=== PATIENT | female | born 1960 | race Caucasian/White ===

== ENCOUNTER 2016-05-09 15:52 | Observation (INO) | payer MEDICAID ==
[2016-05-08] MEDS: INSULIN NovoLIN REGULAR SUPPLEMENTAL SCALE SQ SCH (21:00)
[~2016-05-09] VITALS: Ht 152.4 cm; Wt 80.0 kg
[~2016-05-09 15:52] MED LIST: ASPI-147 PO; DIABETIC; LEVEMIR SQ; MAGN500T4 PO; PAXI20TA PO; POTA20TA5 PO; QUET1TAB8 PO; ZOLO50TA PO; [UNRECOGNIZED DRUG - REMARK]
[2016-05-09 15:56] VITALS: BP 110/71; PULSE 97; RESP 18; O2SAT 95
--- NOTE | 2016-05-09 16:07 | PD ---
HPI Chief Complaint: altered mental status Time Seen by Provider: 16:00 Travel History International Travel<30 days: No Contact w/Intl Traveler<30days: No Traveled to known affect area: No History of Present Illness HPI Middle aged patient was sitting at home in a chair with family member when she sudden slumped over and her face turned dusky. EMS was called. GCS score at the scene was 3. Patient had a pulse and blood pressure at that time. Patient was given oxygen and transported to the ED. Stroke alert was called by EMS prior to arrival. Upon arrival, patient has moaning and groaning and moves all extremity. Patient's unable to provide any information. Family members reported to EMS at the scene that patient has history of seizure. 1700 p.m. Patient's came. Patient originally states that she has history of seizure however she reinstated again that she does not have any history of seizure. Patient has history of anxiety, depression, atrial fibrillation, dyslipidemia, GERD, diabetes, neuropathy, hypothyroidism. Patient was witnessed having seizure activity by family member at home. [facility] Social History Tobacco Use: No Allergies-Medications (Allergen,Severity, Reaction): Coded Allergies: UNOBTAINABLE (Unverified , 05/09/16) Reported Meds & Prescriptions Reported Meds & Active Scripts Active Reported Humalog Inj (Insulin Human Lispro) 1,000 Unit/10 Ml Vial 32 Units SQ TIDAC Flexeril (Cyclobenzaprine HCl) 10 Mg Tab 10 Mg PO BID Bydureon Inj (Exenatide) 2 Mg Vial 2 Mg SQ Q7D Fenofibrate 145 Mg Tab 145 Mg PO HS Atorvastatin (Atorvastatin Calcium) 40 Mg Tab 40 Mg PO HS Levothyroxine (Levothyroxine Sodium) 75 Mcg Tab 75 Mcg PO DAILY Glipizide 10 Mg Tab 10 Mg PO BIDAC Take 30 minutes before a meal Paroxetine (Paroxetine HCl) 40 Mg Tab 40 Mg PO BID Quetiapine (Quetiapine Fumarate) 100 Mg Tab 100 Mg PO HS Potassium Chloride Microencaps 20 Meq Tab 40 Meq PO DAILY Magnesium 500 Mg Tab 500 Mg PO DAILY Levemir Inj (Insulin Detemir) 1,000 unit/ 10 ML Vial 25 Units SQ HS Do not mix with any other Insulin. Aspirin DR (Aspirin) 81 Mg Tabdr 81 Mg PO DAILY Review of Systems ROS Limitations: Altered Mental Status General / Constitutional: No: Fever Eyes: No: Visual changes HENT: No: Headaches Cardiovascular: No: Chest Pain or Discomfort Respiratory: No: Shortness of Breath Gastrointestinal: No: Abdominal Pain Genitourinary: No: Dysuria Musculoskeletal: No: Pain Skin: No Rash Neurologic: No: Weakness Psychiatric: No: Depression Endocrine: No: Polydipsia Hematologic/Lymphatic: No: Easy Bruising Physical Exam Narrative GENERAL: Well-nourished, well-developed patient. SKIN: Warm and dry. HEAD: Normocephalic. EYES: No scleral icterus. No injection or drainage. Pupil 4 mm equal reactive. NECK: Supple, trachea midline. No JVD or lymphadenopathy. CARDIOVASCULAR: Regular rate and rhythm without murmurs, gallops, or rubs. RESPIRATORY: Breath sounds equal bilaterally. No accessory muscle use. GASTROINTESTINAL: Abdomen soft, non-tender, nondistended. MUSCULOSKELETAL: No cyanosis, or edema. BACK: Nontender without obvious deformity. No CVA tenderness. Neurologic exam: Patient responded to pain stimuli. Patient has occasional moaning groaning and moves all extremity. No obvious focal neurological deficit. Deep tendon reflexes 2+ and equal. Negative Babinski. Data Data Last Documented VS Vital Signs Date Time Temp Pulse Resp B/P Pulse Ox O2 Delivery O2 Flow Rate FiO2 05/09/16 16:59 97 Nasal Cannula 2 05/09/16 16:59 104 18 99/59 Orders Electrocardiogram (05/09/16 16:01) Complete Blood Count With Diff (05/09/16 16:01) Comprehensive Metabolic Panel (05/09/16 16:01) Creatine Kinase (Cpk) (05/09/16 16:01) Troponin I (05/09/16 16:01) Prothrombin Time / Inr (Pt) (05/09/16 16:01) Act Partial Throm Time (Ptt) (05/09/16 16:01) Urinalysis - C+S If Indicated (05/09/16 16:01) Magnesium (Mg) (05/09/16 16:01) Thyroid Stimulating Hormone (05/09/16 16:01) Phosphorus (Po4) (05/09/16 16:01) Chest, Single Ap (05/09/16 16:01) Ct Brain W/O Iv Contrast(Rout) (05/09/16 16:01) Iv Access Insert/Monitor (3/16/17 16:01) Ecg Monitoring (05/09/16 16:01) Oximetry (05/09/16 16:01) Urinary Catheter Insert/Apply (05/09/16 16:01) Drug Screen, Random Urine (05/09/16 16:01) Alcohol (Ethanol) (05/09/16 16:01) Salicylates (Aspirin) (05/09/16 16:01) Tylenol (Acetaminophen) (05/09/16 16:01) Sodium Chlor 0.9% 1000 Ml Inj (Ns 1000 M (05/09/16 16:15) I-Stat Creatinine (05/09/16 16:00) I-Stat Profile (05/09/16 16:00) Ondansetron Inj (Zofran Inj) (05/09/16 16:45) CKMB (05/09/16 16:00) CKMB% (05/09/16 16:00) Eeg Study (05/09/16 ) Consult Neurology (05/09/16 ) Admit Order (Ed Use Only) (05/09/16 17:43) Labs Laboratory Tests Test 05/09/16 05/09/16 16:00 16:20 White Blood Count 18.2 TH/MM3 Red Blood Count 5.03 MIL/MM3 Hemoglobin 15.1 GM/DL Bedside Hemoglobin 16.0 G/DL Hematocrit 47.2 % Bedside Hematocrit 47.0 % Mean Corpuscular Volume 93.8 FL Mean Corpuscular Hemoglobin 30.0 PG Mean Corpuscular Hemoglobin 31.9 % Concent Red Cell Distribution Width 15.9 % Platelet Count 436 TH/MM3 Mean Platelet Volume 8.6 FL Neutrophils (%) (Auto) 51.5 % Lymphocytes (%) (Auto) 42.4 % Monocytes (%) (Auto) 4.7 % Eosinophils (%) (Auto) 1.0 % Basophils (%) (Auto) 0.4 % Neutrophils # (Auto) 9.3 TH/MM3 Lymphocytes # (Auto) 7.7 TH/MM3 Monocytes # (Auto) 0.9 TH/MM3 Eosinophils # (Auto) 0.2 TH/MM3 Basophils # (Auto) 0.1 TH/MM3 CBC Comment AUTO DIFF Differential Total Cells 100 Counted Neutrophils % (Manual) 56 % Band Neutrophils % 1 % Lymphocytes % 39 % Monocytes % 3 % Basophils % 1 % Neutrophils # (Manual) 10.4 TH/MM3 Differential Comment FINAL DIFF MANUAL Platelet Estimate NORMAL Platelet Morphology Comment NORMAL Erythrocyte Sedimentation Rate 7 mm/hr Prothrombin Time 10.9 SEC Prothromb Time International 1.0 RATIO Ratio Activated Partial 23.3 SEC Thromboplast Time Bedside Sodium 134 MMOL/L Sodium Level 134 MEQ/L Bedside Potassium 5.6 MMOL/L Potassium Level 5.3 MEQ/L Bedside Chloride 103 MMOL/L Chloride Level 99 MEQ/L Carbon Dioxide Level 11.9 MEQ/L Anion Gap 23 MEQ/L Bedside Blood Urea Nitrogen 15 MG/DL Blood Urea Nitrogen 11 MG/DL Creatinine 1.43 MG/DL Bedside Creatinine 0.9 MG/DL Estimat Glomerular Filtration 32 ML/MIN Rate Bedside Glucose 412 MG/DL Random Glucose 397 MG/DL Calcium Level 10.1 MG/DL Phosphorus Level 5.6 MG/DL Magnesium Level 1.5 MG/DL Total Bilirubin 0.6 MG/DL Aspartate Amino Transf 69 U/L (AST/SGOT) Alanine Aminotransferase 23 U/L (ALT/SGPT) Alkaline Phosphatase 78 U/L Total Creatine Kinase 268 U/L Creatine Kinase MB 1.6 NG/ML Creatine Kinase MB % 0.6 % Troponin I 0.02 NG/ML Total Protein 8.9 GM/DL Albumin 3.5 GM/DL Thyroid Stimulating Hormone 10.400 uIU/ML 3rd Gen Salicylates Level 2.0 MG/DL Acetaminophen Level LESS THAN 2.0 MCG/ML Ethyl Alcohol Level LESS THAN 3 MG/DL Urine Color YELLOW Urine Turbidity HAZY Urine pH 7.5 Urine Specific [place] 1.014 Urine Protein 30 mg/dL Urine Glucose (UA) 150 mg/dL Urine Ketones TRACE mg/dL Urine Occult Blood NEG Urine Nitrite NEG Urine Bilirubin NEG Urine Urobilinogen LESS THAN 2.0 MG/DL Urine Leukocyte Esterase NEG Urine RBC LESS THAN 1 /hpf Urine WBC 1 /hpf Urine Squamous Epithelial 1 /hpf Cells Urine Hyaline Casts 2 /lpf Urine Mucus FEW /lpf Microscopic Urinalysis Comment CULT NOT INDICATED Urine Opiates Screen NEG Urine Barbiturates Screen NEG Urine Amphetamines Screen NEG Urine Benzodiazepines Screen NEG Urine Cocaine Screen NEG Urine Cannabinoids Screen POS MDM Medical Decision Making Medical Screen Exam Complete: Yes Emergency Medical Condition: Yes Interpretation(s) Last Impressions Head CT 05/09/16 1601 Signed Impressions: Service Date/Time: April 16:33 - CONCLUSION: No acute disease. No evidence of acute infarct, hemorrhage, mass or edema. No evidence of extra-axial fluid collections. Hermelindo Segura MD Chest X-Ray 05/09/16 1601 Signed Impressions: Service Date/Time: , May 09, 2016 16:14 - CONCLUSION: No acute disease. Edi Borges MD Differential Diagnosis Differential diagnosis including seizure, TIA, CVA, electrolyte abnormality, dehydration, substance abuse. Narrative Course Middle aged female was found slumping over was sitting in a chair this afternoon. Normal saline solution [address] De León, neurologist came to see the patient. Diagnosis Primary Impression: Seizure Admitting Information Admitting Physician Requests: Admit Andrade Daley MD May 09, 2016 16:07
[2016-05-09] MEDS ORDERED: SODIUM CHLOR 0.9% 1000 ML INJ 1,000 ML IV SCH (16:15)
[2016-05-09 16:24] LABS: I-STAT POTASSIUM 5.6 MMOL/L (3.5-4.9)
[2016-05-09 16:37] LABS: APTT (PATIENT) 23.3 SEC (24.3-30.1); PROTHROMBIN TIME - PATIENT 10.9 SEC (9.8-11.6)
[2016-05-09] MEDS ORDERED: ONDANSETRON HCL 4 MG/2 ML VIAL IV PUSH ONE (16:45)
[2016-05-09 16:46] LABS: ANION GAP 23 MEQ/L (5-15); AST (GOT) 69 U/L (15-37); BICARBONATE 11.9 MEQ/L (21.0-32.0); BLOOD UREA NITROGEN 11 MG/DL (7-18); CHLORIDE 99 MEQ/L (98-107); GLOMERULAR FILTRATION RATE 32 ML/MIN (>89); MAGNESIUM 1.5 MG/DL (1.5-2.5); POTASSIUM 5.3 MEQ/L (3.5-5.1); SODIUM (NA) 134 MEQ/L (136-145)
--- NOTE | 2016-05-09 16:46 | RADRPT ---
EXAM DATE/TIME: 05/09/2016 16:33 [facility] COMPARISON: No previous studies available for comparison. INDICATIONS : Altered mental status; status-post seizure; postictal. RADIATION DOSE: 36.26 CTDIvol (mGy) MEDICAL HISTORY : Seizures. SURGICAL HISTORY : None. ENCOUNTER: Initial ACUITY: 1 day PAIN SCALE: Non-responsive LOCATION: cranial TECHNIQUE: Multiple contiguous axial images were obtained of the head. Using automated exposure control and adj ustment of the mA and/or kV according to patient size, radiation dose was kept as low as reasonably a chievable to obtain optimal diagnostic quality images. FINDINGS: CEREBRUM: The ventricles are normal for age. No evidence of midline shift, mass lesion, hemorrhage or acute in farction. No extra-axial fluid collections are seen. POSTERIOR FOSSA: The cerebellum and brainstem are intact. The 4th ventricle is midline. The cerebellopontine angle i s unremarkable. EXTRACRANIAL: The visualized portion of the orbits is intact. SKULL: The calvaria is intact. No evidence of skull fracture. CONCLUSION: No acute disease. No evidence of acute infarct, hemorrhage, mass or edema. No evidence of extra-axial fluid collections. Hermelindo Segura MD on May 09, 2016 at 16:44 Board Certified Radiologist. This report was verified electronically.
--- NOTE | 2016-05-09 16:47 | RADRPT ---
EXAM DATE/TIME: 05/09/2016 16:14 [facility] COMPARISON: No previous studies available for comparison. INDICATIONS : Short of breath MEDICAL HISTORY : None. SURGICAL HISTORY : None. ENCOUNTER: Initial ACUITY: 1 day PAIN SCORE: Non-responsive. LOCATION: chest FINDINGS: A single view of the chest demonstrates the lungs to be symmetrically aerated without evidence of mas s, infiltrate or effusion. The cardiomediastinal contours are unremarkable. Osseous structures are intact. CONCLUSION: No acute disease. Edi Borges MD on May 09, 2016 at 16:45 Board Certified Radiologist. This report was verified electronically.
[2016-05-09 16:52] LABS: BLOOD, URINE NEG (NEG); COMMENT (UR) CULT NOT INDICATED; CULTURE IF INDICATED CULT NOT INDICATED; GLUCOSE,URINE 150 mg/dL (NEG); HYALINE CAST, URINE 2 /lpf (RARE); KETONE, URINE TRACE mg/dL (NEG); MUCUS URINE FEW /lpf (OCC); NITRITE,URINE NEG (NEG); PH, URINE 7.5 (5.0-8.5); SQUAMOUS EPITHELIAL CELL URINE 1 /hpf (0-5); URINE COLOR YELLOW (YELLW/STRAW)
[2016-05-09 16:55] LABS: ALKALINE PHOSPHATASE 78 U/L (45-117); ALT (GPT) 23 U/L (10-53); AUTOMATED NEUTROPHIL # 9.3 TH/MM3 (1.8-7.7); BASOPHIL # 0.1 TH/MM3 (0-0.2); BASOPHIL % 0.4 % (0.0-2.0); CREATINE KINASE 268 U/L (26-192); EOSINOPHIL # 0.2 TH/MM3 (0-0.4); HEMATOCRIT 47.2 % (35.0-46.0); LYMPH % 42.4 % (9.0-44.0); LYMPHOCYTE # 7.7 TH/MM3 (1.0-4.8); MEAN CELL VOLUME 93.8 FL (80.0-100.0); MEAN CORPUSCULAR HGB CONC 31.9 % (32.0-36.0); MONO % 4.7 % (0.0-8.0); NEUT % 51.5 % (16.0-70.0); PLATELET COUNT 436 TH/MM3 (150-450); RED BLOOD COUNT 5.03 MIL/MM3 (4.00-5.30); RED CELL DISTRIBUTION WIDTH 15.9 % (11.6-17.2); TOTAL BILIRUBIN ADULT 0.6 MG/DL (0.2-1.0); WHITE BLOOD COUNT 18.2 TH/MM3 (4.0-11.0)
[2016-05-09 16:57] LABS: AMPHETAMINE, URINE NEG (NEG); BARBITURATES, URINE NEG (NEG); COCAINE, URINE NEG (NEG)
[2016-05-09 16:58] LABS: ACETAMINOPHEN LESS THAN 2.0 MCG/ML (10.0-30.0)
[2016-05-09 16:59] VITALS: BP 99/59; PULSE 104; RESP 18; O2SAT 97
[2016-05-09 17:11] LABS: HEMO FLAGS AUTO DIFF
[2016-05-09 17:18] LABS: CKMB 1.6 NG/ML (0.5-3.6)
[2016-05-09 17:47] LABS: BANDS 1 % (0-6); BASOPHILS 1 % (0-2); NEUTROPHIL # MANUAL DIFF 10.4 TH/MM3 (1.8-7.7); POLYS (SEG NEUTROPHILS) 56 % (16-70); WBC DIFF SAMPLE 100
[2016-05-09 17:48] LABS: PLATELET ESTIMATE SMEAR NORMAL (NORMAL); PLATELET MORPHOLOGY NORMAL (NORMAL); SCAN/DIFF FINAL DIFF MANUAL
[2016-05-09] MEDS ORDERED: BISACODYL 10 MG SUPP PR PRN (18:00)
[2016-05-09] MEDS ORDERED: ONDANSETRON HCL 4 MG/2 ML VIAL IVP PRN (18:00)
[2016-05-09] MEDS ORDERED: NALOXONE HCL 0.4 MG/ML AMP IV PRN (18:00)
[2016-05-09] MEDS ORDERED: SODIUM CHLORIDE 0.9% FLUSH 5 ML FLUSH FLUSH PRN (18:00)
[2016-05-09] MEDS ORDERED: METOCLOPRAMIDE HCL 10 MG/2 ML VIAL IV PUSH PRN (18:00)
--- NOTE | 2016-05-09 18:07 | HHI.HP ---
[facility] Service [facility] Primary Care Physician Admission Diagnosis one set seizure Diagnoses: Chief Complaint: Post ictal state Travel History International Travel<30 Days: No Contact w/Intl Traveler <30 Da: No Traveled to Known Affected Are: No History of Present Illness As per patient she is Kristin Yought This is a pleasant female patient who was sitting at home in a chair with family Member when she sudden slumped over and her face turned dusky, EMS called GCS score was 3, given oxygen and transferred to ED, Stroke alert called and the patient was moaning and groaning and moves all extremity. Patient's unable to provide any information initially she has history of Seizure disorder, has also Anxiety, depression, Atrial Fibrillation, Hyperlipidemia, GERD, DM II, Peripheral Neuropathy, Hypothyroidism . initially was lethargic in ER, likely post-ictal phenomenon seen by Neurology specialist, her blood glucose was over 400. heavy Tobacco dependence one and a half packs of cigarettes daily and also smokes Marijuana as per patient multiple times per week. Past Family Social History Past Medical History Anxiety Depression Atrial Fibrillation Hyperlipidemia GERD DM II Peripheral Neuropathy Hypothyroidism Past Surgical History Cholecystectomy C Section Reported Medications Reported Meds & Active Scripts Active Reported Humalog Inj (Insulin Human Lispro) 1,000 Unit/10 Ml Vial 32 Units SQ TIDAC Flexeril (Cyclobenzaprine HCl) 10 Mg Tab 10 Mg PO BID Bydureon Inj (Exenatide) 2 Mg Vial 2 Mg SQ Q7D Fenofibrate 145 Mg Tab 145 Mg PO HS Atorvastatin (Atorvastatin Calcium) 40 Mg Tab 40 Mg PO HS Levothyroxine (Levothyroxine Sodium) 75 Mcg Tab 75 Mcg PO DAILY Glipizide 10 Mg Tab 10 Mg PO BIDAC Take 30 minutes before a meal Paroxetine (Paroxetine HCl) 40 Mg Tab 40 Mg PO BID Quetiapine (Quetiapine Fumarate) 100 Mg Tab 100 Mg PO HS Potassium Chloride Microencaps 20 Meq Tab 40 Meq PO DAILY Magnesium 500 Mg Tab 500 Mg PO DAILY Levemir Inj (Insulin Detemir) 1,000 unit/ 10 ML Vial 25 Units SQ HS Do not mix with any other Insulin. Aspirin DR (Aspirin) 81 Mg Tabdr 81 Mg PO DAILY Allergies: Coded Allergies: UNOBTAINABLE (Unverified , 05/09/16) Active Ordered Medications Current Medications Medications (Trade) Dose Ordered Sig/Ephraim Route Start Time Stop Time Status Last Admin (NS 1000 ml Inj) 1,000 ml @ 125 mls/hr Q8H IV 05/09/16 16:15 05/09/16 16:44 (NS Flush) 2 ml UNSCH PRN FLUSH 05/09/16 18:00 (NS Flush) 2 ml BID FLUSH 05/09/16 21:00 (Tylenol) 650 mg Q4H PRN PO 05/09/16 18:00 (Zofran Inj) 4 mg Q6H PRN IVP 05/09/16 18:00 (Reglan Inj) 5 mg Q6H PRN IV PUSH 05/09/16 18:00 05/09/16 18:31 (Dulcolax Supp) 10 mg DAILY PRN MI 05/09/16 18:00 (Narcan Inj) 0.4 mg UNSCH PRN IV 05/09/16 18:00 Sodium Polystyrene Sulfonate 30 gm 30 gm ONCE ONCE MI 05/09/16 20:00 05/09/16 20:01 (Keppra Inj/NS Inj) 105 ml @ 420 mls/hr Q12HR IV 05/09/16 20:00 Family History Do not know she is Adopted. Social History Lives with , Son, Smokes one pack and half of Cigarettes, do not drink alcohol but abuse Marijuana. Physical Exam Vital Signs Vital Signs Date Time Temp Pulse Resp B/P Pulse Ox O2 Delivery O2 Flow Rate FiO2 05/09/16 16:59 97 Nasal Cannula 2 05/09/16 16:59 104 18 99/59 05/09/16 16:03 101 20 95 Room Air 05/09/16 15:56 97 18 110/71 95 Physical Exam GENERAL: Obese patient in no acute distress. SKIN: Warm and dry. HEAD: Normocephalic. EYES: No scleral icterus. No injection or drainage. Pupil 4 mm equal reactive. NECK: Supple, trachea midline. No JVD or lymphadenopathy. CARDIOVASCULAR: Regular rate and rhythm without murmurs, gallops, or rubs. RESPIRATORY: Breath sounds equal bilaterally. No accessory muscle use. GASTROINTESTINAL: Abdomen soft, non-tender, nondistended. MUSCULOSKELETAL: No cyanosis, or edema. BACK: Nontender without obvious deformity. No CVA tenderness. Neurologic exam: Patient responded to pain stimuli. Patient has occasional moaning groaning and moves all extremity. No obvious focal neurological deficit. Deep tendon reflexes 2+ and equal. Negative Babinski. Laboratory Laboratory Tests Test 05/09/16 05/09/16 16:00 16:20 White Blood Count 18.2 Red Blood Count 5.03 Hemoglobin 15.1 Bedside Hemoglobin 16.0 Hematocrit 47.2 Bedside Hematocrit 47.0 Mean Corpuscular Volume 93.8 Mean Corpuscular Hemoglobin 30.0 Mean Corpuscular Hemoglobin 31.9 Concent Red Cell Distribution Width 15.9 Platelet Count 436 Mean Platelet Volume 8.6 Neutrophils (%) (Auto) 51.5 Lymphocytes (%) (Auto) 42.4 Monocytes (%) (Auto) 4.7 Eosinophils (%) (Auto) 1.0 Basophils (%) (Auto) 0.4 Neutrophils # (Auto) 9.3 Lymphocytes # (Auto) 7.7 Monocytes # (Auto) 0.9 Eosinophils # (Auto) 0.2 Basophils # (Auto) 0.1 CBC Comment AUTO DIFF Differential Total Cells 100 Counted Neutrophils % (Manual) 56 Band Neutrophils % 1 Lymphocytes % 39 Monocytes % 3 Basophils % 1 Neutrophils # (Manual) 10.4 Differential Comment FINAL DIFF MANUAL Platelet Estimate NORMAL Platelet Morphology Comment NORMAL Prothrombin Time 10.9 Prothromb Time International 1.0 Ratio Activated Partial 23.3 Thromboplast Time Bedside Sodium 134 Sodium Level 134 Bedside Potassium 5.6 Potassium Level 5.3 Bedside Chloride 103 Chloride Level 99 Carbon Dioxide Level 11.9 Anion Gap 23 Bedside Blood Urea Nitrogen 15 Blood Urea Nitrogen 11 Creatinine 1.43 Bedside Creatinine 0.9 Estimat Glomerular Filtration 32 Rate Bedside Glucose 412 Random Glucose 397 Calcium Level 10.1 Phosphorus Level 5.6 Magnesium Level 1.5 Total Bilirubin 0.6 Aspartate Amino Transf 69 (AST/SGOT) Alanine Aminotransferase 23 (ALT/SGPT) Alkaline Phosphatase 78 Total Creatine Kinase 268 Creatine Kinase MB 1.6 Creatine Kinase MB % 0.6 Troponin I 0.02 Total Protein 8.9 Albumin 3.5 Thyroid Stimulating Hormone 10.400 3rd Gen Salicylates Level 2.0 Acetaminophen Level LESS THAN 2.0 Ethyl Alcohol Level LESS THAN 3 Urine Color YELLOW Urine Turbidity HAZY Urine pH 7.5 Urine Specific [place] 1.014 Urine Protein 30 Urine Glucose (UA) 150 Urine Ketones TRACE Urine Occult Blood NEG Urine Nitrite NEG Urine Bilirubin NEG Urine Urobilinogen LESS THAN 2.0 Urine Leukocyte Esterase NEG Urine RBC LESS THAN 1 Urine WBC 1 Urine Squamous Epithelial 1 Cells Urine Hyaline Casts 2 Urine Mucus FEW Microscopic Urinalysis Comment CULT NOT INDICATED Urine Opiates Screen NEG Urine Barbiturates Screen NEG Urine Amphetamines Screen NEG Urine Benzodiazepines Screen NEG Urine Cocaine Screen NEG Urine Cannabinoids Screen POS Result Diagram: 05/09/16 1600 05/09/16 1600 Imaging Last Impressions Head CT 05/09/16 1601 Signed Impressions: Service Date/Time: , May 09, 2016 16:33 - CONCLUSION: No acute disease. No evidence of acute infarct, hemorrhage, mass or edema. No evidence of extra-axial fluid collections. Hermelindo Segura MD Chest X-Ray 05/09/16 1601 Signed Impressions: Service Date/Time: April 16:14 - CONCLUSION: No acute disease. Edi Borges MD Assessment and Plan Assessment and Plan 1. Seizure disorder status post Neurology specialist consult recommended to get EEG, Keppra 500 mg BID, change to by mouth once nausea, improves. Hydration. PT, OT and Speech Therapy. DC in am as per Neurology specialist. 2. Hypothyroidism with elevated TSH, suspected non medical compliance. 3. Obesity strongly recommended diet and exercise. 4. DM II uncontrolled started on sliding scale, long lasting insulin patient not eating at this time. 5. Chronic Pain syndrome 6. Peripheral Neuropathy secondary to DM II. continue home medicines. 7. Hyperkalemia given one dose of Kayexalate. 8. Severe tobacco dependence, marijuana abuse strongly recommended to stop smoking. Discussed with Patient in the room Discussed with ER specialist Doctor Andrade ricketts. Code Status Full Code Discussed Condition With Patient and ER specialist. Physician Certification 2 Midnight Certification Type: Admission for Inpatient Services Order for Inpatient Services The services are ordered in accordance with Medicare regulations or non- Medicare payer requirements, as applicable. In the case of services not specified as inpatient-only, they are appropriately provided as inpatient services in accordance with the 2-midnight benchmark. Estimated LOS (days): 1 days is the estimated time the patient will need to remain in the hospital, assuming treatment plan goals are met and no additional complications. Post-Hospital Plan: Home Gary Vega MD May 09, 2016 18:07
--- NOTE | 2016-05-09 18:14 | PD.CONS ---
History of Present Illness Service Neurology Consult Requested By er Reason for Consult confusion Primary Care Physician History of Present Illness EMS was called by family for sz activity. GCS score at the scene was 3. Patient had a pulse and blood pressure at that time. Patient was given oxygen and transported to the ED. Stroke alert was called by EMS prior to arrival. Upon arrival, patient has moaning and groaning and moves all extremity. Family members reported to EMS at the scene that patient has history of seizure. Patient was witnessed having seizure activity by family member at home. spouse at bedside, states his son saw it described as convulsions. her exam was non-localizing and her level of alertness improved in the er; further the description of sz at onset suggested her lethargic state was likely a post-ictal phenomenon. thus she was not considered a tpa candidate. glucose 397, ct brain naicp, elevated tsh. no fever bp 110/71. uds + mj. in renal failure which has improved. she apparently has had sz's in the past. she wasn't clear if she was taking a medication or not. has not been eating well the past few days and has been having emesis. hx of chronic pain. he states she is on "20 meds". she is on disability and ambulates with a walker. +n/v, + mild abdominal pain. no hines, no cp. she is able to speak but is uncomfortable 2/2 nausea. PMHX: history of anxiety, depression, atrial fibrillation, dyslipidemia, GERD, diabetes, neuropathy, hypothyroidism. Allergies-Medications (Allergen,Severity, Reaction): Coded Allergies: UNOBTAINABLE (Unverified , 05/09/16) Review of Systems ROS Limitations: 10 point negative, rest as above Review of Systems All other ROS: ROS reviewed as documented in chart Past Family Social History Allergies: Coded Allergies: UNOBTAINABLE (Unverified , 05/09/16) Active Ordered Medications Current Medications Medications (Trade) Dose Ordered Sig/Ephraim Route Start Time Stop Time Status Last Admin (NS 1000 ml Inj) 1,000 ml @ 100 mls/hr Q10H IV 05/09/16 16:15 05/09/16 16:44 Exam I&O / VS Vital Signs Date Time Temp Pulse Resp B/P Pulse Ox O2 Delivery O2 Flow Rate FiO2 05/09/16 16:59 97 Nasal Cannula 2 05/09/16 16:59 104 18 99/59 05/09/16 16:03 101 20 95 Room Air 05/09/16 15:56 97 18 110/71 95 General: Mild distress Eye: EOMI Respiratory: Non-labored respirations Cardiology: Normal rate Musculoskeletal: ROM Neurologic: Alert, Oriented, Normal motor, CN II-XII intact, Normal DTR's Psychiatric: Cooperative, Appropriate mood & affect Exam Comments alert, ox 3. follows, in mild distress 2/2 n/v. eomi, vff, face sym, no drift, le stocking reduced pin(chronic), msr depressed no clonus, planter flexor Review/Management Diagnosis/Plan: (1) Seizure Plan: ? metabolic vs epileptic recs eeg keppra 500mg bid- change to po once nausea improves hydration p.t. elevated tsh, hyperglycemia, electrolyte changes per medical d/c planning in am from neuro exercise/wt loss no driving/swimming/climbing heights (2) DM neuropathies (3) Chronic pain (4) Hyperglycemia Problem Qualifiers (1) DM neuropathies: (2) Chronic pain: Qualified Code: G89.4 - Chronic pain syndrome Rickey De León MD May 09, 2016 18:14 Rickey De León MD May 09, 2016 18:14
[2016-05-09] MEDS ORDERED: MAGN500T4 PO (18:31)
[2016-05-09] MEDS ORDERED: LEVEMIR SQ (18:31)
[2016-05-09] MEDS ORDERED: QUET1TAB8 PO (18:31)
[2016-05-09] MEDS ORDERED: ASPI81TA5 PO (18:31)
[2016-05-09] MEDS ORDERED: SERT-132 PO (18:31)
[2016-05-09] MEDS ORDERED: POTA20TA5 PO (18:31)
[2016-05-09] MEDS ORDERED: LEVO75TA3 PO (18:49)
[2016-05-09] MEDS ORDERED: HUMALOG SQ (18:49)
[2016-05-09] MEDS ORDERED: EXENINJ SQ (18:49)
[2016-05-09] MEDS ORDERED: PARO40TA2 PO (18:49)
[2016-05-09] MEDS ORDERED: FENO145T2 PO (18:49)
[2016-05-09] MEDS ORDERED: GLIP10TA6 PO (18:49)
[2016-05-09] MEDS ORDERED: ATOR40TA16 PO (18:49)
[2016-05-09] MEDS ORDERED: CYCL1TAB29 PO (18:49)
--- NOTE | 2016-05-09 19:23 | RADRPT ---
EXAM DATE/TIME: 05/09/2016 18:40 [facility] COMPARISON: No previous studies available for comparison. INDICATIONS : Cerebrovascular accident. MEDICAL HISTORY : Diabetes mellitus type 2. Gastroesophageal reflux disease. Hypothyroidism. Seizures. Anxiety. Depress ion. Afib. Hyperlipidemia. Peripheral neuropathy. SURGICAL HISTORY : No known previous surgical history. ENCOUNTER: Initial ACUITY: 1 day PAIN SCORE: 0/10 LOCATION: Bilateral neck PEAK SYSTOLIC VELOCITIES (cm/sec): ICA/CCA RATIO: Right: 0.6 Left: 0.8 ICA: Right: 46 Left: 52 CCA: Right: 72 Left: 66 ECA: Right: 92 Left: 82 VERTEBRAL: Right: 53 antegrade Left: 25 antegrade Elevated flow velocities and ICA/CCA ratios have been found to correlate with increased degrees of vessel stenosis, calculated as percentage of diameter relative to a normal segment of distal ICA/CCA FINDINGS: RIGHT CAROTID: Mild plaque seen at the bulb and proximal internal carotid artery. LEFT CAROTID: Mild plaque seen within the bulb and proximal internal carotid artery. VERTEBRAL ARTERIES: Antegrade flow is seen in both vertebral arteries. MISCELLANEOUS: None. CONCLUSION: Mild atherosclerotic plaque of both carotid bifurcations. No significant narrowing. Edi Beard MD on May 09, 2016 at 19:20 Board Certified Radiologist. This report was verified electronically.
[2016-05-09 20:00] VITALS: PULSE 110
[2016-05-09] MEDS: levETIRAcetam 500 MG/NS 100 ML IV SCH ×2 (20:00)
[2016-05-09] MEDS ORDERED: levETIRAcetam 500MG PREMIX INJ 100 ML IV SCH (20:00)
[2016-05-09] MEDS ORDERED: SODIUM POLYSTYRENE SULFONATE SUSP 15 GM/60 ML CUP PR ONE (20:00)
[2016-05-09 20:02] VITALS: BP 98/67; PULSE 104; RESP 16; TEMP 97.6; O2SAT 97
[2016-05-09] MEDS ORDERED: DEXTROSE 50% IN WATER 50 ML VIAL(D50) IV PUSH PRN (20:30)
[2016-05-09] MEDS ORDERED: GLUCAGON 1 MG/ML VIAL OTHER PRN (20:30)
[2016-05-09] MEDS: ATORVASTATIN 40 MG TAB PO SCH (21:00)
[2016-05-09] MEDS: PARoxetine HCL 20 MG TAB PO SCH (21:00)
[2016-05-09] MEDS: FENOFIBRATE 145 MG TAB PO SCH (21:00)
[2016-05-09] MEDS: QUEtiapine FUMARATE 100 MG TAB PO SCH (21:00)
[2016-05-09] MEDS: INSULIN DETEMIR 100 UNITS/ML VIAL SQ SCH (21:00)
[2016-05-09] MEDS: SODIUM CHLORIDE 0.9% FLUSH 5 ML FLUSH FLUSH SCH (21:00)
[2016-05-09] MEDS: CYCLOBENZAPRINE HCL 10 MG TAB PO SCH (21:00)
[2016-05-10] VITALS (15 sets, daily range): BP systolic 90–121; BP diastolic 50–80; PULSE 87–105; RESP 16–20; TEMP 96.9–98.3; O2SAT 92–97
[2016-05-10 01:11] LABS: HDL CHOLESTEROL 40.3 MG/DL (40.0-60.0); LDL CHOLESTEROL 98 MG/DL (0-99)
[2016-05-10] MEDS ORDERED: ENOXAPARIN SODIUM 80 MG/0.8 ML SYRINGE SQ ONE (02:30)
[2016-05-10] MEDS: LEVOTHYROXINE SODIUM 100 MCG VIAL IV PUSH SCH (05:40)
[2016-05-10] MEDS: INSULIN NovoLIN REGULAR SUPPLEMENTAL SCALE SQ SCH ×4 (06:22→21:00)
--- NOTE | 2016-05-10 08:05 | HHI.PR ---
Review/Management Diagnosis/Plan: (1) Seizure Plan: ? metabolic vs epileptic recs looks better today ? mildly elevated trop eeg-pending mri/mra pending will give short course of lactulose for hyperammonemia keppra 500mg bid- change to po once nausea improves hydration p.t. elevated tsh, hyperglycemia, electrolyte changes per medical exercise/wt loss no driving/swimming/climbing heights (2) DM neuropathies (3) Chronic pain (4) Hyperglycemia Subjective Subjective Comments No acute events reported; no n/v No headache No chest pain No dyspnea Active Medications Current Medications Medications (Trade) Dose Ordered Sig/Ephraim Route Start Time Stop Time Status Last Admin (NS 1000 ml Inj) 1,000 ml @ 125 mls/hr Q8H IV 05/09/16 16:15 05/09/16 16:44 (NS Flush) 2 ml UNSCH PRN FLUSH 05/09/16 18:00 (NS Flush) 2 ml BID FLUSH 05/09/16 21:00 05/09/16 21:00 (Tylenol) 650 mg Q4H PRN PO 05/09/16 18:00 (Zofran Inj) 4 mg Q6H PRN IVP 05/09/16 18:00 (Reglan Inj) 5 mg Q6H PRN IV PUSH 05/09/16 18:00 05/09/16 18:31 (Dulcolax Supp) 10 mg DAILY PRN [place] 05/09/16 18:00 Naloxone HCl 0.4 mg 0.4 mg UNSCH PRN IV 05/09/16 18:00 (Keppra Inj/NS Inj) 105 ml @ 420 mls/hr Q12HR IV 05/09/16 20:00 05/09/16 20:00 (Lipitor) 40 mg HS PO 05/09/16 21:00 05/09/16 21:00 (Flexeril) 10 mg BID PO 05/09/16 21:00 05/09/16 21:00 (Tricor) 145 mg HS PO 05/09/16 21:00 05/09/16 21:00 (Paxil) 40 mg BID PO 05/09/16 21:00 05/09/16 21:00 (SEROquel) 100 mg HS PO 05/09/16 21:00 05/09/16 21:00 (Synthroid Inj) 50 mcg DAILY@06 IV PUSH 05/10/16 06:00 05/10/16 05:40 (Levemir Inj) 15 units HS SQ 05/09/16 21:00 05/09/16 21:00 (Mag-Ox) 400 mg DAILY PO 05/10/16 09:00 (D50w (Vial) Inj) 25 ml UNSCH PRN IV PUSH 05/09/16 20:30 (Glucagon Inj) 1 mg UNSCH PRN OTHER 05/09/16 20:30 Allergies Allergies Coded Allergies UNOBTAINABLE (Unverified05/09/16) Review of Systems All other ROS: ROS reviewed as documented in chart Exam I&O / VS 05/09/16 05/09/16 05/10/16 15:00 23:00 07:00 # Voids 5 # Bowel Movements 0 Vital Signs Date Time Temp Pulse Resp B/P Pulse Ox O2 Delivery O2 Flow Rate FiO2 05/10/16 04:00 97.6 96 18 90/59 95 05/10/16 00:00 97.4 105 16 98/50 92 05/09/16 20:02 97.6 104 16 98/67 97 05/09/16 20:00 110 05/09/16 16:59 97 Nasal Cannula 2 05/09/16 16:59 104 18 99/59 05/09/16 16:03 101 20 95 Room Air 05/09/16 15:56 97 18 110/71 95 General: Mild distress Eye: EOMI Respiratory: Non-labored respirations Cardiology: Normal rate Musculoskeletal: ROM Neurologic: Alert, Oriented, Normal motor, CN II-XII intact, Normal DTR's Psychiatric: Cooperative, Appropriate mood & affect Exam Comments alert, ox 2-3. not to exact date, follows, looks comfortable, pres: "oh no, not him, Trump" last pres: "Obama". "my pcp is on lpga". eomi, vff, face sym, no drift, le stocking reduced pin(chronic), msr depressed no clonus, planter flexor Objective Micro and Labs Laboratory Tests Test 05/09/16 05/09/16 05/10/16 16:00 16:20 00:05 White Blood Count 18.2 Red Blood Count 5.03 Hemoglobin 15.1 Bedside Hemoglobin 16.0 Hematocrit 47.2 Bedside Hematocrit 47.0 Mean Corpuscular Volume 93.8 Mean Corpuscular Hemoglobin 30.0 Mean Corpuscular Hemoglobin 31.9 Concent Red Cell Distribution Width 15.9 Platelet Count 436 Mean Platelet Volume 8.6 Neutrophils (%) (Auto) 51.5 Lymphocytes (%) (Auto) 42.4 Monocytes (%) (Auto) 4.7 Eosinophils (%) (Auto) 1.0 Basophils (%) (Auto) 0.4 Neutrophils # (Auto) 9.3 Lymphocytes # (Auto) 7.7 Monocytes # (Auto) 0.9 Eosinophils # (Auto) 0.2 Basophils # (Auto) 0.1 CBC Comment AUTO DIFF Differential Total Cells 100 Counted Neutrophils % (Manual) 56 Band Neutrophils % 1 Lymphocytes % 39 Monocytes % 3 Basophils % 1 Neutrophils # (Manual) 10.4 Differential Comment FINAL DIFF MANUAL Platelet Estimate NORMAL Platelet Morphology Comment NORMAL Erythrocyte Sedimentation Rate 7 Prothrombin Time 10.9 Prothromb Time International 1.0 Ratio Activated Partial 23.3 Thromboplast Time Bedside Sodium 134 Sodium Level 134 Bedside Potassium 5.6 Potassium Level 5.3 Bedside Chloride 103 Chloride Level 99 Carbon Dioxide Level 11.9 Anion Gap 23 Bedside Blood Urea Nitrogen 15 Blood Urea Nitrogen 11 Creatinine 1.43 Bedside Creatinine 0.9 Estimat Glomerular Filtration 32 Rate Bedside Glucose 412 Random Glucose 397 Calcium Level 10.1 Phosphorus Level 5.6 Magnesium Level 1.5 Total Bilirubin 0.6 Aspartate Amino Transf 69 (AST/SGOT) Alanine Aminotransferase 23 (ALT/SGPT) Alkaline Phosphatase 78 Total Creatine Kinase 268 Creatine Kinase MB 1.6 Creatine Kinase MB % 0.6 Troponin I 0.02 1.29 Total Protein 8.9 Albumin 3.5 Thyroid Stimulating Hormone 10.400 3rd Gen Salicylates Level 2.0 Acetaminophen Level LESS THAN 2.0 Ethyl Alcohol Level LESS THAN 3 Urine Color YELLOW Urine Turbidity HAZY Urine pH 7.5 Urine Specific [place] 1.014 Urine Protein 30 Urine Glucose (UA) 150 Urine Ketones TRACE Urine Occult Blood NEG Urine Nitrite NEG Urine Bilirubin NEG Urine Urobilinogen LESS THAN 2.0 Urine Leukocyte Esterase NEG Urine RBC LESS THAN 1 Urine WBC 1 Urine Squamous Epithelial 1 Cells Urine Hyaline Casts 2 Urine Mucus FEW Microscopic Urinalysis Comment CULT NOT INDICATED Urine Opiates Screen NEG Urine Barbiturates Screen NEG Urine Amphetamines Screen NEG Urine Benzodiazepines Screen NEG Urine Cocaine Screen NEG Urine Cannabinoids Screen POS Ammonia 49 Triglycerides Level 277 Cholesterol Level 194 LDL Cholesterol 98 HDL Cholesterol 40.3 Cholesterol/HDL Ratio 4.81 Vitamin B12 Level 275 Date/Time Procedure Status Source Growth 05/10/16 00:05 Aerobic Blood Culture Received Blood Peripheral Pending 05/10/16 00:05 Anaerobic Blood Culture Received Blood Peripheral Pending Problem Qualifiers (1) DM neuropathies: (2) Chronic pain: Qualified Code: G89.4 - Chronic pain syndrome Rickey De León MD May 10, 2016 08:05
[2016-05-10 08:32] LABS: AUTOMATED NEUTROPHIL # 11.4 TH/MM3 (1.8-7.7); BASOPHIL # 0.1 TH/MM3 (0-0.2); BASOPHIL % 0.4 % (0.0-2.0); EOSINOPHIL % 0.2 % (0.0-4.0); HEMATOCRIT 37.1 % (35.0-46.0); HEMO FLAGS DIFF FINAL; LYMPH % 20.8 % (9.0-44.0); LYMPHOCYTE # 3.2 TH/MM3 (1.0-4.8); MEAN CELL VOLUME 89.6 FL (80.0-100.0); MEAN CORPUSCULAR HGB CONC 33.5 % (32.0-36.0); MONO % 5.2 % (0.0-8.0); NEUT % 73.4 % (16.0-70.0); PLATELET COUNT 331 TH/MM3 (150-450); RED BLOOD COUNT 4.14 MIL/MM3 (4.00-5.30); RED CELL DISTRIBUTION WIDTH 15.1 % (11.6-17.2); WHITE BLOOD COUNT 15.5 TH/MM3 (4.0-11.0)
[2016-05-10] MEDS ORDERED: MAGNESIUM 500 MG PO SCH (09:00)
[2016-05-10] MEDS: MAGNESIUM OXIDE 400 MG TAB PO SCH (09:04)
[2016-05-10 09:05] LABS: BICARBONATE 22.9 MEQ/L (21.0-32.0)
[2016-05-10] MEDS: PARoxetine HCL 20 MG TAB PO SCH ×2 (09:05→23:06)
[2016-05-10] MEDS: CYCLOBENZAPRINE HCL 10 MG TAB PO SCH ×2 (09:05→23:08)
[2016-05-10] MEDS: levETIRAcetam 500 MG/NS 100 ML IV SCH ×4 (09:05→23:50)
[2016-05-10 09:11] LABS: POTASSIUM 2.6 MEQ/L (3.5-5.1)
--- NOTE | 2016-05-10 09:18 | PD.CONS ---
HPI Service CV Consult Requested By Reason for Consult elevated troponin Primary Care Physician Non-Staff History of Present Illness WF who appears to be in her 50's who reports no prior cardiac history was admitted yesterday for a witnessed seizure. She apparently had sudden LOC at home and slumped forward in chair. She was emergently brought to ED and was determined to be in post-ictal state. Patient has no memory of these events and only recalls waking up in the hospital. She denies history of seizure. Troponin was found to be elevated (1.29). She is a 1ppd smoker and has hx of high cholesterol. Currently she is awake and alert; denies chest pain, SOB or palpitation. (Melinda Pereira) Review of Systems Consitutional: DENIES: Fever, Chills, Weight gain Respiratory: DENIES: Shortness of breath, Wheezing, Sputum production Cardiovascular: DENIES: Chest pain, Palpitations Gastrointestinal: DENIES: Nausea, Vomiting, Change in bowel habits, Reflux, Bloody stools, Melena (Melinda Pereira) Past Family Social History Allergies: Coded Allergies: UNOBTAINABLE (Unverified , 05/09/16) Past Medical History Anxiety Depression Atrial Fibrillation Hyperlipidemia GERD DM II Peripheral Neuropathy Hypothyroidism Past Surgical History Cholecystectomy C Section Reported Medications Humalog Inj (Insulin Human Lispro) 1,000 Unit/10 Ml Vial 32 Units SQ TIDAC Flexeril (Cyclobenzaprine HCl) 10 Mg Tab 10 Mg PO BID Bydureon Inj (Exenatide) 2 Mg Vial 2 Mg SQ Q7D Fenofibrate 145 Mg Tab 145 Mg PO HS Atorvastatin (Atorvastatin Calcium) 40 Mg Tab 40 Mg PO HS Levothyroxine (Levothyroxine Sodium) 75 Mcg Tab 75 Mcg PO DAILY Glipizide 10 Mg Tab 10 Mg PO BIDAC Take 30 minutes before a meal Paroxetine (Paroxetine HCl) 40 Mg Tab 40 Mg PO BID Quetiapine (Quetiapine Fumarate) 100 Mg Tab 100 Mg PO HS Potassium Chloride Microencaps 20 Meq Tab 40 Meq PO DAILY Magnesium 500 Mg Tab 500 Mg PO DAILY Levemir Inj (Insulin Detemir) 1,000 unit/ 10 ML Vial 25 Units SQ HS Do not mix with any other Insulin. Aspirin DR (Aspirin) 81 Mg Tabdr 81 Mg PO DAILY Active Ordered Medications Current Medications Medications (Trade) Dose Ordered Sig/Ephraim Route Start Time Stop Time Status Last Admin (NS 1000 ml Inj) 1,000 ml @ 125 mls/hr Q8H IV 05/09/16 16:15 05/09/16 16:44 (NS Flush) 2 ml UNSCH PRN FLUSH 05/09/16 18:00 (NS Flush) 2 ml BID FLUSH 05/09/16 21:00 05/09/16 21:00 (Tylenol) 650 mg Q4H PRN PO 05/09/16 18:00 (Zofran Inj) 4 mg Q6H PRN IVP 05/09/16 18:00 (Reglan Inj) 5 mg Q6H PRN IV PUSH 05/09/16 18:00 05/09/16 18:31 (Dulcolax Supp) 10 mg DAILY PRN [place] 05/09/16 18:00 Naloxone HCl 0.4 mg 0.4 mg UNSCH PRN IV 05/09/16 18:00 (Keppra Inj/NS Inj) 105 ml @ 420 mls/hr Q12HR IV 05/09/16 20:00 05/09/16 20:00 (Lipitor) 40 mg HS PO 05/09/16 21:00 05/09/16 21:00 (Flexeril) 10 mg BID PO 05/09/16 21:00 05/09/16 21:00 (Tricor) 145 mg HS PO 05/09/16 21:00 05/09/16 21:00 (Paxil) 40 mg BID PO 05/09/16 21:00 05/09/16 21:00 (SEROquel) 100 mg HS PO 05/09/16 21:00 05/09/16 21:00 (Synthroid Inj) 50 mcg DAILY@06 IV PUSH 05/10/16 06:00 05/10/16 05:40 (Levemir Inj) 15 units HS SQ 05/09/16 21:00 05/09/16 21:00 (Mag-Ox) 400 mg DAILY PO 05/10/16 09:00 (D50w (Vial) Inj) 25 ml UNSCH PRN IV PUSH 05/09/16 20:30 (Glucagon Inj) 1 mg UNSCH PRN OTHER 05/09/16 20:30 (Lactulose Liq) 10 ml Q12H PO 05/10/16 08:00 05/11/16 18:00 Family History non-contributory Social History 1ppd smoker, + marijuana use (Melinda Pereira) Physical Exam Vital Signs Vital Signs Date Time Temp Pulse Resp B/P Pulse Ox O2 Delivery O2 Flow Rate FiO2 05/10/16 08:00 96.9 97 16 96/67 94 05/10/16 04:00 97.6 96 18 90/59 95 05/10/16 00:00 97.4 105 16 98/50 92 05/09/16 20:02 97.6 104 16 98/67 97 05/09/16 20:00 110 05/09/16 16:59 97 Nasal Cannula 2 05/09/16 16:59 104 18 99/59 05/09/16 16:03 101 20 95 Room Air 05/09/16 15:56 97 18 110/71 95 Physical Exam HEAD: Atraumatic. Normocephalic. EYES: Pupils equal and round. . ENT: No nasal bleeding or discharge.t. NECK: Trachea midline. No JVD. CARDIOVASCULAR: Regular rate and rhythm. No murmurs RESPIRATORY: No accessory muscle use. Clear to auscultation. Breath sounds equal bilaterally. GASTROINTESTINAL: Abdomen soft, non-tender, nondistended. ble. MUSCULOSKELETAL: Extremities without clubbing, cyanosis, or edema. No obvious deformities. NEUROLOGICAL: Awake and alert. No obvious cranial nerve deficits.. Normal speech. PSYCHIATRIC: Appropriate mood and affect; insight and judgment normal. Laboratory Laboratory Tests Test 05/09/16 05/09/16 05/10/16 05/10/16 16:00 16:20 00:05 07:51 White Blood Count 18.2 15.5 Red Blood Count 5.03 4.14 Hemoglobin 15.1 12.4 Bedside Hemoglobin 16.0 Hematocrit 47.2 37.1 Bedside Hematocrit 47.0 Mean Corpuscular Volume 93.8 89.6 Mean Corpuscular Hemoglobin 30.0 30.0 Mean Corpuscular Hemoglobin 31.9 33.5 Concent Red Cell Distribution Width 15.9 15.1 Platelet Count 436 331 Mean Platelet Volume 8.6 8.4 Neutrophils (%) (Auto) 51.5 73.4 Lymphocytes (%) (Auto) 42.4 20.8 Monocytes (%) (Auto) 4.7 5.2 Eosinophils (%) (Auto) 1.0 0.2 Basophils (%) (Auto) 0.4 0.4 Neutrophils # (Auto) 9.3 11.4 Lymphocytes # (Auto) 7.7 3.2 Monocytes # (Auto) 0.9 0.8 Eosinophils # (Auto) 0.2 0.0 Basophils # (Auto) 0.1 0.1 CBC Comment AUTO DIFF DIFF FINAL Differential Total Cells 100 Counted Neutrophils % (Manual) 56 Band Neutrophils % 1 Lymphocytes % 39 Monocytes % 3 Basophils % 1 Neutrophils # (Manual) 10.4 Differential Comment FINAL DIFF MANUAL Platelet Estimate NORMAL Platelet Morphology Comment NORMAL Erythrocyte Sedimentation Rate 7 Prothrombin Time 10.9 Prothromb Time International 1.0 Ratio Activated Partial 23.3 Thromboplast Time Bedside Sodium 134 Sodium Level 134 Bedside Potassium 5.6 Potassium Level 5.3 Bedside Chloride 103 Chloride Level 99 Carbon Dioxide Level 11.9 Anion Gap 23 Bedside Blood Urea Nitrogen 15 Blood Urea Nitrogen 11 Creatinine 1.43 Bedside Creatinine 0.9 Estimat Glomerular Filtration 32 Rate Bedside Glucose 412 Random Glucose 397 Calcium Level 10.1 Phosphorus Level 5.6 Magnesium Level 1.5 Total Bilirubin 0.6 Aspartate Amino Transf 69 (AST/SGOT) Alanine Aminotransferase 23 (ALT/SGPT) Alkaline Phosphatase 78 Total Creatine Kinase 268 Creatine Kinase MB 1.6 Creatine Kinase MB % 0.6 Troponin I 0.02 1.29 Total Protein 8.9 Albumin 3.5 Thyroid Stimulating Hormone 10.400 3rd Gen Salicylates Level 2.0 Acetaminophen Level LESS THAN 2.0 Ethyl Alcohol Level LESS THAN 3 Urine Color YELLOW Urine Turbidity HAZY Urine pH 7.5 Urine Specific [place] 1.014 Urine Protein 30 Urine Glucose (UA) 150 Urine Ketones TRACE Urine Occult Blood NEG Urine Nitrite NEG Urine Bilirubin NEG Urine Urobilinogen LESS THAN 2.0 Urine Leukocyte Esterase NEG Urine RBC LESS THAN 1 Urine WBC 1 Urine Squamous Epithelial 1 Cells Urine Hyaline Casts 2 Urine Mucus FEW Microscopic Urinalysis Comment CULT NOT INDICATED Urine Opiates Screen NEG Urine Barbiturates Screen NEG Urine Amphetamines Screen NEG Urine Benzodiazepines Screen NEG Urine Cocaine Screen NEG Urine Cannabinoids Screen POS Ammonia 49 Triglycerides Level 277 Cholesterol Level 194 LDL Cholesterol 98 HDL Cholesterol 40.3 Cholesterol/HDL Ratio 4.81 Vitamin B12 Level 275 Date/Time Procedure Status Source Growth 05/10/16 07:51 Aerobic Blood Culture Received Blood Peripheral Pending 05/10/16 07:51 Anaerobic Blood Culture Received Blood Peripheral Pending (Melinda Pereira) Result Diagram: 05/10/16 0751 05/09/16 1600 Imaging Last Impressions Head CT 05/09/16 1601 Signed Impressions: Service Date/Time: April 16:33 - CONCLUSION: No acute disease. No evidence of acute infarct, hemorrhage, mass or edema. No evidence of extra-axial fluid collections. Hermelindo Segura MD Chest X-Ray 05/09/16 1601 Signed Impressions: Service Date/Time: , May 09, 2016 16:14 - CONCLUSION: No acute disease. Edi Borges MD Carotid Artery Ultrasound 05/09/16 0000 Signed Impressions: Service Date/Time: April 18:40 - CONCLUSION: Mild atherosclerotic plaque of both carotid bifurcations. No significant narrowing. Edi Beard MD (Melinda Pereira) Assessment and Plan Problem List: (1) Seizure Assessment and Plan WF with no reported cardiac history with history of HLD, uncontrolled DM and current smoker admitted yesterday for sudden LOC at home yesterday.She remains tachycardic and hypotensive. creatinine pending. glucose= 400 CXR- neg, carotid us - mild plaque bilaterally. tele reviewed, showing no concerning arrythmia. neuro following. elevated troponin- 1.29, asymptomatic (Melinda Pereira) Assessment and Plan NSTEMI - troponin trending up. Plan for C if no contraindication from neuro. npo (Sidney Jain MD) Melinda Pereira May 10, 2016 09:18 Sidney Jain MD May 10, 2016 10:56
--- NOTE | 2016-05-10 09:37 | HHI.PR ---
Subjective Remarks This is a pleasant female patient who was sitting at home in a chair with family Member when she sudden slumped over and her face turned dusky, EMS called GCS score was 3, given oxygen and transferred to ED, Stroke alert called and the patient was moaning and groaning and moves all extremity. Patient's unable to provide any information initially she has history of Seizure disorder, has also Anxiety, depression, Atrial Fibrillation, Hyperlipidemia, GERD, DM II, Peripheral Neuropathy, Hypothyroidism . initially was lethargic in ER, likely post-ictal phenomenon seen by Neurology specialist, her blood glucose was over 400. heavy Tobacco dependence one and a half packs of cigarettes daily and also smokes Marijuana as per patient multiple times per week. 05/10 Seen in her bedroom and discussed early in am with nurse, she has Hypokalemia 2.6 placed an order for Potassium chloride 40 meq IV and magnesium 1. 5 given 2 grams of magnesium sulfate, given Keppra by Neurology specialist, recommended to continue Hydration and for Hyperammonemia giving short course of Lactulose, due to increasing Troponin levels with Diagnosis of Non ST elevation OR, asked by electrical system specialist Doctor Sidney Jain for Cardiac Cath that was performed and found Severe Mid Left circumflex Coronary artery stenosis, Reduced left ventricular systolic function with regional wall motion abnormality, suspected Takotsubo Cardiomyopathy stress induced. added Beta Blockers and CRISTIAN inhibitor. Objective Vital Signs Date Time Temp Pulse Resp B/P Pulse Ox O2 Delivery O2 Flow Rate FiO2 05/10/16 08:00 96.9 97 16 96/67 94 05/10/16 04:00 97.6 96 18 90/59 95 05/10/16 00:00 97.4 105 16 98/50 92 05/09/16 20:02 97.6 104 16 98/67 97 05/09/16 20:00 110 05/09/16 16:59 97 Nasal Cannula 2 05/09/16 16:59 104 18 99/59 05/09/16 16:03 101 20 95 Room Air 05/09/16 15:56 97 18 110/71 95 I/O 05/09/16 05/09/16 05/09/16 05/10/16 05/10/16 05/10/16 07:00 15:00 23:00 07:00 15:00 23:00 # Voids 5 # Bowel Movements 0 Result Diagram: 05/10/16 0751 05/10/16 0751 Imaging Last Impressions Head CT 05/09/16 1601 Signed Impressions: Service Date/Time: April 16:33 - CONCLUSION: No acute disease. No evidence of acute infarct, hemorrhage, mass or edema. No evidence of extra-axial fluid collections. Hermelindo Segura MD Chest X-Ray 05/09/16 1601 Signed Impressions: Service Date/Time: April 16:14 - CONCLUSION: No acute disease. Eid Borges MD Carotid Artery Ultrasound 05/09/16 0000 Signed Impressions: Service Date/Time: April 18:40 - CONCLUSION: Mild atherosclerotic plaque of both carotid bifurcations. No significant narrowing. Edi Beard MD Procedures No procedures performed. Other Results Laboratory Tests Test 05/09/16 05/09/16 05/10/16 05/10/16 16:00 16:20 00:05 07:51 Bedside Hemoglobin 16.0 G/DL Bedside Hematocrit 47.0 % Differential Total Cells 100 Counted Neutrophils % (Manual) 56 % Band Neutrophils % 1 % Lymphocytes % 39 % Monocytes % 3 % Basophils % 1 % Neutrophils # (Manual) 10.4 TH/MM3 Platelet Estimate NORMAL Platelet Morphology Comment NORMAL Erythrocyte Sedimentation Rate 7 mm/hr Prothrombin Time 10.9 SEC Prothromb Time International 1.0 RATIO Ratio Activated Partial 23.3 SEC Thromboplast Time Bedside Sodium 134 MMOL/L Bedside Potassium 5.6 MMOL/L Bedside Chloride 103 MMOL/L Bedside Blood Urea Nitrogen 15 MG/DL Bedside Creatinine 0.9 MG/DL Bedside Glucose 412 MG/DL Phosphorus Level 5.6 MG/DL Magnesium Level 1.5 MG/DL Total Bilirubin 0.6 MG/DL Aspartate Amino Transf 69 U/L (AST/SGOT) Alanine Aminotransferase 23 U/L (ALT/SGPT) Alkaline Phosphatase 78 U/L Total Creatine Kinase 268 U/L Creatine Kinase MB 1.6 NG/ML Creatine Kinase MB % 0.6 % Total Protein 8.9 GM/DL Albumin 3.5 GM/DL Thyroid Stimulating Hormone 10.400 uIU/ML 3rd Gen Salicylates Level 2.0 MG/DL Acetaminophen Level LESS THAN 2.0 MCG/ML Ethyl Alcohol Level LESS THAN 3 MG/DL Urine Color YELLOW Urine Turbidity HAZY Urine pH 7.5 Urine Specific [place] 1.014 Urine Protein 30 mg/dL Urine Glucose (UA) 150 mg/dL Urine Ketones TRACE mg/dL Urine Occult Blood NEG Urine Nitrite NEG Urine Bilirubin NEG Urine Urobilinogen LESS THAN 2.0 MG/DL Urine Leukocyte Esterase NEG Urine RBC LESS THAN 1 /hpf Urine WBC 1 /hpf Urine Squamous Epithelial 1 /hpf Cells Urine Hyaline Casts 2 /lpf Urine Mucus FEW /lpf Microscopic Urinalysis Comment CULT NOT INDICATED Urine Opiates Screen NEG Urine Barbiturates Screen NEG Urine Amphetamines Screen NEG Urine Benzodiazepines Screen NEG Urine Cocaine Screen NEG Urine Cannabinoids Screen POS Ammonia 49 MCMOL/L Triglycerides Level 277 MG/DL Cholesterol Level 194 MG/DL LDL Cholesterol 98 MG/DL HDL Cholesterol 40.3 MG/DL Cholesterol/HDL Ratio 4.81 RATIO Vitamin B12 Level 275 PG/ML White Blood Count 15.5 TH/MM3 Red Blood Count 4.14 MIL/MM3 Hemoglobin 12.4 GM/DL Hematocrit 37.1 % Mean Corpuscular Volume 89.6 FL Mean Corpuscular Hemoglobin 30.0 PG Mean Corpuscular Hemoglobin 33.5 % Concent Red Cell Distribution Width 15.1 % Platelet Count 331 TH/MM3 Mean Platelet Volume 8.4 FL Neutrophils (%) (Auto) 73.4 % Lymphocytes (%) (Auto) 20.8 % Monocytes (%) (Auto) 5.2 % Eosinophils (%) (Auto) 0.2 % Basophils (%) (Auto) 0.4 % Neutrophils # (Auto) 11.4 TH/MM3 Lymphocytes # (Auto) 3.2 TH/MM3 Monocytes # (Auto) 0.8 TH/MM3 Eosinophils # (Auto) 0.0 TH/MM3 Basophils # (Auto) 0.1 TH/MM3 CBC Comment DIFF FINAL Differential Comment Sodium Level 140 MEQ/L Potassium Level 2.6 MEQ/L Chloride Level 105 MEQ/L Carbon Dioxide Level 22.9 MEQ/L Anion Gap 12 MEQ/L Blood Urea Nitrogen 12 MG/DL Creatinine 0.98 MG/DL Estimat Glomerular Filtration 49 ML/MIN Rate Random Glucose 264 MG/DL Calcium Level 8.9 MG/DL Troponin I 2.48 NG/ML Objective Remarks GENERAL: Obese patient in no acute distress. SKIN: Warm and dry. HEAD: Normocephalic. EYES: No scleral icterus. No injection or drainage. Pupil 4 mm equal reactive. NECK: Supple, trachea midline. No JVD or lymphadenopathy. CARDIOVASCULAR: Regular rate and rhythm without murmurs, gallops, or rubs. RESPIRATORY: Breath sounds equal bilaterally. No accessory muscle use. GASTROINTESTINAL: Abdomen soft, non-tender, nondistended. MUSCULOSKELETAL: No cyanosis, or edema. NEUROLOGY: alert and oriented, no focal deficits. Medications and IVs Current Medications Medications (Trade) Dose Ordered Sig/Ephraim Route Start Time Stop Time Status Last Admin (NS 1000 ml Inj) 1,000 ml @ 125 mls/hr Q8H IV 05/09/16 16:15 05/09/16 16:44 (NS Flush) 2 ml UNSCH PRN FLUSH 05/09/16 18:00 (NS Flush) 2 ml BID FLUSH 05/09/16 21:00 05/09/16 21:00 (Tylenol) 650 mg Q4H PRN PO 05/09/16 18:00 (Zofran Inj) 4 mg Q6H PRN IVP 05/09/16 18:00 (Reglan Inj) 5 mg Q6H PRN IV PUSH 05/09/16 18:00 05/09/16 18:31 (Dulcolax Supp) 10 mg DAILY PRN SD 05/09/16 18:00 Naloxone HCl 0.4 mg 0.4 mg UNSCH PRN IV 05/09/16 18:00 (Keppra Inj/NS Inj) 105 ml @ 420 mls/hr Q12HR IV 05/09/16 20:00 05/10/16 09:05 (Lipitor) 40 mg HS PO 05/09/16 21:00 05/09/16 21:00 (Flexeril) 10 mg BID PO 05/09/16 21:00 05/10/16 09:05 (Tricor) 145 mg HS PO 05/09/16 21:00 05/09/16 21:00 (Paxil) 40 mg BID PO 05/09/16 21:00 05/10/16 09:05 (SEROquel) 100 mg HS PO 05/09/16 21:00 05/09/16 21:00 (Synthroid Inj) 50 mcg DAILY@06 IV PUSH 05/10/16 06:00 05/10/16 05:40 (Levemir Inj) 15 units HS SQ 05/09/16 21:00 05/09/16 21:00 (Mag-Ox) 400 mg DAILY PO 05/10/16 09:00 05/10/16 09:04 (D50w (Vial) Inj) 25 ml UNSCH PRN IV PUSH 05/09/16 20:30 (Glucagon Inj) 1 mg UNSCH PRN OTHER 05/09/16 20:30 Lactulose 10 ml 10 ml Q12H PO 05/10/16 08:00 05/11/16 18:00 Potassium Chloride 100 ml @ 50 mls/hr Q2H IV 05/10/16 10:00 05/10/16 13:59 (Magnesium Sulfate 1 Gm Premix) 100 ml @ 100 mls/hr Q1H IV 05/10/16 10:00 05/10/16 11:59 A/P Problem List: (1) DM (diabetes mellitus) ICD Code: E11.9 (2) Seizure ICD Code: R56.9 (3) DM neuropathies ICD Code: E11.40 (4) Hyperglycemia ICD Code: R73.9 (5) Chronic pain ICD Code: G89.29 Assessment and Plan 1. Seizure disorder status post Neurology specialist consult recommended to get EEG, Keppra 500 mg BID, change to by mouth once nausea, improves. Hydration. PT, OT and Speech Therapy. not found swallow pathology, but not yet given assessment by Physical therapy. 2. Hypothyroidism with elevated TSH, suspected medical non compliance. re started levothyroxine IV 3. Obesity strongly recommended diet and exercise. 4. DM II uncontrolled started on sliding scale continue present Insulin due to that the patient is having nausea and recent Cardiac Cath performed today. 5. Chronic Pain syndrome 6. Peripheral Neuropathy secondary to DM II. continue home medicines. 7. Hypokalemia she had Kayexalate due to Hyperkalemia but today has 2.6 given Potassium and magnesium. 8. Severe tobacco dependence, marijuana abuse strongly recommended to stop smoking. 9. Acute Non ST elevation OR, asked by electrical system specialist Doctor Sidney Jain for Cardiac Cath that was performed and found Severe Mid Left circumflex Coronary artery stenosis, Reduced left ventricular systolic function with regional wall motion abnormality, suspected Takotsubo Cardiomyopathy stress induced. added Beta Blockers and CRISTIAN inhibitor. Discussed with Patient in the room seen with nurse Art Code Status Full Code Discharge Planning Expected by Tomorrow. Problem Qualifiers (1) DM neuropathies: (2) Chronic pain: Qualified Code: G89.4 - Chronic pain syndrome Gary Vega MD May 10, 2016 09:37 (Magnesium Sulfate 1 Gm Premix) 100 ml @ 100 mls/hr Q1H IV 05/10/16 10:00 05/10/16 11:59 A/P Assessment and Plan 1. Seizure disorder status post Neurology specialist consult recommended to get EEG, Keppra 500 mg BID, change to by mouth once nausea, improves. Hydration. PT, OT and Speech Therapy. DC in am as per Neurology specialist. 2. Hypothyroidism with elevated TSH, suspected non medical compliance. 3. Obesity strongly recommended diet and exercise. 4. DM II uncontrolled started on sliding scale, long lasting insulin patient not eating at this time. 5. Chronic Pain syndrome 6. Peripheral Neuropathy secondary to DM II. continue home medicines. 7. Hyperkalemia given one dose of Kayexalate. 8. Severe tobacco dependence, marijuana abuse strongly recommended to stop smoking. Discussed with Patient in the room Discussed with ER specialist Doctor Andrade ricketts. Code Status Full Code Gary Vega MD May 10, 2016 09:37
[2016-05-10] MEDS: LACTULOSE SYRUP 20 GM/30 ML CUP PO SCH ×2 (10:00→20:00)
[2016-05-10] MEDS ORDERED: PNEUMOCOCCAL POLYVALENT INJ 25 MCG/0.5 ML SYR IM ONE (10:00)
[2016-05-10] MEDS ORDERED: MAGNESIUM SULFATE 1 GM PREMIX 100 ML IV SCH (10:00)
[2016-05-10] MEDS: POTASSIUM CHLOR 20 MEQ PREMIX 100 ML IV SCH ×2 (11:17→14:47)
--- NOTE | 2016-05-10 11:57 | EC ---
Study Study Date:05/10/2016 STUDY CONCLUSIONS SUMMARY - Left ventricle: The cavity size was dilated. Wall thickness was normal. Systolic function was severely reduced. The estimated ejection fraction was in the range of 25% to 30%. Diffuse hypokinesis. - Mitral valve: Mild regurgitation. - Tricuspid valve: Mild regurgitation. If LV function is below 40, please consider prescribing an ACEI or ARB or document rationale for non-use. PROCEDURE DATA STUDY STATUS: Elective. Procedure: Transthoracic echocardiography. Image quality was good. Scanning was performed from the parasternal, apical, and subcostal acoustic windows. Study completion: The patient tolerated the procedure well. Transthoracic echocardiography. M-mode, complete 2D, complete spectral Doppler, and color Doppler. Patient status: Inpatient. CARDIAC ANATOMY LEFT VENTRICLE: The cavity size was dilated. Wall thickness was normal. Systolic function was severely reduced. The estimated ejection fraction was in the range of 25% to 30%. Diffuse hypokinesis. AORTIC VALVE: Trileaflet; normal thickness leaflets. Doppler: Transvalvular velocity was within the normal range. There was no stenosis. No regurgitation. AORTA: Aortic root: The aortic root was normal in size. MITRAL VALVE: Structurally normal valve. Doppler: Transvalvular velocity was within the normal range. There was no evidence for stenosis. Mild regurgitation. Peak gradient: 4mm Hg (D). LEFT ATRIUM: The atrium was normal in size. RIGHT VENTRICLE: The cavity size was normal. Wall thickness was normal. PULMONIC VALVE: Doppler: Transvalvular velocity was within the normal range. There was no evidence for stenosis. No regurgitation. TRICUSPID VALVE: Structurally normal valve. Doppler: Transvalvular velocity was within the normal range. Mild regurgitation. PULMONARY ARTERY: The main pulmonary artery was normal-sized. Systolic pressure was within the normal range. RIGHT ATRIUM: The atrium was normal in size. PERICARDIUM: There was no pericardial effusion. SYSTEMIC VEINS: Inferior vena cava: The vessel was normal in size. BASIC MEASUREMENTS ADULT Normal Left ventricle LV internal dimension, ED, chordal level, 44.1 mm 43-52 PLAX LV internal dimension, ES, chordal level, 37.6 mm 23-38 PLAX Fractional shortening, chordal level, PLAX *15 % >29 LV posterior wall thickness, ED 7 mm IVS/LVPW ratio, ED 1.21 <1.3 Ventricular septum Septal thickness, ED 8.47 mm Aortic valve Leaflet separation 16 mm 15-26 Left atrium Anterior-posterior dimension 30 mm Right ventricle RV internal dimension, ED, PLAX *16.5 mm 19-38 BASIC MEASUREMENTS ADULT Normal Aortic valve Leaflet separation 16 mm 15-26 Aorta Root diameter, ED 30 mm 20-37 DOPPLER MEASUREMENTS ADULT Normal Main pulmonary artery Pressure, S 10 mm Hg =30 Aortic valve Peak velocity, S 141 cm/s Mitral valve Peak E-wave velocity 103 cm/s Peak A-wave velocity 78.4 cm/s Peak gradient, D 4 mm Hg Peak E/A ratio 1.3 Tricuspid valve Regurgitant peak velocity 117 cm/s Peak RV-RA gradient, S 5 mm Hg Maximal regurgitant velocity 117 cm/s Systemic veins Estimated CVP 5 mm Hg Right ventricle RV pressure, S 10 mm Hg <30 LEGEND: Mean values are shown as u=mean value. Asterisk (*) tapia values outside specified normal range. Prepared and signed by Soto Ferguson [id number]
[2016-05-10] MEDS ORDERED: HEPARIN-NS/PF INJ 500 ML ONE (12:54)
[2016-05-10] MEDS ORDERED: MIDAZOLAM HCL 2 MG/2 ML VIAL ONE (12:54)
[2016-05-10] MEDS ORDERED: NITROGLYCERIN INJ 5 ML ONE (12:55)
[2016-05-10] MEDS ORDERED: HEPARIN SODIUM - IV 10,000 UNITS/10 ML VIAL ONE (12:55)
[2016-05-10] MEDS ORDERED: BIVALIRUDIN 250 MG VIAL ONE (13:28)
[2016-05-10] MEDS ORDERED: CLOPIDOGREL 300 MG TAB ONE (13:45)
[2016-05-10] MEDS ORDERED: BIVALIRUDIN INJ 250 MG in SODIUM CHLORIDE 0.9% INJ 50 ML IV SCH (13:51)
[2016-05-10 13:58] LABS: HEMOGLOBIN A1a 1.2 %; HEMOGLOBIN A1b 1.4 %; HEMOGLOBIN Ao 77.6 %; HEMOGLOBIN F 1.6 %; HEMOGLOBIN LA1C 3.8 %; HEMOGLOBIN P3 5.4 %
[2016-05-10] MEDS ORDERED: IOHEXOL 350 MG/ML 100 ML BTL (for Cath Lab) OTHER ONE (14:00)
[2016-05-10] MEDS ORDERED: LIDOCAINE 2% JELLY 30 ML TUBE TOP PRN (14:00)
[2016-05-10] MEDS ORDERED: ASPIRIN EC 81 MG TABEC PO SCH (14:00)
[2016-05-10] MEDS ORDERED: MISC INFORMATION XX ONE (14:00)
[2016-05-10] MEDS ORDERED: BACITRACIN OINT 0.9 GM PKT TOP ONE (14:00)
[2016-05-10] MEDS ORDERED: MORPHINE SULFATE 4 MG/ML INJ IV PUSH PRN (14:00)
[2016-05-10] MEDS ORDERED: CLOPIDOGREL 300 MG TAB PO ONE (15:00)
--- NOTE | 2016-05-10 15:07 | MA ---
cc: AGUSTO MCKEON DATE: 05/10/2016 INDICATION Non-ST elevation NE. PROCEDURE PERFORMED 1. Fluoroscopy with interpretation. 2. Left heart catheterization. 3. Left ventriculography. 4. Coronary angiography. 5. Percutaneous intervention with bare-metal stent to the mid left circumflex coronary artery. METHOD The risks, benefits and alternatives were discussed with the patient. The patient understood and consented to the procedure. The patient was brought into the catheterization lab and placed on the catheterization table. The right wrist was prepped and draped in a sterile fashion. The right wrist was anesthetized with 2% lidocaine. The right radial artery was cannulated and a 6-Rw[place]an, 7 cm sheath was placed without difficulty. 3000 units of intravenous heparin was administered. LEFT HEART CATHETERIZATION A 6-[place] JR5 catheter was advanced across the aortic valve without difficulty. Intraventricular hemodynamics measured at 100/20 mmHg. Left ventricular end-diastolic pressure was 22 mmHg. No significant aortic stenosis by transaortic valve or pullback gradient. LEFT VENTRICULOGRAPHY Left ventriculography was performed in a right anterior oblique view using a 6-[place]wandan JR5 catheter. A 12 cc contrast injection with reasonable but suboptimal opacification. Left ventricular ejection fraction was visually estimated at 25%. There appeared to be regional anterolateral, apical and inferoapical akinesis. CORONARY ANGIOGRAPHY 1. The left main coronary is angiographically normal. 2. The left anterior descending coronary artery is tortuous and angiographically normal. 3. The left circumflex gives rise to two obtuse marginal branches, smaller caliber size, angiographically normal. The mid left circumflex has a 90% discrete stenosis. 4. The right coronary artery is a dominant vessel giving rise to a posterior descending coronary. The right coronary has minor luminal irregularities. PERCUTANEOUS INTERVENTION The left coronary circulation is selectively engaged with a 6-[place]an AL-1 guide catheter. A 0.014 inch, 180 cm [employer] Runthrough wire was navigated down the distal left circumflex coronary artery. A 2.0 x 10 mm RX Euphora balloon was advanced down the mid left circumflex coronary artery and deployed to 8 atmospheres. Repeat angiography showed some residual stenosis. A 2.0 x 12 mm RX bare-metal mini Vision stent was advanced down the mid left circumflex coronary and deployed. Repeat angiography showed no significant stenosis. CONCLUSIONS 1. Severe mid left circumflex coronary artery stenosis. 2. Reduced left ventricular systolic function with regional wall motion abnormality as noted above. PLAN Will monitor the patient closely for any post-procedural complications. A right HemoBand was applied. Will obtain a 2-D echocardiogram. I suspect she may have an Takotsubo cardiomyopathy which is stress-induced based on the wall motion. The circumflex coronary may or may not have been the culprit lesion for her presentation. Will add a low dose beta thanh and CRISTIAN inhibitor as blood pressure allows. She will be initiated on aspirin and Plavix. MD BETTY Saucedo/NAWAF /1:59 PM /2:39 PM MTDD
--- NOTE | 2016-05-10 15:09 | EKG ---
Date Performed: 05/09/2016 Time Performed: 13:56:23 PTAGE: 89 years EKG: PROBABLE SINUS TACHYCARDIA BASELINE ARTIFACT PROCLUDING ACCURATE INTERPRETATION INTRAVENTRI CULAR CONDUCTION DELAY ANTEROSEPTAL MYOCARDIAL INFARCTION ABNORMAL ECG INTERPRETATION BASED ON A DEFA ULT AGE OF 40 YEARS NO PREVIOUS TRACING No prior for comparison DOCTOR: Kristen Khan Interpretating Date/Time 05/10/2016 15:07:40
[2016-05-10] MEDS ORDERED: FUROSEMIDE 40 MG/4 ML VIAL ONE (15:40)
[2016-05-10] MEDS: POTASSIUM CHLORIDE 20 MEQ CONTROLLED RELEASE TAB PO SCH (16:00)
[2016-05-10] MEDS ORDERED: RESP: ALBUTEROL 2.5 MG/3 ML NEB (PRN) ONE (16:22)
[2016-05-10] MEDS ORDERED: RESP: ALBUTEROL 2.5 MG/3 ML NEB (SCH) INH ONE (16:45)
[2016-05-10] MEDS ORDERED: FUROSEMIDE 20 MG/2 ML VIAL IV PUSH SCH (18:00)
[2016-05-10 18:31] LABS: POTASSIUM 3.2 MEQ/L (3.5-5.1)
[2016-05-10 18:36] LABS: MAGNESIUM 1.4 MG/DL (1.5-2.5)
[2016-05-10] MEDS: ACETAMINOPHEN 325 MG TAB PO PRN (18:43)
[2016-05-10] MEDS: INSULIN DETEMIR 100 UNITS/ML VIAL SQ SCH (21:00)
--- NOTE | 2016-05-10 21:12 | EKG ---
Date Performed: 05/10/2016 Time Performed: 18:51:10 PTAGE: 55 years EKG: Unclear underlying rhythm Short QT interval Left axis deviation Possible anteroseptal infar ct - age undetermined Possible inferior infarct - age undetermined Nonspecific ST-T wave changes COMP ARED TO PRIOR ELECTROCARDIOGRAM, Abnormal ECG Nonspecific intraventricular conduction defect is less prominent. T wave changes are more prominent. PREVIOUS TRACING : 05/09/2016 13.56 DOCTOR: Abundio Bernal Interpretating Date/Time 05/10/2016 21:10:54
[2016-05-10] MEDS ORDERED: diphenhydrAMINE HCL 25 MG CAP PO ONE (22:00)
[2016-05-10] MEDS: FENOFIBRATE 145 MG TAB PO SCH (23:07)
[2016-05-10] MEDS: CARVEDILOL 3.125 MG TAB PO SCH (23:08)
[2016-05-10] MEDS: ATORVASTATIN 40 MG TAB PO SCH (23:09)
[2016-05-10] MEDS: QUEtiapine FUMARATE 100 MG TAB PO SCH (23:50)
[2016-05-10] MEDS: SODIUM CHLORIDE 0.9% FLUSH 5 ML FLUSH FLUSH SCH (23:51)
[2016-05-11] VITALS (25 sets, daily range): BP systolic 86–107; BP diastolic 38–80; PULSE 74–97; RESP 18; TEMP 98.1–99.2; O2SAT 95–99
[2016-05-11] MEDS: TEMAZEPAM 7.5 MG CAP PO PRN ×2 (00:51→22:42)
[2016-05-11 06:31] LABS: AUTOMATED NEUTROPHIL # 8.7 TH/MM3 (1.8-7.7); BASOPHIL # 0.1 TH/MM3 (0-0.2); BASOPHIL % 0.9 % (0.0-2.0); EOSINOPHIL # 0.1 TH/MM3 (0-0.4); EOSINOPHIL % 0.4 % (0.0-4.0); HEMATOCRIT 39.4 % (35.0-46.0); HEMO FLAGS DIFF FINAL; LYMPH % 27.8 % (9.0-44.0); LYMPHOCYTE # 3.7 TH/MM3 (1.0-4.8); MEAN CELL VOLUME 88.8 FL (80.0-100.0); MEAN CORPUSCULAR HEMOGLOBIN 30.5 PG (27.0-34.0); MEAN CORPUSCULAR HGB CONC 34.4 % (32.0-36.0); MONO % 4.5 % (0.0-8.0); NEUT % 66.4 % (16.0-70.0); PLATELET COUNT 288 TH/MM3 (150-450); RED BLOOD COUNT 4.44 MIL/MM3 (4.00-5.30); RED CELL DISTRIBUTION WIDTH 15.4 % (11.6-17.2); WHITE BLOOD COUNT 13.1 TH/MM3 (4.0-11.0)
[2016-05-11] MEDS: LEVOTHYROXINE SODIUM 100 MCG VIAL IV PUSH SCH (06:41)
[2016-05-11] MEDS: INSULIN NovoLIN REGULAR SUPPLEMENTAL SCALE SQ SCH ×4 (07:00→22:46)
[2016-05-11 07:09] LABS: BICARBONATE 23.4 MEQ/L (21.0-32.0); MAGNESIUM 1.4 MG/DL (1.5-2.5)
[2016-05-11 07:14] LABS: HDL CHOLESTEROL 43.7 MG/DL (40.0-60.0)
[2016-05-11 07:16] LABS: POTASSIUM 2.4 MEQ/L (3.5-5.1)
[2016-05-11 07:51] LABS: CKMB 15.8 NG/ML (0.5-3.6)
--- NOTE | 2016-05-11 08:11 | PD.CARD.PN ---
Subjective Subjective Remarks The patient is comfortable and denies chest pain, shortness of breath, palpitations, GI symptoms or bleeding. Telemetry reveals sinus rhythm. Chart reviewed. Objective Medications Reviewed Vital Signs / I&O Vital Signs Date Time Temp Pulse Resp B/P Pulse Ox O2 Delivery O2 Flow Rate FiO2 05/11/16 06:00 84 05/11/16 05:00 82 05/11/16 04:29 98.1 86 18 86/80 95 05/11/16 04:00 84 05/11/16 03:28 97 Room Air 05/11/16 03:00 84 05/11/16 02:00 88 05/11/16 01:00 86 05/11/16 00:35 97 Room Air 05/11/16 00:35 99.2 97 18 107/38 99 05/11/16 00:00 88 05/10/16 23:00 90 05/10/16 22:00 90 05/10/16 21:21 97.6 89 18 98/62 97 05/10/16 21:00 96 05/10/16 20:00 92 05/10/16 19:18 93 Nasal Cannula 3.00 05/10/16 19:00 90 05/10/16 18:00 94 05/10/16 17:00 96 Room Air 05/10/16 17:00 94 05/10/16 16:00 98.3 91 20 121/80 92 05/10/16 16:00 90 Nasal Cannula 3.00 05/10/16 16:00 91 05/10/16 12:00 97.1 87 16 91/67 96 I/O 05/10/16 05/10/16 05/10/16 05/11/16 05/11/16 05/11/16 07:00 15:00 23:00 07:00 15:00 23:00 Intake Total 1341 ml 240 ml Output Total 1875 ml 900 ml Balance -534 ml -660 ml Intake Oral 480 ml 240 ml IV Total 861 ml Output Urine Total 1875 ml 900 ml # Voids 5 # Bowel Movements 0 0 1 Physical Exam GENERAL: Well-nourished, well-developed patient in no apparent distress. SKIN: Warm and dry. NECK: JVD normal - less than or equal to 5 cm H20. CARDIOVASCULAR: Regular rate and rhythm without murmurs, gallops, or rubs. RESPIRATORY: Normal breath sounds - equal bilaterally. No accessory muscle use. No wheezes, rales or rubs. PERIPHERY: No cyanosis, or edema. Catheterization site dry. Laboratory Laboratory Tests Test 05/10/16 05/11/16 18:03 04:20 Potassium Level 3.2 MEQ/L 2.4 MEQ/L Magnesium Level 1.4 MG/DL 1.4 MG/DL White Blood Count 13.1 TH/MM3 Red Blood Count 4.44 MIL/MM3 Hemoglobin 13.6 GM/DL Hematocrit 39.4 % Mean Corpuscular Volume 88.8 FL Mean Corpuscular Hemoglobin 30.5 PG Mean Corpuscular Hemoglobin 34.4 % Concent Red Cell Distribution Width 15.4 % Platelet Count 288 TH/MM3 Mean Platelet Volume 8.2 FL Neutrophils (%) (Auto) 66.4 % Lymphocytes (%) (Auto) 27.8 % Monocytes (%) (Auto) 4.5 % Eosinophils (%) (Auto) 0.4 % Basophils (%) (Auto) 0.9 % Neutrophils # (Auto) 8.7 TH/MM3 Lymphocytes # (Auto) 3.7 TH/MM3 Monocytes # (Auto) 0.6 TH/MM3 Eosinophils # (Auto) 0.1 TH/MM3 Basophils # (Auto) 0.1 TH/MM3 CBC Comment DIFF FINAL Differential Comment Sodium Level 139 MEQ/L Chloride Level 102 MEQ/L Carbon Dioxide Level 23.4 MEQ/L Anion Gap 14 MEQ/L Blood Urea Nitrogen 10 MG/DL Creatinine 0.88 MG/DL Estimat Glomerular Filtration 67 ML/MIN Rate Random Glucose 187 MG/DL Calcium Level 9.1 MG/DL Phosphorus Level 2.1 MG/DL Total Creatine Kinase 1869 U/L Creatine Kinase MB 15.8 NG/ML Creatine Kinase MB % 0.8 % Triglycerides Level 281 MG/DL Cholesterol Level 186 MG/DL LDL Cholesterol 86 MG/DL HDL Cholesterol 43.7 MG/DL Cholesterol/HDL Ratio 4.25 RATIO Imaging Last [address] 05/09/16 1601 Signed Impressions: Service Date/Time: April 16:33 - CONCLUSION: No acute disease. No evidence of acute infarct, hemorrhage, mass or edema. No evidence of extra-axial fluid collections. Hermelindo Segura MD Chest X-Ray 05/09/16 1601 Signed Impressions: Service Date/Time: April 16:14 - CONCLUSION: No acute disease. Edi Borges MD Assessment and Plan Assessment and Plan Problems: Coronary artery disease with bare metal stent LCx. EKG today shows sinus rhythm with nonspecific ST-T wave changes. Probable Takotsubo syndrome Possible seizure Hypertension Hyperlipidemia Diabetes Hypothyroidism Electrolyte abnormalities Tobacco abuse Recommendations: Continue present medical regimen. The patient understands she cannot stop aspirin and clopidogrel because of risk of stent thrombosis and heart attack. No heavy exertion Tobacco abstinence Low-cholesterol/salt/diabetic diet. The patient is a high risk for anticoagulation because of possible seizure. We will hold off on full anticoagulation. The patient needs aggressive normalization of her potassium and magnesium and I will leave further management to the primary service. Dr. Jain has been spoken with and he has ordered a LifeVest given left ventricular dysfunction. I will be available tomorrow if needed and he will return on Friday. Switch intravenous diuretic to low dose oral diuretic. Abundio Bernal MD May 11, 2016 08:11
[2016-05-11] MEDS ORDERED: POTASSIUM CHLORIDE 10 MEQ CONTROLLED RELEASE TAB PO ONE (08:15)
[2016-05-11] MEDS: POTASSIUM CHLORIDE 20 MEQ CONTROLLED RELEASE TAB PO SCH (08:38)
[2016-05-11] MEDS: MAGNESIUM OXIDE 400 MG TAB PO SCH (08:38)
[2016-05-11] MEDS: CLOPIDOGREL 75 MG TAB PO SCH (08:39)
[2016-05-11] MEDS: ASPIRIN 81 MG CHEW TAB PO SCH (08:39)
[2016-05-11] MEDS: CYCLOBENZAPRINE HCL 10 MG TAB PO SCH ×2 (08:39→22:43)
[2016-05-11] MEDS: LACTULOSE SYRUP 20 GM/30 ML CUP PO SCH (08:39)
[2016-05-11] MEDS: FUROSEMIDE 20 MG TAB PO SCH (08:39)
[2016-05-11] MEDS: SODIUM CHLORIDE 0.9% FLUSH 5 ML FLUSH FLUSH SCH ×2 (08:40→22:47)
[2016-05-11] MEDS: CARVEDILOL 3.125 MG TAB PO SCH ×2 (08:43→21:00)
[2016-05-11] MEDS: LISINOPRIL 5 MG TAB PO SCH (08:44)
[2016-05-11] MEDS: PARoxetine HCL 20 MG TAB PO SCH ×2 (09:00→22:44)
[2016-05-11] MEDS: levETIRAcetam 500 MG/NS 100 ML IV SCH ×4 (09:00→23:29)
--- NOTE | 2016-05-11 09:22 | EKG ---
Date Performed: 05/11/2016 Time Performed: 05:47:28 PTAGE: 55 years EKG: Possible ectopic atrial rhythm Left axis deviation Possible inferior infarct - age undeterm ined Possible anterior infarct - age undetermined Nonspecific ST-T wave changes. Abnormal ECG No sign ificant change from prior electrocardiogram. PREVIOUS TRACING : 05/10/2016 18.51 DOCTOR: Abundio Bernal Interpretating Date/Time 05/11/2016 09:21:22
--- NOTE | 2016-05-11 11:24 | HHI.PR ---
Subjective Remarks This is a pleasant female patient who was sitting at home in a chair with family Member when she sudden slumped over and her face turned dusky, EMS called GCS score was 3, given oxygen and transferred to ED, Stroke alert called and the patient was moaning and groaning and moves all extremity. Patient's unable to provide any information initially she has history of Seizure disorder, has also Anxiety, depression, Atrial Fibrillation, Hyperlipidemia, GERD, DM II, Peripheral Neuropathy, Hypothyroidism . initially was lethargic in ER, likely post-ictal phenomenon seen by Neurology specialist, her blood glucose was over 400. heavy Tobacco dependence one and a half packs of cigarettes daily and also smokes Marijuana as per patient multiple times per week. 05/10 Seen in her bedroom and discussed early in am with nurse, Electrolyte derangement, her Potassium level 2.6 and hypomagnesemia 1.5 replaced, Neurology specialist recommended Hydration, hyperammonemia given Lactulose, due to increasing Troponin levels with Diagnosis of Non ST elevation MN, status post Cardiac Cath that was found Severe Mid Left circumflex Coronary artery stenosis, Reduced left ventricular systolic function with regional wall motion abnormality, suspected Takotsubo Cardiomyopathy stress induced. added Beta Blockers and CRISTIAN inhibitor. 05/11 Stable in her bedroom, no need for Physical therapy, following emr specialist recommendations, replacing electrolytes and continue low. Objective Vital Signs Date Time Temp Pulse Resp B/P Pulse Ox O2 Delivery O2 Flow Rate FiO2 05/11/16 10:00 82 05/11/16 09:00 86 05/11/16 08:00 84 05/11/16 07:45 96 Room Air 05/11/16 07:45 98.6 83 18 90/66 96 05/11/16 07:00 80 05/11/16 06:00 84 05/11/16 05:00 82 05/11/16 04:29 98.1 86 18 86/80 95 05/11/16 04:00 84 05/11/16 03:28 97 Room Air 05/11/16 03:00 84 05/11/16 02:00 88 05/11/16 01:00 86 05/11/16 00:35 97 Room Air 05/11/16 00:35 99.2 97 18 107/38 99 05/11/16 00:00 88 05/10/16 23:00 90 05/10/16 22:00 90 05/10/16 21:21 97.6 89 18 98/62 97 05/10/16 21:00 96 05/10/16 20:00 92 05/10/16 19:18 93 Nasal Cannula 3.00 05/10/16 19:00 90 05/10/16 18:00 94 05/10/16 17:00 96 Room Air 05/10/16 17:00 94 05/10/16 16:00 98.3 91 20 121/80 92 05/10/16 16:00 90 Nasal Cannula 3.00 05/10/16 16:00 91 05/10/16 12:00 97.1 87 16 91/67 96 I/O 05/10/16 05/10/16 05/10/16 05/11/16 05/11/16 05/11/16 07:00 15:00 23:00 07:00 15:00 23:00 Intake Total 1341 ml 240 ml Output Total 1875 ml 900 ml Balance -534 ml -660 ml Intake Oral 480 ml 240 ml IV Total 861 ml Output Urine Total 1875 ml 900 ml # Voids 5 # Bowel Movements 0 0 1 Result Diagram: 05/11/16 0420 05/11/16 0420 Imaging Last Impressions Head CT 05/09/16 1601 Signed Impressions: Service Date/Time: April 16:33 - CONCLUSION: No acute disease. No evidence of acute infarct, hemorrhage, mass or edema. No evidence of extra-axial fluid collections. Hermelindo Segura MD Chest X-Ray 05/09/16 1601 Signed Impressions: Service Date/Time: April 16:14 - CONCLUSION: No acute disease. Edi Borges MD Carotid Artery Ultrasound 05/09/16 0000 Signed Impressions: Service Date/Time: April 18:40 - CONCLUSION: Mild atherosclerotic plaque of both carotid bifurcations. No significant narrowing. Edi Beard MD Procedures No procedures performed. Other Results Laboratory Tests Test 05/09/16 05/09/16 05/10/16 05/10/16 16:00 16:20 00:05 07:51 Bedside Hemoglobin 16.0 G/DL Bedside Hematocrit 47.0 % Differential Total Cells 100 Counted Neutrophils % (Manual) 56 % Band Neutrophils % 1 % Lymphocytes % 39 % Monocytes % 3 % Basophils % 1 % Neutrophils # (Manual) 10.4 TH/MM3 Platelet Estimate NORMAL Platelet Morphology Comment NORMAL Erythrocyte Sedimentation Rate 7 mm/hr Prothrombin Time 10.9 SEC Prothromb Time International 1.0 RATIO Ratio Activated Partial 23.3 SEC Thromboplast Time Bedside Sodium 134 MMOL/L Bedside Potassium 5.6 MMOL/L Bedside Chloride 103 MMOL/L Bedside Blood Urea Nitrogen 15 MG/DL Bedside Creatinine 0.9 MG/DL Bedside Glucose 412 MG/DL Total Bilirubin 0.6 MG/DL Aspartate Amino Transf 69 U/L (AST/SGOT) Alanine Aminotransferase 23 U/L (ALT/SGPT) Alkaline Phosphatase 78 U/L Total Protein 8.9 GM/DL Albumin 3.5 GM/DL Thyroid Stimulating Hormone 10.400 uIU/ML 3rd Gen Salicylates Level 2.0 MG/DL Acetaminophen Level LESS THAN 2.0 MCG/ML Ethyl Alcohol Level LESS THAN 3 MG/DL Urine Color YELLOW Urine Turbidity HAZY Urine pH 7.5 Urine Specific [place] 1.014 Urine Protein 30 mg/dL Urine Glucose (UA) 150 mg/dL Urine Ketones TRACE mg/dL Urine Occult Blood NEG Urine Nitrite NEG Urine Bilirubin NEG Urine Urobilinogen LESS THAN 2.0 MG/DL Urine Leukocyte Esterase NEG Urine RBC LESS THAN 1 /hpf Urine WBC 1 /hpf Urine Squamous Epithelial 1 /hpf Cells Urine Hyaline Casts 2 /lpf Urine Mucus FEW /lpf Microscopic Urinalysis Comment CULT NOT INDICATED Urine Opiates Screen NEG Urine Barbiturates Screen NEG Urine Amphetamines Screen NEG Urine Benzodiazepines Screen NEG Urine Cocaine Screen NEG Urine Cannabinoids Screen POS Hemoglobin A1c 8.6 % Ammonia 49 MCMOL/L Vitamin B12 Level 275 PG/ML Troponin I 2.48 NG/ML Test 05/11/16 04:20 White Blood Count 13.1 TH/MM3 Red Blood Count 4.44 MIL/MM3 Hemoglobin 13.6 GM/DL Hematocrit 39.4 % Mean Corpuscular Volume 88.8 FL Mean Corpuscular Hemoglobin 30.5 PG Mean Corpuscular Hemoglobin 34.4 % Concent Red Cell Distribution Width 15.4 % Platelet Count 288 TH/MM3 Mean Platelet Volume 8.2 FL Neutrophils (%) (Auto) 66.4 % Lymphocytes (%) (Auto) 27.8 % Monocytes (%) (Auto) 4.5 % Eosinophils (%) (Auto) 0.4 % Basophils (%) (Auto) 0.9 % Neutrophils # (Auto) 8.7 TH/MM3 Lymphocytes # (Auto) 3.7 TH/MM3 Monocytes # (Auto) 0.6 TH/MM3 Eosinophils # (Auto) 0.1 TH/MM3 Basophils # (Auto) 0.1 TH/MM3 CBC Comment DIFF FINAL Differential Comment Sodium Level 139 MEQ/L Potassium Level 2.4 MEQ/L Chloride Level 102 MEQ/L Carbon Dioxide Level 23.4 MEQ/L Anion Gap 14 MEQ/L Blood Urea Nitrogen 10 MG/DL Creatinine 0.88 MG/DL Estimat Glomerular Filtration 67 ML/MIN Rate Random Glucose 187 MG/DL Calcium Level 9.1 MG/DL Phosphorus Level 2.1 MG/DL Magnesium Level 1.4 MG/DL Total Creatine Kinase 1869 U/L Creatine Kinase MB 15.8 NG/ML Creatine Kinase MB % 0.8 % Triglycerides Level 281 MG/DL Cholesterol Level 186 MG/DL LDL Cholesterol 86 MG/DL HDL Cholesterol 43.7 MG/DL Cholesterol/HDL Ratio 4.25 RATIO Objective Remarks GENERAL: Obese patient in no acute distress. SKIN: Warm and dry. HEAD: Normocephalic. EYES: No scleral icterus. No injection or drainage. Pupil 4 mm equal reactive. NECK: Supple, trachea midline. No JVD or lymphadenopathy. CARDIOVASCULAR: Regular rate and rhythm without murmurs, gallops, or rubs. RESPIRATORY: Breath sounds equal bilaterally. No accessory muscle use. GASTROINTESTINAL: Abdomen soft, non-tender, nondistended. MUSCULOSKELETAL: No cyanosis, or edema. NEUROLOGY: alert and oriented, no focal deficits. Medications and IVs Current Medications Medications (Trade) Dose Ordered Sig/Ephraim Route Start Time Stop Time Status Last Admin (NS Flush) 2 ml UNSCH PRN FLUSH 05/09/16 18:00 (NS Flush) 2 ml BID FLUSH 05/09/16 21:00 05/11/16 08:40 (Tylenol) 650 mg Q4H PRN PO 05/09/16 18:00 05/10/16 18:43 (Zofran Inj) 4 mg Q6H PRN IVP 05/09/16 18:00 (Reglan Inj) 5 mg Q6H PRN IV PUSH 05/09/16 18:00 05/09/16 18:31 (Dulcolax Supp) 10 mg DAILY PRN [place] 05/09/16 18:00 Naloxone HCl 0.4 mg 0.4 mg UNSCH PRN IV 05/09/16 18:00 (Keppra Inj/NS Inj) 105 ml @ 420 mls/hr Q12HR IV 05/09/16 20:00 05/11/16 09:00 (Lipitor) 40 mg HS PO 05/09/16 21:00 05/10/16 23:09 (Flexeril) 10 mg BID PO 05/09/16 21:00 05/11/16 08:39 (Tricor) 145 mg HS PO 05/09/16 21:00 05/10/16 23:07 (Paxil) 40 mg BID PO 05/09/16 21:00 05/11/16 09:00 (SEROquel) 100 mg HS PO 05/09/16 21:00 05/10/16 23:50 (Synthroid Inj) 50 mcg DAILY@06 IV PUSH 05/10/16 06:00 05/11/16 06:41 (Levemir Inj) 15 units HS SQ 05/09/16 21:00 05/10/16 21:00 (Mag-Ox) 400 mg DAILY PO 05/10/16 09:00 05/11/16 08:38 (D50w (Vial) Inj) 25 ml UNSCH PRN IV PUSH 05/09/16 20:30 (Glucagon Inj) 1 mg UNSCH PRN OTHER 05/09/16 20:30 (Lactulose Liq) 10 ml Q12H PO 05/10/16 08:00 05/11/16 18:00 05/11/16 08:39 (Morphine Inj) 2 mg Q30M PRN IV PUSH 05/10/16 14:00 (Aspirin Chew) 81 mg DAILY PO 05/11/16 09:00 05/11/16 08:39 (Plavix) 75 mg DAILY PO 05/11/16 09:00 05/11/16 08:39 (Coreg) 3.125 mg Q12HR PO 05/10/16 21:00 05/10/16 23:08 (Prinivil) 2.5 mg DAILY PO 05/11/16 09:00 (KCl) 20 meq DAILY PO 05/10/16 16:00 05/11/16 08:38 (Restoril) 7.5 mg HS PRN PO 05/11/16 00:30 05/11/16 00:51 (Lasix) 20 mg DAILY PO 05/11/16 09:00 05/11/16 08:39 A/P Problem List: (1) DM (diabetes mellitus) ICD Code: E11.9 (2) Seizure ICD Code: R56.9 (3) DM neuropathies ICD Code: E11.40 (4) Hyperglycemia ICD Code: R73.9 (5) Chronic pain ICD Code: G89.29 Assessment and Plan 1. Seizure disorder status post Neurology specialist consult recommended to get EEG, Keppra 500 mg BID, change to by mouth once nausea, improves. Hydration. PT, OT and Speech Therapy. not found swallow pathology and also No pathology by Physical therapy 2. Hypothyroidism with elevated TSH, suspected medical non compliance. re started levothyroxine IV 3. Obesity strongly recommended diet and exercise. 4. DM II better control continue Levemir and sliding scale. 5. Chronic Pain syndrome 6. Peripheral Neuropathy secondary to DM II. continue home medicines. 7. Electrolyte derangement replaced. 8. Severe tobacco dependence, marijuana abuse strongly recommended to stop smoking. 9. Acute Non ST elevation MN, asked by emr specialist Doctor Sidney Jain for Cardiac Cath that was performed and found Severe Mid Left circumflex Coronary artery stenosis, Reduced left ventricular systolic function with regional wall motion abnormality, suspected Takotsubo Cardiomyopathy stress induced. added Beta Blockers and CRISTIAN inhibitor. Discussed with Patient in the room seen with nurse Code Status Full Code Discharge Planning Expected for Friday05/13/16 Problem Qualifiers (1) DM neuropathies: (2) Chronic pain: Qualified Code: G89.4 - Chronic pain syndrome Gary Vega MD May 11, 2016 11:24 Qualified Code: G89.4 - Chronic pain syndrome Gary Vega MD May 11, 2016 11:24
--- NOTE | 2016-05-11 11:41 | MG ---
cc: JW MISHRA MD Lab No: [id number] Date: 05/10/2016 Age: Sex: F Race: ALSO KNOWN : Lori [id number]. HISTORY: Female with a history of weakness, confusion, abdominal pain and seizures. DESCRIPTION OF THE STUDY: Posterior rhythm demonstrates 5-6 Hz activity 20-50 microvolts, frontal theta, mild delta frequencies. Good EEG variability reactivity. Coughing episodes and body movement resulting in some myogenic artifact. Bursts of 2-3 Hz delta activity occurring. There is reversal sharp transient right central region. Tiny sharp transient C3P3 epoch 95. Posterior rhythm increments up to 7-8 Hz around epoch 99 on a background of generalized slowing and reduced driving with photic stimulation. Single lead EKG appears shows sinus rhythm with rare episodes of artifact. No active seizures. INTERPRETATION: Mild encephalopathy and sleep state. Some nonspecific changes. No active seizures. Clinical correlation. Jw Mishra MD MG/CHEVY /10:23 AM /11:25 AM
[2016-05-11] MEDS ORDERED: POTASSIUM PHOSPHATE INJ 15 MMOL in SODIUM CHLORIDE 0.9% INJ 150 ML IV ONE (12:00)
[2016-05-11] MEDS: MAGNESIUM SULFATE 1 GM PREMIX 100 ML IV SCH ×4 (12:00→22:49)
--- NOTE | 2016-05-11 12:18 | RADRPT ---
EXAM DATE/TIME: 05/11/2016 11:36 [facility] COMPARISON: CT BRAIN W/O CONTRAST, May 09, 2016, 16:33. INDICATIONS : Seizures. MEDICAL HISTORY : Diabetes mellitus type 2. SURGICAL HISTORY : Cholecystectomy. Coronary artery stent. Facial reconstruction ENCOUNTER: Initial ACUITY: 1 day PAIN SCORE: 0/10 LOCATION: cranial Please note a normal MRA of the brain does not entirely exclude the possibility of a small aneurysm, nor the possibility of distal intracranial vessel disease. TECHNIQUE: 3D time of flight MRA was performed. Source images, multiplanar STS MIP, and 3D volume MIP reconstru ctions were reviewed. FINDINGS: There is excellent visualization of the major intracranial arteries out to the second-order branch ve ssels. There is no evidence for aneurysm, vessel truncation or stenosis, and no evidence for vascula r malformation. CONCLUSION: Normal examination for a patient of this age. Javier Brennan MD on May 11, 2016 at 12:16 Board Certified Radiologist. This report was verified electronically.
--- NOTE | 2016-05-11 12:19 | RADRPT ---
EXAM DATE/TIME: 05/11/2016 11:36 [facility] COMPARISON: No previous studies available for comparison. INDICATIONS : Seizures. MEDICAL HISTORY : Diabetes mellitus type 2. SURGICAL HISTORY : Cholecystectomy. Coronary artery stent. Facial reconstruction surgery. ENCOUNTER: Initial ACUITY: 1 day PAIN SCORE: 0/10 LOCATION: cranial TECHNIQUE: Multiplanar, multisequence MRI of the brain was performed without contrast. FINDINGS: CEREBRUM: The ventricles are normal for age. No evidence of midline shift, mass lesion, hemorrhage or acute in farction. No extraaxial fluid collections are seen. The pituitary gland and suprasellar cistern are normal in configuration. WHITE MATTER: No significant signal abnormalities are seen in the white matter. POSTERIOR FOSSA: The cerebellum and brainstem are intact. The 4th ventricle is midline. The cerebellopontine angle is unremarkable. The cerebellar tonsils are normal in position. DIFFUSION IMAGING: No focal areas of restricted diffusion are seen. No evidence of acute infarction. EXTRACRANIAL: The visualized portions of the orbits and paranasal sinuses are unremarkable. CONCLUSION: Normal examination for a patient of this age. Javier Brennan MD on May 11, 2016 at 12:17 Board Certified Radiologist. This report was verified electronically.
[2016-05-11] MEDS: POTASSIUM CHLOR 20 MEQ PREMIX 100 ML IV SCH ×2 (14:30→16:30)
[2016-05-11] MEDS: FENOFIBRATE 145 MG TAB PO SCH (22:41)
[2016-05-11] MEDS: ATORVASTATIN 40 MG TAB PO SCH (22:43)
[2016-05-11] MEDS: QUEtiapine FUMARATE 100 MG TAB PO SCH (22:44)
[2016-05-11] MEDS: INSULIN DETEMIR 100 UNITS/ML VIAL SQ SCH (22:46)
[2016-05-12] VITALS (23 sets, daily range): BP systolic 82–102; BP diastolic 54–69; PULSE 71–90; RESP 14–18; TEMP 97.8–98.7; O2SAT 93–100
[2016-05-12] MEDS: LEVOTHYROXINE SODIUM 100 MCG VIAL IV PUSH SCH (06:55)
--- NOTE | 2016-05-12 08:00 | HHI.PR ---
Subjective Remarks This is a pleasant female patient who was sitting at home in a chair with family Member when she sudden slumped over and her face turned dusky, EMS called GCS score was 3, given oxygen and transferred to ED, Stroke alert called and the patient was moaning and groaning and moves all extremity. Patient's unable to provide any information initially she has history of Seizure disorder, has also Anxiety, depression, Atrial Fibrillation, Hyperlipidemia, GERD, DM II, Peripheral Neuropathy, Hypothyroidism . initially was lethargic in ER, likely post-ictal phenomenon seen by Neurology specialist, her blood glucose was over 400. heavy Tobacco dependence one and a half packs of cigarettes daily and also smokes Marijuana as per patient multiple times per week. 05/10 Seen in her bedroom and discussed early in am with nurse, Electrolyte derangement, her Potassium level 2.6 and hypomagnesemia 1.5 replaced, Neurology specialist recommended Hydration, hyperammonemia given Lactulose, due to increasing Troponin levels with Diagnosis of Non ST elevation OR, status post Cardiac Cath that was found Severe Mid Left circumflex Coronary artery stenosis, Reduced left ventricular systolic function with regional wall motion abnormality, suspected Takotsubo Cardiomyopathy stress induced. added Beta Blockers and CRISTIAN inhibitor. 05/11 Stable in her bedroom, no need for Physical therapy, following application integration specialist recommendations, replacing electrolytes and continue low. 05/12 Stable seen in her bedroom discussed with nurse Miss Whiting continue electrolyte replacement, no Nausea, vomit or diarrhea. Objective Vital Signs Date Time Temp Pulse Resp B/P Pulse Ox O2 Delivery O2 Flow Rate FiO2 05/12/16 05:39 98.6 86 18 92/58 99 05/12/16 05:00 72 05/12/16 04:00 71 05/12/16 03:17 97 Room Air 05/12/16 03:00 84 05/12/16 02:00 84 05/12/16 01:03 91/56 05/12/16 01:02 98.3 87 18 84/66 99 05/12/16 01:00 86 05/12/16 00:56 99 Room Air 05/12/16 00:00 86 05/11/16 23:00 83 05/11/16 22:00 83 05/11/16 21:00 86 05/11/16 20:51 99 Room Air 05/11/16 20:44 98.2 89 18 94/68 99 05/11/16 20:00 82 05/11/16 19:00 84 05/11/16 17:00 82 05/11/16 16:00 90 05/11/16 15:00 98 Room Air 05/11/16 15:00 98.5 88 18 94/65 98 05/11/16 15:00 88 05/11/16 13:00 84 05/11/16 11:00 96 Room Air 05/11/16 11:00 84 05/11/16 11:00 98.5 74 18 90/62 96 05/11/16 10:00 82 05/11/16 09:00 86 05/11/16 08:00 84 I/O 05/11/16 05/11/16 05/11/16 05/12/16 05/12/16 05/12/16 07:00 15:00 23:00 07:00 15:00 23:00 Intake Total 240 ml 240 ml Output Total 900 ml Balance -660 ml 240 ml Intake Oral 240 ml 240 ml Output Urine Total 900 ml # Voids 2 # Bowel Movements 1 Result Diagram: 05/11/16 0420 05/11/16 1233 Imaging Last Impressions Head Magnetic Resonance Angiography 05/11/16 0000 Signed Impressions: Service Date/Time: Wednesday, May 11, 2016 11:36 - CONCLUSION: Normal examination for a patient of this age. Javier Brennan MD Brain MRI 05/11/16 0000 Signed Impressions: Service Date/Time: Wednesday, May 11, 2016 11:36 - CONCLUSION: Normal examination for a patient of this age. Javier Brennan MD Head CT 05/09/16 1601 Signed Impressions: Service Date/Time: April 16:33 - CONCLUSION: No acute disease. No evidence of acute infarct, hemorrhage, mass or edema. No evidence of extra-axial fluid collections. Hermelindo Segura MD Chest X-Ray 05/09/16 1601 Signed Impressions: Service Date/Time: April 16:14 - CONCLUSION: No acute disease. Edi Borges MD Carotid Artery Ultrasound 05/09/16 0000 Signed Impressions: Service Date/Time: April 18:40 - CONCLUSION: Mild atherosclerotic plaque of both carotid bifurcations. No significant narrowing. Edi Beard MD Procedures Cardiac Catheterization Other Results Laboratory Tests Test 05/09/16 05/09/16 05/10/16 05/10/16 16:00 16:20 00:05 07:51 Bedside Hemoglobin 16.0 G/DL Bedside Hematocrit 47.0 % Differential Total Cells 100 Counted Neutrophils % (Manual) 56 % Band Neutrophils % 1 % Lymphocytes % 39 % Monocytes % 3 % Basophils % 1 % Neutrophils # (Manual) 10.4 TH/MM3 Platelet Estimate NORMAL Platelet Morphology Comment NORMAL Erythrocyte Sedimentation Rate 7 mm/hr Prothrombin Time 10.9 SEC Prothromb Time International 1.0 RATIO Ratio Activated Partial 23.3 SEC Thromboplast Time Bedside Sodium 134 MMOL/L Bedside Potassium 5.6 MMOL/L Bedside Chloride 103 MMOL/L Bedside Blood Urea Nitrogen 15 MG/DL Bedside Creatinine 0.9 MG/DL Bedside Glucose 412 MG/DL Total Bilirubin 0.6 MG/DL Aspartate Amino Transf 69 U/L (AST/SGOT) Alanine Aminotransferase 23 U/L (ALT/SGPT) Alkaline Phosphatase 78 U/L Total Protein 8.9 GM/DL Albumin 3.5 GM/DL Thyroid Stimulating Hormone 10.400 uIU/ML 3rd Gen Salicylates Level 2.0 MG/DL Acetaminophen Level LESS THAN 2.0 MCG/ML Ethyl Alcohol Level LESS THAN 3 MG/DL Urine Color YELLOW Urine Turbidity HAZY Urine pH 7.5 Urine Specific [place] 1.014 Urine Protein 30 mg/dL Urine Glucose (UA) 150 mg/dL Urine Ketones TRACE mg/dL Urine Occult Blood NEG Urine Nitrite NEG Urine Bilirubin NEG Urine Urobilinogen LESS THAN 2.0 MG/DL Urine Leukocyte Esterase NEG Urine RBC LESS THAN 1 /hpf Urine WBC 1 /hpf Urine Squamous Epithelial 1 /hpf Cells Urine Hyaline Casts 2 /lpf Urine Mucus FEW /lpf Microscopic Urinalysis Comment CULT NOT INDICATED Urine Opiates Screen NEG Urine Barbiturates Screen NEG Urine Amphetamines Screen NEG Urine Benzodiazepines Screen NEG Urine Cocaine Screen NEG Urine Cannabinoids Screen POS Hemoglobin A1c 8.6 % Ammonia 49 MCMOL/L Vitamin B12 Level 275 PG/ML Troponin I 2.48 NG/ML Test 05/11/16 05/11/16 04:20 12:33 White Blood Count 13.1 TH/MM3 Red Blood Count 4.44 MIL/MM3 Hemoglobin 13.6 GM/DL Hematocrit 39.4 % Mean Corpuscular Volume 88.8 FL Mean Corpuscular Hemoglobin 30.5 PG Mean Corpuscular Hemoglobin 34.4 % Concent Red Cell Distribution Width 15.4 % Platelet Count 288 TH/MM3 Mean Platelet Volume 8.2 FL Neutrophils (%) (Auto) 66.4 % Lymphocytes (%) (Auto) 27.8 % Monocytes (%) (Auto) 4.5 % Eosinophils (%) (Auto) 0.4 % Basophils (%) (Auto) 0.9 % Neutrophils # (Auto) 8.7 TH/MM3 Lymphocytes # (Auto) 3.7 TH/MM3 Monocytes # (Auto) 0.6 TH/MM3 Eosinophils # (Auto) 0.1 TH/MM3 Basophils # (Auto) 0.1 TH/MM3 CBC Comment DIFF FINAL Differential Comment Sodium Level 139 MEQ/L Chloride Level 102 MEQ/L Carbon Dioxide Level 23.4 MEQ/L Anion Gap 14 MEQ/L Blood Urea Nitrogen 10 MG/DL Creatinine 0.88 MG/DL Estimat Glomerular Filtration 67 ML/MIN Rate Random Glucose 187 MG/DL Calcium Level 9.1 MG/DL Phosphorus Level 2.1 MG/DL Magnesium Level 1.4 MG/DL Total Creatine Kinase 1869 U/L Creatine Kinase MB 15.8 NG/ML Creatine Kinase MB % 0.8 % Triglycerides Level 281 MG/DL Cholesterol Level 186 MG/DL LDL Cholesterol 86 MG/DL HDL Cholesterol 43.7 MG/DL Cholesterol/HDL Ratio 4.25 RATIO Potassium Level 2.7 MEQ/L Objective Remarks GENERAL: Obese patient in no acute distress. SKIN: Warm and dry. HEAD: Normocephalic. EYES: No scleral icterus. No injection or drainage. Pupil 4 mm equal reactive. NECK: Supple, trachea midline. No JVD or lymphadenopathy. CARDIOVASCULAR: Regular rate and rhythm without murmurs, gallops, or rubs. RESPIRATORY: Breath sounds equal bilaterally. No accessory muscle use. GASTROINTESTINAL: Abdomen soft, non-tender, nondistended. MUSCULOSKELETAL: No cyanosis, or edema. NEUROLOGY: alert and oriented, no focal deficits. Medications and IVs Current Medications Medications (Trade) Dose Ordered Sig/[place] Route Start Time Stop Time Status Last Admin (NS Flush) 2 ml UNSCH PRN FLUSH 05/09/16 18:00 (NS Flush) 2 ml BID FLUSH 05/09/16 21:00 05/11/16 22:47 (Tylenol) 650 mg Q4H PRN PO 05/09/16 18:00 05/10/16 18:43 (Zofran Inj) 4 mg Q6H PRN IVP 05/09/16 18:00 (Reglan Inj) 5 mg Q6H PRN IV PUSH 05/09/16 18:00 05/09/16 18:31 (Dulcolax Supp) 10 mg DAILY PRN [place] 05/09/16 18:00 Naloxone HCl 0.4 mg 0.4 mg UNSCH PRN IV 05/09/16 18:00 (Keppra Inj/NS Inj) 105 ml @ 420 mls/hr Q12HR IV 05/09/16 20:00 05/11/16 23:29 (Lipitor) 40 mg HS PO 05/09/16 21:00 05/11/16 22:43 (Flexeril) 10 mg BID PO 05/09/16 21:00 05/11/16 22:43 (Tricor) 145 mg HS PO 05/09/16 21:00 05/11/16 22:41 (Paxil) 40 mg BID PO 05/09/16 21:00 05/11/16 22:44 (SEROquel) 100 mg HS PO 05/09/16 21:00 05/11/16 22:44 (Synthroid Inj) 50 mcg DAILY@06 IV PUSH 05/10/16 06:00 05/12/16 06:55 (Levemir Inj) 15 units HS SQ 05/09/16 21:00 05/11/16 22:46 (Mag-Ox) 400 mg DAILY PO 05/10/16 09:00 05/11/16 08:38 (D50w (Vial) Inj) 25 ml UNSCH PRN IV PUSH 05/09/16 20:30 (Glucagon Inj) 1 mg UNSCH PRN OTHER 05/09/16 20:30 (Morphine Inj) 2 mg Q30M PRN IV PUSH 05/10/16 14:00 (Aspirin Chew) 81 mg DAILY PO 05/11/16 09:00 05/11/16 08:39 (Plavix) 75 mg DAILY PO 05/11/16 09:00 05/11/16 08:39 (Coreg) 3.125 mg Q12HR PO 05/10/16 21:00 05/10/16 23:08 (Prinivil) 2.5 mg DAILY PO 05/11/16 09:00 (KCl) 20 meq DAILY PO 05/10/16 16:00 05/11/16 08:38 (Restoril) 7.5 mg HS PRN PO 05/11/16 00:30 05/11/16 22:42 (Lasix) 20 mg DAILY PO 05/11/16 09:00 05/11/16 08:39 A/P Problem List: (1) DM (diabetes mellitus) ICD Code: E11.9 (2) Seizure ICD Code: R56.9 (3) DM neuropathies ICD Code: E11.40 (4) Hyperglycemia ICD Code: R73.9 (5) Chronic pain ICD Code: G89.29 Assessment and Plan 1. Seizure disorder status post Neurology specialist consult recommended to get EEG, Keppra 500 mg BID, change to by mouth today. Hydration. PT, OT and Speech Therapy. not found swallow pathology and also No pathology by Physical therapy 2. Hypothyroidism with elevated TSH, suspected medical non compliance. switch to by mouth medicine 3. Obesity strongly recommended diet and exercise. 4. DM II better control continue Levemir and sliding scale. adjusted Levemir to 18 units every 12 hours. 5. Chronic Pain syndrome 6. Peripheral Neuropathy secondary to DM II. continue home medicines. 7. Electrolyte derangement replaced. and following. 8. Severe tobacco dependence, marijuana abuse strongly recommended to stop smoking. 9. Acute Non ST elevation OR, asked by application integration specialist Doctor Sidney Jain for Cardiac Cath that was performed and found Severe Mid Left circumflex Coronary artery stenosis, Reduced left ventricular systolic function with regional wall motion abnormality, suspected Takotsubo Cardiomyopathy stress induced. added Beta Blockers and CRISTIAN inhibitor. Discussed with Patient in the room seen with nurse Code Status Full Code Discharge Planning Expected for tomorrow. Problem Qualifiers (1) DM neuropathies: (2) Chronic pain: Qualified Code: G89.4 - Chronic pain syndrome Gary Vega MD May 12, 2016 08:00
[2016-05-12] MEDS: MAGNESIUM OXIDE 400 MG TAB PO SCH (08:12)
[2016-05-12] MEDS: FUROSEMIDE 20 MG TAB PO SCH (08:12)
[2016-05-12] MEDS: POTASSIUM CHLORIDE 20 MEQ CONTROLLED RELEASE TAB PO SCH ×2 (08:12→21:46)
[2016-05-12] MEDS: INSULIN NovoLIN REGULAR SUPPLEMENTAL SCALE SQ SCH ×4 (08:12→21:51)
[2016-05-12] MEDS: ASPIRIN 81 MG CHEW TAB PO SCH (08:12)
[2016-05-12] MEDS: CLOPIDOGREL 75 MG TAB PO SCH (08:12)
[2016-05-12] MEDS: PARoxetine HCL 20 MG TAB PO SCH ×2 (08:12→21:49)
[2016-05-12] MEDS: CYCLOBENZAPRINE HCL 10 MG TAB PO SCH ×2 (08:12→21:49)
[2016-05-12] MEDS: LISINOPRIL 5 MG TAB PO SCH (08:13)
[2016-05-12] MEDS: SODIUM CHLORIDE 0.9% FLUSH 5 ML FLUSH FLUSH SCH ×2 (08:13→21:48)
[2016-05-12] MEDS: CARVEDILOL 3.125 MG TAB PO SCH ×2 (08:13→21:00)
[2016-05-12 08:27] LABS: BICARBONATE 21.5 MEQ/L (21.0-32.0); MAGNESIUM 1.5 MG/DL (1.5-2.5)
[2016-05-12 08:46] LABS: POTASSIUM 2.9 MEQ/L (3.5-5.1)
[2016-05-12] MEDS: levETIRAcetam 500 MG/NS 100 ML IV SCH ×2 (09:00)
[2016-05-12] MEDS ORDERED: POTASSIUM CHLORIDE 20 MEQ CONTROLLED RELEASE TAB PO SCH (09:30)
[2016-05-12] MEDS: MAGNESIUM SULFATE 1 GM PREMIX 100 ML IV SCH ×2 (10:00→11:23)
[2016-05-12] MEDS: POTASSIUM CHLOR 20 MEQ PREMIX 100 ML IV SCH ×2 (10:03→11:23)
[2016-05-12] MEDS: ACETAMINOPHEN 325 MG TAB PO PRN (12:46)
[2016-05-12 16:23] LABS: POTASSIUM 3.4 MEQ/L (3.5-5.1)
[2016-05-12] MEDS ORDERED: INSULIN DETEMIR 100 UNITS/ML VIAL SQ SCH (21:00)
[2016-05-12] MEDS: TEMAZEPAM 7.5 MG CAP PO PRN (21:46)
[2016-05-12] MEDS: levETIRAcetam 500 MG TAB PO SCH (21:46)
[2016-05-12] MEDS: FENOFIBRATE 145 MG TAB PO SCH (21:48)
[2016-05-12] MEDS: QUEtiapine FUMARATE 100 MG TAB PO SCH (21:48)
[2016-05-12] MEDS: ATORVASTATIN 40 MG TAB PO SCH (21:49)
[2016-05-13] VITALS (23 sets, daily range): BP systolic 85–103; BP diastolic 52–70; PULSE 60–108; RESP 16–18; TEMP 97.7–98.8; O2SAT 95–100
[2016-05-13] MEDS: LEVOTHYROXINE SODIUM 100 MCG TAB PO SCH (06:00)
[2016-05-13] MEDS: INSULIN NovoLIN REGULAR SUPPLEMENTAL SCALE SQ SCH ×4 (07:00→22:06)
[2016-05-13] MEDS ORDERED: POTASSIUM CHLOR 20 MEQ PREMIX 100 ML IV ONE (08:00)
[2016-05-13] MEDS: levETIRAcetam 500 MG TAB PO SCH ×2 (08:17→22:03)
[2016-05-13] MEDS: CLOPIDOGREL 75 MG TAB PO SCH (08:17)
[2016-05-13] MEDS: CYCLOBENZAPRINE HCL 10 MG TAB PO SCH ×2 (08:17→22:03)
[2016-05-13] MEDS: ASPIRIN 81 MG CHEW TAB PO SCH (08:18)
[2016-05-13] MEDS: MAGNESIUM OXIDE 400 MG TAB PO SCH (08:18)
[2016-05-13] MEDS: POTASSIUM CHLORIDE 20 MEQ CONTROLLED RELEASE TAB PO SCH ×2 (08:18→22:05)
[2016-05-13] MEDS: PARoxetine HCL 20 MG TAB PO SCH ×2 (08:19→22:04)
[2016-05-13] MEDS: FUROSEMIDE 20 MG TAB PO SCH (08:19)
[2016-05-13] MEDS: SODIUM CHLORIDE 0.9% FLUSH 5 ML FLUSH FLUSH SCH ×2 (08:20→22:07)
[2016-05-13] MEDS: CARVEDILOL 3.125 MG TAB PO SCH (08:22)
[2016-05-13] MEDS: LISINOPRIL 5 MG TAB PO SCH (08:22)
--- NOTE | 2016-05-13 10:03 | PD.CARD.PN ---
Subjective Subjective Remarks feeling better. Denies chest pain, SOB or palpitation (Melinda Pereira) Objective Medications Current Medications Medications (Trade) Dose Ordered Sig/Ephraim Route Start Time Stop Time Status Last Admin (NS Flush) 2 ml UNSCH PRN FLUSH 05/09/16 18:00 (NS Flush) 2 ml BID FLUSH 05/09/16 21:00 05/13/16 08:20 (Tylenol) 650 mg Q4H PRN PO 05/09/16 18:00 05/12/16 12:46 (Zofran Inj) 4 mg Q6H PRN IVP 05/09/16 18:00 (Reglan Inj) 5 mg Q6H PRN IV PUSH 05/09/16 18:00 05/09/16 18:31 (Dulcolax Supp) 10 mg DAILY PRN [place] 05/09/16 18:00 (Narcan Inj) 0.4 mg UNSCH PRN IV 05/09/16 18:00 (Lipitor) 40 mg HS PO 05/09/16 21:00 05/12/16 21:49 (Flexeril) 10 mg BID PO 05/09/16 21:00 05/13/16 08:17 (Tricor) 145 mg HS PO 05/09/16 21:00 05/12/16 21:48 (Paxil) 40 mg BID PO 05/09/16 21:00 05/13/16 08:19 (SEROquel) 100 mg HS PO 05/09/16 21:00 05/12/16 21:48 (Mag-Ox) 400 mg DAILY PO 05/10/16 09:00 05/13/16 08:18 (D50w (Vial) Inj) 25 ml UNSCH PRN IV PUSH 05/09/16 20:30 (Glucagon Inj) 1 mg UNSCH PRN OTHER 05/09/16 20:30 (Morphine Inj) 2 mg Q30M PRN IV PUSH 05/10/16 14:00 (Aspirin Chew) 81 mg DAILY PO 05/11/16 09:00 05/13/16 08:18 (Plavix) 75 mg DAILY PO 05/11/16 09:00 05/13/16 08:17 (Prinivil) 2.5 mg DAILY PO 05/11/16 09:00 (Restoril) 7.5 mg HS PRN PO 05/11/16 00:30 05/12/16 21:46 (Lasix) 20 mg DAILY PO 05/11/16 09:00 05/13/16 08:19 (Keppra) 500 mg Q12HR PO 05/12/16 21:00 05/13/16 08:17 (Levemir Inj) 18 units HS SQ 05/12/16 21:00 05/12/16 21:00 (KCl) 40 meq BID PO 05/12/16 21:00 05/13/16 08:18 Levothyroxine Sodium 100 mcg 100 mcg DAILY@0600 PO 05/13/16 06:00 05/13/16 06:00 (KCl 20 Meq Premix Inj) 100 ml @ 50 mls/hr ONCE ONCE IV 05/13/16 08:00 05/13/16 09:59 05/13/16 08:20 Vital Signs / I&O Vital Signs Date Time Temp Pulse Resp B/P Pulse Ox O2 Delivery O2 Flow Rate FiO2 05/13/16 08:27 96 Room Air 05/13/16 08:27 82 05/13/16 08:27 97.9 83 18 92/62 96 05/13/16 06:13 98.6 85 16 93/56 95 05/13/16 06:08 97 Room Air 05/13/16 05:00 83 05/13/16 04:00 82 05/13/16 03:00 80 05/13/16 02:00 82 05/13/16 01:23 97 Room Air 05/13/16 01:20 98.4 80 16 85/52 99 05/13/16 01:00 84 05/13/16 00:00 78 05/12/16 23:00 82 05/12/16 22:00 82 05/12/16 21:00 98.7 90 16 97/69 100 05/12/16 21:00 90 05/12/16 20:00 84 05/12/16 19:00 86 05/12/16 18:00 86 05/12/16 17:00 86 05/12/16 16:00 Room Air 05/12/16 16:00 82 05/12/16 16:00 98.4 83 14 94/66 98 05/12/16 14:08 16 05/12/16 12:00 Room Air 05/12/16 12:00 97.9 86 16 102/68 93 05/12/16 12:00 85 05/12/16 11:00 84 05/12/16 10:00 84 I/O 05/12/16 05/12/16 05/12/16 05/13/16 05/13/16 05/13/16 07:00 15:00 23:00 07:00 15:00 23:00 Intake Total 240 ml 1430 ml 840 ml Output Total 1800 ml Balance 240 ml 1430 ml -960 ml Intake Oral 240 ml 780 ml 240 ml IV Total 650 ml 600 ml Output Urine Total 1800 ml # Voids 2 4 # Bowel Movements 0 0 Physical Exam HEAD: Atraumatic. Normocephalic. EYES: Pupils equal and round. ENT: No nasal bleeding or discharge. NECK: Trachea midline. No JVD. CARDIOVASCULAR: Regular rate and rhythm. No murmur RESPIRATORY: No accessory muscle use. Clear to auscultation. Breath sounds equal bilaterally. GASTROINTESTINAL: Abdomen soft, non-tender, nondistended. MUSCULOSKELETAL: Extremities without clubbing, cyanosis, or edema. No obvious deformities. NEUROLOGICAL: Awake and alert. No obvious cranial nerve deficits. Normal speech. PSYCHIATRIC: Appropriate mood and affect; insight and judgment normal. Laboratory Laboratory Tests Test 05/12/16 16:00 Potassium Level 3.4 MEQ/L Magnesium Level 2.0 MG/DL Imaging Last Impressions Head Magnetic Resonance Angiography 05/11/16 0000 Signed Impressions: Service Date/Time: Wednesday, May 11, 2016 11:36 - CONCLUSION: Normal examination for a patient of this age. Javier Brennan MD Brain MRI 05/11/16 0000 Signed Impressions: Service Date/Time: Wednesday, May 11, 2016 11:36 - CONCLUSION: Normal examination for a patient of this age. Javier Brennan MD Head CT 05/09/16 1601 Signed Impressions: Service Date/Time: April 16:33 - CONCLUSION: No acute disease. No evidence of acute infarct, hemorrhage, mass or edema. No evidence of extra-axial fluid collections. Hermelindo Segura MD Chest X-Ray 05/09/16 1601 Signed Impressions: Service Date/Time: Thursday, May 09, 2016 16:14 - CONCLUSION: No acute disease. Edi Borges MD Carotid Artery Ultrasound 05/09/16 0000 Signed Impressions: Service Date/Time: April 18:40 - CONCLUSION: Mild atherosclerotic plaque of both carotid bifurcations. No significant narrowing. Edi Beard MD (Melinda Pereira) Assessment and Plan Problem List: (1) Seizure Assessment and Plan NSTEMI- s/p BMS to Lcx (05/10). cont asa and Plavix cardiomyopathy- ischemic. EF 25-30%. She will require a LifeVest and repeat echo in 3 months. She was unable to tolerate bb which was stopped. Continue low dose ACEi. ok for discharge. (Melinda Pereira) Assessment and Plan cardiomyopathy - nonischemic. takotsubo. repeat echo 3 months. BB stopped for hypotension. NSTEMI - PCI BMS LCx. asa and plavix OK for DC today. (Sidney Jain MD) Melinda Pereira May 13, 2016 10:03 Sidney Jain MD May 13, 2016 10:19
[2016-05-13 11:10] LABS: P2Y12 REACTION UNITS (PRU) 77 PRU (194-418)
[2016-05-13] MEDS ORDERED: INSULIN DETEMIR 100 UNITS/ML VIAL SQ ONE (14:00)
--- NOTE | 2016-05-13 14:05 | HHI.PR ---
Subjective Remarks This is a pleasant female patient who was sitting at home in a chair with family Member when she sudden slumped over and her face turned dusky, EMS called GCS score was 3, given oxygen and transferred to ED, Stroke alert called and the patient was moaning and groaning and moves all extremity. Patient's unable to provide any information initially she has history of Seizure disorder, has also Anxiety, depression, Atrial Fibrillation, Hyperlipidemia, GERD, DM II, Peripheral Neuropathy, Hypothyroidism . initially was lethargic in ER, likely post-ictal phenomenon seen by Neurology specialist, her blood glucose was over 400. heavy Tobacco dependence one and a half packs of cigarettes daily and also smokes Marijuana as per patient multiple times per week. 05/10 Seen in her bedroom and discussed early in am with nurse, Electrolyte derangement, her Potassium level 2.6 and hypomagnesemia 1.5 replaced, Neurology specialist recommended Hydration, hyperammonemia given Lactulose, due to increasing Troponin levels with Diagnosis of Non ST elevation ID, status post Cardiac Cath that was found Severe Mid Left circumflex Coronary artery stenosis, Reduced left ventricular systolic function with regional wall motion abnormality, suspected Takotsubo Cardiomyopathy stress induced. added Beta Blockers and CRISTIAN inhibitor. 05/11 Stable in her bedroom, no need for Physical therapy, following records management specialist recommendations, replacing electrolytes and continue low. 05/12 Stable seen in her bedroom discussed with nurse Miss Whiting continue electrolyte replacement, no Nausea, vomit or diarrhea. 05/13 Seen in her bedroom improving condition, more stabilized her electrolytes, awaiting for Life vest recommended by records management specialist doctor Minor. discussed with nurse Miss Guzman in her bedroom. No complaint, no pain, no nausea no vomit or diarrhea. Objective Vital Signs Date Time Temp Pulse Resp B/P Pulse Ox O2 Delivery O2 Flow Rate FiO2 05/13/16 13:48 60 05/13/16 12:37 98.3 89 16 103/70 99 05/13/16 12:37 99 Room Air 05/13/16 12:37 88 05/13/16 10:24 92 05/13/16 09:00 91 05/13/16 08:27 96 Room Air 05/13/16 08:27 82 05/13/16 08:27 97.9 83 18 92/62 96 05/13/16 06:13 98.6 85 16 93/56 95 05/13/16 06:08 97 Room Air 05/13/16 05:00 83 05/13/16 04:00 82 05/13/16 03:00 80 05/13/16 02:00 82 05/13/16 01:23 97 Room Air 05/13/16 01:20 98.4 80 16 85/52 99 05/13/16 01:00 84 05/13/16 00:00 78 05/12/16 23:00 82 05/12/16 22:00 82 05/12/16 21:00 98.7 90 16 97/69 100 05/12/16 21:00 90 05/12/16 20:00 84 05/12/16 19:00 86 05/12/16 18:00 86 05/12/16 17:00 86 05/12/16 16:00 Room Air 05/12/16 16:00 82 05/12/16 16:00 98.4 83 14 94/66 98 05/12/16 14:08 16 I/O 05/12/16 05/12/16 05/12/16 05/13/16 05/13/16 05/13/16 07:00 15:00 23:00 07:00 15:00 23:00 Intake Total 240 ml 1430 ml 840 ml Output Total 1800 ml Balance 240 ml 1430 ml -960 ml Intake Oral 240 ml 780 ml 240 ml IV Total 650 ml 600 ml Output Urine Total 1800 ml # Voids 2 4 # Bowel Movements 0 0 Result Diagram: 05/11/16 0420 05/12/16 1600 Imaging Last Impressions Head Magnetic Resonance Angiography 05/11/16 0000 Signed Impressions: Service Date/Time: Wednesday, May 11, 2016 11:36 - CONCLUSION: Normal examination for a patient of this age. Javier Brennan MD Brain MRI 05/11/16 0000 Signed Impressions: Service Date/Time: Wednesday, May 11, 2016 11:36 - CONCLUSION: Normal examination for a patient of this age. Javier Brennan MD Head CT 05/09/16 1601 Signed Impressions: Service Date/Time: April 16:33 - CONCLUSION: No acute disease. No evidence of acute infarct, hemorrhage, mass or edema. No evidence of extra-axial fluid collections. Hermelindo Segura MD Chest X-Ray 05/09/16 1601 Signed Impressions: Service Date/Time: April 16:14 - CONCLUSION: No acute disease. Edi Borges MD Carotid Artery Ultrasound 05/09/16 0000 Signed Impressions: Service Date/Time: April 18:40 - CONCLUSION: Mild atherosclerotic plaque of both carotid bifurcations. No significant narrowing. Edi Beard MD Procedures Cardiac Catheterization Other Results Laboratory Tests Test 05/09/16 05/09/16 05/10/16 05/10/16 16:00 16:20 00:05 07:51 Bedside Hemoglobin 16.0 G/DL Bedside Hematocrit 47.0 % Differential Total Cells 100 Counted Neutrophils % (Manual) 56 % Band Neutrophils % 1 % Lymphocytes % 39 % Monocytes % 3 % Basophils % 1 % Neutrophils # (Manual) 10.4 TH/MM3 Platelet Estimate NORMAL Platelet Morphology Comment NORMAL Erythrocyte Sedimentation Rate 7 mm/hr Prothrombin Time 10.9 SEC Prothromb Time International 1.0 RATIO Ratio Activated Partial 23.3 SEC Thromboplast Time Bedside Sodium 134 MMOL/L Bedside Potassium 5.6 MMOL/L Bedside Chloride 103 MMOL/L Bedside Blood Urea Nitrogen 15 MG/DL Bedside Creatinine 0.9 MG/DL Bedside Glucose 412 MG/DL Total Bilirubin 0.6 MG/DL Aspartate Amino Transf 69 U/L (AST/SGOT) Alanine Aminotransferase 23 U/L (ALT/SGPT) Alkaline Phosphatase 78 U/L Total Protein 8.9 GM/DL Albumin 3.5 GM/DL Thyroid Stimulating Hormone 10.400 uIU/ML 3rd Gen Salicylates Level 2.0 MG/DL Acetaminophen Level LESS THAN 2.0 MCG/ML Ethyl Alcohol Level LESS THAN 3 MG/DL Urine Color YELLOW Urine Turbidity HAZY Urine pH 7.5 Urine Specific Elmer 1.014 Urine Protein 30 mg/dL Urine Glucose (UA) 150 mg/dL Urine Ketones TRACE mg/dL Urine Occult Blood NEG Urine Nitrite NEG Urine Bilirubin NEG Urine Urobilinogen LESS THAN 2.0 MG/DL Urine Leukocyte Esterase NEG Urine RBC LESS THAN 1 /hpf Urine WBC 1 /hpf Urine Squamous Epithelial 1 /hpf Cells Urine Hyaline Casts 2 /lpf Urine Mucus FEW /lpf Microscopic Urinalysis Comment CULT NOT INDICATED Urine Opiates Screen NEG Urine Barbiturates Screen NEG Urine Amphetamines Screen NEG Urine Benzodiazepines Screen NEG Urine Cocaine Screen NEG Urine Cannabinoids Screen POS Hemoglobin A1c 8.6 % Ammonia 49 MCMOL/L Vitamin B12 Level 275 PG/ML Troponin I 2.48 NG/ML Test 05/11/16 05/12/16 05/12/16 05/13/16 04:20 07:10 16:00 10:50 White Blood Count 13.1 TH/MM3 Red Blood Count 4.44 MIL/MM3 Hemoglobin 13.6 GM/DL Hematocrit 39.4 % Mean Corpuscular Volume 88.8 FL Mean Corpuscular Hemoglobin 30.5 PG Mean Corpuscular Hemoglobin 34.4 % Concent Red Cell Distribution Width 15.4 % Platelet Count 288 TH/MM3 Mean Platelet Volume 8.2 FL Neutrophils (%) (Auto) 66.4 % Lymphocytes (%) (Auto) 27.8 % Monocytes (%) (Auto) 4.5 % Eosinophils (%) (Auto) 0.4 % Basophils (%) (Auto) 0.9 % Neutrophils # (Auto) 8.7 TH/MM3 Lymphocytes # (Auto) 3.7 TH/MM3 Monocytes # (Auto) 0.6 TH/MM3 Eosinophils # (Auto) 0.1 TH/MM3 Basophils # (Auto) 0.1 TH/MM3 CBC Comment DIFF FINAL Differential Comment Total Creatine Kinase 1869 U/L Creatine Kinase MB 15.8 NG/ML Creatine Kinase MB % 0.8 % Triglycerides Level 281 MG/DL Cholesterol Level 186 MG/DL LDL Cholesterol 86 MG/DL HDL Cholesterol 43.7 MG/DL Cholesterol/HDL Ratio 4.25 RATIO Sodium Level 139 MEQ/L Chloride Level 103 MEQ/L Carbon Dioxide Level 21.5 MEQ/L Anion Gap 15 MEQ/L Blood Urea Nitrogen 16 MG/DL Creatinine 0.84 MG/DL Estimat Glomerular Filtration 70 ML/MIN Rate Random Glucose 165 MG/DL Calcium Level 9.2 MG/DL Phosphorus Level 2.6 MG/DL Potassium Level 3.4 MEQ/L Magnesium Level 2.0 MG/DL Platelet Function P2Y12 React 77 PRU Units Objective Remarks GENERAL: Obese patient in no acute distress. SKIN: Warm and dry. HEAD: Normocephalic. EYES: No scleral icterus. No injection or drainage. Pupil 4 mm equal reactive. NECK: Supple, trachea midline. No JVD or lymphadenopathy. CARDIOVASCULAR: Regular rate and rhythm without murmurs, gallops, or rubs. RESPIRATORY: Breath sounds equal bilaterally. No accessory muscle use. GASTROINTESTINAL: Abdomen soft, non-tender, nondistended. MUSCULOSKELETAL: No cyanosis, or edema. NEUROLOGY: alert and oriented, no focal deficits. Medications and IVs Current Medications Medications (Trade) Dose Ordered Sig/Ephraim Route Start Time Stop Time Status Last Admin (NS Flush) 2 ml UNSCH PRN FLUSH 05/09/16 18:00 (NS Flush) 2 ml BID FLUSH 05/09/16 21:00 05/13/16 08:20 (Tylenol) 650 mg Q4H PRN PO 05/09/16 18:00 05/12/16 12:46 (Zofran Inj) 4 mg Q6H PRN IVP 05/09/16 18:00 (Reglan Inj) 5 mg Q6H PRN IV PUSH 05/09/16 18:00 05/09/16 18:31 (Dulcolax Supp) [address] 05/09/16 18:00 (Narcan Inj) 0.4 mg UNSCH PRN IV 05/09/16 18:00 (Lipitor) 40 mg HS PO 05/09/16 21:00 05/12/16 21:49 (Flexeril) 10 mg BID PO 05/09/16 21:00 05/13/16 08:17 (Tricor) 145 mg HS PO 05/09/16 21:00 05/12/16 21:48 (Paxil) 40 mg BID PO 05/09/16 21:00 05/13/16 08:19 (SEROquel) 100 mg HS PO 05/09/16 21:00 05/12/16 21:48 (Mag-Ox) 400 mg DAILY PO 05/10/16 09:00 05/13/16 08:18 (D50w (Vial) Inj) 25 ml UNSCH PRN IV PUSH 05/09/16 20:30 (Glucagon Inj) 1 mg UNSCH PRN OTHER 05/09/16 20:30 (Morphine Inj) 2 mg Q30M PRN IV PUSH 05/10/16 14:00 (Aspirin Chew) 81 mg DAILY PO 05/11/16 09:00 05/13/16 08:18 (Plavix) 75 mg DAILY PO 05/11/16 09:00 05/13/16 08:17 (Prinivil) 2.5 mg DAILY PO 05/11/16 09:00 (Restoril) 7.5 mg HS PRN PO 05/11/16 00:30 05/12/16 21:46 (Lasix) 20 mg DAILY PO 05/11/16 09:00 05/13/16 08:19 (Keppra) 500 mg Q12HR PO 05/12/16 21:00 05/13/16 08:17 (Levemir Inj) 18 units HS SQ 05/12/16 21:00 05/12/16 21:00 (KCl) 40 meq BID PO 05/12/16 21:00 05/13/16 08:18 (Synthroid) 100 mcg DAILY@0600 PO 05/13/16 06:00 05/13/16 06:00 A/P Problem List: (1) DM (diabetes mellitus) ICD Code: E11.9 (2) Seizure ICD Code: R56.9 (3) DM neuropathies ICD Code: E11.40 (4) Hyperglycemia ICD Code: R73.9 (5) Chronic pain ICD Code: G89.29 Assessment and Plan 1. Seizure disorder status post EEG no active Seizures found. Neurology specialist recommended Keppra 500 mg BID PT, OT and Speech Therapy. not found swallow pathology and also No pathology by Physical therapy 2. Hypothyroidism with elevated TSH suspected non compliance, continue Levothyroxine increased to 100 mcg daily 3. Obesity strongly recommended diet and exercise. 4. DM II better control continue Levemir and sliding scale. adjusted Levemir to 22 units BID. 5. Chronic Pain syndrome 6. Peripheral Neuropathy secondary to DM II. continue home medicines. 7. Electrolyte derangement replaced today Potassium 3.4 given potassium and following. 8. Severe tobacco dependence, marijuana abuse strongly recommended to stop smoking. 9. Acute Non ST elevation ID, asked by records management specialist Doctor Sidney Jain for Cardiac Cath that was performed and found Severe Mid Left circumflex Coronary artery stenosis, Reduced left ventricular systolic function with regional wall motion abnormality, suspected Takotsubo Cardiomyopathy stress induced. added Beta Blockers and CRISTIAN inhibitor. she will need Life Vest as per Doctor Jain. Discussed with Patient in the room seen with nurse Miss Megan ricketts, all questions answered to the best of my abilities Code Status Full Code Discharge Planning Expected for tomorrow. Problem Qualifiers (1) DM neuropathies: (2) Chronic pain: Qualified Code: G89.4 - Chronic pain syndrome Gary Vega MD May 13, 2016 14:04
[2016-05-13] MEDS ORDERED: INSULIN DETEMIR 100 UNITS/ML VIAL SQ SCH (21:00)
[2016-05-13] MEDS: ATORVASTATIN 40 MG TAB PO SCH (22:03)
[2016-05-13] MEDS: QUEtiapine FUMARATE 100 MG TAB PO SCH (22:03)
[2016-05-13] MEDS: FENOFIBRATE 145 MG TAB PO SCH (22:04)
[2016-05-13] MEDS: TEMAZEPAM 7.5 MG CAP PO PRN (22:05)
[2016-05-14] VITALS (11 sets, daily range): BP systolic 92–109; BP diastolic 60–72; PULSE 84–95; RESP 14–16; TEMP 97.9–98.5; O2SAT 96–98
[2016-05-14] MEDS: LEVOTHYROXINE SODIUM 100 MCG TAB PO SCH (06:14)
[2016-05-14] MEDS: INSULIN NovoLIN REGULAR SUPPLEMENTAL SCALE SQ SCH (06:19)
--- NOTE | 2016-05-14 07:39 | HHI.PR ---
Subjective Remarks This is a pleasant female patient who was sitting at home in a chair with family Member when she sudden slumped over and her face turned dusky, EMS called GCS score was 3, given oxygen and transferred to ED, Stroke alert called and the patient was moaning and groaning and moves all extremity. Patient's unable to provide any information initially she has history of Seizure disorder, has also Anxiety, depression, Atrial Fibrillation, Hyperlipidemia, GERD, DM II, Peripheral Neuropathy, Hypothyroidism . initially was lethargic in ER, likely post-ictal phenomenon seen by Neurology specialist, her blood glucose was over 400. heavy Tobacco dependence one and a half packs of cigarettes daily and also smokes Marijuana as per patient multiple times per week. 05/10 Seen in her bedroom and discussed early in am with nurse, Electrolyte derangement, her Potassium level 2.6 and hypomagnesemia 1.5 replaced, Neurology specialist recommended Hydration, hyperammonemia given Lactulose, due to increasing Troponin levels with Diagnosis of Non ST elevation RI, status post Cardiac Cath that was found Severe Mid Left circumflex Coronary artery stenosis, Reduced left ventricular systolic function with regional wall motion abnormality, suspected Takotsubo Cardiomyopathy stress induced. added Beta Blockers and CRISTIAN inhibitor. 05/11 Stable in her bedroom, no need for Physical therapy, following movement education specialist recommendations, replacing electrolytes and continue low. 05/12 Stable seen in her bedroom discussed with nurse Miss Whiting continue electrolyte replacement, no Nausea, vomit or diarrhea. 05/13 Seen in her bedroom improving condition, more stabilized her electrolytes, awaiting for Life vest recommended by movement education specialist doctor Cristobal. discussed with nurse Miss Guzman in her bedroom. No complaint, no pain, no nausea no vomit or diarrhea. 05/14 Seen in her bedroom and discussed with nurse Miss Miramontes, she is stable non nausea, vomit or diarrhea her Life Vest was delivered yesterday by the [employer], she will follow with PCP, movement education specialist as outpatient and with Neurology specialist okay to discharge home today after her Potassium level replaced and will continue Potassium at home. Objective Vital Signs Date Time Temp Pulse Resp B/P Pulse Ox O2 Delivery O2 Flow Rate FiO2 05/14/16 06:00 86 05/14/16 05:00 88 05/14/16 04:00 84 05/14/16 04:00 98 Room Air 05/14/16 04:00 97.9 90 14 92/60 98 05/14/16 03:00 87 05/14/16 02:00 88 05/14/16 01:00 88 05/14/16 00:00 96 Room Air 05/14/16 00:00 98.5 95 16 102/66 96 05/14/16 00:00 90 05/13/16 23:00 92 05/13/16 22:00 88 05/13/16 21:00 92 05/13/16 20:00 98 05/13/16 20:00 98.8 91 16 89/66 97 05/13/16 20:00 97 Room Air 05/13/16 19:02 94 05/13/16 18:11 101 05/13/16 17:16 89 05/13/16 16:02 97.7 93 18 101/65 100 05/13/16 16:02 100 Room Air 05/13/16 16:02 93 05/13/16 15:07 89 05/13/16 14:32 108 05/13/16 13:48 60 05/13/16 12:37 98.3 89 16 103/70 99 05/13/16 12:37 99 Room Air 05/13/16 12:37 88 05/13/16 10:24 92 05/13/16 09:00 91 05/13/16 08:27 96 Room Air 05/13/16 08:27 82 05/13/16 08:27 97.9 83 18 92/62 96 I/O 05/13/16 05/13/16 05/13/16 05/14/16 05/14/16 05/14/16 07:00 15:00 23:00 07:00 15:00 23:00 Intake Total 840 ml 720 ml 595 ml Output Total 1800 ml 1800 ml Balance -960 ml 720 ml -1205 ml Intake Oral 240 ml 720 ml 595 ml IV Total 600 ml Output Urine Total 1800 ml 1800 ml # Voids 3 # Bowel Movements 0 0 Result Diagram: 05/11/16 0420 05/13/16 1555 Imaging Last Impressions Head Magnetic Resonance Angiography 05/11/16 0000 Signed Impressions: Service Date/Time: Wednesday, May 11, 2016 11:36 - CONCLUSION: Normal examination for a patient of this age. Javier Brennan MD Brain MRI 05/11/16 0000 Signed Impressions: Service Date/Time: Wednesday, May 11, 2016 11:36 - CONCLUSION: Normal examination for a patient of this age. Javier Brennan MD Head CT 05/09/16 1601 Signed Impressions: Service Date/Time: April 16:33 - CONCLUSION: No acute disease. No evidence of acute infarct, hemorrhage, mass or edema. No evidence of extra-axial fluid collections. Hermelindo Segura MD Chest X-Ray 05/09/16 1601 Signed Impressions: Service Date/Time: April 16:14 - CONCLUSION: No acute disease. Edi Borges MD Carotid Artery Ultrasound 05/09/16 0000 Signed Impressions: Service Date/Time: April 18:40 - CONCLUSION: Mild atherosclerotic plaque of both carotid bifurcations. No significant narrowing. Edi Beard MD Procedures Cardiac Catheterization Other Results Laboratory Tests Test 05/10/16 05/10/16 05/11/16 05/12/16 00:05 07:51 04:20 07:10 Hemoglobin A1c 8.6 % Ammonia 49 MCMOL/L Vitamin B12 Level 275 PG/ML Troponin I 2.48 NG/ML White Blood Count 13.1 TH/MM3 Red Blood Count 4.44 MIL/MM3 Hemoglobin 13.6 GM/DL Hematocrit 39.4 % Mean Corpuscular Volume 88.8 FL Mean Corpuscular Hemoglobin 30.5 PG Mean Corpuscular Hemoglobin 34.4 % Concent Red Cell Distribution Width 15.4 % Platelet Count 288 TH/MM3 Mean Platelet Volume 8.2 FL Neutrophils (%) (Auto) 66.4 % Lymphocytes (%) (Auto) 27.8 % Monocytes (%) (Auto) 4.5 % Eosinophils (%) (Auto) 0.4 % Basophils (%) (Auto) 0.9 % Neutrophils # (Auto) 8.7 TH/MM3 Lymphocytes # (Auto) 3.7 TH/MM3 Monocytes # (Auto) 0.6 TH/MM3 Eosinophils # (Auto) 0.1 TH/MM3 Basophils # (Auto) 0.1 TH/MM3 CBC Comment DIFF FINAL Differential Comment Total Creatine Kinase 1869 U/L Creatine Kinase MB 15.8 NG/ML Creatine Kinase MB % 0.8 % Triglycerides Level 281 MG/DL Cholesterol Level 186 MG/DL LDL Cholesterol 86 MG/DL HDL Cholesterol 43.7 MG/DL Cholesterol/HDL Ratio 4.25 RATIO Sodium Level 139 MEQ/L Chloride Level 103 MEQ/L Carbon Dioxide Level 21.5 MEQ/L Anion Gap 15 MEQ/L Blood Urea Nitrogen 16 MG/DL Creatinine 0.84 MG/DL Estimat Glomerular Filtration 70 ML/MIN Rate Random Glucose 165 MG/DL Calcium Level 9.2 MG/DL Phosphorus Level 2.6 MG/DL Test 05/12/16 05/13/16 05/13/16 16:00 10:50 15:55 Magnesium Level 2.0 MG/DL Platelet Function P2Y12 React 77 PRU Units Potassium Level 3.6 MEQ/L Objective Remarks GENERAL: Obese patient in no acute distress. SKIN: Warm and dry. HEAD: Normocephalic. EYES: No scleral icterus. No injection or drainage. Pupil 4 mm equal reactive. NECK: Supple, trachea midline. No JVD or lymphadenopathy. CARDIOVASCULAR: Regular rate and rhythm without murmurs, gallops, or rubs. RESPIRATORY: Breath sounds equal bilaterally. No accessory muscle use. GASTROINTESTINAL: Abdomen soft, non-tender, nondistended. MUSCULOSKELETAL: No cyanosis, or edema. NEUROLOGY: alert and oriented, no focal deficits. Medications and IVs Current Medications Medications (Trade) Dose Ordered Sig/Ephraim Route Start Time Stop Time Status Last Admin (NS Flush) 2 ml UNSCH PRN FLUSH 05/09/16 18:00 (NS Flush) 2 ml BID FLUSH 05/09/16 21:00 05/13/16 22:07 (Tylenol) 650 mg Q4H PRN PO 05/09/16 18:00 05/12/16 12:46 (Zofran Inj) 4 mg Q6H PRN IVP 05/09/16 18:00 (Reglan Inj) 5 mg Q6H PRN IV PUSH 05/09/16 18:00 05/09/16 18:31 (Dulcolax Supp) 10 mg DAILY PRN DC 05/09/16 18:00 (Narcan Inj) 0.4 mg UNSCH PRN IV 05/09/16 18:00 (Lipitor) 40 mg HS PO 05/09/16 21:00 05/13/16 22:03 (Flexeril) 10 mg BID PO 05/09/16 21:00 05/13/16 22:03 (Tricor) 145 mg HS PO 05/09/16 21:00 05/13/16 22:04 (Paxil) 40 mg BID PO 05/09/16 21:00 05/13/16 22:04 (SEROquel) 100 mg HS PO 05/09/16 21:00 05/13/16 22:03 (Mag-Ox) 400 mg DAILY PO 05/10/16 09:00 05/13/16 08:18 (D50w (Vial) Inj) 25 ml UNSCH PRN IV PUSH 05/09/16 20:30 (Glucagon Inj) 1 mg UNSCH PRN OTHER 05/09/16 20:30 (Morphine Inj) 2 mg Q30M PRN IV PUSH 05/10/16 14:00 (Aspirin Chew) 81 mg DAILY PO 05/11/16 09:00 05/13/16 08:18 (Plavix) 75 mg DAILY PO 05/11/16 09:00 05/13/16 08:17 (Prinivil) 2.5 mg DAILY PO 05/11/16 09:00 (Restoril) 7.5 mg HS PRN PO 05/11/16 00:30 05/13/16 22:05 (Lasix) 20 mg DAILY PO 05/11/16 09:00 05/13/16 08:19 (Keppra) 500 mg Q12HR PO 05/12/16 21:00 05/13/16 22:03 (KCl) 40 meq BID PO 05/12/16 21:00 05/13/16 22:05 (Synthroid) 100 mcg DAILY@0600 PO 05/13/16 06:00 05/14/16 06:14 (Levemir Inj) 22 units HS SQ 05/13/16 21:00 05/13/16 21:00 A/P Problem List: (1) DM (diabetes mellitus) ICD Code: E11.9 (2) Seizure ICD Code: R56.9 (3) DM neuropathies ICD Code: E11.40 (4) Hyperglycemia ICD Code: R73.9 (5) Chronic pain ICD Code: G89.29 Assessment and Plan 1. Seizure disorder status post EEG no active Seizures found. Neurology specialist recommended Keppra 500 mg BID PT, OT and Speech Therapy. not found swallow pathology and also No pathology by Physical therapy will need to follow with Neurology specialist as outpatient. 2. Hypothyroidism with elevated TSH suspected non compliance, continue Levothyroxine increased to 100 mcg daily 3. Obesity strongly recommended diet and exercise. 4. DM II better control continue Levemir and sliding scale. adjusted Levemir to 22 units BID. stable discharge on home medicine and follow with PCP. 5. Chronic Pain syndrome continue Home medicines. 6. Peripheral Neuropathy secondary to DM II. continue home medicines. 7. Electrolyte derangement replaced 8. Severe tobacco dependence, marijuana abuse strongly recommended to stop smoking. 9. Acute Non ST elevation RI, asked by movement education specialist Doctor Sidney Jain for Cardiac Cath that was performed and found Severe Mid Left circumflex Coronary artery stenosis, Reduced left ventricular systolic function with regional wall motion abnormality, suspected Takotsubo Cardiomyopathy stress induced. added Beta Blockers and CRISTIAN inhibitor. she will need Life Vest as per Doctor Jain. was delivered yesterday at 1830 hours Discussed with Patient in the room seen with nurse Miss Fe ricketts, all questions answered to the best of my abilities Code Status Full Code Discharge Planning Discharge Home Problem Qualifiers (1) DM neuropathies: (2) Chronic pain: Qualified Code: G89.4 - Chronic pain syndrome Gary Vega MD May 14, 2016 07:38
[2016-05-14] MEDS ORDERED: Aspirin Chew PO (08:40)
[2016-05-14] MEDS ORDERED: LEVE500 PO (08:40)
[2016-05-14] MEDS ORDERED: LEVO.1 PO (08:40)
[2016-05-14] MEDS ORDERED: LISI-519 PO (08:40)
[2016-05-14] MEDS ORDERED: PLAV75TA29 PO (08:40)
[2016-05-14] MEDS ORDERED: FURO20TA PO (08:40)
[2016-05-14] MEDS: PARoxetine HCL 20 MG TAB PO SCH (08:43)
[2016-05-14] MEDS: MAGNESIUM OXIDE 400 MG TAB PO SCH (08:43)
[2016-05-14] MEDS: POTASSIUM CHLORIDE 20 MEQ CONTROLLED RELEASE TAB PO SCH (08:43)
[2016-05-14] MEDS: CYCLOBENZAPRINE HCL 10 MG TAB PO SCH (08:43)
[2016-05-14] MEDS: SODIUM CHLORIDE 0.9% FLUSH 5 ML FLUSH FLUSH SCH (08:44)
[2016-05-14] MEDS: FUROSEMIDE 20 MG TAB PO SCH (08:44)
[2016-05-14] MEDS: LISINOPRIL 5 MG TAB PO SCH (08:44)
[2016-05-14] MEDS: levETIRAcetam 500 MG TAB PO SCH (08:44)
[2016-05-14] MEDS: CLOPIDOGREL 75 MG TAB PO SCH (08:44)
[2016-05-14] MEDS: ASPIRIN 81 MG CHEW TAB PO SCH (08:44)
--- NOTE | 2016-05-14 08:51 | HHI.DS ---
Discharge Summary Admission Date May 09, 2016 at 17:44 Discharge Date: May 14, 2016 Admitting Diagnosis one set seizure (1) Seizure ICD Code: R56.9 Diagnosis: Principal (2) HTN (hypertension) ICD Code: I10 Diagnosis: Secondary (3) Major depressive disorder with current active episode ICD Code: F32.9 Diagnosis: Secondary (4) Hypothyroidism ICD Code: E03.9 Diagnosis: Principal (5) Uncontrolled diabetes mellitus ICD Code: E11.65 Diagnosis: Principal (6) Chronic pain ICD Code: G89.29 Diagnosis: Secondary (7) NSTEMI (non-ST elevated myocardial infarction) ICD Code: I21.4 Diagnosis: Principal (8) CHF (congestive heart failure) ICD Code: I50.9 Diagnosis: Principal Procedures Status post Left Heart Catheterization with Status post BMS to Left Circumflex, Brief History - From Admission As per patient she is Kristin Yought This is a pleasant female patient who was sitting at home in a chair with family Member when she sudden slumped over and her face turned dusky, EMS called GCS score was 3, given oxygen and transferred to ED, Stroke alert called and the patient was moaning and groaning and moves all extremity. Patient's unable to provide any information initially she has history of Seizure disorder, has also Anxiety, depression, Atrial Fibrillation, Hyperlipidemia, GERD, DM II, Peripheral Neuropathy, Hypothyroidism . initially was lethargic in ER, likely post-ictal phenomenon seen by Neurology specialist, her blood glucose was over 400. heavy Tobacco dependence one and a half packs of cigarettes daily and also smokes Marijuana as per patient multiple times per week. CBC/BMP: 05/11/16 0420 05/13/16 1555 Significant Findings Laboratory Tests Test 05/11/16 05/12/16 05/12/16 05/13/16 12:33 07:10 16:00 10:50 Potassium Level 2.7 MEQ/L 2.9 MEQ/L 3.4 MEQ/L (3.5-5.1) (3.5-5.1) (3.5-5.1) Estimat Glomerular Filtration 70 ML/MIN (>89) Rate Random Glucose 165 MG/DL (74-106) Platelet Function P2Y12 React 77 PRU Units (194-418) Imaging Last Impressions Head Magnetic Resonance Angiography 05/11/16 0000 Signed Impressions: Service Date/Time: Wednesday, May 11, 2016 11:36 - CONCLUSION: Normal examination for a patient of this age. Javier Brennan MD Brain MRI 05/11/16 0000 Signed Impressions: Service Date/Time: Wednesday, May 11, 2016 11:36 - CONCLUSION: Normal examination for a patient of this age. Javier Brennan MD Head CT 05/09/16 1601 Signed Impressions: Service Date/Time: April 16:33 - CONCLUSION: No acute disease. No evidence of acute infarct, hemorrhage, mass or edema. No evidence of extra-axial fluid collections. Hermelindo Segura MD Chest X-Ray 05/09/16 1601 Signed Impressions: Service Date/Time: April 16:14 - CONCLUSION: No acute disease. Edi Borges MD Carotid Artery Ultrasound 05/09/16 0000 Signed Impressions: Service Date/Time: April 18:40 - CONCLUSION: Mild atherosclerotic plaque of both carotid bifurcations. No significant narrowing. Edi Beard MD PE at Discharge GENERAL: Obese patient in no acute distress. SKIN: Warm and dry. HEAD: Normocephalic. EYES: No scleral icterus. No injection or drainage. Pupil 4 mm equal reactive. NECK: Supple, trachea midline. No JVD or lymphadenopathy. CARDIOVASCULAR: Regular rate and rhythm without murmurs, gallops, or rubs. RESPIRATORY: Breath sounds equal bilaterally. No accessory muscle use. GASTROINTESTINAL: Abdomen soft, non-tender, nondistended. MUSCULOSKELETAL: No cyanosis, or edema. NEUROLOGY: alert and oriented, no focal deficits. Hospital Course This is a pleasant female patient who was sitting at home in a chair with family Member when she sudden slumped over and her face turned dusky, EMS called GCS score was 3, given oxygen and transferred to ED, Stroke alert called and the patient was moaning and groaning and moves all extremity. Patient's unable to provide any information initially she has history of Seizure disorder, has also Anxiety, depression, Atrial Fibrillation, Hyperlipidemia, GERD, DM II, Peripheral Neuropathy, Hypothyroidism . initially was lethargic in ER, likely post-ictal phenomenon seen by Neurology specialist, her blood glucose was over 400. heavy Tobacco dependence one and a half packs of cigarettes daily and also smokes Marijuana as per patient multiple times per week. 05/10 Seen in her bedroom and discussed early in am with nurse, Electrolyte derangement, her Potassium level 2.6 and hypomagnesemia 1.5 replaced, Neurology specialist recommended Hydration, hyperammonemia given Lactulose, due to increasing Troponin levels with Diagnosis of Non ST elevation [place], status post Cardiac Cath that was found Severe Mid Left circumflex Coronary artery stenosis, Reduced left ventricular systolic function with regional wall motion abnormality, suspected Takotsubo Cardiomyopathy stress induced. added Beta Blockers and CRISTIAN inhibitor. 05/11 Stable in her bedroom, no need for Physical therapy, following acute specialist recommendations, replacing electrolytes and continue low. 05/12 Stable seen in her bedroom discussed with nurse Miss Whiting continue electrolyte replacement, no Nausea, vomit or diarrhea. 05/13 Seen in her bedroom improving condition, more stabilized her electrolytes, awaiting for Life vest recommended by acute specialist doctor Cristobal. discussed with nurse Miss Guzman in her bedroom. No complaint, no pain, no nausea no vomit or diarrhea. 05/14 Seen in her bedroom and discussed with nurse Miss Miramontes, she is stable non nausea, vomit or diarrhea her Life Vest was delivered yesterday by the [employer], she will follow with PCP, acute specialist as outpatient and with Neurology specialist okay to discharge home today after her Potassium level replaced and will continue Potassium at home. Assessment and Plan 1. Seizure disorder status post EEG no active Seizures found. Neurology specialist recommended Keppra 500 mg BID PT, OT and Speech Therapy. not found swallow pathology and also No pathology by Physical therapy will need to follow with Neurology specialist as outpatient. 2. Hypothyroidism with elevated TSH suspected non compliance, continue Levothyroxine increased to 100 mcg daily 3. Obesity strongly recommended diet and exercise. 4. DM II better control continue Levemir and sliding scale. adjusted Levemir to 22 units BID. stable discharge on home medicine and follow with PCP. 5. Chronic Pain syndrome continue Home medicines. 6. Peripheral Neuropathy secondary to DM II. continue home medicines. 7. Electrolyte derangement replaced 8. Severe tobacco dependence, marijuana abuse strongly recommended to stop smoking. 9. Acute Non ST elevation SD, asked by acute specialist Doctor Sidney Jain for Cardiac Cath that was performed and found Severe Mid Left circumflex Coronary artery stenosis, Reduced left ventricular systolic function with regional wall motion abnormality, suspected Takotsubo Cardiomyopathy stress induced. added Beta Blockers and CRISTIAN inhibitor. she will need Life Vest as per Doctor Cristobal. was delivered yesterday at 1830 hours Status post Left heart Catheterization with status post BMS to Left Circumflex continue Aspirin and Plavix. CRISTIAN inhibitor. 10. CHF with EF 25-30% placed Life Vest for three months and will be followed by acute specialist Discussed with Patient in the room seen with nurse Miss Alanizy liliam, all questions answered to the best of my abilities Code Status Full Code Discharge Planning Discharge Home Pt Condition on Discharge: Good Discharge Disposition: Discharge Home Discharge Time: > 30 minutes Discharge Instructions DIET: Follow Instructions for: Heart Healthy Diet, Diabetic Diet Speech Therapy-Diet Recommends: Regular Activities you can perform: Regular-No Restrictions Gary Vega MD May 14, 2016 08:51
== END 2016-05-14 10:34 | disposition home or self-care (01) ==
LOC: NEPA 15:52 → INTOOBSV 17:44 → NEDA 17:44 → EDBD 17:44 → MERGE 17:44 → N05B 19:31 → HCIS 05-10 13:32
PROVIDERS: ADMIT Internal Medicine; ATTEND Internal Medicine
DX: G40.909 Epilepsy, unspecified, not intractable, without status epilepticus (principal); I25.10 Atherosclerotic heart disease of native coronary artery without angina pectoris; K21.9 Gastro-esophageal reflux disease without esophagitis; I48.91 Unspecified atrial fibrillation; E11.42 Type 2 diabetes mellitus with diabetic polyneuropathy; F32.9 Major depressive disorder, single episode, unspecified; E78.5 Hyperlipidemia, unspecified; E03.9 Hypothyroidism, unspecified; F41.9 Anxiety disorder, unspecified; Z79.899 Other long term (current) drug therapy; Z79.4 Long term (current) use of insulin; F17.210 Nicotine dependence, cigarettes, uncomplicated; F12.10 Cannabis abuse, uncomplicated; E66.9 Obesity, unspecified; E11.65 Type 2 diabetes mellitus with hyperglycemia; G89.4 Chronic pain syndrome; E87.5 Hyperkalemia; I21.4 Non-ST elevation (NSTEMI) myocardial infarction; E78.00 Pure hypercholesterolemia, unspecified; I65.23 Occlusion and stenosis of bilateral carotid arteries; R00.0 Tachycardia, unspecified; I50.9 Heart failure, unspecified; Z79.82 Long term (current) use of aspirin; E72.20 Disorder of urea cycle metabolism, unspecified; I10 Essential (primary) hypertension
CPT/HCPCS: 70450; 70544; 70551; 71010; 80048; 80053; 80061; 80307; 81001; 82140; 82435; 82550; 82552; 82565; 82607; 82947; 82948; 83036; 83735; 84100; 84132; 84295; 84443; 84484; 84520; 85007; 85025; 85027; 85576; 85610; 85652; 85730; 87040; 92610; 92928; 93005; 93306; 93458; 93880; 94664; 95819; 97162; 97167; 97535; 99285; C1725; C1769; C1876; C1887; C1893; G0378; G8987; G8988; G8996; G8997; G8998; J0583; J1644; J1650; J1940; J1953; J2250; J2405; J2765; J3010; J3475; J3480; J7030; 76937; J7613; Q9967

== ENCOUNTER 2016-06-03 08:08 | Emergency (ER) | payer MEDICAID ==
[~2016-06-03] VITALS: Ht 160 cm; Wt 77.0 kg
[~2016-06-03 08:08] MED LIST changes: -ASPI-147 PO; +ASPI81TA5 PO; +ATOR40TA16 PO; +Aspirin Chew PO; +CYCL1TAB29 PO; -DIABETIC; +EXENINJ SQ; +FENO145T2 PO; +FURO20TA PO; +GLIP10TA6 PO; +HUMALOG SQ; +LEVE500 PO; +LEVO.1 PO; +LISI-519 PO; +PARO40TA2 PO; -PAXI20TA PO; +PLAV75TA29 PO; -ZOLO50TA PO; -[UNRECOGNIZED DRUG - REMARK]
[2016-06-03 08:14] VITALS: BP 143/78; TEMP 97.6; O2SAT 100
[2016-06-03 08:37] VITALS: BP 127/91; PULSE 96; RESP 18; O2SAT 97
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
[2016-06-03] MEDS ORDERED: ONDANSETRON HCL 4 MG/2 ML VIAL IV PUSH ONE (08:45)
[2016-06-03] MEDS ORDERED: SODIUM CHLORID 0.9% 500 ML INJ 500 ML IV ONE (08:45)
[2016-06-03 09:11] LABS: AUTOMATED NEUTROPHIL # 7.3 TH/MM3 (1.8-7.7); BASOPHIL # 0.1 TH/MM3 (0-0.2); BASOPHIL % 0.5 % (0.0-2.0); EOSINOPHIL # 0.2 TH/MM3 (0-0.4); EOSINOPHIL % 1.5 % (0.0-4.0); HEMATOCRIT 41.3 % (35.0-46.0); HEMO FLAGS DIFF FINAL; LYMPH % 25.6 % (9.0-44.0); LYMPHOCYTE # 2.8 TH/MM3 (1.0-4.8); MEAN CELL VOLUME 88.3 FL (80.0-100.0); MEAN CORPUSCULAR HEMOGLOBIN 30.7 PG (27.0-34.0); MEAN CORPUSCULAR HGB CONC 34.7 % (32.0-36.0); MONO % 6.5 % (0.0-8.0); NEUT % 65.9 % (16.0-70.0); PLATELET COUNT 278 TH/MM3 (150-450); RED BLOOD COUNT 4.67 MIL/MM3 (4.00-5.30); WHITE BLOOD COUNT 11.1 TH/MM3 (4.0-11.0)
[2016-06-03 09:33] LABS: BACTERIA, URINE MANY /hpf; BLOOD, URINE MOD (NEG); GLUCOSE,URINE 1000 mg/dL (NEG); KETONE, URINE 40 mg/dL (NEG); NITRITE,URINE NEG (NEG); URINE COLOR YELLOW (YELLW/STRAW)
[2016-06-03 09:35] LABS: ANION GAP 15 MEQ/L (5-15); AST (GOT) 43 U/L (15-37); BICARBONATE 23.6 MEQ/L (21.0-32.0); BLOOD UREA NITROGEN 16 MG/DL (7-18); CHLORIDE 92 MEQ/L (98-107); COMMENT (UR) CATH-CULTURE IND; CULTURE IF INDICATED CATH CULTURE IND; GLOMERULAR FILTRATION RATE 63 ML/MIN (>89); SODIUM (NA) 131 MEQ/L (136-145)
[2016-06-03 09:39] LABS: ALKALINE PHOSPHATASE 84 U/L (45-117); ALT (GPT) 33 U/L (10-53); TOTAL BILIRUBIN ADULT 0.5 MG/DL (0.2-1.0)
[2016-06-03] MEDS ORDERED: INSULIN HUMAN REGULAR 1,000 UNITS/10 ML VIAL IV PUSH ONE (10:00)
[2016-06-03] MEDS ORDERED: POTASSIUM CHLORIDE 20 MEQ CONTROLLED RELEASE TAB PO ONE (10:00)
[2016-06-03] MEDS ORDERED: POTASSIUM CHLOR 10 MEQ PREMIX 100 ML IV ONE (10:00)
[2016-06-03] MEDS ORDERED: LOMO2.5T PO (10:37)
[2016-06-03] MEDS ORDERED: ZOFR4TAB3 SL (10:37)
[2016-06-03 11:25] VITALS: BP 132/70; PULSE 86; RESP 16; O2SAT 99
== END 2016-06-03 12:00 | disposition home or self-care (01) ==
LOC: NEPC 08:08
DX: K52.9 Noninfective gastroenteritis and colitis, unspecified (principal); E87.1 Hypo-osmolality and hyponatremia; E87.6 Hypokalemia; N39.0 Urinary tract infection, site not specified; B96.20 Unspecified Escherichia coli [E. coli] as the cause of diseases classified elsewhere; E11.65 Type 2 diabetes mellitus with hyperglycemia; Z79.4 Long term (current) use of insulin
CPT/HCPCS: 80053; 81001; 83690; 85025; 87077; 87086; 87186; 96361; 96374; 96375; 99284; J1815; J2405; J3480; J7040

== ENCOUNTER 2016-06-10 22:20 | Emergency (ER) | payer MEDICAID ==
[~2016-06-10 22:20] MED LIST changes: +LOMO2.5T PO; +ZOFR4TAB3 SL
[2016-06-10 22:59] VITALS: BP 107/62; PULSE 102; RESP 18; TEMP 97.8; O2SAT 97
[2016-06-10] MEDS ORDERED: levETIRAcetam INJ 500 MG in SODIUM CHLORIDE 0.9% INJ 100 ML IV ONE (23:00)
[2016-06-10 23:02] VITALS: RESP 18; O2SAT 97
[2016-06-10 23:07] LABS: AUTOMATED NEUTROPHIL # 7.6 TH/MM3 (1.8-7.7); BASOPHIL # 0.1 TH/MM3 (0-0.2); BASOPHIL % 0.5 % (0.0-2.0); EOSINOPHIL # 0.1 TH/MM3 (0-0.4); EOSINOPHIL % 0.9 % (0.0-4.0); HEMATOCRIT 35.4 % (35.0-46.0); HEMO FLAGS DIFF FINAL; LYMPH % 26.8 % (9.0-44.0); LYMPHOCYTE # 3.1 TH/MM3 (1.0-4.8); MEAN CELL VOLUME 86.8 FL (80.0-100.0); MEAN CORPUSCULAR HEMOGLOBIN 29.9 PG (27.0-34.0); MEAN CORPUSCULAR HGB CONC 34.4 % (32.0-36.0); MONO % 6.2 % (0.0-8.0); NEUT % 65.6 % (16.0-70.0); PLATELET COUNT 284 TH/MM3 (150-450); RED BLOOD COUNT 4.08 MIL/MM3 (4.00-5.30); RED CELL DISTRIBUTION WIDTH 14.6 % (11.6-17.2); WHITE BLOOD COUNT 11.6 TH/MM3 (4.0-11.0)
[2016-06-10 23:56] LABS: ALKALINE PHOSPHATASE 69 U/L (45-117); ALT (GPT) 26 U/L (10-53); ANION GAP 11 MEQ/L (5-15); AST (GOT) 29 U/L (15-37); BICARBONATE 23.7 MEQ/L (21.0-32.0); BLOOD UREA NITROGEN 33 MG/DL (7-18); CHLORIDE 105 MEQ/L (98-107); GLOMERULAR FILTRATION RATE 53 ML/MIN (>89); SODIUM (NA) 140 MEQ/L (136-145); TOTAL BILIRUBIN ADULT 0.2 MG/DL (0.2-1.0)
[2016-06-10 23:58] LABS: POTASSIUM 2.6 MEQ/L (3.5-5.1)
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
[2016-06-11] MEDS ORDERED: POTASSIUM CHLORIDE 20 MEQ CONTROLLED RELEASE TAB PO ONE (02:30)
[2016-06-11] MEDS ORDERED: POTASSIUM CHLOR 20 MEQ PREMIX 100 ML IV ONE (02:30)
[2016-06-11 06:15] VITALS: BP 138/69
== END 2016-06-11 06:48 | disposition home or self-care (01) ==
LOC: NEPE 22:20
DX: R56.9 Unspecified convulsions (principal); E87.6 Hypokalemia; I48.91 Unspecified atrial fibrillation; E11.9 Type 2 diabetes mellitus without complications; I10 Essential (primary) hypertension; F12.90 Cannabis use, unspecified, uncomplicated; Z72.0 Tobacco use; Z79.01 Long term (current) use of anticoagulants
CPT/HCPCS: 80053; 85025; 96374; 96375; 99284; J1953; J3480

== ENCOUNTER 2016-06-17 18:57 | Emergency (ER) | payer MEDICAID ==
[~2016-06-17] VITALS: Ht 160 cm; Wt 77.0 kg
[~2016-06-17 18:57] MED LIST changes: -Aspirin Chew PO
[2016-06-17 19:04] VITALS: BP 93/53; PULSE 96; RESP 16; TEMP 98.1; O2SAT 98
[2016-06-17 19:05] VITALS: BP 99/59; PULSE 94; RESP 16; TEMP 96.4; O2SAT 96
--- NOTE | 2016-06-17 19:09 | PD ---
Physical Exam Time Seen by Provider: 19:05 Narrative 55yo F c/o dizziness today. Denies syncope. Episode of jitteriness, diaphoreses, and vomited last night; checked BS and was good. [place] better after vomiting. Denies fever. denies chest pain, SOB. Patient stable. Patient seen in triage. Awaiting bed placement. [facility] Supervised Visit with TAYLOR: Helena Rivera Jun 17, 2016 19:09
== END 2016-06-17 20:00 | disposition left against medical advice (07) ==
LOC: NED 18:57
DX: R42 Dizziness and giddiness (principal)
CPT/HCPCS: 99281

== ENCOUNTER 2016-07-24 11:28 | Emergency (ER) | payer MEDICAID ==
[~2016-07-24] VITALS: Ht 160 cm; Wt 80.0 kg
[2016-07-24 11:30] VITALS: BP 123/76; PULSE 98; RESP 20; TEMP 98.7; O2SAT 98
[2016-07-24] MEDS ORDERED: SODIUM CHLORIDE 0.9% FLUSH 10 ML FLUSH IVF PRN (12:45)
[2016-07-24 12:59] LABS: BASOPHIL # 0.1 TH/MM3 (0-0.2); BASOPHIL % 0.4 % (0.0-2.0); EOSINOPHIL # 0.1 TH/MM3 (0-0.4); EOSINOPHIL % 1.1 % (0.0-4.0); HEMO FLAGS DIFF FINAL; LYMPH % 35.3 % (9.0-44.0); LYMPHOCYTE # 4.2 TH/MM3 (1.0-4.8); MEAN CELL VOLUME 89.5 FL (80.0-100.0); MEAN CORPUSCULAR HEMOGLOBIN 30.7 PG (27.0-34.0); MEAN CORPUSCULAR HGB CONC 34.3 % (32.0-36.0); MONO % 4.8 % (0.0-8.0); NEUT % 58.4 % (16.0-70.0); PLATELET COUNT 263 TH/MM3 (150-450); RED BLOOD COUNT 4.58 MIL/MM3 (4.00-5.30); RED CELL DISTRIBUTION WIDTH 15.7 % (11.6-17.2)
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
[2016-07-24 13:06] LABS: APTT (PATIENT) 23.5 SEC (24.3-30.1); INTERNATIONAL NORMALIZED RATIO 0.9 RATIO; PROTHROMBIN TIME - PATIENT 10.3 SEC (9.8-11.6)
[2016-07-24 13:18] LABS: ALT (GPT) 27 U/L (10-53)
[2016-07-24 13:23] LABS: ALKALINE PHOSPHATASE 86 U/L (45-117); CREATINE KINASE 101 U/L (26-192); TOTAL BILIRUBIN ADULT 0.3 MG/DL (0.2-1.0)
[2016-07-24 13:24] LABS: BACTERIA, URINE MANY /hpf; BLOOD, URINE NEG (NEG); COMMENT (UR) CULTURE INDICATED; CULTURE IF INDICATED CULTURE INDICATED; GLUCOSE,URINE 300 mg/dL (NEG); KETONE, URINE NEG (NEG); NITRITE,URINE NEG (NEG); PH, URINE 6.5 (5.0-8.5); SQUAMOUS EPITHELIAL CELL URINE 11 /hpf (0-5); URINE COLOR YELLOW (YELLW/STRAW)
[2016-07-24 13:25] LABS: ANION GAP 11 MEQ/L (5-15); AST (GOT) 35 U/L (15-37); BICARBONATE 27.6 MEQ/L (21.0-32.0); BLOOD UREA NITROGEN 17 MG/DL (7-18); CHLORIDE 96 MEQ/L (98-107); GLOMERULAR FILTRATION RATE 53 ML/MIN (>89); MAGNESIUM 1.3 MG/DL (1.5-2.5); POTASSIUM 3.1 MEQ/L (3.5-5.1); SODIUM (NA) 135 MEQ/L (136-145)
[2016-07-24 13:35] LABS: CKMB 0.8 NG/ML (0.5-3.6)
--- NOTE | 2016-07-24 13:46 | RADRPT ---
EXAM DATE/TIME: 07/24/2016 13:07 [facility] COMPARISON: CHEST PA & LAT, January 15, 2016, 14:09. INDICATIONS : External vest defibrillator activated several times today. MEDICAL HISTORY : Diabetes mellitus type 2. SURGICAL HISTORY : Cholecystectomy. Coronary artery stent. Facial reconstruction surgery. ENCOUNTER: Initial ACUITY: 1 day PAIN SCORE: 0/10 LOCATION: Bilateral chest FINDINGS: PA and lateral views of the chest. The lungs are clear. Cardiomediastinal silhouette within normal li mits. No evidence of pleural effusion or pneumothorax. CONCLUSION: No acute cardiopulmonary disease identified. Leoncio Borja MD on July 24, 2016 at 13:43 Board Certified Radiologist. This report was verified electronically.
[2016-07-24] MEDS ORDERED: POTASSIUM CHLORIDE 20 MEQ CONTROLLED RELEASE TAB PO ONE (14:00)
[2016-07-24] MEDS ORDERED: MACR100C2 PO (14:04)
[2016-07-24] MEDS ORDERED: NITROFURANTOIN MONOHYD MACROCR 100 MG CAP PO ONE (14:15)
[2016-07-24 14:31] VITALS: BP 96/61
--- NOTE | 2016-07-25 11:57 | EKG ---
Date Performed: 07/24/2016 Time Performed: 11:46:53 PTAGE: 55 years EKG: ECTOPIC ATRIAL RHYTHM BORDERLINE LEFT AXIS DEVIATION ABNORMAL RHYTHM ECG PREVIOUS TRACING : 02/20/2016 11.10 Compared to prior tracing no significant change DOCTOR: Arnold Brown Interpretating Date/Time 07/25/2016 11:55:59
== END 2016-07-24 14:37 | disposition home or self-care (01) ==
LOC: NEPE 11:28
DX: R94.31 Abnormal electrocardiogram [ECG] [EKG] (principal); E87.6 Hypokalemia; N39.0 Urinary tract infection, site not specified; B96.20 Unspecified Escherichia coli [E. coli] as the cause of diseases classified elsewhere; E03.9 Hypothyroidism, unspecified; J44.9 Chronic obstructive pulmonary disease, unspecified; I10 Essential (primary) hypertension; E11.9 Type 2 diabetes mellitus without complications; E78.00 Pure hypercholesterolemia, unspecified; I48.91 Unspecified atrial fibrillation; I25.2 Old myocardial infarction; Z72.0 Tobacco use; Z79.02 Long term (current) use of antithrombotics/antiplatelets
CPT/HCPCS: 71020; 80053; 81001; 82010; 82550; 82552; 83735; 83880; 84484; 85025; 85610; 85730; 87077; 87086; 87186; 93005; 99285

== ENCOUNTER 2016-10-01 14:17 | Emergency (ER) | payer MEDICAID ==
[~2016-10-01] VITALS: Ht 160 cm; Wt 80.0 kg
[~2016-10-01 14:17] MED LIST changes: +MACR100C2 PO
[2016-10-01 14:18] VITALS: BP 123/90; PULSE 92; RESP 19; TEMP 97.6; O2SAT 100
--- NOTE | 2016-10-01 14:41 | PD ---
Physical Exam Time Seen by Provider: 14:40 Narrative 56 y/o female here for evaluation of decreased urination over the past few days. Vital signs reviewed. Seen at triage desk. Awaiting bed placement. Data Data Last Documented VS Vital Signs Date Time Temp Pulse Resp B/P Pulse Ox O2 Delivery O2 Flow Rate FiO2 10/01/16 14:18 97.6 92 19 123/90 100 MDM Medical Record Reviewed: Yes Supervised Visit with TAYLOR: Beau Pike Oct 01, 2016 14:41
[2016-10-01 14:42] LABS: MEAN CORPUSCULAR HGB CONC 36.7 % (32.0-36.0)
[2016-10-01 15:41] LABS: BACTERIA, URINE MANY /hpf; BLOOD, URINE NEG (NEG); COMMENT (UR) CULTURE INDICATED; CULTURE IF INDICATED CULTURE INDICATED; GLUCOSE,URINE TRACE mg/dL (NEG); KETONE, URINE 10 mg/dL (NEG); MUCUS URINE FEW /lpf (OCC); NITRITE,URINE NEG (NEG); SQUAMOUS EPITHELIAL CELL URINE 25 /hpf (0-5); URINE COLOR YELLOW (YELLW/STRAW)
[2016-10-01 17:37] VITALS: BP 120/81; PULSE 78; RESP 16; TEMP 97.8; O2SAT 99
[2016-10-01 17:37] LABS: AUTOMATED NEUTROPHIL # 8.9 TH/MM3 (1.8-7.7); BASOPHIL # 0.1 TH/MM3 (0-0.2); BASOPHIL % 0.6 % (0.0-2.0); EOSINOPHIL % 0.4 % (0.0-4.0); HEMATOCRIT 39.5 % (35.0-46.0); LYMPH % 25.3 % (9.0-44.0); LYMPHOCYTE # 3.3 TH/MM3 (1.0-4.8); MEAN CELL VOLUME 93.7 FL (80.0-100.0); MEAN CORPUSCULAR HEMOGLOBIN 34.4 PG (27.0-34.0); MONO % 5.1 % (0.0-8.0); NEUT % 68.6 % (16.0-70.0); PLATELET COUNT 264 TH/MM3 (150-450); RED BLOOD COUNT 4.21 MIL/MM3 (4.00-5.30); RED CELL DISTRIBUTION WIDTH 15.8 % (11.6-17.2); WHITE BLOOD COUNT 12.9 TH/MM3 (4.0-11.0)
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
[2016-10-01 17:51] LABS: HEMO FLAGS AUTO DIFF
[2016-10-01 17:57] LABS: ANION GAP 11 MEQ/L (5-15); AST (GOT) 26 U/L (15-37); BICARBONATE 24.7 MEQ/L (21.0-32.0); BLOOD UREA NITROGEN 16 MG/DL (7-18); CHLORIDE 99 MEQ/L (98-107); GLOMERULAR FILTRATION RATE 56 ML/MIN (>89); POTASSIUM 3.5 MEQ/L (3.5-5.1); SODIUM (NA) 135 MEQ/L (136-145)
[2016-10-01 17:59] LABS: ALT (GPT) 25 U/L (10-53)
[2016-10-01 18:00] LABS: ALKALINE PHOSPHATASE 73 U/L (45-117); TOTAL BILIRUBIN ADULT 0.4 MG/DL (0.2-1.0)
[2016-10-01] MEDS ORDERED: CEPH-460 PO (18:21)
[2016-10-01 18:30] VITALS: BP 120/77; TEMP 97.8
[2016-10-01 18:47] LABS: SCAN/DIFF AUTO DIFF CONFIRMED
[2016-10-01 18:48] LABS: PLATELET ESTIMATE SMEAR NORMAL (NORMAL); PLATELET MORPHOLOGY NORMAL (NORMAL)
== END 2016-10-01 18:30 | disposition home or self-care (01) ==
LOC: NEPD 14:17
DX: N39.0 Urinary tract infection, site not specified (principal); B96.20 Unspecified Escherichia coli [E. coli] as the cause of diseases classified elsewhere; E11.9 Type 2 diabetes mellitus without complications; E03.9 Hypothyroidism, unspecified; K21.9 Gastro-esophageal reflux disease without esophagitis; I48.91 Unspecified atrial fibrillation; Z79.02 Long term (current) use of antithrombotics/antiplatelets; E78.00 Pure hypercholesterolemia, unspecified
CPT/HCPCS: 80053; 81001; 85025; 87077; 87086; 87186; 99283

== ENCOUNTER 2017-03-23 13:42 | Emergency (ER) | payer MEDICAID ==
[~2017-03-23 13:42] MED LIST changes: -ASPI81TA5 PO; +CEPH-460 PO; +CYCL10TA PO; -CYCL1TAB29 PO; +ECASA81 PO; -MACR100C2 PO; -MAGN500T4 PO
[2017-03-23 13:46] VITALS: BP 114/81; PULSE 81; RESP 16; TEMP 97.9; O2SAT 96
[2017-03-23] MEDS ORDERED: LORazepam 2 MG/ML VIAL IVS ONE (14:45)
[2017-03-23] MEDS ORDERED: SODIUM CHLORIDE 0.9% FLUSH 10 ML FLUSH IVF PRN (14:45)
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
--- NOTE | 2017-03-23 16:44 | RADRPT ---
EXAM DATE/TIME: 03/23/2017 16:03 [facility] COMPARISON: No previous studies available for comparison. INDICATIONS : Trauma; seizure, fall. RADIATION DOSE: 22.04 CTDIvol (mGy) MEDICAL HISTORY : Seizures. Cardiovascular disease Hypertension. SURGICAL HISTORY : None. ENCOUNTER: Initial ACUITY: 1 day PAIN SCALE: 5/10 LOCATION: Bilateral neck TECHNIQUE: Volumetric scanning of the cervical spine was performed. Multiplanar reconstructions in the sagittal, coronal and oblique axial planes were performed. Using automated exposure control and adjustment o f the mA and/or kV according to patient size, radiation dose was kept as low as reasonably achievable to obtain optimal diagnostic quality images. DICOM format image data is available electronically f or review and comparison. FINDINGS: VERTEBRAE: Normal vertebral body height. ALIGNMENT: No evidence of subluxation. C2-C3: Minimal broad-based disc osteophyte complex. No evidence of focal disc protrusion. Central canal norm al diameter. Neural foraminal diameters within normal limits. C3-C4: Minimal broad-based disc osteophyte complex. No evidence of focal disc protrusion. Central canal norm al diameter. Neural foraminal diameters within normal limits. C4-C5: Moderate left-sided facet arthrosis. No evidence of focal disc protrusion. Central canal normal diame ter. Neural foraminal diameters within normal limits. C5-C6: Broad-based disc osteophyte complex and bilateral facet arthrosis. Mild left neural foraminal narrowi ng. Minimal central canal narrowing. C6-C7: Left-sided facet arthrosis. No evidence of focal disc protrusion. Central canal normal diameter. Neur al foraminal diameters within normal limits. C7-T1: The bony spinal canal is normal in size. No evidence of disc bulge or herniation. The neural forami na are bilaterally patent. CONCLUSION: No evidence of fracture. Multilevel degenerative findings. Leoncio Borja MD on March 23, 2017 at 16:39 Board Certified Radiologist. This report was verified electronically.
[2017-03-23 17:24] LABS: AUTOMATED NEUTROPHIL # 6.9 TH/MM3 (1.8-7.7); BASOPHIL # 0.1 TH/MM3 (0-0.2); BASOPHIL % 0.5 % (0.0-2.0); EOSINOPHIL # 0.1 TH/MM3 (0-0.4); EOSINOPHIL % 1.1 % (0.0-4.0); HEMATOCRIT 38.1 % (35.0-46.0); HEMOGLOBIN 13.7 GM/DL (11.6-15.3); LYMPH % 29.5 % (9.0-44.0); LYMPHOCYTE # 3.3 TH/MM3 (1.0-4.8); MEAN CELL VOLUME 93.1 FL (80.0-100.0); MEAN CORPUSCULAR HEMOGLOBIN 33.5 PG (27.0-34.0); MEAN PLATELET VOLUME 8.8 FL (7.0-11.0); MONO % 7.1 % (0.0-8.0); MONOCYTE # 0.8 TH/MM3 (0-0.9); NEUT % 61.8 % (16.0-70.0); PLATELET COUNT 275 TH/MM3 (150-450); RED CELL DISTRIBUTION WIDTH 14.3 % (11.6-17.2); WHITE BLOOD COUNT 11.1 TH/MM3 (4.0-11.0)
[2017-03-23 17:35] VITALS: RESP 16; O2SAT 99
[2017-03-23 17:36] VITALS: BP 99/56; PULSE 86; RESP 16; TEMP 98; O2SAT 96
[2017-03-23 17:44] LABS: ALKALINE PHOSPHATASE 85 U/L (45-117); ALT (GPT) 19 U/L (10-53); TOTAL BILIRUBIN ADULT 0.2 MG/DL (0.2-1.0); TOTAL PROTEIN 7.1 GM/DL (6.4-8.2)
[2017-03-23 18:01] LABS: ALBUMIN 3.3 GM/DL (3.4-5.0); AST (GOT) 32 U/L (15-37); BICARBONATE 27.1 MEQ/L (21.0-32.0); BLOOD UREA NITROGEN 16 MG/DL (7-18); CALCIUM 10.9 MG/DL (8.5-10.1); CHLORIDE 105 MEQ/L (98-107); CREATININE 0.88 MG/DL (0.50-1.00); GLOMERULAR FILTRATION RATE 66 ML/MIN (>89); GLUCOSE,RANDOM 106 MG/DL (74-106); SODIUM (NA) 139 MEQ/L (136-145)
[2017-03-23 18:30] VITALS: BP 99/58; PULSE 78; RESP 16; O2SAT 99
[2017-03-23] MEDS ORDERED: POTASSIUM CHLORIDE 25 MEQ EFFERVESCENT TAB PO ONE (18:45)
[2017-03-23 18:55] LABS: AMORPHOUS SEDIMENT, URINE RARE; BILIRUBIN, URINE NEG (NEG); BLOOD, URINE NEG (NEG); GLUCOSE,URINE 70 mg/dL (NEG); KETONE, URINE NEG (NEG); NITRITE,URINE NEG (NEG); SQUAMOUS EPITHELIAL CELL URINE 4 /hpf (0-5); URINE COLOR YELLOW (YELLW/STRAW); URINE LEUKOCYTE ESTERASE NEG (NEG)
--- NOTE | 2017-03-24 19:03 | EKG ---
Date Performed: 03/23/2017 Time Performed: 16:48:26 PTAGE: 56 years EKG: ECTOPIC ATRIAL RHYTHM MARKED LEFT AXIS DEVIATION LOW QRS VOLTAGE IN PRECORDIAL LEADS GYPSY SEPTAL MYOCARDIAL INFARCTION Since previous tracing, no significant change noted ABNORMAL ECG PREVIOUS TRACING : 07/24/2016 11.46 DOCTOR: Gm Martinez Interpretating Date/Time 03/24/2017 19:01:07
== END 2017-03-23 19:20 | disposition home or self-care (01) ==
LOC: NEDAMB 13:42 → NEPC 19:20
DX: G40.909 Epilepsy, unspecified, not intractable, without status epilepticus (principal); S00.03XA Contusion of scalp, initial encounter; E03.9 Hypothyroidism, unspecified; E11.42 Type 2 diabetes mellitus with diabetic polyneuropathy; E78.00 Pure hypercholesterolemia, unspecified; I10 Essential (primary) hypertension; F17.200 Nicotine dependence, unspecified, uncomplicated; X58.XXXA Exposure to other specified factors, initial encounter; Z79.4 Long term (current) use of insulin; Z79.02 Long term (current) use of antithrombotics/antiplatelets
CPT/HCPCS: 70450; 72125; 80053; 80307; 81001; 85025; 93005; 96374; 99285; J2060

== ENCOUNTER 2017-03-30 15:24 | Emergency (ER) | payer MEDICAID ==
[~2017-03-30] VITALS: Ht 160 cm; Wt 79.5 kg
[2017-03-30 15:27] VITALS: BP 122/69; PULSE 90; RESP 16; TEMP 98.3; O2SAT 99
--- NOTE | 2017-03-30 16:24 | RADRPT ---
EXAM DATE/TIME: 03/30/2017 16:11 [facility] COMPARISON: CT BRAIN W/O CONTRAST, March 23, 2017, 16:03. INDICATIONS : Fell last week. Posterior head pain. No improvement since fall. RADIATION DOSE: 53.86 CTDIvol (mGy) MEDICAL HISTORY : Hypothyroidism. Hypertension. Chronic obstructive pulmonary disease.Anticoagulant therapy. Diabetes. SURGICAL HISTORY : Cholecystectomy. section. ENCOUNTER: [facility] ACUITY: 1 week PAIN SCALE: 10/10 LOCATION: occipital TECHNIQUE: Multiple contiguous axial images were obtained of the head. Using automated exposure control and adj ustment of the mA and/or kV according to patient size, radiation dose was kept as low as reasonably a chievable to obtain optimal diagnostic quality images. DICOM format image data is available electro nically for review and comparison. FINDINGS: There is no evidence for intracranial hemorrhage, mass effect, mass lesions, edema, or extra-axial fl uid collections. The visualized bony structures appear intact. The ventricles are normal size for t he patient's age. There are no signs of acute infarction for technique. Scalp hematoma is present in the right high convexity posterior parietal measures almost 2.7 cm in size. There is evidence for ol d blowout fracture of the right lamina proprecia. CONCLUSION: Scalp hematoma and no evidence for intracranial hemorrhage. Vijay Cardona MD on March 30, 2017 at 16:20 Board Certified Radiologist. This report was verified electronically.
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
== END 2017-03-30 16:51 | disposition home or self-care (01) ==
LOC: PHEFT 15:24
DX: S09.90XA Unspecified injury of head, initial encounter (principal); S00.03XA Contusion of scalp, initial encounter; R11.2 Nausea with vomiting, unspecified; I48.91 Unspecified atrial fibrillation; J44.9 Chronic obstructive pulmonary disease, unspecified; E11.9 Type 2 diabetes mellitus without complications; I10 Essential (primary) hypertension; K21.9 Gastro-esophageal reflux disease without esophagitis; W19.XXXA Unspecified fall, initial encounter
CPT/HCPCS: 70450; 99283

== ENCOUNTER 2017-04-01 21:45 | Emergency (ER) | payer MEDICAID, OTHER ==
[~2017-04-01] VITALS: Ht 160 cm; Wt 78.0 kg
[~2017-04-01 21:45] MED LIST changes: -CEPH-460 PO; -LOMO2.5T PO; -ZOFR4TAB3 SL
[2017-04-01 21:48] VITALS: BP 131/79; PULSE 98; RESP 16; TEMP 98.8; O2SAT 99
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
[2017-04-01] MEDS ORDERED: GABA800T PO (22:21)
[2017-04-01] MEDS ORDERED: LYRI100C PO (22:21)
[2017-04-02 02:30] VITALS: BP 101/57; PULSE 89; RESP 16; O2SAT 96
[2017-04-02 06:54] VITALS: BP 107/68; PULSE 86; RESP 16; O2SAT 98
[2017-04-02 09:00] VITALS: BP 110/60; PULSE 80; RESP 14; O2SAT 98
--- NOTE | 2017-04-02 09:06 | PD ---
Data Data Last Documented VS Vital Signs Date Time Temp Pulse Resp B/P (MAP) Pulse Ox O2 Delivery O2 Flow Rate FiO2 04/02/17 09:33 04/02/17 09:00 80 14 98 Room Air 04/01/17 21:48 98.8 Orders Orders Electrocardiogram (04/01/17 ) Psych Screen (04/02/17 05:12) Ed Discharge Order (04/02/17 09:14) MDM Supervised Visit with TAYLOR: No Narrative Course Patient admitted to the emergency department overnight under Adams act, seen by Dr. Ogden this morning and the Adams act was lifted, patient states that she took just a few gabapentin pills last night, she has been observed here overnight and has no physical complaints at this time. Patient was previously discussed with poison control by Dr. Daley. there is no medical reasons to keep her here in the emergency department longer, she is stable for discharge. Diagnosis Primary Impression: ADJUSTMENT DISORDER, UNSPECIFIED Additional Impression: Medication overdose Patient Instructions: General Instructions Additional Instruction: Advised patient to follow-up with local physician. Disposition: 01 DISCHARGE HOME Condition: Stable Dany Barney MD Apr 02, 2017 09:06
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
--- NOTE | 2017-04-02 11:19 | EKG ---
Date Performed: 04/01/2017 Time Performed: 22:03:19 PTAGE: 56 years EKG: ECTOPIC ATRIAL RHYTHM PROBABLE INFERIOR MYOCARDIAL INFARCTION ABNORMAL ECG PREVIOUS TRACING : 03/23/2017 16.48 DOCTOR: Sidney Jain Interpretating Date/Time 04/02/2017 11:18:49
== END 2017-04-02 09:34 | disposition home or self-care (01) ==
LOC: NEPC 21:45
DX: T42.6X2A Poisoning by other antiepileptic and sedative-hypnotic drugs, intentional self-harm, initial encounter (principal); F43.25 Adjustment disorder with mixed disturbance of emotions and conduct; E03.9 Hypothyroidism, unspecified; E78.00 Pure hypercholesterolemia, unspecified; E11.40 Type 2 diabetes mellitus with diabetic neuropathy, unspecified; Z72.0 Tobacco use; Z79.02 Long term (current) use of antithrombotics/antiplatelets; Z79.4 Long term (current) use of insulin
CPT/HCPCS: 93005; 99283

== ENCOUNTER 2017-07-11 18:35 | Emergency (ER) | payer MEDICAID, OTHER ==
[~2017-07-11 18:35] MED LIST changes: -CYCL10TA PO; +GABA800T PO; -LISI-519 PO; +LYRI100C PO
[2017-07-11 18:45] VITALS: BP 93/51; PULSE 82; RESP 16; TEMP 98.1; O2SAT 98
[2017-07-12] MEDS ORDERED: METO1TAB42 PO (18:41)
[2017-07-12] MEDS ORDERED: ZOLP5TAB3 PO (18:41)
[2017-07-12] MEDS ORDERED: KEPP750T PO (18:41)
[2017-07-12] MEDS ORDERED: CLON1TAB PO (18:41)
[2017-07-12] MEDS ORDERED: TOPI200T7 PO (18:41)
[2017-07-12] MEDS ORDERED: METH500T3 PO (18:41)
[2017-07-12] MEDS ORDERED: LYRI100C PO (18:41)
[2017-07-12] MEDS ORDERED: SUMA50TA2 PO (18:41)
[2017-07-12] MEDS ORDERED: TRAZ50TA12 PO (18:41)
[2017-07-12] MEDS ORDERED: BUTATAB6 PO (18:41)
== END 2017-07-11 21:15 | disposition left against medical advice (07) ==
LOC: NED 18:35
DX: F99 Mental disorder, not otherwise specified (principal)
CPT/HCPCS: 99281

== ENCOUNTER 2017-07-12 18:20 | Inpatient (IN) | payer MEDICAID ==
[~2017-07-12] VITALS: Ht 167.6 cm; Wt 77.5 kg
[2017-07-12 18:30] VITALS: BP 96/56; PULSE 80; RESP 20; TEMP 98.1; O2SAT 97
[2017-07-12] MEDS ORDERED: SUMA50TA2 PO (18:41)
[2017-07-12] MEDS ORDERED: METO1TAB42 PO (18:41)
[2017-07-12] MEDS ORDERED: TOPI200T7 PO (18:41)
[2017-07-12] MEDS ORDERED: BUTATAB6 PO (18:41)
[2017-07-12] MEDS ORDERED: KEPP750T PO (18:41)
[2017-07-12] MEDS ORDERED: TRAZ50TA12 PO (18:41)
[2017-07-12] MEDS ORDERED: LYRI100C PO (18:41)
[2017-07-12] MEDS ORDERED: CLON1TAB PO (18:41)
[2017-07-12] MEDS ORDERED: METH500T3 PO (18:41)
[2017-07-12] MEDS ORDERED: ZOLP5TAB3 PO (18:41)
[2017-07-12] MEDS ORDERED: SODIUM CHLOR 0.9% 1000 ML INJ 1,000 ML IV ONE ×4 (19:12→22:55)
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
--- NOTE | 2017-07-12 19:44 | RADRPT ---
EXAM DATE/TIME: 07/12/2017 19:28 [facility] COMPARISON: CHEST SINGLE AP, May 09, 2016, 16:14. INDICATIONS : Shortness of breath and palpitations. MEDICAL HISTORY : Diabetes mellitus type 2. SURGICAL HISTORY : Cholecystectomy. Coronary artery stent. Facial reconstruction surgery. ENCOUNTER: Initial ACUITY: 3 days PAIN SCORE: 0/10 LOCATION: chest FINDINGS: A single view of the chest demonstrates the lungs to be symmetrically aerated without evidence of mas s, infiltrate or effusion. The cardiomediastinal contours are unremarkable. Osseous structures are intact. CONCLUSION: No acute disease. Herrera Hogue MD on July 12, 2017 at 19:42 Board Certified Radiologist. This report was verified electronically.
[2017-07-12 19:46] LABS: AUTOMATED NEUTROPHIL # 7.9 TH/MM3 (1.8-7.7); BASOPHIL # 0.1 TH/MM3 (0-0.2); BASOPHIL % 0.8 % (0.0-2.0); EOSINOPHIL # 0.2 TH/MM3 (0-0.4); EOSINOPHIL % 0.9 % (0.0-4.0); HEMATOCRIT 41.1 % (35.0-46.0); HEMOGLOBIN 14.8 GM/DL (11.6-15.3); LYMPH % 44.7 % (9.0-44.0); LYMPHOCYTE # 7.4 TH/MM3 (1.0-4.8); MEAN CELL VOLUME 90.4 FL (80.0-100.0); MEAN CORPUSCULAR HEMOGLOBIN 32.6 PG (27.0-34.0); MEAN PLATELET VOLUME 8.8 FL (7.0-11.0); MONO % 5.3 % (0.0-8.0); MONOCYTE # 0.9 TH/MM3 (0-0.9); NEUT % 48.3 % (16.0-70.0); PLATELET COUNT 313 TH/MM3 (150-450); RED BLOOD COUNT 4.54 MIL/MM3 (4.00-5.30); RED CELL DISTRIBUTION WIDTH 17.8 % (11.6-17.2); WHITE BLOOD COUNT 16.5 TH/MM3 (4.0-11.0)
[2017-07-12 19:47] LABS: MEAN CORPUSCULAR HGB CONC 36.1 % (32.0-36.0)
[2017-07-12 19:58] LABS: PROTHROMBIN TIME - PATIENT 10.4 SEC (9.8-11.6)
[2017-07-12 20:02] VITALS: BP_SYST 132; BP_SYST 86; BP_DIAS 52; BP_DIAS 63; PULSE 74; PULSE 85; RESP 16; O2SAT 98
[2017-07-12 20:02] LABS: ALBUMIN 3.6 GM/DL (3.4-5.0); ALT (GPT) 25 U/L (10-53); AST (GOT) 35 U/L (15-37); BICARBONATE 26.7 MEQ/L (21.0-32.0); BLOOD UREA NITROGEN 19 MG/DL (7-18); CALCIUM 10.2 MG/DL (8.5-10.1); CHLORIDE 107 MEQ/L (98-107); CREATININE 1.01 MG/DL (0.50-1.00); GLOMERULAR FILTRATION RATE 57 ML/MIN (>89); MAGNESIUM 1.2 MG/DL (1.5-2.5); PHOSPHORUS 1.2 MG/DL (2.5-4.9); SODIUM (NA) 144 MEQ/L (136-145)
--- NOTE | 2017-07-12 20:02 | RADRPT ---
EXAM DATE/TIME: 07/12/2017 19:55 [facility] COMPARISON: CT BRAIN W/O CONTRAST, March 30, 2017, 16:11. INDICATIONS : Slurred speech and weakness X 2 days; fall today. RADIATION DOSE: 35.60 CTDIvol (mGy) MEDICAL HISTORY : Cardiovascular disease. Hypertension. Gastroesophageal reflux disease.Thyroid disease, neuropathy SURGICAL HISTORY : None. ENCOUNTER: Initial ACUITY: 2 days PAIN SCALE: 4/10 LOCATION: cranial TECHNIQUE: Multiple contiguous axial images were obtained of the head. Using automated exposure control and adj ustment of the mA and/or kV according to patient size, radiation dose was kept as low as reasonably a chievable to obtain optimal diagnostic quality images. DICOM format image data is available electro nically for review and comparison. FINDINGS: CEREBRUM: The ventricles are normal for age. No evidence of midline shift, mass lesion, hemorrhage or acute in farction. No extra-axial fluid collections are seen. POSTERIOR FOSSA: The cerebellum and brainstem are intact. The 4th ventricle is midline. The cerebellopontine angle i s unremarkable. EXTRACRANIAL: The visualized portion of the orbits is intact. SKULL: The calvaria is intact. No evidence of skull fracture. CONCLUSION: No acute intracranial disease. Herrera Hogue MD on July 12, 2017 at 20:00 Board Certified Radiologist. This report was verified electronically.
[2017-07-12 20:04] LABS: ALKALINE PHOSPHATASE 74 U/L (45-117); TOTAL BILIRUBIN ADULT 0.4 MG/DL (0.2-1.0); TOTAL PROTEIN 7.8 GM/DL (6.4-8.2); TROPONIN I LESS THAN 0.02 NG/ML (0.02-0.05)
[2017-07-12 20:06] LABS: GLUCOSE,RANDOM 46 MG/DL (74-106)
[2017-07-12 20:13] LABS: BANDS 2 % (0-6); LYMPHOCYTES 42 % (9-44); MONOCYTES 3 % (0-8); NEUTROPHIL # MANUAL DIFF 9.1 TH/MM3 (1.8-7.7); POLYS (SEG NEUTROPHILS) 53 % (16-70)
[2017-07-12] MEDS ORDERED: MAGNESIUM SULFATE 1 GM PREMIX 100 ML IV ONE (20:15)
[2017-07-12] MEDS ORDERED: POTASSIUM CHLORIDE 25 MEQ EFFERVESCENT TAB PO ONE (20:15)
[2017-07-12] MEDS ORDERED: PIPERACIL-TAZO 4.5 GM PREMIX 100 ML IV STA (20:17)
[2017-07-12] MEDS ORDERED: VANCOMYCIN INJ 1,000 MG in SODIUM CHLOR 0.9% 250 ML INJ 250 ML IV STA (20:17)
[2017-07-12] MEDS ORDERED: SODIUM CHLORID 0.9% 500 ML INJ 500 ML IV ONE ×2 (21:00→21:45)
[2017-07-12 21:35] LABS: BILIRUBIN, URINE NEG (NEG); BLOOD, URINE NEG (NEG); GLUCOSE,URINE NEG (NEG); KETONE, URINE NEG (NEG); NITRITE,URINE NEG (NEG); URINE COLOR LIGHT-YELLOW (YELLW/STRAW); URINE LEUKOCYTE ESTERASE NEG (NEG)
[2017-07-12 22:02] LABS: SQUAMOUS EPITHELIAL CELL URINE 0-5 /hpf (0-5)
[2017-07-12 22:10] VITALS: BP 73/40; PULSE 95; RESP 18; O2SAT 98
[2017-07-12] MEDS ORDERED: DIATRIZOATE MEGLUM/DIATRIZOATE SOD 9 ML CUP ONE (22:28)
[2017-07-12] MEDS ORDERED: ZOLPIDEM TARTRATE 5 MG TAB PO PRN (22:30)
[2017-07-12] MEDS ORDERED: ACETAMIN 325 MG/BUTALBITAL 50 MG/CAFFEINE 40 MG TAB PO PRN (22:30)
[2017-07-12] MEDS ORDERED: SUMAtriptan SUCCINATE 50 MG TAB PO PRN (22:30)
[2017-07-12] MEDS: DEXAMETHASONE SOD PHOS 4 MG/ML VIAL IV PUSH SCH (22:33)
[2017-07-12] MEDS ORDERED: DIATRIZOATE MEGLUM/DIATRIZOATE SOD 9 ML CUP PO ONE (22:45)
[2017-07-12] MEDS ORDERED: SODIUM CHLOR 0.9% 1000 ML INJ 100 ML IV ONE (22:55)
[2017-07-12] MEDS ORDERED: SENNOSIDES 8.6 MG TAB PO PRN (23:00)
[2017-07-12] MEDS ORDERED: SODIUM CHLORIDE 0.9% FLUSH 10 ML FLUSH IV FLUSH PRN (23:00)
[2017-07-12] MEDS ORDERED: LACTULOSE SYRUP 20 GM/30 ML CUP PO PRN (23:00)
[2017-07-12] MEDS ORDERED: Vancomycin Consult Pharmacy 1 EA OTHER SCH (23:00)
[2017-07-12] MEDS ORDERED: CHLORHEXIDINE GLUCONATE 2 % 1 PACK (2 CLOTHS) TOP PRN (23:00)
[2017-07-12] MEDS ORDERED: MORPHINE SULFATE 4 MG/ML INJ IV PUSH PRN (23:00)
[2017-07-12] MEDS ORDERED: BISACODYL 10 MG SUPP RECTAL PRN (23:00)
[2017-07-12] MEDS ORDERED: MAGNESIUM HYDROXIDE SUSP 30 ML CUP PO PRN (23:00)
[2017-07-12] MEDS ORDERED: ACETAMINOPHEN 325 MG TAB PO PRN (23:00)
[2017-07-12] MEDS ORDERED: RESP: ALBUTEROL 2.5 MG/IPRATROPIUM 0.5 MG NEB (PRN) INH (23:00)
[2017-07-12] MEDS ORDERED: NURSING INFORMATION XX SCH (23:00)
--- NOTE | 2017-07-12 23:03 | HHI.HP ---
[facility] Service Critical Care Medicine Primary Care Physician Francisco J Kim, DO Admission Diagnosis Sepsis, hypokalemia, hypoglycemia, hypotension Diagnosis: Travel History International Travel<30 Days: No Contact w/Intl Traveler <30 Da: No Traveled to Known Affected Are: No History of Present Illness 56-year-old female presents to emergency department at [facility] after an unwitnessed fall today. She was found by her shortly after the episode she was awake and talking. Patient states she does not remember all of the event but she states she does not think she blacked out. She states she is having no pain anywhere. She has been having unsteady gait over the past couple days and came here recently but left AMA before being seen because she did not want to keep waiting. She states that she has no other complaints that she can think about but is a poor historian. History is limited. She does admit some abdominal pain for last 2 days. The pain is localized in the back sites bilaterally, sharp on the nature, and 3-4 out of 10. No aggravating or alleviating factors. Review of Systems Constitutional: COMPLAINS OF: Fatigue, DENIES: Diaphoretic episodes, Fever, Weight gain, Weight loss, Chills, Dizziness, Change in appetite, Night Sweats Endocrine: DENIES: Abnorml menstrual pattern, Heat/cold intolerance, Polydipsia , Polyuria, Polyphagia Eyes: DENIES: Blurred vision, Diplopia, Eye inflammation, Eye pain, Vision loss , Photosensitivity, Double Vision Ears, nose, mouth, throat: DENIES: Tinnitus, Hearing loss, Vertigo, Nasal discharge, Oral lesions, Throat pain, Hoarseness, Ear Pain, Running Nose, Epistaxis, Sinus Pain, Toothache, Odynophagia Respiratory: DENIES: Apneas, Cough, Snoring, Wheezing, Hemoptysis, Sputum production, Shortness of breath Cardiovascular: DENIES: Chest pain, Palpitations, Syncope, Dyspnea on Exertion , PND, Lower Extremity Edema, Orthopnea, Claudication Gastrointestinal: COMPLAINS OF: Abdominal pain, DENIES: Black stools, Bloody stools, Constipation, Diarrhea, Nausea, Vomiting, Difficulty Swallowing, Anorexia Genitourinary: DENIES: Abnormal vaginal bleeding, Dysmenorrhea, Dyspareunia, Sexual dysfunction, Urinary frequency, Urinary incontinence, Urgency, Hematuria , Dysuria, Nocturia, Vaginal discharge Musculoskeletal: DENIES: Joint pain, Muscle aches, Stiffness, Joint Swelling, Back pain, Neck pain Integumentary: DENIES: Abnormal pigmentation, Pruritus, Rash, Nail changes, Breast masses, Breast skin changes, Nipple discharge Hematologic/lymphatic: DENIES: Bruising, Lymphadenopathy Immunologic/allergic: DENIES: Eczema, Urticaria Neurologic: COMPLAINS OF: Poor Balance, DENIES: Abnormal gait, Headache, Localized weakness, Paresthesias, Seizures, Speech Problems, Tremor Psychiatric: DENIES: Anxiety, Confusion, Mood changes, Depression, Hallucinations, Agitation, Suicidal Ideation, Homicidal Ideation, Delusions Past Family Social History Allergies: Coded Allergies: No Known Allergies (Verified Adverse Reaction, Unknown, 07/12/17) Per pt. Past Medical History Anxiety Depression Atrial Fibrillation Hyperlipidemia GERD DM II Peripheral Neuropathy Hypothyroidism Past Surgical History Cholecystectomy C Section Reported Medications Reported Meds & Active Scripts Active Synthroid (Levothyroxine Sodium) 100 Mcg Tab 100 Mcg PO DAILY@0600 Keppra (Levetiracetam) 500 Mg Tab 500 Mg PO Q12HR Plavix (Clopidogrel Bisulfate) 75 Mg Tab 75 Mg PO DAILY Reported Metoprolol Succinate ER 24 HR (Metoprolol Succinate) 25 Mg Tab 25 Mg PO DAILY Kaevgsumel-Nowdoqouyjiyf-Tvhpztcp 50-325-40 Mg Tab 1 Tab PO DAILY PRN Do not exceed 6 tablets/day. Keppra (Levetiracetam) 750 Mg Tab 1,500 Mg PO BID Methocarbamol 500 Mg Tab 500 Mg PO TID Topiramate 200 Mg Tab 100 Mg PO HS Lyrica (Pregabalin) 100 Mg Cap 100 Mg PO BID Clonazepam 1 Mg Tab 1 Mg PO TID Trazodone (Trazodone HCl) 50 Mg Tab 50 Mg PO HS Sumatriptan (Sumatriptan Succinate) 50 Mg Tab 50 Mg PO ONCE PRN If a satisfactory response has not been obtained at 2 hours, a second dose may be administered Zolpidem (Zolpidem Tartrate) 5 Mg Tab 5 Mg PO HS PRN Humalog Inj (Insulin Human Lispro) 1,000 Unit/10 Ml Vial 32 Units SQ TIDAC Fenofibrate 145 Mg Tab 145 Mg PO HS Atorvastatin (Atorvastatin Calcium) 40 Mg Tab 40 Mg PO HS Glipizide 10 Mg Tab 10 Mg PO BIDAC Take 30 minutes before a meal Potassium Chloride Microencaps 20 Meq Tab 40 Meq PO DAILY Levemir Inj (Insulin Detemir) 1,000 unit/ 10 ML Vial 25 Units SQ HS Do not mix with any other Insulin. Aspirin DR (Aspirin) 81 Mg Tabdr 81 Mg PO DAILY Active Ordered Medications Current Medications Medications (Trade) Dose Ordered Sig/Ephraim Route PRN Reason Start Time Stop Time Status Last Admin Dose Admin Dexamethasone Sodium Phosphate (Decadron Inj) 4 mg Q6H IV PUSH 07/12/17 22:00 07/12/17 22:33 Aspirin (Ecotrin Ec) 81 mg DAILY PO 07/13/17 09:00 Atorvastatin Calcium (Lipitor) 40 mg HS PO 07/13/17 21:00 Acetaminophen/ Butalbital/ Caffeine (Fioricet 325-50-40) 1 tab DAILY PRN PO HEADACHE 07/12/17 22:30 Clonazepam (KlonoPIN) 1 mg TID PO 07/13/17 09:00 Clopidogrel Bisulfate (Plavix) 75 mg DAILY PO 07/13/17 09:00 Fenofibrate (Tricor) 145 mg HS PO 07/13/17 21:00 Levetriacetam (Keppra) 1,500 mg BID PO 07/13/17 09:00 Levothyroxine Sodium (Synthroid) 100 mcg DAILY@0600 PO 07/13/17 06:00 Methocarbamol (Robaxin) 500 mg TID PO 07/13/17 09:00 Potassium Chloride (KCl) 40 meq DAILY PO 07/13/17 09:00 Pregabalin (Lyrica) 100 mg BID PO 07/13/17 09:00 Sumatriptan Succinate (Imitrex) 50 mg ONCE PRN PO MIGRAINE HEADACHE 07/12/17 22:30 18 22:29 Topiramate (Topamax) 100 mg HS PO 07/13/17 21:00 Trazodone HCl (Desyrel) 50 mg HS PO 07/13/17 21:00 Zolpidem Tartrate (Ambien) 5 mg HS PRN PO INSOMNIA 07/12/17 22:30 Sodium Chloride 1,000 ml @ 184 mls/hr Q5H27M IV 07/12/17 22:55 07/12/17 23:17 Sodium Chloride (NS Flush) 2 ml UNSCH PRN IV FLUSH FLUSH AFTER USING IV ACCESS 07/12/17 23:00 Sodium Chloride (NS Flush) 2 ml BID IV FLUSH 07/13/17 09:00 Acetaminophen (Tylenol) 650 mg Q6H PRN PO PAIN 1-5 AND/OR FEVER >101F 07/12/17 23:00 Morphine Sulfate (Morphine Inj) 2 mg Q2H PRN IV PUSH PAIN SCALE 6 TO 10 07/12/17 23:00 Famotidine (Pepcid Inj) 20 mg Q12HR IV PUSH 07/13/17 09:00 UNV Ondansetron HCl (Zofran Inj) 4 mg Q6H PRN IV PUSH NAUSEA OR VOMITING 07/12/17 23:00 UNV Albuterol/ Ipratropium (Duoneb Neb) 1 ampule Q2HR NEB PRN INH WHEEZING 07/12/17 23:00 Enoxaparin Sodium (Lovenox Inj) 40 mg Q24H SQ 07/12/17 23:00 Miscellaneous Information ([facility] Nursing Information) 1 [id number] XX 07/12/17 23:00 Chlorhexidine Gluconate (Chlorhexidine 2% Cloth) 3 pack Taper DAILY@04 TOP 07/13/17 04:00 07/09/18 03:59 Chlorhexidine Gluconate (Chlorhexidine 2% Cloth) 3 pack UNSCH PRN TOP HYGIENIC CARE 07/12/17 23:00 Senna/Docusate Sodium (Rose-Colace) 1 tab BID PO 07/13/17 09:00 Magnesium Hydroxide (Milk Of Magnesia Liq) 30 ml Q12H PRN PO Mild constipation 07/12/17 23:00 Sennosides (Senokot) 17.2 mg Q12H PRN PO Moderate constipation 07/12/17 23:00 Bisacodyl (Dulcolax Supp) 10 mg DAILY PRN RECTAL SEVERE CONSITIPATION 07/12/17 23:00 Lactulose (Lactulose Liq) 30 ml DAILY PRN PO SEVERE CONSITIPATION 07/12/17 23:00 Pharmacy Profile Note 0 ml @ 0 mls/hr UNSCH XX 07/12/17 23:00 UNV Piperacillin Sod/ Tazobactam Sod 100 ml @ 200 mls/hr Q6H IV 07/13/17 03:00 Sodium Chloride 1,000 ml @ 1,000 mls/hr Q1H ONCE IV 07/12/17 22:55 07/12/17 23:54 Sodium Chloride 1,000 ml @ 1,000 mls/hr Q1H ONCE IV 07/12/17 22:55 07/12/17 23:54 Family History Does not know she is Adopted Social History Lives with , Son, Smokes one pack and half of Cigarettes, does not drink alcohol but uses medical Marijuana for depressions. Physical Exam Vital Signs Vital Signs Date Time Temp Pulse Resp B/P (MAP) Pulse Ox O2 Delivery O2 Flow Rate FiO2 07/12/17 22:10 95 18 73/40 (51) 98 07/12/17 20:02 85 16 86/52 (63) 98 07/12/17 18:30 80 20 97 07/12/17 18:30 98.1 80 20 96/56 (69) 97 Physical Exam GENERAL: 56-year-old female in no apparent distress SKIN: Focused skin assessment warm/dry. HEAD: Atraumatic. Normocephalic. EYES: Pupils equal and round. No scleral icterus. No injection or drainage. ENT: No nasal bleeding or discharge. Mucous membranes pink and moist. NECK: Trachea midline. No JVD. No midline pain over C-spine CARDIOVASCULAR: Regular rate and rhythm. RESPIRATORY: No accessory muscle use. Clear to auscultation. Breath sounds equal bilaterally. GASTROINTESTINAL: Abdomen soft, non-tender, nondistended. MUSCULOSKELETAL: No obvious deformities. No clubbing. No cyanosis. NEUROLOGICAL: Awake and alert. No obvious cranial nerve deficits. Motor grossly within normal limits. Normal speech. 5 out of 5 in all 4 extremities, equal grasp bilaterally Laboratory Laboratory Tests Test 07/12/17 19:20 07/12/17 21:00 07/12/17 22:12 White Blood Count 16.5 Red Blood Count 4.54 Hemoglobin 14.8 Hematocrit 41.1 Mean Corpuscular Volume 90.4 Mean Corpuscular Hemoglobin 32.6 Mean Corpuscular Hemoglobin Concent 36.1 Red Cell Distribution Width 17.8 Platelet Count 313 Mean Platelet Volume 8.8 Neutrophils (%) (Auto) 48.3 Lymphocytes (%) (Auto) 44.7 Monocytes (%) (Auto) 5.3 Eosinophils (%) (Auto) 0.9 Basophils (%) (Auto) 0.8 Neutrophils # (Auto) 7.9 Lymphocytes # (Auto) 7.4 Monocytes # (Auto) 0.9 Eosinophils # (Auto) 0.2 Basophils # (Auto) 0.1 CBC Comment AUTO DIFF Differential Total Cells Counted 100 Neutrophils % (Manual) 53 Band Neutrophils % 2 Lymphocytes % 42 Monocytes % 3 Neutrophils # (Manual) 9.1 Differential Comment FINAL DIFF MANUAL Platelet Estimate NORMAL Platelet Morphology Comment NORMAL Red Cell Morphology Comment NORMAL Prothrombin Time 10.4 Prothromb Time International Ratio 1.0 Activated Partial Thromboplast Time 22.6 Blood Urea Nitrogen 19 Creatinine 1.01 Random Glucose 46 Total Protein 7.8 Albumin 3.6 Calcium Level 10.2 Phosphorus Level 1.2 Magnesium Level 1.2 Alkaline Phosphatase 74 Aspartate Amino Transf (AST/SGOT) 35 Alanine Aminotransferase (ALT/SGPT) 25 Total Bilirubin 0.4 Sodium Level 144 Potassium Level 2.1 Chloride Level 107 Carbon Dioxide Level 26.7 Anion Gap 10 Estimat Glomerular Filtration Rate 57 Lactic Acid Level 1.4 Total Creatine Kinase 363 Creatine Kinase MB 5.9 Creatine Kinase MB % 1.6 Troponin I LESS THAN 0.02 Thyroid Stimulating Hormone 3rd Gen 1.520 Ethyl Alcohol Level LESS THAN 3 Urine Color LIGHT-YELLOW Urine Turbidity CLEAR Urine pH 7.0 Urine Specific Levering 1.008 Urine Protein NEG Urine Glucose (UA) NEG Urine Ketones NEG Urine Occult Blood NEG Urine Nitrite NEG Urine Bilirubin NEG Urine Urobilinogen LESS THAN 2.0 Urine Leukocyte Esterase NEG Urine Squamous Epithelial Cells 0-5 Microscopic Urinalysis Comment CATH-CULT NOT IND Date/Time Source Procedure Growth Status 07/12/17 19:20 Blood Peripheral Aerobic Blood Culture Pending Received 07/12/17 19:20 Blood Peripheral Anaerobic Blood Culture Pending Received Result Diagram: 07/12/17191907/12/171919 Imaging Last 24 hours Impressions Abdomen/Pelvis CT 07/12/172227 Signed Impressions: Service Date/Time: Wednesday, July 12, 2017 22:56 - CONCLUSION: 1. No acute findings. Fatty liver. Previous cholecystectomy. Calcified fibroids in uterus. Wilber Castillo MD Head CT 07/12/171911 Signed Impressions: Service Date/Time: Wednesday, July 12, 2017 19:55 - CONCLUSION: No acute intracranial disease. Herrera Hogue MD Chest X-Ray 07/12/171911 Signed Impressions: Service Date/Time: Wednesday, July 12, 2017 19:28 - CONCLUSION: No acute disease. MD Daniele Bedoya VTE Risk Assessment Caprini VTE Risk Assessment: Mod/High Risk (score >= 2) Caprini Risk Assessment Model Point Value = 1 Point Value = 2 Point Value = 3 Point Value = 5 Age 41-60 Minor surgery BMI > 25 kg/m2 Swollen legs Varicose veins or History of unexplained or recurrent spontaneous Oral contraceptives or hormone replacement Sepsis (< 1 month) Serious lung disease, including pneumonia (< 1 month) Abnormal pulmonary function Acute myocardial infarction Congestive heart failure (< 1 month) History of inflammatory bowel disease Medical patient at bed rest Age 61-74 Arthroscopic surgery Major open surgery (> 45 min) Laparoscopic surgery (> 45 min) Malignancy Confined to bed (> 72 hours) Immobilizing plaster cast Central venous access Age >= 75 History of VTE Family history of VTE Factor V Leiden Prothrombin [id number] Lupus anticoagulant Anticardiolipin antibodies Elevated serum homocysteine Heparin-induced thrombocytopenia Other congenital or acquired thrombophilia Stroke (< 1 month) Elective arthroplasty Hip, pelvis, or leg fracture Acute spinal cord injury (< 1 month) Prophylaxis Regimen Total Risk Factor Score Risk Level Prophylaxis Regimen 0-1 Low Early ambulation 2 Moderate Order ONE of the following: *Sequential Compression Device (SCD) *Heparin 5000 units SQ BID 3-4 Higher Order ONE of the following medications: *Heparin 5000 units SQ TID *Enoxaparin/Lovenox 40 mg SQ daily (WT < 150 kg, CrCl > 30 mL/min) *Enoxaparin/Lovenox 30 mg SQ daily (WT < 150 kg, CrCl > 10-29 mL/min) *Enoxaparin/Lovenox 30 mg SQ BID (WT < 150 kg, CrCl > 30 mL/min) AND/OR *Sequential Compression Device (SCD) 5 or more Highest Order ONE of the following medications: *Heparin 5000 units SQ TID (Preferred with Epidurals) *Enoxaparin/Lovenox 40 mg SQ daily (WT < 150 kg, CrCl > 30 mL/min) *Enoxaparin/Lovenox 30 mg SQ daily (WT < 150 kg, CrCl > 10-29 mL/min) *Enoxaparin/Lovenox 30 mg SQ BID (WT < 150 kg, CrCl > 30 mL/min) AND *Sequential Compression Device (SCD) Assessment and Plan Assessment and Plan Syncopal episode -CT head negative -Admit to ICU -Continue telemetry -2D echo Hypotension -Hypokalemia/hypoglycemia -Evaluate for adrenal insufficiency -Dexamethasone -IV fluid resuscitation -Hold home hypertensive meds -Panculture to rule out sepsis -Broad-spectrum antibiotics until culture results Anxiety/Depression -Trazodone Migraine headaches -Acetaminophen/ Butalbital/ Caffeine -Sumatriptan -Topamax Atrial Fibrillation -Aspirin Hyperlipidemia -Atorvastatin GERD -Pepcid IV twice daily DM II -Insulin sliding scale Peripheral Neuropathy -Lyrica Hypothyroidism -Levothyroxine DVT GI prophylaxis -Benson's and SCDs -Subcu heparin -IV Pepcid Critical Care: The total critical care time was 35 minutes. Time to perform other separately billable procedures was not included in the critical care time. Jack Johnson MD July 12, 2017 11:02 pm
[2017-07-12] MEDS ORDERED: IOHEXOL 350 MG/ML 10 ML VIAL (for RAD DIAG) IVCONTRAST ONE (23:06)
--- NOTE | 2017-07-12 23:15 | RADRPT ---
EXAM DATE/TIME: 07/12/2017 22:56 [facility] COMPARISON: No previous studies available for comparison. INDICATIONS : Sepsis IV CONTRAST: 87 cc Omnipaque 350 (iohexol) IV ; Cumulative dose for multiple exams. ORAL CONTRAST: No oral contrast ingested. RADIATION DOSE: 12.15 CTDIvol (mGy) ; Combined studies - Thorax/Abdomen/Pelvis MEDICAL HISTORY : Hypertension. Gastroesophageal reflux disease. Diabetes mellitus type 2.IBS SURGICAL HISTORY : Cholecystectomy. section. ENCOUNTER: Initial ACUITY: 1 day PAIN SCALE: 0/10 LOCATION: abdomen TECHNIQUE: Volumetric scanning of the abdomen and pelvis was performed. Using automated exposure control and ad justment of the mA and/or kV according to patient size, radiation dose was kept as low as reasonably achievable to obtain optimal diagnostic quality images. DICOM format image data is available electro nically for review and comparison. FINDINGS: Dependent atelectasis lung bases. Calcification or small metallic foreign body in the right lobe live r. Fatty liver. Spleen, adrenals, kidneys and pancreas unremarkable. Previous cholecystectomy. No free fluid. No bowel obstruction. No adenopathy. Calcified fibroids in uterus. CONCLUSION: 1. No acute findings. Fatty liver. Previous cholecystectomy. Calcified fibroids in uterus. Wilber Castillo MD on July 12, 2017 at 23:08 Board Certified Radiologist. This report was verified electronically.
[2017-07-12] MEDS: SODIUM CHLOR 0.9% 1000 ML INJ 1,000 ML IV SCH (23:17)
--- NOTE | 2017-07-12 23:18 | RADRPT ---
EXAM DATE/TIME: 07/12/2017 22:56 [facility] COMPARISON: No previous studies available for comparison. INDICATIONS : Sepsis IV CONTRAST: 87 cc Omnipaque 350 (iohexol) IV ; Cumulative dose for multiple exams. RADIATION DOSE: 12.15 CTDIvol (mGy) ; Combined studies - Thorax/Abdomen/Pelvis MEDICAL HISTORY : Hypertension. Chronic obstructive pulmonary disease. Gastroesophageal reflux disease.IBS SURGICAL HISTORY : Cholecystectomy. section. ENCOUNTER: Initial ACUITY: 1 day PAIN SCALE: 0/10 LOCATION: chest TECHNIQUE: Volumetric scanning of the chest was performed. Using automated exposure control and adjustment of t he mA and/or kV according to patient size, radiation dose was kept as low as reasonably achievable to obtain optimal diagnostic quality images. DICOM format image data is available electronically for review and comparison. Follow-up recommendations for detected pulmonary nodules are based at a minimum on nodule size and pa tient risk factors according to Fleischner Society Guidelines. FINDINGS: LUNGS: There is no consolidation or pneumothorax. No concerning pulmonary nodule is visualized. PLEURA: There is no pleural thickening or pleural effusion. MEDIASTINUM: The heart and great vessels demonstrate no acute abnormality. There is no mediastinal or hilar lymph adenopathy. AXILLAE: Within normal limits. No lymphadenopathy. SKELETAL: Within normal limits for patient age. MISCELLANEOUS: The visualized upper abdominal organs demonstrate no acute abnormality. CONCLUSION: 1. No acute findings. Small hiatal hernia. Wilber Castillo MD on July 12, 2017 at 23:13 Board Certified Radiologist. This report was verified electronically.
[2017-07-12] MEDS ORDERED: POTASSIUM PHOSPHATE MONOBASIC 500 MG TAB PO PRN (23:45)
[2017-07-12] MEDS ORDERED: ONDANSETRON ODT 4 MG TAB PO PRN (23:45)
[2017-07-12] MEDS ORDERED: POTASSIUM PHOSPHATE INJ 30 MMOL in SODIUM CHLOR 0.9% 250 ML INJ 250 ML IV PRN (23:45)
[2017-07-12] MEDS ORDERED: POTASSIUM CHLOR 20 MEQ PREMIX 100 ML IV PRN ×2 (23:45)
[2017-07-12] MEDS ORDERED: MAGNESIUM OXIDE 400 MG TAB PO PRN (23:45)
[2017-07-12] MEDS ORDERED: POTASSIUM CHLORIDE 25 MEQ EFFERVESCENT TAB PO PRN (23:45)
[2017-07-12] MEDS ORDERED: POTASSIUM CHLOR 40 MEQ PREMIX 100 ML IV PRN ×2 (23:45)
[2017-07-12] MEDS ORDERED: MAGNESIUM SULFATE INJ 2 GM in SODIUM CHLORIDE 0.9% INJ 96 ML IV PRN (23:45)
[2017-07-12] MEDS ORDERED: SODIUM PHOSPHATE INJ 30 MMOL in SODIUM CHLOR 0.9% 250 ML INJ 240 ML IV PRN (23:45)
[2017-07-12] MEDS ORDERED: POTASSIUM PHOSPHATE MONOBASIC 500 MG TAB PO/TUBE PRN (23:45)
[2017-07-12] MEDS ORDERED: MAGNESIUM SULFATE INJ 4 GM in SODIUM CHLORIDE 0.9% INJ 92 ML IV PRN (23:45)
[2017-07-13] VITALS (11 sets, daily range): BP systolic 98–165; BP diastolic 61–72; PULSE 77–87; RESP 16–19; TEMP 97.6–98.2; O2SAT 97–100
[2017-07-13] MEDS: ENOXAPARIN SODIUM 40 MG/0.4 ML SYRINGE SQ SCH ×2 (00:13→22:12)
[2017-07-13] MEDS ORDERED: traZODone HCL 50 MG TAB ONE (01:43)
[2017-07-13] MEDS ORDERED: traZODone HCL 50 MG TAB PO ONE ×2 (02:03)
[2017-07-13] MEDS: PIPERACIL-TAZO 4.5 GM PREMIX 100 ML IV SCH ×4 (02:56→20:51)
[2017-07-13] MEDS: CHLORHEXIDINE GLUCONATE 2 % 1 PACK (2 CLOTHS) TOP SCH (04:00)
[2017-07-13] MEDS: SODIUM CHLOR 0.9% 1000 ML INJ 1,000 ML IV SCH ×3 (06:00→15:05)
[2017-07-13] MEDS: LEVOTHYROXINE SODIUM 100 MCG TAB PO SCH (06:00)
[2017-07-13] MEDS: DEXAMETHASONE SOD PHOS 4 MG/ML VIAL IV PUSH SCH ×2 (06:00→09:06)
[2017-07-13 07:27] LABS: PROTHROMBIN TIME - PATIENT 10.5 SEC (9.8-11.6)
[2017-07-13 07:49] LABS: ALKALINE PHOSPHATASE 58 U/L (45-117); ALT (GPT) 18 U/L (10-53); AST (GOT) 24 U/L (15-37); BICARBONATE 19.1 MEQ/L (21.0-32.0); BLOOD UREA NITROGEN 17 MG/DL (7-18); CALCIUM 8.2 MG/DL (8.5-10.1); CHLORIDE 108 MEQ/L (98-107); CREATININE 1.07 MG/DL (0.50-1.00); GLOMERULAR FILTRATION RATE 53 ML/MIN (>89); GLUCOSE,RANDOM 339 MG/DL (74-106); MAGNESIUM 1.3 MG/DL (1.5-2.5); PHOSPHORUS 1.2 MG/DL (2.5-4.9); SODIUM (NA) 140 MEQ/L (136-145); TOTAL BILIRUBIN ADULT 0.2 MG/DL (0.2-1.0); TOTAL PROTEIN 6.4 GM/DL (6.4-8.2); TROPONIN I LESS THAN 0.02 NG/ML (0.02-0.05)
[2017-07-13 08:18] LABS: AUTOMATED NEUTROPHIL # 6.7 TH/MM3 (1.8-7.7); BASOPHIL % 0.5 % (0.0-2.0); EOSINOPHIL % 0.1 % (0.0-4.0); HEMATOCRIT 34.3 % (35.0-46.0); HEMOGLOBIN 11.8 GM/DL (11.6-15.3); LYMPH % 22.5 % (9.0-44.0); MEAN CELL VOLUME 92.1 FL (80.0-100.0); MEAN CORPUSCULAR HEMOGLOBIN 31.8 PG (27.0-34.0); MEAN CORPUSCULAR HGB CONC 34.6 % (32.0-36.0); MEAN PLATELET VOLUME 8.7 FL (7.0-11.0); MONO % 2.4 % (0.0-8.0); MONOCYTE # 0.2 TH/MM3 (0-0.9); NEUT % 74.5 % (16.0-70.0); PLATELET COUNT 250 TH/MM3 (150-450); RED BLOOD COUNT 3.72 MIL/MM3 (4.00-5.30); RED CELL DISTRIBUTION WIDTH 18.3 % (11.6-17.2)
[2017-07-13] MEDS ORDERED: DEXTROSE 50% IN WATER 50 ML VIAL(D50) IV PUSH PRN (08:45)
[2017-07-13] MEDS ORDERED: GLUCAGON 1 MG/ML VIAL OTHER PRN (08:45)
[2017-07-13] MEDS: HIGH DOSE INSULIN NOVOLIN REGULAR SUPPLEMENTAL SCALE SQ SCH ×4 (08:59→20:52)
[2017-07-13] MEDS: ASPIRIN EC 81 MG TABEC PO SCH (09:00)
[2017-07-13] MEDS: CLOPIDOGREL 75 MG TAB PO SCH (09:00)
[2017-07-13] MEDS ORDERED: levETIRAcetam 500 MG TAB PO SCH (09:00)
[2017-07-13] MEDS ORDERED: FAMOTIDINE 20 MG/2 ML VIAL IV PUSH SCH (09:00)
[2017-07-13] MEDS: levETIRAcetam 500 MG TAB PO SCH ×2 (09:00→20:52)
[2017-07-13] MEDS: clonazePAM 1 MG TAB PO SCH ×3 (09:01→17:50)
[2017-07-13] MEDS: POTASSIUM CHLORIDE 20 MEQ CONTROLLED RELEASE TAB PO SCH (09:01)
[2017-07-13] MEDS: PREGABALIN 100 MG CAP PO SCH ×2 (09:01→20:52)
[2017-07-13] MEDS: DOCUSATE SODIUM 50 MG/SENNA 8.6 MG TAB PO SCH ×2 (09:01→20:53)
[2017-07-13] MEDS: METHOCARBAMOL 500 MG TAB PO SCH ×3 (09:02→17:50)
[2017-07-13] MEDS: SODIUM CHLORIDE 0.9% FLUSH 10 ML FLUSH IV FLUSH SCH ×2 (09:02→20:50)
[2017-07-13] MEDS ORDERED: VANCOMYCIN 1,000 MG/NS 250 ML IV ONE ×2 (10:00)
[2017-07-13] MEDS ORDERED: FLUDROCORTISONE ACETATE 0.1 MG TAB PO SCH (11:00)
[2017-07-13] MEDS ORDERED: POTASSIUM CHLORIDE 25 MEQ EFFERVESCENT TAB PO ONE ×2 (11:00→16:00)
[2017-07-13] MEDS ORDERED: LACTATED RINGER'S 1000 ML INJ 1,000 ML IV ONE (11:00)
[2017-07-13] MEDS ORDERED: POTASSIUM PHOSPHATE INJ 30 MMOL in SODIUM CHLOR 0.9% 250 ML INJ 250 ML IV ONE (12:00)
[2017-07-13] MEDS ORDERED: MAGNESIUM SULFATE INJ 4 GM in SODIUM CHLORIDE 0.9% INJ 100 ML IV ONE (12:00)
[2017-07-13 15:35] LABS: MAGNESIUM 2.2 MG/DL (1.5-2.5)
--- NOTE | 2017-07-13 15:55 | HHI.CCPN ---
Subjective Remarks/Hospital Course Hospital Course: 56-year-old female presents to emergency department at [facility] after an unwitnessed fall today. She was found by her shortly after the episode she was awake and talking. Patient states she does not remember all of the event but she states she does not think she blacked out. She states she is having no pain anywhere. She has been having unsteady gait over the past couple days and came here recently but left AMA before being seen because she did not want to keep waiting. She states that she has no other complaints that she can think about but is a poor historian. History is limited. She does admit some abdominal pain for last 2 days. The pain is localized in the back sites bilaterally, sharp on the nature, and 3-4 out of 10. No aggravating or alleviating factors. Subjective: 07/13: clinically improving. still complains of weakness. K improving, but still low. electrolytes remain low. patient states she has never been worked up for endocrine problem. random cortisol 3 which is inappropriately low in critical illness. ROS positive for headache and unclear if vision changes is + because patient states she lost her glasses a year ago. Objective Vital Signs Date Time Temp Pulse Resp B/P (MAP) Pulse Ox O2 Delivery O2 Flow Rate FiO2 07/13/17 14:00 80 07/13/17 12:00 97.8 19 118/72 (87) 100 Intake and Output 07/13/17 07/13/17 07/14/17 08:00 16:00 00:00 Intake Total 120 ml Balance 120 ml Result Diagram: 07/13/17 0510 07/13/17 1435 Imaging Last 24 hours Impressions Abdomen/Pelvis CT 07/12/172227 Signed Impressions: Service Date/Time: Wednesday, July 12, 2017 22:56 - CONCLUSION: 1. No acute findings. Fatty liver. Previous cholecystectomy. Calcified fibroids in uterus. Wilber Castillo MD Head CT 07/12/171911 Signed Impressions: Service Date/Time: Wednesday, July 12, 2017 19:55 - CONCLUSION: No acute intracranial disease. Herrera Hogue MD Chest X-Ray 07/12/171911 Signed Impressions: Service Date/Time: Wednesday, July 12, 2017 19:28 - CONCLUSION: No acute disease. Herrera Hogue MD Objective Remarks GENERAL: 56-year-old female in no apparent distress SKIN: Focused skin assessment warm/dry. HEAD: Atraumatic. Normocephalic. EYES: Pupils equal and round. No scleral icterus. No injection or drainage. ENT: No nasal bleeding or discharge. Mucous membranes pink and moist. NECK: Trachea midline. No JVD. No midline pain over C-spine CARDIOVASCULAR: Regular rate and rhythm. RESPIRATORY: No accessory muscle use. Breath sounds equal bilaterally. GASTROINTESTINAL: Abdomen soft, non-tender, nondistended. MUSCULOSKELETAL: No obvious deformities. No clubbing. No cyanosis. NEUROLOGICAL: Awake and alert. No obvious cranial nerve deficits. Motor grossly within normal limits. Normal speech. 5 out of 5 in all 4 extremities, equal grasp bilaterally A/P Assessment and Plan Assessment: 56yF with severe life-threatening electrolyte abnormalities. now improving. will need full work-up for endocrinopathies. could have renal tubular acidosis: will need to check urine labs. will also order MRI brain to rule out pituitary adenoma as cause. start on fludrocortisone for adrenal insufficiency. if electrolytes improve, will transfer out of ICU and ask hospitalist service to assist in management. Syncopal episode -CT head negative -Continue telemetry -2D echo - MRI pending. Hypotension Severe life-threatening hypokalemia severe hypomagnesemia severe life-threatening hypophosphatemia Adrenal insufficiency -fludrocortisone 0.2mg po daily - aggressive electrolyte replacement -IV fluid resuscitation -Hold home hypertensive meds -Broad-spectrum antibiotics until culture results Anxiety/Depression -Trazodone Migraine headaches -Acetaminophen/ Butalbital/ Caffeine -Sumatriptan -Topamax Atrial Fibrillation -Aspirin Hyperlipidemia -Atorvastatin GERD -Pepcid IV twice daily DM II -Insulin sliding scale Peripheral Neuropathy -Lyrica Hypothyroidism -Levothyroxine DVT GI prophylaxis -Benson's and SCDs -Subcu heparin -IV Pepcid Isidro Turk MD July 13, 2017 15:55
[2017-07-13] MEDS ORDERED: HYDROCORTISONE 10 MG TAB PO SCH (20:30)
--- NOTE | 2017-07-13 20:50 | EKG ---
Date Performed: 07/13/2017 Time Performed: 00:52:20 PTAGE: 56 years EKG: Sinus rhythm LOW QRS VOLTAGE IN PRECORDIAL LEADS BORDERLINE ECG PREVIOUS TRACING : 07/12/2017 18.31 Since the previous tracing, no significant change noted DOCTOR: Armando Gillis Interpretating Date/Time 07/13/2017 20:49:16
[2017-07-13] MEDS: TOPIRAMATE 100 MG TAB PO SCH (20:52)
[2017-07-13] MEDS: FENOFIBRATE 145 MG TAB PO SCH (20:52)
[2017-07-13] MEDS: ATORVASTATIN 40 MG TAB PO SCH (20:52)
[2017-07-13] MEDS ORDERED: traZODone HCL 50 MG TAB PO SCH (21:00)
--- NOTE | 2017-07-13 21:14 | EKG ---
Date Performed: 07/12/2017 Time Performed: 18:31:58 PTAGE: 56 years EKG: ECTOPIC ATRIAL RHYTHM LOW QRS VOLTAGE IN PRECORDIAL LEADS PATTERN CONSISTENT WITH PULMONARY DISEASE LEFT ANTERIOR FASCICULAR BLOCK INFERIOR MYOCARDIAL INFARCTION ABNORMAL ECG PREVIOUS TRACING : 04/01/2017 22.03 Since the previous tracing, no significant change noted DOCTOR: Armando Gillis Interpretating Date/Time 07/13/2017 21:12:41
[2017-07-13] MEDS: HYDROCORTISONE SOD SUCCINATE 100 MG VIAL IV PUSH SCH (22:11)
[2017-07-13] MEDS: VANCOMYCIN INJ 1,250 MG in SODIUM CHLOR 0.9% 250 ML INJ 250 ML IV SCH (22:12)
[2017-07-14] VITALS (25 sets, daily range): BP systolic 96–160; BP diastolic 55–79; PULSE 69–96; RESP 17–45; TEMP 98.2–98.9; O2SAT 92–100
[2017-07-14] MEDS: CHLORHEXIDINE GLUCONATE 2 % 1 PACK (2 CLOTHS) TOP SCH (02:15)
[2017-07-14] MEDS: PIPERACIL-TAZO 4.5 GM PREMIX 100 ML IV SCH ×4 (02:15→20:51)
[2017-07-14] MEDS: HYDROCORTISONE SOD SUCCINATE 100 MG VIAL IV PUSH SCH ×4 (05:16→23:25)
[2017-07-14] MEDS: LEVOTHYROXINE SODIUM 100 MCG TAB PO SCH (05:16)
--- NOTE | 2017-07-14 07:39 | HHI.PR ---
Subjective Remarks in no acute distress. drowsy but arousable. says that ' she couldn't sleep last night'. d/w the RN. Objective Vitals Vital Signs Date Time Temp Pulse Resp B/P (MAP) Pulse Ox O2 Delivery O2 Flow Rate FiO2 07/14/17 06:00 82 07/14/17 04:00 79 07/14/17 04:00 98.2 79 17 118/68 (85) 93 07/14/17 02:00 89 07/14/17 00:00 69 07/14/17 00:00 98.5 69 18 100/55 (70) 98 07/13/17 22:00 77 07/13/17 21:52 16 07/13/17 20:00 87 07/13/17 20:00 98.1 87 16 105/71 (82) 99 07/13/17 18:00 83 07/13/17 16:00 78 07/13/17 16:00 98.2 78 18 165/72 (103) 98 07/13/17 14:00 80 07/13/17 12:00 97.8 81 19 118/72 (87) 100 07/13/17 12:00 81 07/13/17 10:00 78 07/13/17 08:00 82 07/13/17 08:00 97.6 82 19 98/61 (73) 97 I/O 07/13/17 07/13/17 07/13/17 07/14/17 07/14/17 07/14/17 07:00 15:00 23:00 07:00 15:00 23:00 Intake Total 120 ml 1465 ml 1620 ml 482.5 ml Output Total 1650 ml Balance 120 ml 1465 ml -30 ml 482.5 ml Intake Oral 120 ml 1200 ml 120 ml IV Total 1465 ml 420 ml 362.5 ml Output Urine Total 1650 ml # Voids 1 5 # Bowel Movements 0 0 Result Diagram: 07/13/17 0510 07/13/17 1435 Imaging Last Impressions Abdomen/Pelvis CT 07/12/172227 Signed Impressions: Service Date/Time: Wednesday, July 12, 2017 22:56 - CONCLUSION: 1. No acute findings. Fatty liver. Previous cholecystectomy. Calcified fibroids in uterus. Wilbre Castillo MD Head CT 07/12/171911 Signed Impressions: Service Date/Time: Wednesday, July 12, 2017 19:55 - CONCLUSION: No acute intracranial disease. Herrera Hogue MD Chest X-Ray 07/12/171911 Signed Impressions: Service Date/Time: Wednesday, July 12, 2017 19:28 - CONCLUSION: No acute disease. Herrera Hogue MD Chest CT 07/12/17 0000 Signed Impressions: Service Date/Time: Wednesday, July 12, 2017 22:56 - CONCLUSION: 1. No acute findings. Small hiatal hernia. Wilber Castillo MD Objective Remarks GENERAL: This is a well-nourished, well-developed patient, in no apparent distress. CARDIOVASCULAR: Regular rate and regular rhythm without murmurs, gallops, or rubs. RESPIRATORY: Clear to auscultation. Breath sounds equal bilaterally. No wheezes , rales, or rhonchi. GASTROINTESTINAL: Abdomen soft, non-tender, nondistended. Normal, active bowel sounds MUSCULOSKELETAL: Extremities without clubbing, cyanosis, or edema. NEURO: drowsy but arousable. Medications and IVs Inpatient Medications Acetaminophen (Tylenol) 650 mg Q6H PRN PO PAIN 1-5 AND/OR FEVER >101F; Start at 23:00 Acetaminophen/ Butalbital/ Caffeine (Fioricet 325-50-40) 1 tab DAILY PRN PO HEADACHE; Start 07/12/17 at 22:30 Albuterol/ Ipratropium (Duoneb Neb) 1 ampule Q2HR NEB PRN INH WHEEZING; Start 07/12/17 at 23:00 Aspirin (Ecotrin Ec) 81 mg DAILY PO Last administered on 07/13/17at 09:00; Start 07/13/17 at 09:00 Atorvastatin Calcium (Lipitor) 40 mg HS PO Last administered on 07/13/17at 20:52 ; Start 07/13/17 at 21:00 Bisacodyl (Dulcolax Supp) 10 mg DAILY PRN RECTAL SEVERE CONSITIPATION; Start at 23:00 Chlorhexidine Gluconate (Chlorhexidine 2% Cloth) 3 pack UNSCH PRN TOP HYGIENIC CARE; Start 07/12/17 at 23:00 Clonazepam (KlonoPIN) 1 mg TID PO Last administered on 07/13/17at 17:50; Start 07/13/17 at 09:00 Clopidogrel Bisulfate (Plavix) 75 mg DAILY PO Last administered on 07/13/17at 09 :00; Start 07/13/17 at 09:00 Dexamethasone Sodium Phosphate (Decadron Inj) 4 mg Q6H IV PUSH Last administered on 07/13/17at 09:06; Start 07/12/17 at 22:00; Stop 07/13/17 at 10:51 ; Status DC Dextrose (D50w (Vial) Inj) 50 ml UNSCH PRN IV PUSH HYPOGLYCEMIA - SEE COMMENTS ; Start 07/13/17 at 08:45 Diatrizoate Meglum/ Diatrizoate Sod ( Gastroview Liq) 18 ml ONCE ONCE PO Last administered on 07/12/17at 22:45; Start 07/12/17 at 22:45; Stop 07/12/17 at 22:46; Status DC Enoxaparin Sodium (Lovenox Inj) 40 mg Q24H SQ Last administered on 07/13/17at 22 :12; Start 07/12/17 at 23:00 Famotidine (Pepcid Inj) 20 mg Q12HR IV PUSH Last administered on 07/13/17at 09: 01; Start 07/13/17 at 09:00; Stop 07/13/17 at 15:51; Status DC Fenofibrate (Tricor) 145 mg HS PO Last administered on 07/13/17at 20:52; Start 07/13/17 at 21:00 Fludrocortisone Acetate (Florinef) 0.2 mg DAILY PO ; Start 07/13/17 at 11:00; Stop 07/13/17 at 20:22; Status DC Glucagon (Glucagon Inj) 1 mg UNSCH PRN OTHER HYPOGLYCEMIA-SEE COMMENTS; Start 07/13/17 at 08:45 Hydrocortisone Sodium Succinate (SoluCORTEF INJ) 50 mg Q6HR IV PUSH Last administered on 07/14/17at 05:16; Start 07/14/17 at 00:00 Insulin Human Regular (NovoLIN R SUPPLEMENTAL SCALE) 1 ACHS SLIDING SCALE SQ Last administered on 07/13/17at 20:52; Start 07/13/17 at 08:30 Lactated Ringer's 1,000 ml @ 999 mls/hr BOLUS ONCE IV Last administered on at 11:44; Start 07/13/17 at 11:00; Stop 07/13/17 at 12:00; Status DC Lactulose (Lactulose Liq) 30 ml DAILY PRN PO SEVERE CONSITIPATION; Start at 23:00 Levetriacetam (Keppra) 1,500 mg BID PO Last administered on 07/13/17at 20:52; Start 07/13/17 at 09:00 Levothyroxine Sodium (Synthroid) 100 mcg DAILY@0600 PO Last administered on at 05:16; Start 07/13/17 at 06:00 Magnesium Hydroxide (Milk Of Magnesia Liq) 30 ml Q12H PRN PO Mild constipation ; Start 07/12/17 at 23:00 Magnesium Oxide (Mag-Ox) 800 mg UNSCH PRN PO For Magnesium 1.2 - 1.6 mg/dL; Start 07/12/17 at 23:45 Magnesium Sulfate 2 gm/Sodium Chloride 100 ml @ 50 mls/hr UNSCH PRN IV For Magnesium 1.2 - 1.6 mg/dL; Start 07/12/17 at 23:45 Magnesium Sulfate 4 gm/Sodium Chloride ml @ 54 mls/hr BOLUS ONCE IV Last administered on 07/13/17at 11:44; Start 07/13/17 at 12:00; Stop 07/13/17 at 13:59 ; Status DC Magnesium Sulfate/ Dextrose 100 ml @ 100 mls/hr ONCE ONCE IV Last administered on 07/12/17at 21:04; Start 07/12/17 at 20:15; Stop 07/12/17 at 21:14 ; Status DC Methocarbamol (Robaxin) 500 mg TID PO Last administered on 07/13/17at 17:50; Start 07/13/17 at 09:00 Miscellaneous Information ([facility] Nursing Information) 1 Q361D XX ; Start at 23:00 Miscellaneous Information ([facility] Pharm[facility] Ordered Lab Info) SPECIFIC LAB TO BE ... ONCE ONCE .XX ; Start 07/14/17 at 09:45; Stop 07/14/17 at 09:46 Morphine Sulfate (Morphine Inj) 2 mg Q2H PRN IV PUSH PAIN SCALE 6 TO 10; Start 07/12/17 at 23:00 Ondansetron HCl (Zofran Odt) 4 mg Q6H PRN PO NAUSEA OR VOMITING; Start at 23:45 Pharmacy Profile Note 0 ml @ 0 mls/hr UNSCH OTHER ; Start 07/12/17 at 23:00 Piperacillin Sod/ Tazobactam Sod 100 ml @ 200 mls/hr Q6H IV Last administered on 07/14/17at 02:15; Start 07/13/17 at 03:00 Potassium Phosphate (K-Phos) 2,000 mg UNSCH PRN PO/TUBE SEE LABEL COMMENTS; Start 07/12/17 at 23:45 Potassium Phosphate 30 mmol/ Sodium Chloride 260 ml @ 43.333 mls/ hr ONCE ONCE IV ; Start 07/13/17 at 12:00; Stop 07/13/17 at 17:59; Status DC Potassium Bicarb/ Potassium Chloride (K-Lyte Cl Eff) 100 meq ONCE ONCE PO Last administered on 07/13/17at 15:59; Start 07/13/17 at 16:00; Stop 07/13/17 at 16:01; Status DC Potassium Chloride 100 ml @ 50 mls/hr Q2H PRN IV For Potassium 3.3 - 3.5 mEq/L ; Start 07/12/17 at 23:45 Potassium Chloride (KCl) 40 meq DAILY PO Last administered on 07/13/17at 09:01; Start 07/13/17 at 09:00 Pregabalin (Lyrica) 100 mg BID PO Last administered on 07/13/17at 20:52; Start 07/13/17 at 09:00 Senna/Docusate Sodium (Rose-Colace) 1 tab BID PO Last administered on at 09:01; Start 07/13/17 at 09:00 Sennosides (Senokot) 17.2 mg Q12H PRN PO Moderate constipation; Start 07/12/17 at 23:00 Sodium Chloride 100 ml @ 1,000 mls/hr Q6M ONCE IV ; Start 07/12/17 at 22:55; Stop 07/12/17 at 23:34; Status DC Sodium Chloride (NS Flush) 2 ml BID IV FLUSH Last administered on 07/13/17at 20: 50; Start 07/13/17 at 09:00 Sodium Phosphate 30 mmol/Sodium Chloride 250 ml @ 42 mls/hr UNSCH PRN IV For Phosphorus < 2.5 mg/dL Last administered on 07/13/17at 10:44; Start 07/12/17 at 23:45 Sumatriptan Succinate (Imitrex) 50 mg ONCE PRN PO MIGRAINE HEADACHE; Start at 22:30; Stop 07/17/17 at 22:29 Topiramate (Topamax) 100 mg HS PO Last administered on 07/13/17at 20:52; Start 07/13/17 at 21:00 Trazodone HCl (Desyrel) 50 mg NOW ONCE PO ; Start 07/13/17 at 02:03; Stop 07/13 at 03:21; Status DC Vancomycin HCl 1000 mg/Sodium Chloride 250 ml @ 250 mls/hr ONCE ONCE IV Last administered on 07/13/17at 10:00; Start 07/13/17 at 10:00; Stop 07/13/17 at 10:59 ; Status DC Vancomycin HCl 1250 mg/Sodium Chloride 262.5 ml @ 250 mls/hr Q12H IV Last administered on 07/13/17at 22:12; Start 07/13/17 at 22:00 Zolpidem Tartrate (Ambien) 5 mg HS PRN PO INSOMNIA Last administered on at 02:57; Start 07/12/17 at 22:30; Stop 07/13/17 at 15:51; Status DC A/P Assessment and Plan Syncopal episode -CT head negative -Continue telemetry -2D echo pending. - MRI pending. Hypotension Severe hypokalemia severe hypomagnesemia severe hypophosphatemia Adrenal insufficiency -on Solucortef - aggressive electrolyte replacement -IV fluid resuscitation -Hold home hypertensive meds -consult endocrinology -will stop Broad-spectrum antibiotics if cultures remain negative. Anxiety/Depression -Trazodone- -will stop Clonazepam since the patient is lethargic today. Migraine headaches -Acetaminophen/ Butalbital/ Caffeine -Sumatriptan -Topamax Atrial Fibrillation -Aspirin Hyperlipidemia -Atorvastatin GERD -Pepcid IV twice daily DM II -Insulin sliding scale Peripheral Neuropathy -Lyrica Hypothyroidism -Levothyroxine DVT GI prophylaxis -Benson's and SCDs -Subcu heparin -IV Pepcid transfer to telemetry within the next 24 hrs if stable. Re Woodson MD July 14, 2017 07:39
[2017-07-14] MEDS: HIGH DOSE INSULIN NOVOLIN REGULAR SUPPLEMENTAL SCALE SQ SCH ×4 (08:00→20:53)
[2017-07-14 08:21] LABS: HEMATOCRIT 31.9 % (35.0-46.0); HEMOGLOBIN 11.4 GM/DL (11.6-15.3); MEAN CELL VOLUME 91.6 FL (80.0-100.0); MEAN CORPUSCULAR HEMOGLOBIN 32.8 PG (27.0-34.0); MEAN CORPUSCULAR HGB CONC 35.8 % (32.0-36.0); MEAN PLATELET VOLUME 8.8 FL (7.0-11.0); PLATELET COUNT 242 TH/MM3 (150-450); RED BLOOD COUNT 3.48 MIL/MM3 (4.00-5.30); RED CELL DISTRIBUTION WIDTH 18.2 % (11.6-17.2); WHITE BLOOD COUNT 9.9 TH/MM3 (4.0-11.0)
[2017-07-14 08:41] LABS: BICARBONATE 21.4 MEQ/L (21.0-32.0); CALCIUM 8.1 MG/DL (8.5-10.1); CREATININE 0.92 MG/DL (0.50-1.00); MAGNESIUM 1.4 MG/DL (1.5-2.5); PHOSPHORUS 2.2 MG/DL (2.5-4.9)
[2017-07-14] MEDS: SODIUM CHLORIDE 0.9% FLUSH 10 ML FLUSH IV FLUSH SCH ×2 (09:00→20:51)
[2017-07-14] MEDS: METHOCARBAMOL 500 MG TAB PO SCH ×3 (09:37→18:00)
[2017-07-14] MEDS: CLOPIDOGREL 75 MG TAB PO SCH (09:37)
[2017-07-14] MEDS: DOCUSATE SODIUM 50 MG/SENNA 8.6 MG TAB PO SCH ×2 (09:37→20:53)
[2017-07-14] MEDS: ASPIRIN EC 81 MG TABEC PO SCH (09:37)
[2017-07-14] MEDS: POTASSIUM CHLORIDE 20 MEQ CONTROLLED RELEASE TAB PO SCH (09:38)
[2017-07-14] MEDS: levETIRAcetam 500 MG TAB PO SCH ×2 (09:38→20:52)
[2017-07-14] MEDS: PREGABALIN 100 MG CAP PO SCH ×2 (09:38→20:52)
[2017-07-14] MEDS ORDERED: PHARMACY ORDERED LAB ONE (09:45)
[2017-07-14] MEDS: VANCOMYCIN INJ 1,250 MG in SODIUM CHLOR 0.9% 250 ML INJ 250 ML IV SCH ×2 (13:03→22:24)
--- NOTE | 2017-07-14 19:45 | RADRPT ---
EXAM DATE/TIME: 07/14/2017 18:24 [place] COMPARISON: MRI BRAIN W/O CONTRAST, May 11, 2016, 11:36. INDICATIONS : Pituitary adenoma. Electrolyte imbalance. CONTRAST: 15 cc Omniscan (gadodiamide) IV MEDICAL HISTORY : Hypertension. Congestive heart failure. SURGICAL HISTORY : Hysterectomy. Right ankle. ENCOUNTER: Initial ACUITY: 2 day PAIN SCORE: 0/10 LOCATION: head TECHNIQUE: Multiplanar, multisequence MRI of the brain was performed both prior to and following the administrat ion of paramagnetic contrast. FINDINGS: High flair signal within the central portion of the edgard without diffusion weighted abnormality. This involves the central portion with sparing of the periphery. It is unchanged from the prior exam. The brain parenchyma shows normal signal otherwise. No hemorrhage, mass, or acute infarction. The sella turcica is filled largely with CSF signal. The pituitary gland is inferiorly displaced within the regine la turcica. No mass. No abnormal enhancement. The ventricles and sulcal pattern are normal. Orbital s tructures, paranasal sinuses, and mastoid air cells are clear. No abnormal enhancement on the post ga dolinium images. No diffusion-weighted abnormality. CONCLUSION: 1. No acute intracranial abnormality. 2. Chronic signal changes within the edgard as detailed above. Likely relating to chronic small vessel ischemia. These are stable. 3. No pituitary mass. Empty sella appearance. Domenico Hou Jr., MD on July 14, 2017 at 19:33 Board Certified Radiologist. This report was verified electronically.
[2017-07-14] MEDS: TOPIRAMATE 100 MG TAB PO SCH (20:52)
[2017-07-14] MEDS: FENOFIBRATE 145 MG TAB PO SCH (20:52)
[2017-07-14] MEDS: ATORVASTATIN 40 MG TAB PO SCH (20:52)
[2017-07-14] MEDS ORDERED: INSULIN DETEMIR 100 UNITS/ML VIAL SQ SCH (21:00)
[2017-07-14] MEDS ORDERED: traZODone HCL 100 MG TAB PO SCH (21:00)
[2017-07-14] MEDS ORDERED: GADODIAMIDE PF 287 MG/ML 5 ML VIAL (for RAD MRI) IVCONTRAST ONE (21:25)
[2017-07-14] MEDS: ENOXAPARIN SODIUM 40 MG/0.4 ML SYRINGE SQ SCH (23:00)
[2017-07-15] VITALS (7 sets, daily range): BP systolic 87–103; BP diastolic 53–59; PULSE 73–85; RESP 19–21; TEMP 98.5–98.6; O2SAT 90–98
[2017-07-15 02:49] LABS: HEMATOCRIT 34.4 % (35.0-46.0); HEMOGLOBIN 12.3 GM/DL (11.6-15.3); MEAN CELL VOLUME 91.2 FL (80.0-100.0); MEAN CORPUSCULAR HEMOGLOBIN 32.4 PG (27.0-34.0); MEAN CORPUSCULAR HGB CONC 35.6 % (32.0-36.0); MEAN PLATELET VOLUME 8.3 FL (7.0-11.0); PLATELET COUNT 257 TH/MM3 (150-450); RED BLOOD COUNT 3.78 MIL/MM3 (4.00-5.30); RED CELL DISTRIBUTION WIDTH 18.2 % (11.6-17.2); WHITE BLOOD COUNT 10.3 TH/MM3 (4.0-11.0)
[2017-07-15 03:13] LABS: BICARBONATE 24.6 MEQ/L (21.0-32.0); CALCIUM 8.1 MG/DL (8.5-10.1); CREATININE 0.94 MG/DL (0.50-1.00); MAGNESIUM 1.9 MG/DL (1.5-2.5); PHOSPHORUS 2.1 MG/DL (2.5-4.9)
[2017-07-15] MEDS: PIPERACIL-TAZO 4.5 GM PREMIX 100 ML IV SCH (03:40)
[2017-07-15] MEDS: CHLORHEXIDINE GLUCONATE 2 % 1 PACK (2 CLOTHS) TOP SCH (03:40)
[2017-07-15] MEDS ORDERED: POTASSIUM CHLORIDE 20 MEQ CONTROLLED RELEASE TAB PO SCH (04:00)
[2017-07-15] MEDS: HYDROCORTISONE SOD SUCCINATE 100 MG VIAL IV PUSH SCH (05:12)
[2017-07-15] MEDS: LEVOTHYROXINE SODIUM 100 MCG TAB PO SCH (05:13)
--- NOTE | 2017-07-15 08:00 | HHI.PR ---
Subjective Remarks in no acute distress. resting comfortably. no fever. says that ' she's tired'. d/w the RN. Objective Vitals Vital Signs Date Time Temp Pulse Resp B/P (MAP) Pulse Ox O2 Delivery O2 Flow Rate FiO2 07/15/17 06:00 77 07/15/17 04:00 98.5 75 19 97/59 (72) 96 07/15/17 04:00 75 07/15/17 03:11 98 07/15/17 02:00 75 07/15/17 00:17 96 07/15/17 00:00 73 07/15/17 00:00 98.6 73 19 87/53 (64) 98 07/14/17 22:00 76 07/14/17 21:00 80 07/14/17 20:00 98.9 85 19 97/62 (74) 100 07/14/17 20:00 85 07/14/17 19:16 86 07/14/17 18:11 85 07/14/17 18:00 91 07/14/17 18:00 91 29 07/14/17 17:00 80 07/14/17 17:00 80 17 153/69 (97) 100 07/14/17 16:48 81 07/14/17 16:48 81 17 153/69 (97) 98 07/14/17 16:16 84 17 160/72 (101) 07/14/17 16:16 84 07/14/17 16:01 84 24 127/79 (95) 07/14/17 16:01 84 07/14/17 16:00 82 07/14/17 16:00 98.6 82 23 127/79 (95) 07/14/17 14:00 86 07/14/17 14:00 86 24 96/61 (73) 98 07/14/17 13:05 83 07/14/17 13:05 83 30 96/61 (73) 07/14/17 13:00 92 19 07/14/17 13:00 92 07/14/17 12:00 98.9 95 25 96/61 (73) 92 07/14/17 12:00 95 07/14/17 11:00 83 07/14/17 11:00 83 23 100 07/14/17 10:00 87 07/14/17 10:00 87 19 07/14/17 09:00 88 07/14/17 09:00 88 19 98 07/14/17 08:54 96 45 102/78 (86) 98 07/14/17 08:54 96 07/14/17 08:01 88 19 116/73 (87) 97 07/14/17 08:01 88 07/14/17 08:00 98.6 84 25 116/65 (82) 96 07/14/17 08:00 84 I/O 07/14/17 07/14/17 07/14/17 07/15/17 07/15/17 07/15/17 07:00 15:00 23:00 07:00 15:00 23:00 Intake Total 482.5 ml 2970 ml 602.5 ml Output Total 1200 ml Balance 482.5 ml 2970 ml -597.5 ml Intake Oral 120 ml 1920 ml 240 ml IV Total 362.5 ml 1050 ml 362.5 ml Output Urine Total 1200 ml # Voids 5 5 # Bowel Movements 0 0 0 Result Diagram: 07/15/17 0233 07/15/17 0233 Imaging Last Impressions Brain MRI 07/14/17 0000 Signed Impressions: Service Date/Time: Friday, July 14, 2017 18:24 - CONCLUSION: 1. No acute intracranial abnormality. 2. Chronic signal changes within the edgard as detailed above. Likely relating to chronic small vessel ischemia. These are stable. 3. No pituitary mass. Empty sella appearance. Domenico Hou Jr., MD Abdomen/Pelvis CT 07/12/172227 Signed Impressions: Service Date/Time: Wednesday, July 12, 2017 22:56 - CONCLUSION: 1. No acute findings. Fatty liver. Previous cholecystectomy. Calcified fibroids in uterus. Wilber Castillo MD Head CT 07/12/171911 Signed Impressions: Service Date/Time: Wednesday, July 12, 2017 19:55 - CONCLUSION: No acute intracranial disease. Herrera Hogue MD Chest X-Ray 07/12/171911 Signed Impressions: Service Date/Time: Wednesday, July 12, 2017 19:28 - CONCLUSION: No acute disease. Herrera Hogue MD Chest CT 07/12/17 0000 Signed Impressions: Service Date/Time: Wednesday, July 12, 2017 22:56 - CONCLUSION: 1. No acute findings. Small hiatal hernia. Wilber Castillo MD Objective Remarks GENERAL: This is a well-nourished, well-developed patient, in no apparent distress. CARDIOVASCULAR: Regular rate and regular rhythm without murmurs, gallops, or rubs. RESPIRATORY: Clear to auscultation. Breath sounds equal bilaterally. No wheezes , rales, or rhonchi. GASTROINTESTINAL: Abdomen soft, non-tender, nondistended. Normal, active bowel sounds MUSCULOSKELETAL: Extremities without clubbing, cyanosis, or edema. NEURO: drowsy but arousable. Medications and IVs Inpatient Medications Acetaminophen (Tylenol) 650 mg Q6H PRN PO PAIN 1-5 AND/OR FEVER >101F; Start at 23:00 Acetaminophen/ Butalbital/ Caffeine (Fioricet 325-50-40) 1 tab DAILY PRN PO HEADACHE; Start 07/12/17 at 22:30 Albuterol/ Ipratropium (Duoneb Neb) 1 ampule Q2HR NEB PRN INH WHEEZING; Start 07/12/17 at 23:00 Aspirin (Ecotrin Ec) 81 mg DAILY PO Last administered on 07/14/17at 09:37; Start 07/13/17 at 09:00 Atorvastatin Calcium (Lipitor) 40 mg HS PO Last administered on 07/14/17at 20:52 ; Start 07/13/17 at 21:00 Bisacodyl (Dulcolax Supp) 10 mg DAILY PRN RECTAL SEVERE CONSITIPATION; Start at 23:00 Chlorhexidine Gluconate (Chlorhexidine 2% Cloth) 3 pack UNSCH PRN TOP HYGIENIC CARE; Start 07/12/17 at 23:00 Clonazepam (KlonoPIN) 1 mg TID PO Last administered on 07/13/17at 17:50; Start 07/13/17 at 09:00; Status Future Hold Clopidogrel Bisulfate (Plavix) 75 mg DAILY PO Last administered on 07/14/17at 09 :37; Start 07/13/17 at 09:00 Dexamethasone Sodium Phosphate (Decadron Inj) 4 mg Q6H IV PUSH Last administered on 07/13/17at 09:06; Start 07/12/17 at 22:00; Stop 07/13/17 at 10:51 ; Status DC Dextrose (D50w (Vial) Inj) 50 ml UNSCH PRN IV PUSH HYPOGLYCEMIA - SEE COMMENTS ; Start 07/13/17 at 08:45 Diatrizoate Meglum/ Diatrizoate Sod ( Gastroview Liq) 18 ml ONCE ONCE PO Last administered on 07/12/17at 22:45; Start 07/12/17 at 22:45; Stop 07/12/17 at 22:46; Status DC Enoxaparin Sodium (Lovenox Inj) 40 mg Q24H SQ Last administered on 07/13/17at 22 :12; Start 07/12/17 at 23:00 Famotidine (Pepcid Inj) 20 mg Q12HR IV PUSH Last administered on 07/13/17at 09: 01; Start 07/13/17 at 09:00; Stop 07/13/17 at 15:51; Status DC Fenofibrate (Tricor) 145 mg HS PO Last administered on 07/14/17at 20:52; Start 07/13/17 at 21:00 Fludrocortisone Acetate (Florinef) 0.2 mg DAILY PO ; Start 07/13/17 at 11:00; Stop 07/13/17 at 20:22; Status DC Glucagon (Glucagon Inj) 1 mg UNSCH PRN OTHER HYPOGLYCEMIA-SEE COMMENTS; Start 07/13/17 at 08:45 Hydrocortisone Sodium Succinate (SoluCORTEF INJ) 50 mg Q6HR IV PUSH Last administered on 07/15/17at 05:12; Start 07/14/17 at 00:00 Insulin Detemir (Levemir Inj) 10 units HS SQ Last administered on 07/14/17at 20: 53; Start 07/14/17 at 21:00 Insulin Human Regular (NovoLIN R SUPPLEMENTAL SCALE) 1 ACHS SLIDING SCALE SQ Last administered on 07/14/17at 20:53; Start 07/13/17 at 08:30 Lactated Ringer's 1,000 ml @ 999 mls/hr BOLUS ONCE IV Last administered on at 11:44; Start 07/13/17 at 11:00; Stop 07/13/17 at 12:00; Status DC Lactulose (Lactulose Liq) 30 ml DAILY PRN PO SEVERE CONSITIPATION; Start at 23:00 Levetriacetam (Keppra) 1,500 mg BID PO Last administered on 07/14/17at 20:52; Start 07/13/17 at 09:00 Levothyroxine Sodium (Synthroid) 100 mcg DAILY@0600 PO Last administered on at 05:13; Start 07/13/17 at 06:00 Magnesium Hydroxide (Milk Of Magnesia Liq) 30 ml Q12H PRN PO Mild constipation ; Start 07/12/17 at 23:00 Magnesium Oxide (Mag-Ox) 800 mg UNSCH PRN PO For Magnesium 1.2 - 1.6 mg/dL; Start 07/12/17 at 23:45 Magnesium Sulfate 2 gm/Sodium Chloride 100 ml @ 50 mls/hr UNSCH PRN IV For Magnesium 1.2 - 1.6 mg/dL Last administered on 07/14/17at 19:56; Start 07/12/17 at 23:45 Magnesium Sulfate 4 gm/Sodium Chloride ml @ 54 mls/hr BOLUS ONCE IV Last administered on 07/13/17at 11:44; Start 07/13/17 at 12:00; Stop 07/13/17 at 13:59 ; Status DC Magnesium Sulfate/ Dextrose 100 ml @ 100 mls/hr ONCE ONCE IV Last administered on 07/12/17at 21:04; Start 07/12/17 at 20:15; Stop 07/12/17 at 21:14 ; Status DC Methocarbamol (Robaxin) 500 mg TID PO Last administered on 07/14/17at 13:03; Start 07/13/17 at 09:00 Miscellaneous Information ([facility] Information) 1 Q361D XX ; Start at 23:00 Miscellaneous Information ([facility] Ordered Lab Info) SPECIFIC LAB TO BE JOSE ALBERTO... ONCE ONCE .XX ; Start 07/16/17 at 09:45; Stop 07/16/17 at 09:46 Morphine Sulfate (Morphine Inj) 2 mg Q2H PRN IV PUSH PAIN SCALE 6 TO 10; Start 07/12/17 at 23:00 Ondansetron HCl (Zofran Odt) 4 mg Q6H PRN PO NAUSEA OR VOMITING; Start at 23:45 Pharmacy Profile Note 0 ml @ 0 mls/hr UNSCH OTHER ; Start 07/12/17 at 23:00 Piperacillin Sod/ Tazobactam Sod 100 ml @ 200 mls/hr Q6H IV Last administered on 07/15/17at 03:40; Start 07/13/17 at 03:00 Potassium Phosphate (K-Phos) 2,000 mg UNSCH PRN PO/TUBE SEE LABEL COMMENTS; Start 07/12/17 at 23:45 Potassium Phosphate 30 mmol/ Sodium Chloride 260 ml @ 43.333 mls/ hr ONCE ONCE IV ; Start 07/13/17 at 12:00; Stop 07/13/17 at 17:59; Status DC Potassium Bicarb/ Potassium Chloride (K-Lyte Cl Eff) 100 meq ONCE ONCE PO Last administered on 07/13/17at 15:59; Start 07/13/17 at 16:00; Stop 07/13/17 at 16:01; Status DC Potassium Chloride (KCl) 40 meq Q4H PO Last administered on 07/15/17at 04:11; Start 07/15/17 at 04:00; Stop 07/15/17 at 16:01 Pregabalin (Lyrica) 100 mg BID PO Last administered on 07/14/17at 20:52; Start 07/13/17 at 09:00 Senna/Docusate Sodium (Rose-Colace) 1 tab BID PO Last administered on at 09:37; Start 07/13/17 at 09:00 Sennosides (Senokot) 17.2 mg Q12H PRN PO Moderate constipation; Start 07/12/17 at 23:00 Sodium Chloride 100 ml @ 1,000 mls/hr Q6M ONCE IV ; Start 07/12/17 at 22:55; Stop 07/12/17 at 23:34; Status DC Sodium Chloride (NS Flush) 2 ml BID IV FLUSH Last administered on 07/14/17at 20: 51; Start 07/13/17 at 09:00 Sodium Phosphate 30 mmol/Sodium Chloride 250 ml @ 42 mls/hr UNSCH PRN IV For Phosphorus < 2.5 mg/dL Last administered on 07/13/17at 10:44; Start 07/12/17 at 23:45 Sumatriptan Succinate (Imitrex) 50 mg ONCE PRN PO MIGRAINE HEADACHE; Start at 22:30; Stop 07/17/17 at 22:29 Topiramate (Topamax) 100 mg HS PO Last administered on 07/14/17at 20:52; Start 07/13/17 at 21:00 Trazodone HCl (Desyrel) 100 mg HS PO Last administered on 07/14/17at 20:52; Start 07/14/17 at 21:00 Vancomycin HCl 1000 mg/Sodium Chloride 250 ml @ 250 mls/hr ONCE ONCE IV Last administered on 07/13/17at 10:00; Start 07/13/17 at 10:00; Stop 07/13/17 at 10:59 ; Status DC Vancomycin HCl 1250 mg/Sodium Chloride 262.5 ml @ 250 mls/hr Q12H IV Last administered on 07/14/17at 22:24; Start 07/13/17 at 22:00 Zolpidem Tartrate (Ambien) 5 mg HS PRN PO INSOMNIA Last administered on at 02:57; Start 07/12/17 at 22:30; Stop 07/13/17 at 15:51; Status DC A/P Assessment and Plan Syncopal episode -CT head negative -MRI greg with no acute abnormality with empty sella appearance. -Continue telemetry -2D echo pending. Hypotension Severe hypokalemia severe hypomagnesemia severe hypophosphatemia Adrenal insufficiency -on Solucortef; will taper down. - aggressive electrolyte replacement -Hold home hypertensive meds -consulted endocrinology -one bottle of blood cultures with staph epidermidis- likely contamination. -will stop Broad-spectrum antibiotics. Anxiety/Depression -Trazodone- - Clonazepam was since the patient was very lethargic yesterday. -consulted psych. Migraine headaches -Acetaminophen/ Butalbital/ Caffeine -Sumatriptan -Topamax Atrial Fibrillation -on Aspirin -metoprolol on hold due to low-normal BP's Hyperlipidemia -Atorvastatin GERD -Pepcid twice daily DM II -resumed levemir -Insulin sliding scale Peripheral Neuropathy -Lyrica Hypothyroidism -Levothyroxine DVT GI prophylaxis -Benson's and SCDs -Subcu heparin -IV Pepcid transfer to telemetry this afternoon if BP stable. Re Woodson MD July 15, 2017 08:00
--- NOTE | 2017-07-15 08:27 | PD.PSY.CON ---
Provisional Diagnosis Admission Date July 12, 2017 at 21:51 [place]. Adjustment disorder with depressed mood History of Present Illness Service Psychiatry Consult Requested By Critical care Reason for Consult Depression Primary Care Physician Francisco J Kim, DO JOHNS This is a late entry, the patient was seen July 14, 2017 at 10:30 AM The patient is a 56-year-old woman, domiciled her in [place], with psychiatric history of depression, anxiety, medical history hypothyroidism, hypertension, who presents to emergency department at [facility] after an unwitnessed fall today. She was found by her shortly after the episode she was awake and talking. Patient states she does not remember all of the event but she states she does not think she blacked out. She states she is having no pain anywhere. She has been having unsteady gait over the past couple days and came here recently but left AMA before being seen because she did not want to keep waiting. She states that she has no other complaints that she can think about but is a poor historian. History is limited. She does admit some abdominal pain for last 2 days. The pain is localized in the back sites bilaterally, sharp on the nature, and 3-4 out of 10. No aggravating or alleviating factors. CT head negative. Consulted to psychiatry due to symptoms of depression. On psychiatric evaluation the patient is calm, cooperative, irritable at times. The patient reports that she feels better now, but she has been struggling with her relationship with her and family members. She says that she feels abandoned, rejected and highly criticized by them "because they do not love me, They do not appreciate all I have done". She reports irritability, mood swings, feeling disappointed another one, but she denies hopelessness, denies helplessness, she denies suicidal and homicidal ideation, she denies visual and auditory hallucinations. She also reports being anxious and having difficulty to sleep here in the hospital due to the medical problems that she has and being in the ICU. Patient is fully oriented 3, no attention deficit, no filtration of consciousness. Review of Systems Constitutional: DENIES: Diaphoretic episodes, Fatigue, Fever, Weight gain, Weight loss, Chills, Dizziness, Change in appetite, Night Sweats Endocrine: DENIES: Abnorml menstrual pattern, Heat/cold intolerance, Polydipsia , Polyuria, Polyphagia Eyes: DENIES: Blurred vision, Diplopia, Eye inflammation, Eye pain, Vision loss , Photosensitivity, Double Vision Ears, nose, mouth, throat: DENIES: Tinnitus, Hearing loss, Vertigo, Nasal discharge, Oral lesions, Throat pain, Hoarseness, Ear Pain, Running Nose, Epistaxis, Sinus Pain, Toothache, Odynophagia Respiratory: DENIES: Apneas, Cough, Snoring, Wheezing, Hemoptysis, Sputum production, Shortness of breath Cardiovascular: DENIES: Chest pain, Palpitations, Syncope, Dyspnea on Exertion , PND, Lower Extremity Edema, Orthopnea, Claudication Gastrointestinal: DENIES: Abdominal pain, Black stools, Bloody stools, Constipation, Diarrhea, Nausea, Vomiting, Difficulty Swallowing, Anorexia Genitourinary: DENIES: Abnormal vaginal bleeding, Dysmenorrhea, Dyspareunia, Sexual dysfunction, Urinary frequency, Urinary incontinence, Urgency, Hematuria , Dysuria, Nocturia, Vaginal discharge Musculoskeletal: DENIES: Joint pain, Muscle aches, Stiffness, Joint Swelling, Back pain, Neck pain Integumentary: DENIES: Abnormal pigmentation, Pruritus, Rash, Nail changes, Breast masses, Breast skin changes, Nipple discharge Hematologic/lymphatic: DENIES: Bruising, Lymphadenopathy Immunologic/allergic: DENIES: Eczema, Urticaria Neurologic: DENIES: Abnormal gait, Headache, Localized weakness, Paresthesias, Seizures, Speech Problems, Tremor, Poor Balance Psychiatric: DENIES: Anxiety, Confusion, Mood changes, Depression, Hallucinations, Agitation, Suicidal Ideation, Homicidal Ideation, Delusions Past Family Social History Coded Allergies: No Known Allergies (Verified Adverse Reaction, Unknown, 07/12/17) Per pt. Active Scripts Levothyroxine (Synthroid) 100 Mcg Tab, 100 MCG PO DAILY@0600 for HYPOTHYROIDISM , #30 TAB 0 Refills Prov:Gary Vega MD 05/14/16 Levetiracetam (Keppra) 500 Mg Tab, 500 MG PO Q12HR for Seizure Control, #60 TAB 0 Refills Prov:Gary Vega MD 05/14/16 Clopidogrel (Plavix) 75 Mg Tab, 75 MG PO DAILY for CAD, #30 TAB 0 Refills Prov:Gary Vega MD 05/14/16 Reported Medications Metoprolol Succinate ER 24 HR (Metoprolol Succinate ER 24 HR) 25 Mg Tab, 25 MG PO DAILY, #30 TAB 0 Refills 07/12/17 Ynajsqyvak-Gyzpgmrcyrhvp-Wsesmqit (Mhpybrtclu-Ozewdckmccnjk-Cbhbdsqr) 50-325-40 Mg Tab, 1 TAB PO DAILY Y for HEADACHE, TAB 0 Refills Do not exceed 6 tablets/day. 07/12/17 Levetiracetam (Keppra) 750 Mg Tab, 1500 MG PO BID for Control Seizures, #60 TAB 0 Refills 07/12/17 Methocarbamol (Methocarbamol) 500 Mg Tab, 500 MG PO TID for Muscle Spasm, #90 TAB 0 Refills 07/12/17 Topiramate (Topiramate) 200 Mg Tab, 100 MG PO HS for Control Seizures, #60 TAB 0 Refills 07/12/17 Pregabalin (Lyrica) 100 Mg Cap, 100 MG PO BID, #60 CAP 0 Refills 07/12/17 Clonazepam (Clonazepam) 1 Mg Tab, 1 MG PO TID, #90 TAB 0 Refills 07/12/17 Trazodone (Trazodone) 50 Mg Tab, 50 MG PO HS for Control Depression, #30 TAB 0 Refills 07/12/17 Sumatriptan (Sumatriptan) 50 Mg Tab, 50 MG PO ONCE Y for MIGRAINE HEADACHE, TAB 0 Refills If a satisfactory response has not been obtained at 2 hours, a second dose may be administered 07/12/17 Zolpidem (Zolpidem) 5 Mg Tab, 5 MG PO HS Y for INSOMNIA, TAB 0 Refills 07/12/17 Insulin Lispro (Human) Inj (Humalog Inj) 1,000 Unit/10 Ml Vial, 32 UNITS SQ TIDAC for Blood Sugar Management, #1 VIAL 0 Refills 05/09/16 Fenofibrate (Fenofibrate) 145 Mg Tab, 145 MG PO HS, #30 TAB 0 Refills 05/09/16 Atorvastatin (Atorvastatin) 40 Mg Tab, 40 MG PO HS for Cholesterol Management, # 30 TAB 0 Refills 05/09/16 Glipizide (Glipizide) 10 Mg Tab, 10 MG PO BIDAC for Blood Sugar Management, #60 TAB 0 Refills Take 30 minutes before a meal 05/09/16 Potassium Chloride Microencaps (Potassium Chloride Microencaps) 20 Meq Tab, 40 MEQ PO DAILY for Electrolyte Replacement, #30 TAB 0 Refills 05/09/16 Insulin Detemir Inj (Levemir Inj) 1,000 unit/ 10 ML Vial, 25 UNITS SQ HS for Blood Sugar Management, VIAL 0 Refills Do not mix with any other Insulin. 05/09/[address] (Aspirin DR) 81 Mg Tabdr, 81 MG PO DAILY, TAB 0 Refills 05/09/16 Discontinued Reported Medications Pregabalin (Lyrica) 100 Mg Cap, 100 MG PO BID, #60 CAP 0 Refills 04/01/17 Gabapentin (Gabapentin) 800 Mg Tab, 1600 MG PO TID, #90 TAB 0 Refills 04/01/17 Exenatide Inj (Bydureon Inj) 2 Mg Vial, 2 MG SQ Q7D for Blood Sugar Management, #4 INJECTION 0 Refills 05/09/16 Paroxetine (Paroxetine) 40 Mg Tab, 40 MG PO BID, #30 TAB 0 Refills 05/09/16 Quetiapine (Quetiapine) 100 Mg Tab, 100 MG PO HS, #30 TAB 0 Refills 05/09/16 Discontinued Scripts Furosemide (Furosemide) 20 Mg Tab, 20 MG PO DAILY for CAD, #30 TAB 0 Refills Prov:Gary Vega MD 05/14/16 Current Medications Medications (Trade) Dose Ordered Sig/Ephraim Route Start Time Stop Time Status Last Admin (Ecotrin Ec) 81 mg DAILY PO 07/13/17 09:00 07/14/17 09:37 (Lipitor) 40 mg HS PO 07/13/17 21:00 07/14/17 20:52 (Fioricet 325-50-40) 1 tab DAILY PRN PO 07/12/17 22:30 (KlonoPIN) 1 mg TID PO 07/13/17 09:00 Future Hold 07/13/17 17:50 (Plavix) 75 mg DAILY PO 07/13/17 09:00 07/14/17 09:37 (Tricor) 145 mg HS PO 07/13/17 21:00 07/14/17 20:52 (Keppra) 1,500 mg BID PO 07/13/17 09:00 07/14/17 20:52 (Synthroid) 100 mcg DAILY@0600 PO 07/13/17 06:00 07/15/17 05:13 (Robaxin) 500 mg TID PO 07/13/17 09:00 07/14/17 13:03 (KCl) 40 meq DAILY PO 07/13/17 09:00 07/14/17 09:38 (Lyrica) 100 mg BID PO 07/13/17 09:00 07/14/17 20:52 (Imitrex) 50 mg ONCE PRN PO 07/12/17 22:30 07/17/17 22:29 (Topamax) 100 mg HS PO 07/13/17 21:00 07/14/17 20:52 (NS Flush) 2 ml UNSCH PRN IV FLUSH 07/12/17 23:00 (NS Flush) 2 ml BID IV FLUSH 07/13/17 09:00 07/14/17 20:51 (Tylenol) 650 mg Q6H PRN PO 07/12/17 23:00 (Morphine Inj) 2 mg Q2H PRN IV PUSH 07/12/17 23:00 (Zofran Odt) 4 mg Q6H PRN PO 07/12/17 23:45 (Duoneb Neb) 1 ampule Q2HR NEB PRN INH 07/12/17 23:00 (Lovenox Inj) 40 mg Q24H SQ 07/12/17 23:00 07/13/17 22:12 ([facility]) 1 Q361D XX 07/12/17 23:00 (Chlorhexidine 2% Cloth) 3 pack Taper DAILY@04 TOP 07/13/17 04:00 07/09/18 03:59 07/14/17 02:15 (Chlorhexidine 2% Cloth) 3 pack UNSCH PRN TOP 07/12/17 23:00 (Rose-Colace) 1 tab BID PO 07/13/17 09:00 07/14/17 09:37 (Milk Of Magnesia Liq) 30 ml Q12H PRN PO 07/12/17 23:00 (Senokot) 17.2 mg Q12H PRN PO 07/12/17 23:00 (Dulcolax Supp) 10 mg DAILY PRN RECTAL 07/12/17 23:00 (Lactulose Liq) 30 ml DAILY PRN PO 07/12/17 23:00 Pharmacy Profile Note 0 ml @ 0 mls/hr UNSCH OTHER 07/12/17 23:00 (K-Lyte Cl Eff) 50 meq UNSCH PRN PO 07/12/17 23:45 (D50w (Vial) Inj) 50 ml UNSCH PRN IV PUSH 07/13/17 08:45 (Glucagon Inj) 1 mg UNSCH PRN OTHER 07/13/17 08:45 (NovoLIN R SUPPLEMENTAL SCALE) 1 ACHS SLIDING SCALE SQ 07/13/17 08:30 07/14/17 20:53 ([facility] Ordered Lab Info) SPECIFIC LAB TO BE JOSE ALBERTO... ONCE ONCE .XX 07/16/17 09:45 07/16/17 09:46 (Desyrel) 100 mg HS PO 07/14/17 21:00 07/14/17 20:52 (KCl) 40 meq Q4H PO 07/15/17 04:00 07/15/17 16:01 07/15/17 04:11 (SoluCORTEF INJ) 50 mg Q8HR IV PUSH 07/15/17 14:00 (Levemir Inj) 15 units HS SQ 07/15/17 21:00 (K-Phos Neutral) 250 mg Q8HR PO 07/15/17 08:15 UNV Physical Exam Vital Signs Vital Signs Date Time Temp Pulse Resp B/P (MAP) Pulse Ox O2 Delivery O2 Flow Rate FiO2 07/15/17 06:00 77 07/15/17 04:00 98.5 19 97/59 (72) 96 I/O 07/15/17 07/15/17 07/16/17 08:00 16:00 00:00 Intake Total 602.5 ml Output Total 1200 ml Balance -597.5 ml Lab Results Test 07/14/17 11:21 07/15/17 02:33 Vancomycin Level Trough 15.8 MCG/ML White Blood Count 10.3 TH/MM3 Red Blood Count 3.78 MIL/MM3 Hemoglobin 12.3 GM/DL Hematocrit 34.4 % Mean Corpuscular Volume 91.2 FL Mean Corpuscular Hemoglobin 32.4 PG Mean Corpuscular Hemoglobin Concent 35.6 % Red Cell Distribution Width 18.2 % Platelet Count 257 TH/MM3 Mean Platelet Volume 8.3 FL Blood Urea Nitrogen 11 MG/DL Creatinine 0.94 MG/DL Random Glucose 175 MG/DL Calcium Level 8.1 MG/DL Phosphorus Level 2.1 MG/DL Magnesium Level 1.9 MG/DL Sodium Level 145 MEQ/L Potassium Level 2.7 MEQ/L Chloride Level 110 MEQ/L Carbon Dioxide Level 24.6 MEQ/L Anion Gap 10 MEQ/L Estimat Glomerular Filtration Rate 62 ML/MIN Date/Time Source Procedure Growth Status 07/12/17 19:20 Blood Peripheral Aerobic Blood Culture - Preliminary NO GROWTH IN 2 DAYS Resulted 07/12/17 19:20 Anaerobic Blood Culture - Preliminary Staphylococcus Epidermidis Resulted 07/12/17 21:00 Urine Random Urine Urine Culture - Final 50-100,000 CFU/ML MIXED GRAM POSITIVE... Complete Mental Status Examination Appearance: Appropriate Consciousness: Alert Orientation: x4 Motor Activity: Normal gait Speech: Unremarkable Language: Adequate Fund of Knowledge: Adequate Attention and Concentration: Adequate Memory: Unremarkable Mood: Irritable Affect: Irritable Thought Process & Associations: Intact Thought Content: Appropriate Hallucination Type: None Delusion Type: None Suicidal Ideation: No Suicidal Plan: No Suicidal Intention: No Homicidal Ideation: No Homicidal Plan: No Homicidal Intention: No Insight: Fair Judgment: Impulsive Assessment & Plan Problem List: (1) Adjustment disorder with mixed anxiety and depressed mood ICD Codes: F43.23 - Adjustment disorder with mixed anxiety and depressed mood Status: Acute Assessment & Plan: On psychiatric evaluation today the patient reports feeling very frustrated, disappointed, overwhelmed with her relationship with her and her family in general in the last weeks. The patient reports that she has been abandonment/rejected/nor by her family and her and she feels empty "but needed of love". During the evaluation the patient presents histrionic, labile, irritable at times, but completely logical, coherent and relevant. The patient reports a long history of depression, mood liability, conflicted interpersonal relationships, poor coping skills and even suicidal attempts that she self-report as "manipulative and attention seeking gestures". At this moment the patient denies suicidal and homicidal ideation, she denies visual and auditory hallucinations. She also reports some difficulties sleeping at night and some anxiety during the day secondary to the stress of hospitalization, the patient is completely oriented 3, without no fluctuation of consciousness, no attention deficit. She does not meet criteria for involuntary psychiatric admission. Patient has a history of leaving AMA the hospital, I do not see any reason to deprive the patient of her decision making capacity to leave [facility] at this moment. 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 I will increase the trazodone to 100 mg at bedtime to help her with the depression/anxiety and insomnia. Consult appreciated. Assessment & Plan Estimated LOS: Rangel Christianson MD July 15, 2017 08:27
[2017-07-15] MEDS ORDERED: POTASSIUM PHOSPHATE/SODIUM PHOSPHATE 250 MG TAB PO SCH (09:00)
--- NOTE | 2017-07-15 13:19 | HHI.DS ---
Discharge Summary Admission Date July 12, 2017 at 21:51 Discharge Date: July 15, 2017 Admitting Diagnosis Sepsis, hypokalemia, hypoglycemia, hypotension (1) Syncope ICD Code: R55 - Syncope and collapse Diagnosis: Principal Procedures none Brief History - From Admission 56-year-old female presents to emergency department at [facility] after an unwitnessed fall today. She was found by her shortly after the episode she was awake and talking. Patient states she does not remember all of the event but she states she does not think she blacked out. She states she is having no pain anywhere. She has been having unsteady gait over the past couple days and came here recently but left AMA before being seen because she did not want to keep waiting. She states that she has no other complaints that she can think about but is a poor historian. History is limited. She does admit some abdominal pain for last 2 days. The pain is localized in the back sites bilaterally, sharp on the nature, and 3-4 out of 10. No aggravating or alleviating factors. CBC/BMP: 07/15/17 0233 07/15/17 0233 Significant Findings Laboratory Tests Test 07/12/17 19:20 07/12/17 21:00 07/12/17 22:12 07/12/17 23:40 White Blood Count 16.5 TH/MM3 (4.0-11.0) Mean Corpuscular Hemoglobin Concent 36.1 % (32.0-36.0) Red Cell Distribution Width 17.8 % (11.6-17.2) Lymphocytes (%) (Auto) 44.7 % (9.0-44.0) Neutrophils # (Auto) 7.9 TH/MM3 (1.8-7.7) Lymphocytes # (Auto) 7.4 TH/MM3 (1.0-4.8) Neutrophils # (Manual) 9.1 TH/MM3 (1.8-7.7) Activated Partial Thromboplast Time 22.6 SEC (24.3-30.1) Blood Urea Nitrogen 19 MG/DL (7-18) Creatinine 1.01 MG/DL (0.50-1.00) Random Glucose 46 MG/DL (74-106) Calcium Level 10.2 MG/DL (8.5-10.1) Phosphorus Level 1.2 MG/DL (2.5-4.9) Magnesium Level 1.2 MG/DL (1.5-2.5) Potassium Level 2.1 MEQ/L (3.5-5.1) Estimat Glomerular Filtration Rate 57 ML/MIN (>89) Total Creatine Kinase 363 U/L (26-192) Creatine Kinase MB 5.9 NG/ML (0.5-3.6) Troponin I LESS THAN 0.02 NG/ML Test 07/13/17 00:50 07/13/17 04:30 07/13/17 05:10 07/13/17 11:17 Troponin I LESS THAN 0.02 NG/ML LESS THAN 0.02 NG/ML Red Blood Count 3.72 MIL/MM3 (4.00-5.30) Hematocrit 34.3 % (35.0-46.0) Red Cell Distribution Width 18.3 % (11.6-17.2) Neutrophils (%) (Auto) 74.5 % (16.0-70.0) Activated Partial Thromboplast Time 21.4 SEC (24.3-30.1) Creatinine 1.07 MG/DL (0.50-1.00) Random Glucose 339 MG/DL (74-106) Albumin 3.0 GM/DL (3.4-5.0) Calcium Level 8.2 MG/DL (8.5-10.1) Phosphorus Level 1.2 MG/DL (2.5-4.9) Magnesium Level 1.3 MG/DL (1.5-2.5) Potassium Level 2.5 MEQ/L (3.5-5.1) Chloride Level 108 MEQ/L (98-107) Carbon Dioxide Level 19.1 MEQ/L (21.0-32.0) Estimat Glomerular Filtration Rate 53 ML/MIN (>89) Lactic Acid Level 2.3 mmol/L (0.4-2.0) Test 07/13/17 14:35 07/13/17 18:00 07/14/17 05:40 07/14/17 11:21 Potassium Level 3.0 MEQ/L (3.5-5.1) 2.8 MEQ/L (3.5-5.1) Phosphorus Level 1.6 MG/DL (2.5-4.9) 2.2 MG/DL (2.5-4.9) Red Blood Count 3.48 MIL/MM3 (4.00-5.30) Hemoglobin 11.4 GM/DL (11.6-15.3) Hematocrit 31.9 % (35.0-46.0) Red Cell Distribution Width 18.2 % (11.6-17.2) Random Glucose 224 MG/DL (74-106) Calcium Level 8.1 MG/DL (8.5-10.1) Magnesium Level 1.4 MG/DL (1.5-2.5) Chloride Level 112 MEQ/L (98-107) Estimat Glomerular Filtration Rate 63 ML/MIN (>89) Vancomycin Level Trough 15.8 MCG/ML (5.0-10.0) Test 07/15/17 02:33 Red Blood Count 3.78 MIL/MM3 (4.00-5.30) Hematocrit 34.4 % (35.0-46.0) Red Cell Distribution Width 18.2 % (11.6-17.2) Random Glucose 175 MG/DL (74-106) Calcium Level 8.1 MG/DL (8.5-10.1) Phosphorus Level 2.1 MG/DL (2.5-4.9) Potassium Level 2.7 MEQ/L (3.5-5.1) Chloride Level 110 MEQ/L (98-107) Estimat Glomerular Filtration Rate 62 ML/MIN (>89) Imaging Last Impressions Brain MRI 07/14/17 0000 Signed Impressions: Service Date/Time: Friday, July 14, 2017 18:24 - CONCLUSION: 1. No acute intracranial abnormality. 2. Chronic signal changes within the edgard as detailed above. Likely relating to chronic small vessel ischemia. These are stable. 3. No pituitary mass. Empty sella appearance. Domenico Hou Jr., MD Abdomen/Pelvis CT [id number]/12/[id number] Signed Impressions: Service Date/Time: Wednesday, July 12, 2017 22:56 - CONCLUSION: 1. No acute findings. Fatty liver. Previous cholecystectomy. Calcified fibroids in uterus. Wilber Castillo MD Head CT 07/12/17 1912 Signed Impressions: Service Date/Time: Wednesday, July 12, 2017 19:55 - CONCLUSION: No acute intracranial disease. Herrera Hogue MD Chest X-Ray 07/12/17 1912 Signed Impressions: Service Date/Time: Wednesday, July 12, 2017 19:28 - CONCLUSION: No acute disease. Herrera Hogue MD Chest CT 07/12/17 0000 Signed Impressions: Service Date/Time: Wednesday, July 12, 2017 22:56 - CONCLUSION: 1. No acute findings. Small hiatal hernia. Wilber Castillo MD PE at Discharge GENERAL: This is a well-nourished, well-developed patient, in no apparent distress. CARDIOVASCULAR: Regular rate and regular rhythm without murmurs, gallops, or rubs. RESPIRATORY: Clear to auscultation. Breath sounds equal bilaterally. No wheezes , rales, or rhonchi. GASTROINTESTINAL: Abdomen soft, non-tender, nondistended. Normal, active bowel sounds MUSCULOSKELETAL: Extremities without clubbing, cyanosis, or edema. NEURO: drowsy but arousable. Hospital Course Syncopal episode -CT head negative -MRI greg with no acute abnormality with empty sella appearance. -Continue telemetry -2D echo pending. Hypotension Severe hypokalemia severe hypomagnesemia severe hypophosphatemia Adrenal insufficiency -on Solucortef; will taper down. - aggressive electrolyte replacement -Hold home hypertensive meds -consulted endocrinology -one bottle of blood cultures with staph epidermidis- likely contamination. -will stop Broad-spectrum antibiotics. Anxiety/Depression -Trazodone- - Clonazepam was since the patient was very lethargic yesterday. -consulted psych. Migraine headaches -Acetaminophen/ Butalbital/ Caffeine -Sumatriptan -Topamax Atrial Fibrillation -on Aspirin -metoprolol on hold due to low-normal BP's Hyperlipidemia -Atorvastatin GERD -Pepcid twice daily DM II -resumed levemir -Insulin sliding scale Peripheral Neuropathy -Lyrica Hypothyroidism -Levothyroxine Pt Condition on Discharge: Fair Discharge Disposition: Discharge Home Discharge Time: <= 30 minutes Re Woodson MD July 15, 2017 13:19
[2017-07-15] MEDS ORDERED: HYDROCORTISONE SOD SUCCINATE 100 MG VIAL IV PUSH SCH (14:00)
[2017-07-15] MEDS ORDERED: INSULIN DETEMIR 100 UNITS/ML VIAL SQ SCH (21:00)
[2017-07-16] MEDS ORDERED: PHARMACY ORDERED LAB ONE (09:45)
[2017-07-16 11:48] LABS: RENIN 1.7 ng/mL/h
== END 2017-07-15 09:45 | disposition left against medical advice (07) | DRG 642 ==
LOC: NEPE 18:20 → NEDA 21:51 → HIMW 07-13 04:10
PROVIDERS: ADMIT Internal Medicine; ATTEND Internal Medicine
DX: E83.39 Other disorders of phosphorus metabolism (principal); E11.40 Type 2 diabetes mellitus with diabetic neuropathy, unspecified; E11.649 Type 2 diabetes mellitus with hypoglycemia without coma; I95.9 Hypotension, unspecified; E27.40 Unspecified adrenocortical insufficiency; I48.91 Unspecified atrial fibrillation; E87.6 Hypokalemia; E83.42 Hypomagnesemia; I10 Essential (primary) hypertension; R55 Syncope and collapse; E78.5 Hyperlipidemia, unspecified; J44.9 Chronic obstructive pulmonary disease, unspecified; K21.9 Gastro-esophageal reflux disease without esophagitis; M11.20 Other chondrocalcinosis, unspecified site; E03.9 Hypothyroidism, unspecified; G43.909 Migraine, unspecified, not intractable, without status migrainosus; F43.23 Adjustment disorder with mixed anxiety and depressed mood; R26.81 Unsteadiness on feet; G47.00 Insomnia, unspecified; F12.90 Cannabis use, unspecified, uncomplicated; F17.210 Nicotine dependence, cigarettes, uncomplicated; Z79.4 Long term (current) use of insulin
CPT/HCPCS: 70450; 70553; 71045; 71260; 74177; 80048; 80053; 80202; 80307; 81001; 82024; 82088; 82533; 82550; 82552; 82948; 83605; 83735; 83970; 84100; 84132; 84244; 84443; 84484; 85007; 85025; 85027; 85610; 85730; 87040; 87086; 87186; 87205; 87641; 93005; 96361; 96365; 96368; 96375; A9579; J1100; J1650; J1720; J2543; J3370; J3475; J3480; J7030; J7040; J7050; J7120; Q9963; Q9967

== ENCOUNTER 2017-07-19 12:17 | Inpatient (IN) | payer MEDICAID ==
[~2017-07-19] VITALS: Ht 160 cm; Wt 72.5 kg
[2017-07-19] VITALS (7 sets, daily range): BP systolic 90–118; BP diastolic 51–58; PULSE 76–91; RESP 16–20; TEMP 97.8–98.2; O2SAT 98–100
[~2017-07-19 12:17] MED LIST changes: +BUTATAB6 PO; +CLON1TAB PO; -EXENINJ SQ; -FURO20TA PO; -GABA800T PO; +KEPP750T PO; +METH500T3 PO; +METO1TAB42 PO; -PARO40TA2 PO; -QUET1TAB8 PO; +SUMA50TA2 PO; +TOPI200T7 PO; +TRAZ50TA12 PO; +ZOLP5TAB3 PO
[2017-07-19] MEDS ORDERED: SODIUM CHLOR 0.9% 1000 ML INJ 1,000 ML IV ONE (12:45)
[2017-07-19 13:07] LABS: AUTOMATED NEUTROPHIL # 4.7 TH/MM3 (1.8-7.7); BASOPHIL % 0.6 % (0.0-2.0); EOSINOPHIL # 0.1 TH/MM3 (0-0.4); HEMATOCRIT 37.1 % (35.0-46.0); HEMOGLOBIN 13.3 GM/DL (11.6-15.3); LYMPH % 38.9 % (9.0-44.0); LYMPHOCYTE # 3.4 TH/MM3 (1.0-4.8); MEAN CORPUSCULAR HEMOGLOBIN 33.3 PG (27.0-34.0); MEAN CORPUSCULAR HGB CONC 35.9 % (32.0-36.0); MEAN PLATELET VOLUME 8.4 FL (7.0-11.0); MONO % 6.3 % (0.0-8.0); MONOCYTE # 0.6 TH/MM3 (0-0.9); NEUT % 53.2 % (16.0-70.0); PLATELET COUNT 272 TH/MM3 (150-450); RED BLOOD COUNT 3.99 MIL/MM3 (4.00-5.30); RED CELL DISTRIBUTION WIDTH 17.9 % (11.6-17.2); WHITE BLOOD COUNT 8.8 TH/MM3 (4.0-11.0)
--- NOTE | 2017-07-19 13:12 | RADRPT ---
EXAM DATE: 07/19/2017 12:59 PM EDT AGE/SEX: 56 years / Female INDICATIONS: Near syncopal episode, shortness of breath. CLINICAL DATA: This is the patient's initial encounter. Patient reports that signs and symptoms have been present for 1 day and indicates a pain score of 0/10. MEDICAL/SURGICAL HISTORY: . No pertinent medical history. . No pertinent surgical history. COMPARISON: Chest x-ray July 12, 2017 . FINDINGS: A single AP view of the chest demonstrates the lungs to be symmetrically aerated without evidence of mass, infiltrate or effusion. The cardiomediastinal contours are unremarkable. Osseous structures a re intact. CONCLUSION: Negative examination. Electronically signed by: Domenico Hou MD 07/19/2017 1:10 PM EDT
--- NOTE | 2017-07-19 13:23 | RADRPT ---
EXAM DATE: 07/19/2017 1:17 PM EDT AGE/SEX: 56 years / Female INDICATIONS: Weakness, unsteady gait. CLINICAL DATA: This is the patient's initial encounter. Patient reports that signs and symptoms have been present for 4 - 6 days and indicates a pain score of 0/10. MEDICAL/SURGICAL HISTORY: Cardiovascular disease. Hypertension. Gastroesophageal reflux disease. Neuropathy. Cholecystectomy. RADIATION DOSE: 56.35 CTDI (mGy) COMPARISON: CT of the brain July 12, 2017. TECHNIQUE: CT of the head without contrast. Using automated exposure control and adjustment of the mA and/or kV according to patient size, radiation dose was kept as low as reasonably achievable to ob tain optimal diagnostic quality images. FINDINGS: Cerebrum: The ventricles are normal for age. No evidence of midline shift, mass lesion, hemorrhage or acute infarction. No extraaxial fluid collections are seen. Posterior Fossa: The cerebellum and brainstem are intact. The 4th ventricle is midline. The cerebe llopontine angle is unremarkable. Extracranial: The visualized portion of the orbits is intact. Skull: The calvaria is intact. No evidence of skull fracture. CONCLUSION: 1. Negative CT Head non contrast. Electronically signed by: Domenico Hou MD 07/19/2017 1:22 PM EDT
[2017-07-19 14:06] LABS: ALKALINE PHOSPHATASE 70 U/L (45-117); ALT (GPT) 25 U/L (10-53); AST (GOT) 22 U/L (15-37); BICARBONATE 20.8 MEQ/L (21.0-32.0); BLOOD UREA NITROGEN 18 MG/DL (7-18); CALCIUM 9.5 MG/DL (8.5-10.1); CHLORIDE 108 MEQ/L (98-107); CREATININE 1.02 MG/DL (0.50-1.00); GLOMERULAR FILTRATION RATE 56 ML/MIN (>89); GLUCOSE,RANDOM 339 MG/DL (74-106); SODIUM (NA) 141 MEQ/L (136-145); TOTAL BILIRUBIN ADULT 0.2 MG/DL (0.2-1.0); TOTAL PROTEIN 6.6 GM/DL (6.4-8.2); TROPONIN I LESS THAN 0.02 NG/ML (0.02-0.05)
[2017-07-19 14:07] LABS: INTERNATIONAL NORMALIZED RATIO 1.1 RATIO; PROTHROMBIN TIME - PATIENT 10.9 SEC (9.8-11.6)
[2017-07-19] MEDS ORDERED: POTASSIUM CHLORIDE 10 MEQ CONTROLLED RELEASE TAB PO ONE ×3 (14:30→21:00)
--- NOTE | 2017-07-19 14:57 | HHI.HP ---
[facility] Service [facility] Primary Care Physician Francisco J Kim, DO Admission Diagnosis hypokalemia, unsteady gait, hypomagnesimia, adrenal insufficiency? Diagnoses: (1) Fall Diagnosis: Principal (2) Ambulatory dysfunction Diagnosis: Principal (3) Hypokalemia Diagnosis: Principal (4) Hypomagnesemia Diagnosis: Principal (5) Adrenal insufficiency Diagnosis: Principal Chief Complaint: falls Travel History International Travel<30 Days: No Contact w/Intl Traveler <30 Da: No Traveled to Known Affected Are: No History of Present Illness patient is a 56 y/o female, known to me from previous admission, who was recently admitted to the hospital with syncope . She was found by her shortly after the episode . Patient stated she did not remember all of the event but she stated she does not think she blacked out. She has been having unsteady gait over the past few days.s he had a work-up including MRI brain during last admission. endocrinology was consulted for adrenal insufficiency however she signed out against medical advice before the work-up was completed. at the time of my evaluation she was in no acute distress, complaining of some headache. she was still unsteady in ER> Review of Systems Constitutional: DENIES: Fever, Weight loss, Chills, Night Sweats Eyes: DENIES: Blurred vision, Diplopia, Vision loss, Double Vision Ears, nose, mouth, throat: DENIES: Tinnitus, Vertigo, Throat pain, Epistaxis Respiratory: DENIES: Apneas, Cough, Snoring, Wheezing, Hemoptysis, Sputum production, Shortness of breath Cardiovascular: DENIES: Chest pain, Palpitations, Syncope, Dyspnea on Exertion , PND, Lower Extremity Edema, Orthopnea, Claudication Gastrointestinal: DENIES: Abdominal pain, Black stools, Bloody stools, Constipation, Diarrhea, Nausea, Vomiting, Difficulty Swallowing, Anorexia Genitourinary: DENIES: Urinary frequency, Urgency, Hematuria, Dysuria Musculoskeletal: DENIES: Joint pain, Muscle aches, Stiffness, Joint Swelling Integumentary: DENIES: Rash Neurologic: COMPLAINS OF: Headache, Poor Balance, DENIES: Abnormal gait, Localized weakness, Paresthesias, Seizures, Speech Problems, Tremor Psychiatric: DENIES: Anxiety, Confusion, Mood changes, Depression, Hallucinations, Agitation, Suicidal Ideation, Homicidal Ideation, Delusions Past Family Social History Past Medical History diabetes mellitus, hypothyroidism, hypertension,anxiety disorder, peripheral neuropathy, GERD. Past Surgical History / cholecystectomy. Reported Medications Metoprolol Succinate ER 24 HR (Metoprolol Succinate) 25 Mg Tab 25 Mg PO DAILY Xjfvpsieoj-Eceftfrwtpcqa-Cpiucfjc 50-325-40 Mg Tab 1 Tab PO DAILY PRN Do not exceed 6 tablets/day. Keppra (Levetiracetam) 750 Mg Tab 1,500 Mg PO BID Methocarbamol 500 Mg Tab 500 Mg PO TID Topiramate 200 Mg Tab 100 Mg PO HS Lyrica (Pregabalin) 100 Mg Cap 100 Mg PO BID Clonazepam 1 Mg Tab 1 Mg PO TID Trazodone (Trazodone HCl) 50 Mg Tab 50 Mg PO HS Sumatriptan (Sumatriptan Succinate) 50 Mg Tab 50 Mg PO ONCE PRN If a satisfactory response has not been obtained at 2 hours, a second dose may be administered Zolpidem (Zolpidem Tartrate) 5 Mg Tab 5 Mg PO HS PRN Humalog Inj (Insulin Human Lispro) 1,000 Unit/10 Ml Vial 32 Units SQ TIDAC Fenofibrate 145 Mg Tab 145 Mg PO HS Atorvastatin (Atorvastatin Calcium) 40 Mg Tab 40 Mg PO HS Glipizide 10 Mg Tab 10 Mg PO BIDAC Take 30 minutes before a meal Potassium Chloride Microencaps 20 Meq Tab 40 Meq PO DAILY Levemir Inj (Insulin Detemir) 1,000 unit/ 10 ML Vial 25 Units SQ HS Do not mix with any other Insulin. Aspirin DR (Aspirin) 81 Mg Tabdr 81 Mg PO DAILY Allergies: Coded Allergies: No Known Allergies (Verified Adverse Reaction, Unknown, 07/19/17) Per pt. Active Ordered Medications Inpatient Medications Potassium Chloride (KCl) 40 meq ONCE ONCE PO Last administered on 07/19/17at 14 :37; Start 07/19/17 at 14:30; Stop 07/19/17 at 14:31; Status DC Sodium Chloride 1,000 ml @ 999 mls/hr BOLUS ONCE IV Last administered on 07/19at 12:51; Start 07/19/17 at 12:45; Stop 07/19/17 at 13:45; Status DC Social History smokes a pack a day- drinks occasionally. Physical Exam Vital Signs Vital Signs Date Time Temp Pulse Resp B/P (MAP) Pulse Ox O2 Delivery O2 Flow Rate FiO2 07/19/17 14:30 98.1 76 20 101/55 (70) 98 Room Air 07/19/17 12:40 85 18 90/54 (66) 81 18 93/55 (68) 20 96/51 (66) 07/19/17 12:34 17 98 Room Air 07/19/17 12:22 98.1 84 17 94/57 (69) 98 07/19/17 12:22 85 17 98 Room Air Physical Exam GENERAL: This is a well-nourished, well-developed patient, in no apparent distress. SKIN: No rashes, ecchymoses or lesions. Cool and dry. HEAD: Atraumatic. Normocephalic. No temporal or scalp tenderness. EYES: Pupils equal round and reactive. Extraocular motions intact. No scleral icterus. No injection or drainage. ENT: Nose without bleeding, purulent drainage or septal hematoma. Throat without erythema, tonsillar hypertrophy or exudate. Uvula midline. Airway patent. NECK: Trachea midline. No JVD or lymphadenopathy. Supple, nontender, no meningeal signs. CARDIOVASCULAR: Regular rate and rhythm without murmurs, gallops, or rubs. RESPIRATORY: Clear to auscultation. Breath sounds equal bilaterally. No wheezes , rales, or rhonchi. GASTROINTESTINAL: Abdomen soft, non-tender, nondistended. No hepato-splenomegaly , or palpable masses. No guarding. MUSCULOSKELETAL: Extremities without clubbing, cyanosis, or edema. No joint tenderness, effusion, or edema noted. No calf tenderness. Negative Homans sign bilaterally. NEUROLOGICAL: Awake and alert. Cranial nerves II through XII intact. Motor and sensory grossly within normal limits. Five out of 5 muscle strength in all muscle groups. Normal speech. Laboratory Laboratory Tests Test 07/19/17 12:35 07/19/17 13:35 White Blood Count 8.8 Red Blood Count 3.99 Hemoglobin 13.3 Hematocrit 37.1 Mean Corpuscular Volume 93.0 Mean Corpuscular Hemoglobin 33.3 Mean Corpuscular Hemoglobin Concent 35.9 Red Cell Distribution Width 17.9 Platelet Count 272 Mean Platelet Volume 8.4 Neutrophils (%) (Auto) 53.2 Lymphocytes (%) (Auto) 38.9 Monocytes (%) (Auto) 6.3 Eosinophils (%) (Auto) 1.0 Basophils (%) (Auto) 0.6 Neutrophils # (Auto) 4.7 Lymphocytes # (Auto) 3.4 Monocytes # (Auto) 0.6 Eosinophils # (Auto) 0.1 Basophils # (Auto) 0.0 CBC Comment DIFF FINAL Differential Comment Blood Urea Nitrogen 18 Creatinine 1.02 Random Glucose 339 Total Protein 6.6 Albumin 3.0 Calcium Level 9.5 Magnesium Level 1.0 Alkaline Phosphatase 70 Aspartate Amino Transf (AST/SGOT) 22 Alanine Aminotransferase (ALT/SGPT) 25 Total Bilirubin 0.2 Sodium Level 141 Potassium Level 2.7 Chloride Level 108 Carbon Dioxide Level 20.8 Anion Gap 12 Estimat Glomerular Filtration Rate 56 Total Creatine Kinase 74 Troponin I LESS THAN 0.02 Lipase 77 Thyroid Stimulating Hormone 3rd Gen 0.584 Prothrombin Time 10.9 Prothromb Time International Ratio 1.1 Activated Partial Thromboplast Time 21.7 Date/Time Source Procedure Growth Status 07/19/17 12:45 Blood Peripheral Aerobic Blood Culture Pending Received 07/19/17 12:45 Blood Peripheral Anaerobic Blood Culture Pending Received Result Diagram: 07/19/17 1235 07/19/17 1235 Imaging Last Impressions Head CT 07/19/17 1233 Signed Impressions: CONCLUSION: 1. Negative CT Head non contrast. Chest X-Ray 07/19/17 1233 Signed Impressions: CONCLUSION: Negative examination. Caprini VTE Risk Assessment Caprini VTE Risk Assessment: Mod/High Risk (score >= 2) Caprini Risk Assessment Model Point Value = 1 Point Value = 2 Point Value = 3 Point Value = 5 Age 41-60 Minor surgery BMI > 25 kg/m2 Swollen legs Varicose veins or History of unexplained or recurrent spontaneous Oral contraceptives or hormone replacement Sepsis (< 1 month) Serious lung disease, including pneumonia (< 1 month) Abnormal pulmonary function Acute myocardial infarction Congestive heart failure (< 1 month) History of inflammatory bowel disease Medical patient at bed rest Age 61-74 Arthroscopic surgery Major open surgery (> 45 min) Laparoscopic surgery (> 45 min) Malignancy Confined to bed (> 72 hours) Immobilizing plaster cast Central venous access Age >= 75 History of VTE Family history of VTE Factor V Leiden Prothrombin [id number] Lupus anticoagulant Anticardiolipin antibodies Elevated serum homocysteine Heparin-induced thrombocytopenia Other congenital or acquired thrombophilia Stroke (< 1 month) Elective arthroplasty Hip, pelvis, or leg fracture Acute spinal cord injury (< 1 month) Prophylaxis Regimen Total Risk Factor Score Risk Level Prophylaxis Regimen 0-1 Low Early ambulation 2 Moderate Order ONE of the following: *Sequential Compression Device (SCD) *Heparin 5000 units SQ BID 3-4 Higher Order ONE of the following medications: *Heparin 5000 units SQ TID *Enoxaparin/Lovenox 40 mg SQ daily (WT < 150 kg, CrCl > 30 mL/min) *Enoxaparin/Lovenox 30 mg SQ daily (WT < 150 kg, CrCl > 10-29 mL/min) *Enoxaparin/Lovenox 30 mg SQ BID (WT < 150 kg, CrCl > 30 mL/min) AND/OR *Sequential Compression Device (SCD) 5 or more Highest Order ONE of the following medications: *Heparin 5000 units SQ TID (Preferred with Epidurals) *Enoxaparin/Lovenox 40 mg SQ daily (WT < 150 kg, CrCl > 30 mL/min) *Enoxaparin/Lovenox 30 mg SQ daily (WT < 150 kg, CrCl > 10-29 mL/min) *Enoxaparin/Lovenox 30 mg SQ BID (WT < 150 kg, CrCl > 30 mL/min) AND *Sequential Compression Device (SCD) Assessment and Plan Assessment and Plan A/P Syncopal episode/ falls - -CT head negative -MRI greg with no acute abnormality with empty sella appearance.( recent admission) -consult PT hypokalemia hypomagnesemia -replace electrolytes and monitor. Adrenal insufficiency -cortisol level 3.3/ ACTH < 5 -start on IV Hydrocortisone -will consult endocrinology of note patient was admitted recently with hypotension, falls- started on IV steroids but signed out before the work-up was completed. Anxiety/Depression seizure disorder -resume home meds -was evaluated by psych last admission- Migraine headaches -on Topamax Atrial Fibrillation -on Aspirin -metoprolol on hold due to low-normal BP's Hyperlipidemia -on Atorvastatin DM II -resumed levemir -Insulin sliding scale Peripheral Neuropathy -on Lyrica Hypothyroidism -continue Levothyroxine DVT prophylaxis with SCD's. Discussed Condition With ER , the patient and RN. Re Woodson MD July 19, 2017 14:57
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
[2017-07-19] MEDS ORDERED: GLUCAGON 1 MG/ML VIAL OTHER PRN (15:15)
[2017-07-19] MEDS ORDERED: HYDROCORTISONE SOD SUCCINATE 100 MG VIAL IV PUSH ONE (15:15)
[2017-07-19] MEDS ORDERED: DEXTROSE 50% IN WATER 50 ML VIAL(D50) IV PUSH PRN (15:15)
[2017-07-19] MEDS ORDERED: SODIUM CHLOR 0.9% 1000 ML INJ 1,000 ML IV SCH (15:30)
[2017-07-19] MEDS ORDERED: MAGNESIUM SULFATE 1 GM PREMIX 100 ML IV ONE (16:00)
[2017-07-19] MEDS: INSULIN ASPART SUPPLEMENTAL SCALE SQ SCH ×2 (17:04→21:47)
[2017-07-19] MEDS: clonazePAM 1 MG TAB PO SCH (17:06)
[2017-07-19] MEDS: METHOCARBAMOL 500 MG TAB PO SCH (17:06)
[2017-07-19 17:28] LABS: BILIRUBIN, URINE NEG (NEG); BLOOD, URINE NEG (NEG); GLUCOSE,URINE 300 mg/dL (NEG); KETONE, URINE NEG (NEG); NITRITE,URINE NEG (NEG); SQUAMOUS EPITHELIAL CELL URINE 1 /hpf (0-5); URINE COLOR LIGHT-YELLOW (YELLW/STRAW); URINE LEUKOCYTE ESTERASE NEG (NEG)
[2017-07-19] MEDS: levETIRAcetam 500 MG TAB PO SCH (19:50)
[2017-07-19] MEDS: traZODone HCL 50 MG TAB PO SCH (19:50)
[2017-07-19] MEDS: PREGABALIN 100 MG CAP PO SCH (19:50)
[2017-07-19] MEDS: ATORVASTATIN 40 MG TAB PO SCH (19:51)
[2017-07-19] MEDS ORDERED: ALPRAZolam 0.5 MG TAB PO ONE (20:15)
[2017-07-19] MEDS ORDERED: NICOTINE 14 MG/24 HR PATCH T-DERMAL ONE (20:15)
[2017-07-19] MEDS: TOPIRAMATE 100 MG TAB PO SCH (21:39)
[2017-07-19] MEDS: FENOFIBRATE 145 MG TAB PO SCH (21:39)
[2017-07-19] MEDS: HYDROCORTISONE SOD SUCCINATE 100 MG VIAL IV PUSH SCH (21:40)
[2017-07-19] MEDS: INSULIN DETEMIR 100 UNITS/ML VIAL SQ SCH (21:47)
[2017-07-20] MEDS: NS + KCL 20 MEQ INJ 1,000 ML IV SCH ×3 (00:15→22:16)
[2017-07-20 03:19] VITALS: BP 103/61; PULSE 81; RESP 18; TEMP 98; O2SAT 100
[2017-07-20] MEDS: HYDROCORTISONE SOD SUCCINATE 100 MG VIAL IV PUSH SCH ×3 (05:20→22:04)
[2017-07-20] MEDS: LEVOTHYROXINE SODIUM 100 MCG TAB PO SCH (05:23)
[2017-07-20 08:00] VITALS: BP 100/61; PULSE 78; RESP 18; TEMP 97.4; O2SAT 96
[2017-07-20] MEDS ORDERED: ASPIRIN EC 81 MG TABEC PO SCH (09:00)
[2017-07-20] MEDS ORDERED: CLOPIDOGREL 75 MG TAB PO SCH (09:00)
[2017-07-20] MEDS ORDERED: POTASSIUM CHLORIDE 20 MEQ CONTROLLED RELEASE TAB PO SCH (09:00)
[2017-07-20] MEDS: PREGABALIN 100 MG CAP PO SCH ×2 (09:20→22:03)
[2017-07-20] MEDS: METHOCARBAMOL 500 MG TAB PO SCH ×3 (09:20→17:50)
[2017-07-20] MEDS: levETIRAcetam 500 MG TAB PO SCH ×2 (09:20→22:03)
[2017-07-20] MEDS: clonazePAM 1 MG TAB PO SCH ×3 (09:21→17:50)
[2017-07-20] MEDS: INSULIN ASPART SUPPLEMENTAL SCALE SQ SCH ×4 (09:22→21:50)
--- NOTE | 2017-07-20 09:23 | HHI.PR ---
Subjective Remarks Follow-up AI, chronic diarrhea and diabetes mellitus. Chronic loose stools denies nausea and abdominal pain status post cholecystectomy. Consider Questran.States uncontrolled diabetes because of difficulty obtaining insurance approval Objective Vitals Vital Signs Date Time Temp Pulse Resp B/P (MAP) Pulse Ox O2 Delivery O2 Flow Rate FiO2 07/20/17 08:00 97.4 78 18 100/61 (74) 96 07/20/17 03:19 98.0 81 18 103/61 (75) 100 07/19/17 23:44 97.9 89 16 105/55 (72) 98 07/19/17 21:10 18 07/19/17 19:04 98.2 91 17 118/57 (77) 100 07/19/17 18:17 97.8 92 17 100/58 (72) 98 07/19/17 14:30 98.1 76 20 101/55 (70) 98 Room Air 07/19/17 12:40 85 18 90/54 (66) 81 18 93/55 (68) 20 96/51 (66) 07/19/17 12:34 17 98 Room Air 07/19/17 12:22 98.1 84 17 94/57 (69) 98 07/19/17 12:22 85 17 98 Room Air I/O 07/19/17 07/19/17 07/19/17 07/20/17 07/20/17 07/20/17 07:00 15:00 23:00 07:00 15:00 23:00 Intake Total 1300 ml 200 ml 200 ml Balance 1300 ml 200 ml 200 ml Intake Oral 300 ml 200 ml 200 ml IV Total 1000 ml Result Diagram: 07/19/17 1235 07/19/17 1235 Imaging Last Impressions Head CT 07/19/17 1233 Signed Impressions: CONCLUSION: 1. Negative CT Head non contrast. Chest X-Ray 07/19/17 1233 Signed Impressions: CONCLUSION: Negative examination. Objective Remarks GENERAL: This is a well-nourished, well-developed patient, in no apparent distress. No signs of dehydration SKIN: No rashes, ecchymoses or lesions. Cool and dry. CARDIOVASCULAR: Regular rate and rhythm without murmurs, gallops, or rubs. RESPIRATORY: Clear to auscultation. Breath sounds equal bilaterally. No wheezes , rales, or rhonchi. GASTROINTESTINAL: Abdomen soft, non-tender, nondistended. No guarding. MUSCULOSKELETAL: Extremities without clubbing, cyanosis, or edema. No joint tenderness, effusion, or edema noted. No calf tenderness. Negative Homans sign bilaterally. NEUROLOGICAL: Awake and alert. Cranial nerves II through XII intact. Motor and sensory grossly within normal limits. Five out of 5 muscle strength in all muscle groups. Normal speech. Procedures none A/P Problem List: (1) Fall ICD Code: W19.XXXA - Unspecified fall, initial encounter (2) Ambulatory dysfunction ICD Code: R26.2 - Difficulty in walking, not elsewhere classified (3) Hypokalemia ICD Code: E87.6 - Hypokalemia (4) Hypomagnesemia ICD Code: E83.42 - Hypomagnesemia (5) Adrenal insufficiency ICD Code: E27.40 - Unspecified adrenocortical insufficiency Assessment and Plan Syncopal episode/ falls - -CT head negative -MRI greg with no acute abnormality with empty sella appearance.( recent admission) -consult PT. Check ECHO hypokalemia hypomagnesemia -replace electrolytes and monitor. Chronic diarrhea status post cholecystectomy -Stool studies, start Lactinex and consider Questran adrenal insufficiency -cortisol level 3.3/ ACTH < 5 -Ct IV Hydrocortisone -will consult endocrinology of note patient was admitted recently with hypotension, falls- started on IV steroids but signed out before the work-up was completed. Anxiety/Depression seizure disorder -resume home meds -was evaluated by psych last admission- Migraine headaches -on Topamax Atrial Fibrillation -on Aspirin -metoprolol on hold due to low-normal BP's Hyperlipidemia -on Atorvastatin DM II. Uncontrolled.. -resumed levemir restart preprandial insulin. Check A1c -Insulin sliding scale Peripheral Neuropathy -on Lyrica Hypothyroidism -continue Levothyroxine DVT prophylaxis with SCD's. Discharge Planning Will discuss with case management, may meet inpatient status criteria Nicolas Cannon MD July 20, 2017 09:22
[2017-07-20] MEDS ORDERED: INSULIN ASPART 1,000 UNITS/10 ML VIAL SQ ONE (09:30)
[2017-07-20 09:33] LABS: BICARBONATE 21.7 MEQ/L (21.0-32.0); CREATININE 1.12 MG/DL (0.50-1.00)
[2017-07-20 12:00] VITALS: BP 81/52; PULSE 76; RESP 16; TEMP 97.7; O2SAT 98
[2017-07-20] MEDS ORDERED: POTASSIUM CHLORIDE 20 MEQ CONTROLLED RELEASE TAB PO ONE (13:00)
[2017-07-20] MEDS: INSULIN ASPART 1,000 UNITS/10 ML VIAL SQ SCH ×2 (13:06→17:50)
[2017-07-20 13:35] LABS: HEMOGLOBIN A1C 7.4 % (4.3-6.0)
[2017-07-20] MEDS: LACTOBACILLUS ACIDOPHILUS TAB PO SCH ×2 (13:37→17:50)
[2017-07-20] MEDS: MAGNESIUM SULFATE 1 GM PREMIX 100 ML IV SCH ×2 (15:27→16:17)
[2017-07-20 15:31] VITALS: BP 100/57; PULSE 87; RESP 18; TEMP 97.6; O2SAT 96
[2017-07-20] MEDS ORDERED: MAGNESIUM SULFATE 1 GM PREMIX 100 ML IV SCH (16:00)
[2017-07-20] MEDS ORDERED: NITROGLYCERIN 0.4 MG SL 25 TABS/BTL SL PRN (17:15)
[2017-07-20] MEDS ORDERED: ACETAMINOPHEN/HYDROcodone 325 MG/5 MG TAB PO PRN (17:15)
[2017-07-20 20:13] VITALS: BP 101/61; PULSE 80; RESP 17; TEMP 98.6; O2SAT 95
[2017-07-20 21:15] VITALS: BP 108/62; PULSE 86; RESP 17; TEMP 97.2; O2SAT 99
--- NOTE | 2017-07-20 21:27 | EKG ---
Date Performed: 07/20/2017 Time Performed: 17:37:41 PTAGE: 56 years EKG: ECTOPIC ATRIAL RHYTHM BORDERLINE LEFT AXIS DEVIATION LOW QRS VOLTAGE IN PRECORDIAL LEADS NO NSPECIFIC T WAVE ABNORMALITY ABNORMAL RHYTHM ECG PREVIOUS TRACING : 07/13/2017 00.52 No significant change from previous tracing noted. DOCTOR: Dennis Mccall Interpretating Date/Time 07/20/2017 21:26:08
[2017-07-20] MEDS: INSULIN DETEMIR 100 UNITS/ML VIAL SQ SCH (21:50)
[2017-07-20] MEDS: FENOFIBRATE 145 MG TAB PO SCH (22:02)
[2017-07-20] MEDS: traZODone HCL 50 MG TAB PO SCH (22:03)
[2017-07-20] MEDS: ATORVASTATIN 40 MG TAB PO SCH (22:03)
[2017-07-20] MEDS ORDERED: ALPRAZolam 0.5 MG TAB PO ONE (22:30)
[2017-07-20] MEDS: TOPIRAMATE 100 MG TAB PO SCH (22:40)
[2017-07-20 23:50] LABS: MAGNESIUM 1.4 MG/DL (1.5-2.5)
[2017-07-20 23:53] LABS: TROPONIN I LESS THAN 0.02 NG/ML (0.02-0.05)
[2017-07-21 04:05] VITALS: BP 95/55; PULSE 78; RESP 16; TEMP 97.2; O2SAT 96
[2017-07-21] MEDS: LEVOTHYROXINE SODIUM 100 MCG TAB PO SCH (05:54)
[2017-07-21] MEDS: HYDROCORTISONE SOD SUCCINATE 100 MG VIAL IV PUSH SCH (05:55)
[2017-07-21 07:25] LABS: BICARBONATE 22.1 MEQ/L (21.0-32.0); BLOOD UREA NITROGEN 19 MG/DL (7-18); CALCIUM 8.5 MG/DL (8.5-10.1); CHLORIDE 108 MEQ/L (98-107); CREATININE 0.89 MG/DL (0.50-1.00); GLOMERULAR FILTRATION RATE 66 ML/MIN (>89); GLUCOSE,RANDOM 212 MG/DL (74-106); SODIUM (NA) 141 MEQ/L (136-145)
[2017-07-21 07:29] LABS: TROPONIN I LESS THAN 0.02 NG/ML (0.02-0.05)
[2017-07-21 08:00] VITALS: BP 105/57; PULSE 86; RESP 19; TEMP 97.9; O2SAT 99
--- NOTE | 2017-07-21 10:00 | PD.AMA ---
Against Medical Advice Note Discharge Disposition: Against Medical Advice Pt Condition on Discharge: Guarded AMA Statement Patient Kristin Ponce has decided to leave the hospital against medical advice. This patient has the capacity to refuse care and understands the risks of leaving, including permanent disability and/or , and has had an opportunity to ask questions about her condition. The patient has been informed that she may return for care at any time, and follow up has been arranged/ advised. Nicolas Cannon MD July 21, 2017 10:00
[2017-07-22] MEDS ORDERED: POTASSIUM CHLORIDE 20 MEQ CONTROLLED RELEASE TAB PO SCH (15:00)
== END 2017-07-21 09:27 | disposition left against medical advice (07) | DRG 641 ==
LOC: NEPE 12:17 → NEDA 14:52 → NEPGCP 18:23 → OBSVTOIN 07-20 16:40 → N06B 07-20 20:40
PROVIDERS: ADMIT Internal Medicine; ATTEND Internal Medicine
DX: E87.6 Hypokalemia (principal); E27.40 Unspecified adrenocortical insufficiency; I95.9 Hypotension, unspecified; E11.42 Type 2 diabetes mellitus with diabetic polyneuropathy; E11.65 Type 2 diabetes mellitus with hyperglycemia; I48.91 Unspecified atrial fibrillation; I10 Essential (primary) hypertension; R55 Syncope and collapse; E83.42 Hypomagnesemia; R42 Dizziness and giddiness; R53.1 Weakness; R26.2 Difficulty in walking, not elsewhere classified; E03.9 Hypothyroidism, unspecified; E07.9 Disorder of thyroid, unspecified; J44.9 Chronic obstructive pulmonary disease, unspecified; K21.9 Gastro-esophageal reflux disease without esophagitis; F41.9 Anxiety disorder, unspecified; F32.9 Major depressive disorder, single episode, unspecified; E78.00 Pure hypercholesterolemia, unspecified; W19.XXXA Unspecified fall, initial encounter; G40.909 Epilepsy, unspecified, not intractable, without status epilepticus; G43.909 Migraine, unspecified, not intractable, without status migrainosus; E78.5 Hyperlipidemia, unspecified; K52.9 Noninfective gastroenteritis and colitis, unspecified; F17.210 Nicotine dependence, cigarettes, uncomplicated; F12.90 Cannabis use, unspecified, uncomplicated; Z79.01 Long term (current) use of anticoagulants; Z90.49 Acquired absence of other specified parts of digestive tract
CPT/HCPCS: 70450; 71045; 76937; 80048; 80053; 81001; 82550; 82948; 83036; 83690; 83735; 84443; 84484; 85025; 85610; 85730; 87040; 93005; G8987-GP; G8988-GP; J1720; J1815; J3475; J3480; J7030

== ENCOUNTER 2018-03-08 18:36 | Inpatient (IN) ==
[2018-03-08] MEDS ORDERED: Sod Chloride 0.9% Inj 1,000 ML IV.SIG ONE (19:01)
[2018-03-08] MEDS ORDERED: Morphine Sulfate Inj 2 MG/ML Vial IV.PUSH ONE (19:01)
--- NOTE | 2018-03-08 19:17 | ED ---
HPI General Chief complaint: Nausea/Vomiting/Diarrhea Stated complaint: N/V/D [id number] Time Seen by Provider: 03/08/18 18:52 Source: patient Mode of arrival: ambulatory Limitations: no limitations History of Present Illness HPI Narrative: The patient is a 57-year-old female who presents to the emergency department via private vehicle for nausea, vomiting, diarrhea, intermittent abdominal pain, and palpitations. The patient states her symptoms started 1 week ago with diarrhea which she describes as loose and watery. The patient has been taken [id number] Imodium which does help with the diarrhea, however, she now is experiencing nausea, vomiting, decreased oral intake. The patient states that she has not been eating much, therefore, is not been taking her insulin or checking her blood sugars for the last week. The patient normally takes Levemir 25 units at night and covers during the day with Humalog 35 units when eating. The patient is not taking her insulin for several days. She now complains of chest discomfort and palpitations associated with the diarrhea. She denies any fever, chills, or sweats, however , does endorse malaise and generalized weakness. The patient has not followed up with her physician in regards to her symptoms. The patient denies any sick contacts at home or recent international travel. MD complaint: Reports nausea, vomiting and diarrhea Onset (ago): week(s) Description of Vomiting: watery Description of Diarrhea: watery Associated Abdominal Pain: Yes Location of pain: Reports LLQ Radiation: does not radiate Severity: mild Severity scale (1-10): 3 Quality: Reports cramping Pain Consistency: intermittent Relieving factors: none Exacerbating factors: none Associated symptoms: Reports loss of appetite, malaise, weakness and palpitation Related Data Home Medications Medication Instructions Recorded Confirmed Levemir U-100 Insulin 09/20/17 Novolog Flexpen U-100 Insulin 09/20/17 aspirin 81 mg PO DAILY 09/20/17 03/08/18 clopidogrel 09/20/17 levetiracetam 09/20/17 levothyroxine 09/20/17 metoprolol tartrate 09/20/17 paroxetine HCl 09/20/17 quetiapine [Seroquel XR] 150 mg PO DAILY #0 09/20/17 03/08/18 Allergies Allergy/AdvReac Type Severity Reaction Status Date / Time No Known Allergies Allergy Verified 03/08/18 18:41 Review of Systems ROS: all other systems reviewed are negative [facility] Medical History Medical History Anxiety (Acute) Depression (Acute) Diabetes (Acute) H/O cholecystitis (Acute) Hypertension (Acute) Seizure (Acute) Thyroid atrophy (Acute) Surgical History Surgical History H/O heart artery stent (Acute) H/O: (Acute) Social History Social History Substance History: Active Abuse Second Hand Smoke Exposure: Yes Smoking Status: Current every day smoker Tobacco Type: Cigarettes How Often Do You Have a Drink Containing Alcohol: Never Recent Travel in [facility] within the Last 8 Weeks: No Recent Out of Country Travel within the Last 8 Weeks: No Exam Narrative Exam Narrative: GENERAL: Awake, alert, 57-year-old female who appears older than her stated age but is in no acute respiratory distress. SKIN: Focused skin assessment warm/dry. Birthmark/port wine stain left face. HEAD: Atraumatic. Normocephalic. EYES: Pupils equal and round. No scleral icterus. No injection or drainage. ENT: No nasal bleeding or discharge. Slightly dry mucous membranes. NECK: Trachea midline. No JVD. CARDIOVASCULAR: Regular rate and rhythm. No murmur appreciated. Heart rate in the 90s. RESPIRATORY: No accessory muscle use. Clear to auscultation. Breath sounds equal bilaterally. GASTROINTESTINAL: Abdomen soft, obese, minimal tenderness left lower quadrant. Clarice infection noted under the pannus. MUSCULOSKELETAL: No obvious deformities. No clubbing. No cyanosis. No edema. NEUROLOGICAL: Awake and alert. No obvious cranial nerve deficits. Motor grossly within normal limits. Normal speech. Nonfocal. PSYCHIATRIC: Appropriate mood and affect; insight and judgment normal. Course Initial Documented Vital Signs Temperature 98.3 F 03/08/18 18:37 Pulse Rate 99 H 03/08/18 18:37 Respiratory Rate 20 03/08/18 18:37 Blood Pressure 137/84 03/08/18 18:37 Pulse Oximetry 96 03/08/18 18:37 Last Documented Vital Signs Temperature 98.3 F 03/08/18 18:37 Pulse Rate 86 03/08/18 18:41 Respiratory Rate 18 03/08/18 18:41 Blood Pressure 120/74 03/08/18 18:41 Pulse Oximetry 99 03/08/18 18:41 Medical Decision Making MDM Narrative Medical decision making narrative: IV was established, labs are drawn and sent, and the patient was placed on cardiac telemetry monitoring and continuous pulse oximetry monitoring. EKG was ordered and interpreted. VBG was sent to lab. Bedside Accu-Chek was 460. The patient was administered morphine, Zofran, and 1 L of IV fluids. C. difficile PCR was ordered. CT of the abdomen and pelvis with IV contrast was ordered to evaluate for colitis. The patient's anion gap was 23, bicarb 10.6, pH on VBG was 7.3, however, patient was compensating with decreased CO2 of 25. The patient's lactic acid was normal, most likely this is mild DKA, therefore, the patient was administered a second liter of IV fluids. CT of the abdomen and pelvis is negative for colitis, patient may have viral gastroenteritis with secondary dehydration and DKA. Repeat blood sugar was obtained at 8:54 PM. The patient's blood sugar was still in the 300s, the patient has an elevated anion gap and low bicarb, will be treated for mild DKA. I discussed the patient with Dr. Vaughan who agrees with admission to IMC at [facility]. Aggregate critical care time was 35 minutes. Time to perform other separately billable procedures was not included in the critical care time. My time did not include minutes spent treating any other patients simultaneously or on activities that did not directly contribute to the patient's treatment. The services I provided to this patient were to treat and/or prevent clinically significant deterioration that could result in: Diabetic coma, hyperglycemia, dehydration, shock. I provided critical care services requiring my management, as noted below: Chart data review, documentation time, medication orders and management, vital sign assessments/reviewing monitor data, ordering and reviewing lab tests, ordering and interpreting/reviewing x-rays and diagnostic studies, care of the patient and discussion of the patient with the admitting physicians. Medical Screen Exam Complete: Yes Emergency Medical Condition: Yes Differential Diagnosis Differential Diagnosis: Differential diagnosis includes DKA, hyperglycemia, dehydration, electrolyte abnormality, gastroenteritis, enteritis, colitis, diverticulitis, noncompliance, electrolyte abnormality. Lab Data Lab results reviewed: Yes I reviewed the patient's lab results. Result diagrams: 03/08/18 19:13 03/08/18 19:13 Lab Results 03/08/18 03/08/18 03/08/18 Range/Units 18:54 19:10 19:13 CBC w Diff Auto diff final WBC 13.5 H (4.0-11.0) th/mm3 RBC 5.49 H (4.00-5.30) mil/mm3 Hgb 16.0 H (11.6-15.3) gm/dL Hct 47.9 H (35.0-46.0) % MCV 87.2 (80.0-100.0) fL MCH 29.1 (27.0-34.0) pg MCHC 33.4 (32.0-36.0) % RDW 14.3 (11.6-17.2) % Plt Count 370 (150-450) th/mm3 MPV 9.1 (7.0-11.0) fL Neut % (Auto) 63.7 (16.0-70.0) % Lymph % (Auto) 29.0 (9.0-44.0) % Chambers % (Auto) 5.8 (0.0-8.0) % Eos % (Auto) 0.4 (0.0-4.0) % Baso % (Auto) 1.1 (0.0-2.0) % Neut # (Auto) 8.6 H (1.8-7.7) th/mm3 Lymph # (Auto) 3.9 (1.0-4.8) th/mm3 Chambers # (Auto) 0.8 (0.0-0.9) th/mm3 Eos # (Auto) 0.1 (0.0-0.4) th/mm3 Baso # (Auto) 0.1 (0.0-0.2) th/mm3 WBC Differential . Differential Comment . Puncture Site Arm Patient Temperature 98.6 VBG pH 7.32 L (7.360-7.400) VBG pCO2 25 L (44-48) mmHG VBG pO2 59 H (35-40) mmHG VBG HCO3 13 L* (22-26) mmol/L VBG O2 Saturation 84 H (70-76) % VBG O2 Content 19.4 H (9.0-17.0) Vol % VBG Base Excess -12.3 L (-2-2) mmol/L VBG Carboxyhemoglobin 5.2 H* (0-4) % VBG Methemoglobin 1.6 (0-2) % Hemoglobin 16.4 H (12.0-16.0) G/DL O2 Delivery Device Room air Inspired O2 21 % Critical Value Yes Sodium (136-145) meq/L Potassium (3.5-5.1) meq/L Chloride (98-107) meq/L Carbon Dioxide (21.0-32.0) meq/L Anion Gap (5-15) meq/L BUN (7-18) mg/dL Creatinine (0.50-1.00) mg/dL Estimated GFR (>89) mL/min POC Glucose 460 H* (68-110) mg/dl Random Glucose (74-106) mg/dL Lactic Acid (0.4-2.0) mmol/L Calcium (8.5-10.1) mg/dL Magnesium (1.5-2.5) mg/dL Total Bilirubin (0.2-1.0) mg/dL AST (15-37) U/L ALT (10-53) U/L Alkaline Phosphatase (45-117) U/L Total Creatine Kinase (26-192) U/L Troponin I (0.02-0.05) ng/mL Total Protein (6.4-8.2) g/dL Albumin (3.4-5.0) g/dL Lipase (73-393) U/L Urine Color (Yellw/Straw) Urine Clarity (Clear) Urine pH (5.0-8.5) Ur Specific [place] (1.002-1.035) Urine Protein (Neg-Trace) mg/dL Urine Glucose (UA) (Negative) mg/dL Urine Ketones (Negative) mg/dL Urine Occult Blood (Negative) Urine Nitrate (Negative) Urine Bilirubin (Negative) Urine Ictotest (Negative) Urine Urobilinogen (Less than 2) mg/dL Ur Leukocyte Esterase (Negative) Urine RBC (0-3) /hpf Urine WBC (0-5) /hpf Ur Squamous Epith Cells (0-5) /hpf Urine Bacteria (None) /hpf Urine Yeast (None) /hpf Micro UA Comment Ur Microscopic Review Urine Culture Comments 03/08/18 03/08/18 03/08/18 Range/Units 19:13 19:13 20:45 CBC w Diff WBC (4.0-11.0) th/mm3 RBC (4.00-5.30) mil/mm3 Hgb (11.6-15.3) gm/dL Hct (35.0-46.0) % MCV (80.0-100.0) fL MCH (27.0-34.0) pg MCHC (32.0-36.0) % RDW (11.6-17.2) % Plt Count (150-450) th/mm3 MPV (7.0-11.0) fL Neut % (Auto) (16.0-70.0) % Lymph % (Auto) (9.0-44.0) % Chambers % (Auto) (0.0-8.0) % Eos % (Auto) (0.0-4.0) % Baso % (Auto) (0.0-2.0) % Neut # (Auto) (1.8-7.7) th/mm3 Lymph # (Auto) (1.0-4.8) th/mm3 Chambers # (Auto) (0.0-0.9) th/mm3 Eos # (Auto) (0.0-0.4) th/mm3 Baso # (Auto) (0.0-0.2) th/mm3 WBC Differential Differential Comment Puncture Site Patient Temperature VBG pH (7.360-7.400) VBG pCO2 (44-48) mmHG VBG pO2 (35-40) mmHG VBG HCO3 (22-26) mmol/L VBG O2 Saturation (70-76) % VBG O2 Content (9.0-17.0) Vol % VBG Base Excess (-2-2) mmol/L VBG Carboxyhemoglobin (0-4) % VBG Methemoglobin (0-2) % Hemoglobin (12.0-16.0) G/DL O2 Delivery Device Inspired O2 % Critical Value Sodium 129 L (136-145) meq/L Potassium 3.1 L (3.5-5.1) meq/L Chloride 95 L (98-107) meq/L Carbon Dioxide 10.6 L (21.0-32.0) meq/L Anion Gap 23 H (5-15) meq/L BUN 14 (7-18) mg/dL Creatinine 1.10 H (0.50-1.00) mg/dL Estimated GFR 51 L (>89) mL/min POC Glucose (68-110) mg/dl Random Glucose 441 H (74-106) mg/dL Lactic Acid 1.1 (0.4-2.0) mmol/L Calcium 9.3 (8.5-10.1) mg/dL Magnesium 1.1 L (1.5-2.5) mg/dL Total Bilirubin 0.6 (0.2-1.0) mg/dL AST 19 (15-37) U/L ALT 22 (10-53) U/L Alkaline Phosphatase 123 H (45-117) U/L Total Creatine Kinase 81 (26-192) U/L Troponin I Less than 0.02 L (0.02-0.05) ng/mL Total Protein 8.2 (6.4-8.2) g/dL Albumin 3.4 (3.4-5.0) g/dL Lipase 79 (73-393) U/L Urine Color Yellow (Yellw/Straw) Urine Clarity Clear (Clear) Urine pH 6.0 (5.0-8.5) Ur Specific [place] 1.015 (1.002-1.035) Urine Protein 30 H (Neg-Trace) mg/dL Urine Glucose (UA) 500 H (Negative) mg/dL Urine Ketones 80 or greater H (Negative) mg/dL Urine Occult Blood Negative (Negative) Urine Nitrate Negative (Negative) Urine Bilirubin Negative (Negative) Urine Ictotest Negative (Negative) Urine Urobilinogen 0.2 (Less than 2) mg/dL Ur Leukocyte Esterase Trace H (Negative) Urine RBC 0-3 (0-3) /hpf Urine WBC 6-8 H (0-5) /hpf Ur Squamous Epith Cells 0-5 (0-5) /hpf Urine Bacteria Few H (None) /hpf Urine Yeast Few H (None) /hpf Micro UA Comment Culture not ind Ur Microscopic Review Microscopic reviewed Urine Culture Comments Culture not ind 03/08/18 Range/Units 20:54 CBC w Diff WBC (4.0-11.0) th/mm3 RBC (4.00-5.30) mil/mm3 Hgb (11.6-15.3) gm/dL Hct (35.0-46.0) % MCV (80.0-100.0) fL MCH (27.0-34.0) pg MCHC (32.0-36.0) % RDW (11.6-17.2) % Plt Count (150-450) th/mm3 MPV (7.0-11.0) fL Neut % (Auto) (16.0-70.0) % Lymph % (Auto) (9.0-44.0) % Chambers % (Auto) (0.0-8.0) % Eos % (Auto) (0.0-4.0) % Baso % (Auto) (0.0-2.0) % Neut # (Auto) (1.8-7.7) th/mm3 Lymph # (Auto) (1.0-4.8) th/mm3 Chambers # (Auto) (0.0-0.9) th/mm3 Eos # (Auto) (0.0-0.4) th/mm3 Baso # (Auto) (0.0-0.2) th/mm3 WBC Differential Differential Comment Puncture Site Patient Temperature VBG pH (7.360-7.400) VBG pCO2 (44-48) mmHG VBG pO2 (35-40) mmHG VBG HCO3 (22-26) mmol/L VBG O2 Saturation (70-76) % VBG O2 Content (9.0-17.0) Vol % VBG Base Excess (-2-2) mmol/L VBG Carboxyhemoglobin (0-4) % VBG Methemoglobin (0-2) % Hemoglobin (12.0-16.0) G/DL O2 Delivery Device Inspired O2 % Critical Value Sodium (136-145) meq/L Potassium (3.5-5.1) meq/L Chloride (98-107) meq/L Carbon Dioxide (21.0-32.0) meq/L Anion Gap (5-15) meq/L BUN (7-18) mg/dL Creatinine (0.50-1.00) mg/dL Estimated GFR (>89) mL/min POC Glucose 386 H (68-110) mg/dl Random Glucose (74-106) mg/dL Lactic Acid (0.4-2.0) mmol/L Calcium (8.5-10.1) mg/dL Magnesium (1.5-2.5) mg/dL Total Bilirubin (0.2-1.0) mg/dL AST (15-37) U/L ALT (10-53) U/L Alkaline Phosphatase (45-117) U/L Total Creatine Kinase (26-192) U/L Troponin I (0.02-0.05) ng/mL Total Protein (6.4-8.2) g/dL Albumin (3.4-5.0) g/dL Lipase (73-393) U/L Urine Color (Yellw/Straw) Urine Clarity (Clear) Urine pH (5.0-8.5) Ur Specific [place] (1.002-1.035) Urine Protein (Neg-Trace) mg/dL Urine Glucose (UA) (Negative) mg/dL Urine Ketones (Negative) mg/dL Urine Occult Blood (Negative) Urine Nitrate (Negative) Urine Bilirubin (Negative) Urine Ictotest (Negative) Urine Urobilinogen (Less than 2) mg/dL Ur Leukocyte Esterase (Negative) Urine RBC (0-3) /hpf Urine WBC (0-5) /hpf Ur Squamous Epith Cells (0-5) /hpf Urine Bacteria (None) /hpf Urine Yeast (None) /hpf Micro UA Comment Ur Microscopic Review Urine Culture Comments Imaging Data Radiologist's impression: Abdomen/Pelvis CT 03/08/18 19:01 CONCLUSION: 1. Negative CT abdomen/pelvis with contrast. No acute findings. ECG Data EKG Prior to Arrival: No Attestation: I personally reviewed and interpreted this ECG as follows: Interpretation: EKG reveals ectopic atrial rhythm, downward going P waves noted in lead II and III. Q waves noted in lead III and aVF. Discharge Plan Discharge Disposition Patient Disposition: ED Admit(ED Internal Use Only) Discharge Condition Condition: Stable Discharge Order Discharge Orders: ED Use Only Admit Order (Routine); Ordered 03/08/18 Ordered By: Shaka Rees Discharge Details Diagnosis: DKA (diabetic ketoacidoses), Dehydration, Gastroenteritis Physicians Team ED Provider: Shaka Rees Primary Care Provider: UNKNOWN, Attending Provider: Sally Vaughan Discharge Interventions Interventions: Vital Signs Last Done: 03/08/18 18:41 Status ED Status: Admitted Patient
[2018-03-08 19:18] LABS: VBG Base Excess -12.3 mmol/L (-2-2); VBG Blood Gas Oxygen Content 19.4 Vol % (9.0-17.0); VBG PCO2 25 mmHG (44-48); VBG PH 7.32 (7.360-7.400); VBG PO2 59 mmHG (35-40)
[2018-03-08 19:21] LABS: Baso # (Auto) 0.1 th/mm3 (0.0-0.2); Baso % (Auto) 1.1 % (0.0-2.0); Eos # (Auto) 0.1 th/mm3 (0.0-0.4); Eos % (Auto) 0.4 % (0.0-4.0); Hematocrit 47.9 % (35.0-46.0); Lymph # (Auto) 3.9 th/mm3 (1.0-4.8); Mean Corpuscular HGB Conc 33.4 % (32.0-36.0); Mean Corpuscular Hemoglobin 29.1 pg (27.0-34.0); Mean Corpuscular Volume 87.2 fL (80.0-100.0); Mean Platelet Volume 9.1 fL (7.0-11.0); Mono # (Auto) 0.8 th/mm3 (0.0-0.9); Mono % (Auto) 5.8 % (0.0-8.0); Neut # (Auto) 8.6 th/mm3 (1.8-7.7); Neut % (Auto) 63.7 % (16.0-70.0); Platelet Count 370 th/mm3 (150-450); Red Blood Count 5.49 mil/mm3 (4.00-5.30); Red Cell Distribution Width 14.3 % (11.6-17.2); White Blood Count 13.5 th/mm3 (4.0-11.0)
[2018-03-08 19:30] LABS: Chloride 95 meq/L (98-107); Potassium 3.1 meq/L (3.5-5.1); Sodium 129 meq/L (136-145)
[2018-03-08] MEDS ORDERED: Morphine Inj 4 MG/ML Vial IV.PUSH ONE (19:30)
[2018-03-08 19:34] LABS: Albumin 3.4 g/dL (3.4-5.0); Anion Gap 23 meq/L (5-15); Calcium 9.3 mg/dL (8.5-10.1); Carbon Dioxide 10.6 meq/L (21.0-32.0); Lipase 79 U/L (73-393)
[2018-03-08] MEDS ORDERED: Sod Chloride 0.9% Inj 1,000 ML IV.SIG SCH (19:45)
[2018-03-08 19:54] LABS: Alanine Aminotransferase 22 U/L (10-53); Alkaline Phosphatase 123 U/L (45-117); Aspartate Aminotransferase 19 U/L (15-37); Blood Urea Nitrogen 14 mg/dL (7-18); Creatine Kinase 81 U/L (26-192); Glomerular Filtration Rate 51 mL/min (>89); Glucose,Random 441 mg/dL (74-106); Magnesium 1.1 mg/dL (1.5-2.5); Total Protein 8.2 g/dL (6.4-8.2)
[2018-03-08] MEDS ORDERED: Potassium Chlor 20 mEq Premix 20 MEQ/100 ML PIGGYBACK IV.SIG ONE (19:59)
[2018-03-08] MEDS ORDERED: Magnesium Sulfate Inj 2 GM in Sodium Chlor 0.9% Inj 96 ML IV.SIG ONE (19:59)
--- NOTE | 2018-03-08 20:46 | CT ---
EXAM DATE: 03/08/2018 8:27 PM EST AGE/SEX: 57 years / Female INDICATIONS: Nausea, vomiting, and diarrhea for one week. CLINICAL DATA: This is the patient's initial encounter. Patient reports that signs and symptoms have been present for 1 day and indicates a pain score of 7/10. MEDICAL/SURGICAL HISTORY: . Anxiety. Depression. Diabetes. Cholecystitis. Hypertension. Seizure . Thyroid atrophy. . Heart artery stent. section. ORAL CONTRAST: No oral contrast ingested. RADIATION DOSE: 12.87 CTDI (mGy) [place] [facility] [place]. . TECHNIQUE: Multiple contiguous axial images were obtained through the abdomen and pelvis following b olus infusion of 88 ml Omnipaque 350 (iohexol) nonionic water-soluble contrast as a single exam dos e. No oral contrast ingested. Using automated exposure control and adjustment of the mA and/or kV ac cording to patient size, radiation dose was kept as low as reasonably achievable to obtain optimal di agnostic quality images. DICOM format image data is available electronically for review and comparis on. FINDINGS: Lower Lungs: The visualized lower lungs are clear. Liver: The liver has a homogeneous hypo-density without space-occupying lesion, characteristic of dif fuse fatty change. There is no dilation of the biliary tree. Cholecystectomy. Spleen: Homogeneous density without enlargement. Pancreas: Unremarkable without mass or calcification. Kidneys: Normal in size and shape. No evidence of mass or hydronephrosis. Adrenal Glands: Unremarkable. Aorta: The aorta and proximal iliac vessels are grossly unremarkable without aneurysmal dilation. Bowel/Mesentery: No dilated loops of small or large bowel. Abdominal Wall: Intact. Retroperitoneum: No evidence of adenopathy in the retrocrural, para-aortic, or deep pelvic regions. Bladder: Contours are smooth. Reproductive Organs: Calcified uterine fibroids similar to prior. No evidence of free fluid. Inguinal: The inguinal region is unremarkable without evidence of adenopathy. Bony Structures: Unremarkable. CONCLUSION: 1. Negative CT abdomen/pelvis with contrast. No acute findings. Electronically signed by: Domenico Hobson MD Board Certified Radiologist 03/08/2018 8:45 PM EST
[2018-03-08 20:53] LABS: Clarity,Urine Clear (Clear); Color,Urine Yellow (Yellw/Straw); Glucose,Urine (UA) 500 mg/dL (Negative); Leukocyte Esterase,Urine Trace (Negative); Nitrite,Urine Negative (Negative); Specific Gravity,Urine 1.015 (1.002-1.035); Urobilinogen,Urine 0.2 mg/dL (Less than 2)
[2018-03-08] MEDS ORDERED: Potassium Chlor 20 mEq Premix 20 MEQ/100 ML PIGGYBACK IV.SIG PRN ×4 (20:55)
[2018-03-08] MEDS ORDERED: Sodium Phosphate Inj 15 MMOL in Sodium Chlor 0.9% Inj 100 ML IV.SIG PRN (20:55)
[2018-03-08] MEDS ORDERED: Potassium Chlor 40 mEq Premix 40 MEQ/100 ML PIGGYBACK IV.SIG PRN ×2 (20:55)
[2018-03-08] MEDS ORDERED: Insulin Regular (For Infusion) 100 UNIT in Sodium Chlor 0.9% Inj 99 ML IV.CONT PRN (20:55)
[2018-03-08 20:57] LABS: Bilirubin,Urine Negative (Negative); Ictotest,Urine Negative (Negative)
[2018-03-08 20:58] LABS: Bacteria,Urine Few /hpf; RBC,Urine 0-3 /hpf (0-3); Squamous Epithelial Cell,Urine 0-5 /hpf (0-5)
[2018-03-08] MEDS ORDERED: Bisacodyl 10 MG Supp RECTAL PRN (21:03)
[2018-03-08] MEDS ORDERED: Naloxone Inj 0.4 MG/ML Vial IV.PUSH PRN (21:03)
[2018-03-08] MEDS ORDERED: Morphine Inj 4 MG/ML Vial IV.PUSH PRN (21:03)
[2018-03-08] MEDS ORDERED: Acetaminophen 325 MG Tablet PO PRN (21:03)
[2018-03-08] MEDS: Sod Chloride 0.9% Inj 1,000 ML IV.CONT SCH (23:06)
[2018-03-09] MEDS ORDERED: Chlorhexidine Gluconate 2% 1 Pack (2 Cloths) TOPICAL PRN (04:00)
[2018-03-09 05:57] LABS: Calcium 7.8 mg/dL (8.5-10.1); Magnesium 1.4 mg/dL (1.5-2.5); Phosphorus 0.7 mg/dL (2.5-4.9)
[2018-03-09 05:59] LABS: Potassium 2.1 meq/L (3.5-5.1)
[2018-03-09] MEDS: Dextrose 5%/NaCl 0.9% Inj 1,000 ML IV.CONT SCH ×6 (06:18→16:41)
[2018-03-09] MEDS: Chlorhexidine Gluconate 2% 1 Pack (2 Cloths) TOPICAL SCH (06:19)
[2018-03-09] MEDS ORDERED: Mag Sulf 1 gm/100 ml Premix 100 ML IV.SIG ONE (06:30)
[2018-03-09] MEDS: Sod Chloride 0.9% Inj 1,000 ML IV.CONT SCH ×6 (07:16→17:19)
[2018-03-09] MEDS: Senna/Docusate Sodium 8.6/50 MG Tablet PO SCH ×2 (08:26→21:45)
--- NOTE | 2018-03-09 09:56 | P.HP ---
History of Present Illness Primary Care Physician: UNKNOWN Chief Complaint: n/v/diarrhea History of Present Illness: This is a pleasant 57-year-old female patient with a known medical history of insulin-dependent diabetes, hypothyroidism and seizure history presented to the ED with complaints of nausea, vomiting, diarrhea and associated abdominal pain x1 week. Patient states that her symptoms started about a week ago, they began with diarrhea, she attempted to take Imodium with no relief of her symptoms. Her last bowel movement was yesterday. She states that she has not eaten very well over the past week due to nausea and vomiting, and has not taken her insulin. Patient normally takes Levemir 25 units at night and uses humalog 35 units for each meal. Patient denies any sick contacts. Denies any fevers, chills, headache, dysuria. Denies any black or bloody stools. Denies any new changes to her medications. Patient presented to the ED in acute DKA with electrolyte abnormality. Upon assessment today she is improved significantly, tolerating p.o. intake well. Electrolytes improving. Anion gap closed. Insulin drip off. - Diagnosis (1) DKA (diabetic ketoacidoses) (2) Dehydration (3) Gastroenteritis Inpatient Certification: I certify that the inpatient services were ordered in accordance with Medicare regulations governing the order. This includes certification that hospital inpatient services are reasonable and necessary and in the case of services not specified as inpatient-only under 42 CFR 419.22(n), that they are appropriately provided as inpatient services in accordance to with the 2-midnight benchmark under 43 CFR 412.3(e) Estimated Total Length of Stay (Days): 2 Plans for Post Hospital Care: Not yet determined Review of Systems All other systems reviewed negative except as stated in HPI PMFSH - History History Provided By: Patient - Medical History Medical History: Medical History (Last Reviewed 03/09/18 @ 13:52 by Maricarmen Davidson) Anxiety Depression Diabetes H/O cholecystitis Hypertension Seizure Thyroid atrophy - Surgical History Surgical History: Surgical History (Last Reviewed 03/09/18 @ 13:52 by Maricarmen Davidson) H/O heart artery stent H/O: - Family History Family History: Family History (Last Updated 03/09/18 @ 13:52 by Maricarmen Davidson) Other Family history in first degree relatives is unremarkable - Social History I have reviewed the patient's Social History: Yes - Tobacco History Second Hand Smoke Exposure: Yes Tobacco Use In Past 30 Days: Yes Smoking Status: Current every day smoker Tobacco Type: Cigarettes - Alcohol History How Often Do You Have a Drink Containing Alcohol: Never - Substance Use History Substance History: Active Abuse - Substance Use Type Marijuana Status: Active Route Used: By Mouth Reason for Use: Calm Down - Travel History Recent Travel in the [place] Within the Last 8 Weeks: No Recent Travel Out of the Country Within the Last 8 Weeks: No - Immunization History Tetanus Immunization: Unsure Hx Influenza Vaccine This Season: Yes Medications and Allergies Active Medications: Active Medications Acetaminophen (Tylenol) 650 mg PO Q4H PRN PRN Reason: Temp > 100.4 Al Hydroxide/Mg Hydroxide (Milk Of Magnesia Liq) 30 ml PO Q12H PRN PRN Reason: Mild Constipation Bisacodyl (Dulcolax Supp) 10 mg RECTAL DAILY PRN PRN Reason: SEVERE CONSITIPATION Chlorhexidine Gluconate (Chlorhexidine 2% Cloth) 3 pack TOPICAL DAILY@0400 [facility] Stop: 03/14/18 03:59 Last Admin: 03/09/18 06:19 Dose: 3 pack Chlorhexidine Gluconate (Chlorhexidine 2% Cloth) 3 pack TOPICAL DAILY@0400 PRN PRN Reason: Extra cloth needed Stop: 03/14/18 03:59 Dextrose/Sodium Chloride (D5w/Normal Saline Inj) 1,000 mls @ 200 mls/hr IV.CONT .Q5H [facility] Last Admin: 03/09/18 07:17 Dose: Not Given Insulin Human Regular 100 unit (/ Sodium Chloride) 100 mls @ 7 mls/hr IV.CONT TITRATE PRN; Protocol PRN Reason: See protocol Last Admin: 03/08/18 23:06 Dose: 7 units/hr, 7 mls/hr Sodium Chloride (Ns Inj) 1,000 mls @ 250 mls/hr IV.CONT .Q4H [facility] Last Admin: 03/09/18 07:16 Dose: Not Given Potassium Chloride (Kcl 40 Meq Premix Inj) 40 meq in 100 mls @ 100 mls/hr IV.SIG Q1H PRN PRN Reason: for Initial K+ ONLY < 3.5 Potassium Chloride (Kcl 40 Meq Premix Inj) 40 meq in 100 mls @ 50 mls/hr IV.SIG Q2H PRN PRN Reason: for Subsequent K+ < 3.5 Potassium Chloride (Kcl 20 Meq Premix Inj) 20 meq in 100 mls @ 100 mls/hr IV.SIG Q1H PRN PRN Reason: for K+ 3.5 to 4.4 Last Admin: 03/09/18 06:19 Dose: 100 mls/hr Potassium Chloride (Kcl 20 Meq Premix Inj) 20 meq in 100 mls @ 100 mls/hr IV.SIG Q1H PRN PRN Reason: for K+ 4.5 to 5 Potassium Chloride (Kcl 20 Meq Premix Inj) 20 meq in 100 mls @ 50 mls/hr IV.SIG Q2H PRN PRN Reason: for Initial K+ ONLY < 3.5 Potassium Chloride (Kcl 20 Meq Premix Inj) 20 meq in 100 mls @ 50 mls/hr IV.SIG Q2H PRN PRN Reason: for Subsequent K+ < 3.5 Potassium Chloride (Kcl 20 Meq Premix Inj) 20 meq in 100 mls @ 50 mls/hr IV.SIG Q2H PRN PRN Reason: for K+ 4.5 to 5 Sodium Phosphate 15 mmol/ (Sodium Chloride) 105 mls @ 25 mls/hr IV.SIG UNSCH PRN PRN Reason: for Phosphate Level < 1.0 Potassium Chloride (Kcl 20 Meq Premix Inj) 20 meq in 100 mls @ 50 mls/hr IV.SIG Q2H PRN PRN Reason: for K+ 3.5 to 4.4 Lactulose (Lactulose Liq) 30 ml PO DAILY PRN PRN Reason: SEVERE CONSITIPATION Morphine Sulfate (Morphine Inj) 2 mg IV.PUSH Q3H PRN PRN Reason: PAIN 6-10;IF UNABLE TO TAKE PO Naloxone HCl (Narcan Inj) 0.4 mg IV.PUSH UNSCH PRN PRN Reason: SEE LABEL COMMENTS Ondansetron HCl (Zofran Inj) 4 mg IV.PUSH Q6H PRN PRN Reason: NAUSEA OR VOMITING Last Admin: 03/09/18 08:26 Dose: 4 mg Senna/Docusate Sodium (Rose-Colace) 1 tab PO BID [facility] Last Admin: 03/09/18 08:26 Dose: Not Given Sennosides (Senokot) 17.2 mg PO Q12H PRN PRN Reason: Moderate Constipation Sodium Bicarbonate (Sodium Bicarbonate 8.4% Inj) 50 meq IV.PUSH UNSCH PRN PRN Reason: for pH 6.9 to 7.0 Sodium Bicarbonate (Sodium Bicarbonate 8.4% Inj) 100 meq IV.PUSH UNSCH PRN PRN Reason: for pH less than 6.9 Sodium Chloride (Ns Flush) 2 ml IV.FLUSH PRN PRN PRN Reason: FLUSH AFTER USING IV ACCESS Sodium Chloride (Ns Flush) 2 ml IV.FLUSH BID [facility] Last Admin: 03/09/18 08:26 Dose: 2 ml Sodium Chloride (Ns Flush) 2 ml IV.FLUSH PRN PRN PRN Reason: FLUSH AFTER USING IV ACCESS Allergies Allergy/AdvReac Type Severity Reaction Status Date / Time No Known Allergies Allergy Verified 03/08/18 18:41 Home Medications Medication Instructions Recorded Confirmed Type Levemir U-100 Insulin 09/20/17 History Novolog Flexpen U-100 Insulin 09/20/17 History aspirin 81 mg PO DAILY 09/20/17 03/08/18 History clopidogrel 09/20/17 History levetiracetam 09/20/17 History levothyroxine 09/20/17 History metoprolol tartrate 09/20/17 History paroxetine HCl 09/20/17 History quetiapine [Seroquel XR] 150 mg PO DAILY #0 09/20/17 03/08/18 History Exam Vital signs: Vital Signs 03/08/18 18:37 03/08/18 18:41 03/08/18 21:28 Temperature 98.3 F Pulse Rate 99 H 86 89 Respiratory Rate 20 18 16 Blood Pressure 137/84 120/74 130/74 Pulse Oximetry 96 99 03/09/18 00:00 03/09/18 01:00 03/09/18 02:00 Temperature 99.6 F Pulse Rate 84 82 84 Respiratory Rate 15 15 9 L Blood Pressure 99/63 L 92/70 L 92/56 L Pulse Oximetry 94 L 95 97 03/09/18 03:00 03/09/18 04:00 03/09/18 05:00 Temperature 97.6 F Pulse Rate 82 78 74 Respiratory Rate 15 13 17 Blood Pressure 88/57 L 92/67 L 92/60 L Pulse Oximetry 95 95 92 L 03/09/18 06:00 03/09/18 08:00 Temperature 97.9 F Pulse Rate 78 76 Respiratory Rate 15 11 L Blood Pressure 91/57 L 92/64 L Pulse Oximetry 91 L 96 Intake & Output 03/08/18 03/09/18 03/09/18 18:59 06:59 18:59 Intake Total 3700 / 3700 100 / 100 Output Total 900 / 900 Balance 2800 / 2800 100 / 100 Weight 71 kg 71.7 kg Intake: IV 3700 / 3700 100 / 100 D5W/Normal Saline Inj 1,000 ML 1000 / 1000 @ 200 mls/hr IV.CONT .Q5H [facility] Rx#:[id number] NS Inj 1,000 ML @ 250 mls/hr IV 500 / 500 .CONT .Q4H [facility] Rx#:[id number] Magnesium Sulfate 1 gm/D5W 100 100 / 100 ml Premix 100 ML @ 100 mls/hr IV.SIG ONCE ONE Rx#:[id number] Magnesium Sulfate Inj 2 GM In 100 / 100 NS Inj 96 ML @ 50 mls/hr IV.SIG ONCE ONE Rx#:[id number] KCl 20 mEq Premix Inj 20 meq In 100 / 100 100 ml @ 50 mls/hr IV.SIG ONCE ONE Rx#:[id number] NS Inj 1,000 ML @ 1000 mls/hr 1999 / 1999 IV.SIG BOLUS [facility] Rx#:[id number] Oral 0 / 0 Output: Urine 900 / 900 Other: # Bowel Movements 0 Weight On Admission 71.1 kg Narrative: GENERAL: Well-developed, well-nourished patient in [facility]. SKIN: Warm and dry. No rash. Port wine stain on left cheek. HEAD: Normocephalic. Atraumatic. EYES: Pupils equal and round. No scleral icterus. No injection or drainage. ENT: No nasal bleeding or discharge. Mucous membranes pink and moist. NECK: Supple. Trachea midline. CARDIOVASCULAR: Regular rate and rhythm. S1, S2 noted. No murmur appreciated. RESPIRATORY: No accessory muscle use. Clear to auscultation. Breath sounds equal bilaterally. GASTROINTESTINAL: Abdomen soft, non-tender, nondistended. Normoactive bowel sounds x4. No tenderness to palpation. MUSCULOSKELETAL: No obvious deformities. Extremities without clubbing, cyanosis , or edema. NEUROLOGICAL: Awake and alert. No obvious cranial nerve deficits. Motor grossly within normal limits. 5/5 muscle strength in bilateral upper and lower extremities. Normal speech. PSYCHIATRIC: Appropriate mood and affect; insight and judgment normal. Results - Labs CBC & Chem 7: 03/08/18 19:13 03/09/18 10:35 Labs: Laboratory Results - last 24 hr 03/08/18 03/08/18 03/08/18 18:54 19:10 19:13 CBC w Diff Auto diff final WBC 13.5 H RBC 5.49 H Hgb 16.0 H Hct 47.9 H MCV 87.2 MCH 29.1 MCHC 33.4 RDW 14.3 Plt Count 370 MPV 9.1 Neut % (Auto) 63.7 Lymph % (Auto) 29.0 [place] % (Auto) 5.8 Eos % (Auto) 0.4 Baso % (Auto) 1.1 Neut # (Auto) 8.6 H Lymph # (Auto) 3.9 [place] # (Auto) 0.8 Eos # (Auto) 0.1 Baso # (Auto) 0.1 WBC Differential . Differential Comment . Puncture Site Arm Patient Temperature 98.6 VBG pH 7.32 L VBG pCO2 25 L VBG pO2 59 H VBG HCO3 13 L* VBG O2 Saturation 84 H VBG O2 Content 19.4 H VBG Base Excess -12.3 L VBG Carboxyhemoglobin 5.2 H* VBG Methemoglobin 1.6 Hemoglobin 16.4 H O2 Delivery Device Room air Inspired O2 21 Critical Value Yes Sodium Potassium Chloride Carbon Dioxide Anion Gap BUN Creatinine Estimated GFR POC Glucose 460 H* Random Glucose Lactic Acid Calcium Phosphorus Magnesium Total Bilirubin AST ALT Alkaline Phosphatase Total Creatine Kinase Troponin I Total Protein Albumin Lipase Urine Color Urine Clarity Urine pH Ur Specific [place] Urine Protein Urine Glucose (UA) Urine Ketones Urine Occult Blood Urine Nitrate Urine Bilirubin Urine Ictotest Urine Urobilinogen Ur Leukocyte Esterase Urine RBC Urine WBC Ur Squamous Epith Cells Urine Bacteria Urine Yeast Micro UA Comment Ur Microscopic Review Urine Culture Comments 03/08/18 03/08/18 03/08/18 19:13 19:13 20:45 CBC w Diff WBC RBC Hgb Hct MCV MCH MCHC RDW Plt Count MPV Neut % (Auto) Lymph % (Auto) [place] % (Auto) Eos % (Auto) Baso % (Auto) Neut # (Auto) Lymph # (Auto) [place] # (Auto) Eos # (Auto) Baso # (Auto) WBC Differential Differential Comment Puncture Site Patient Temperature VBG pH VBG pCO2 VBG pO2 VBG HCO3 VBG O2 Saturation VBG O2 Content VBG Base Excess VBG Carboxyhemoglobin VBG Methemoglobin Hemoglobin O2 Delivery Device Inspired O2 Critical Value Sodium 129 L Potassium 3.1 L Chloride 95 L Carbon Dioxide 10.6 L Anion Gap 23 H BUN 14 Creatinine 1.10 H Estimated GFR 51 L POC Glucose Random Glucose 441 H Lactic Acid 1.1 Calcium 9.3 Phosphorus Magnesium 1.1 L Total Bilirubin 0.6 AST 19 ALT 22 Alkaline Phosphatase 123 H Total Creatine Kinase 81 Troponin I Less than 0.02 L Total Protein 8.2 Albumin 3.4 Lipase 79 Urine Color Yellow Urine Clarity Clear Urine pH 6.0 Ur Specific [place] 1.015 Urine Protein 30 H Urine Glucose (UA) 500 H Urine Ketones 80 or greater H Urine Occult Blood Negative Urine Nitrate Negative Urine Bilirubin Negative Urine Ictotest Negative Urine Urobilinogen 0.2 Ur Leukocyte Esterase Trace H Urine RBC 0-3 Urine WBC 6-8 H Ur Squamous Epith Cells 0-5 Urine Bacteria Few H Urine Yeast Few H Micro UA Comment Culture not ind Ur Microscopic Review Microscopic reviewed Urine Culture Comments Culture not ind 03/08/18 03/08/18 03/08/18 20:54 22:14 23:19 CBC w Diff WBC RBC Hgb Hct MCV MCH MCHC RDW Plt Count MPV Neut % (Auto) Lymph % (Auto) [place] % (Auto) Eos % (Auto) Baso % (Auto) Neut # (Auto) Lymph # (Auto) [place] # (Auto) Eos # (Auto) Baso # (Auto) WBC Differential Differential Comment Puncture Site Patient Temperature VBG pH VBG pCO2 VBG pO2 VBG HCO3 VBG O2 Saturation VBG O2 Content VBG Base Excess VBG Carboxyhemoglobin VBG Methemoglobin Hemoglobin O2 Delivery Device Inspired O2 Critical Value Sodium Potassium Chloride Carbon Dioxide Anion Gap BUN Creatinine Estimated GFR POC Glucose 386 H 331 H 335 H Random Glucose Lactic Acid Calcium Phosphorus Magnesium Total Bilirubin AST ALT Alkaline Phosphatase Total Creatine Kinase Troponin I Total Protein Albumin Lipase Urine Color Urine Clarity Urine pH Ur Specific [place] Urine Protein Urine Glucose (UA) Urine Ketones Urine Occult Blood Urine Nitrate Urine Bilirubin Urine Ictotest Urine Urobilinogen Ur Leukocyte Esterase Urine RBC Urine WBC Ur Squamous Epith Cells Urine Bacteria Urine Yeast Micro UA Comment Ur Microscopic Review Urine Culture Comments 03/09/18 03/09/18 03/09/18 00:07 01:05 02:13 CBC w Diff WBC RBC Hgb Hct MCV MCH MCHC RDW Plt Count MPV Neut % (Auto) Lymph % (Auto) [place] % (Auto) Eos % (Auto) Baso % (Auto) Neut # (Auto) Lymph # (Auto) [place] # (Auto) Eos # (Auto) Baso # (Auto) WBC Differential Differential Comment Puncture Site Patient Temperature VBG pH VBG pCO2 VBG pO2 VBG HCO3 VBG O2 Saturation VBG O2 Content VBG Base Excess VBG Carboxyhemoglobin VBG Methemoglobin Hemoglobin O2 Delivery Device Inspired O2 Critical Value Sodium Potassium Chloride Carbon Dioxide Anion Gap BUN Creatinine Estimated GFR POC Glucose 293 H 215 H 281 H Random Glucose Lactic Acid Calcium Phosphorus Magnesium Total Bilirubin AST ALT Alkaline Phosphatase Total Creatine Kinase Troponin I Total Protein Albumin Lipase Urine Color Urine Clarity Urine pH Ur Specific [place] Urine Protein Urine Glucose (UA) Urine Ketones Urine Occult Blood Urine Nitrate Urine Bilirubin Urine Ictotest Urine Urobilinogen Ur Leukocyte Esterase Urine RBC Urine WBC Ur Squamous Epith Cells Urine Bacteria Urine Yeast Micro UA Comment Ur Microscopic Review Urine Culture Comments 03/09/18 03/09/18 03/09/18 03:02 04:05 05:18 CBC w Diff WBC RBC Hgb Hct MCV MCH MCHC RDW Plt Count MPV Neut % (Auto) Lymph % (Auto) [place] % (Auto) Eos % (Auto) Baso % (Auto) Neut # (Auto) Lymph # (Auto) [place] # (Auto) Eos # (Auto) Baso # (Auto) WBC Differential Differential Comment Puncture Site Patient Temperature VBG pH VBG pCO2 VBG pO2 VBG HCO3 VBG O2 Saturation VBG O2 Content VBG Base Excess VBG Carboxyhemoglobin VBG Methemoglobin Hemoglobin O2 Delivery Device Inspired O2 Critical Value Sodium Potassium Chloride Carbon Dioxide Anion Gap BUN Creatinine Estimated GFR POC Glucose 268 H 265 H 185 H Random Glucose Lactic Acid Calcium Phosphorus Magnesium Total Bilirubin AST ALT Alkaline Phosphatase Total Creatine Kinase Troponin I Total Protein Albumin Lipase Urine Color Urine Clarity Urine pH Ur Specific [place] Urine Protein Urine Glucose (UA) Urine Ketones Urine Occult Blood Urine Nitrate Urine Bilirubin Urine Ictotest Urine Urobilinogen Ur Leukocyte Esterase Urine RBC Urine WBC Ur Squamous Epith Cells Urine Bacteria Urine Yeast Micro UA Comment Ur Microscopic Review Urine Culture Comments 03/09/18 03/09/18 03/09/18 05:20 06:10 06:32 CBC w Diff WBC RBC Hgb Hct MCV MCH MCHC RDW Plt Count MPV Neut % (Auto) Lymph % (Auto) [place] % (Auto) Eos % (Auto) Baso % (Auto) Neut # (Auto) Lymph # (Auto) [place] # (Auto) Eos # (Auto) Baso # (Auto) WBC Differential Differential Comment Puncture Site Patient Temperature VBG pH VBG pCO2 VBG pO2 VBG HCO3 VBG O2 Saturation VBG O2 Content VBG Base Excess VBG Carboxyhemoglobin VBG Methemoglobin Hemoglobin O2 Delivery Device Inspired O2 Critical Value Sodium 141 D Potassium 2.1 L* D Chloride 110 H D Carbon Dioxide 20.0 L D Anion Gap 11 BUN 9 Creatinine 0.90 Estimated GFR 65 L POC Glucose 142 H 140 H Random Glucose 175 H D Lactic Acid Calcium 7.8 L D Phosphorus 0.7 L Magnesium 1.4 L Total Bilirubin AST ALT Alkaline Phosphatase Total Creatine Kinase Troponin I Total Protein Albumin Lipase Urine Color Urine Clarity Urine pH Ur Specific [place] Urine Protein Urine Glucose (UA) Urine Ketones Urine Occult Blood Urine Nitrate Urine Bilirubin Urine Ictotest Urine Urobilinogen Ur Leukocyte Esterase Urine RBC Urine WBC Ur Squamous Epith Cells Urine Bacteria Urine Yeast Micro UA Comment Ur Microscopic Review Urine Culture Comments 03/09/18 03/09/18 03/09/18 07:03 08:12 09:19 CBC w Diff WBC RBC Hgb Hct MCV MCH MCHC RDW Plt Count MPV Neut % (Auto) Lymph % (Auto) [place] % (Auto) Eos % (Auto) Baso % (Auto) Neut # (Auto) Lymph # (Auto) [place] # (Auto) Eos # (Auto) Baso # (Auto) WBC Differential Differential Comment Puncture Site Patient Temperature VBG pH VBG pCO2 VBG pO2 VBG HCO3 VBG O2 Saturation VBG O2 Content VBG Base Excess VBG Carboxyhemoglobin VBG Methemoglobin Hemoglobin O2 Delivery Device Inspired O2 Critical Value Sodium Potassium Chloride Carbon Dioxide Anion Gap BUN Creatinine Estimated GFR POC Glucose 185 H 310 H 386 H Random Glucose Lactic Acid Calcium Phosphorus Magnesium Total Bilirubin AST ALT Alkaline Phosphatase Total Creatine Kinase Troponin I Total Protein Albumin Lipase Urine Color Urine Clarity Urine pH Ur Specific [place] Urine Protein Urine Glucose (UA) Urine Ketones Urine Occult Blood Urine Nitrate Urine Bilirubin Urine Ictotest Urine Urobilinogen Ur Leukocyte Esterase Urine RBC Urine WBC Ur Squamous Epith Cells Urine Bacteria Urine Yeast Micro UA Comment Ur Microscopic Review Urine Culture Comments - Imaging Impressions Abdomen/Pelvis CT 03/08/18 19:01 CONCLUSION: 1. Negative CT abdomen/pelvis with contrast. No acute findings. Caprini VTE Risk Assessment Caprini VTE Risk Assessment: No/Low Risk (score <= 1) Caprini Risk Assessment Model: Point Value = 1 Point Value = 2 Point Value = 3 Point Value = 5 Age 41-60 Minor surgery BMI > 25 kg/m2 Swollen legs Varicose veins or History of unexplained or recurrent spontaneous Oral contraceptives or hormone replacement Sepsis (< 1 month) Serious lung disease, including pneumonia (< 1 month) Abnormal pulmonary function Acute myocardial infarction Congestive heart failure (< 1 month) History of inflammatory bowel disease Medical patient at bed rest Age 61-74 Arthroscopic surgery Major open surgery (> 45 min) Laparoscopic surgery (> 45 min) Malignancy Confined to bed (> 72 hours) Immobilizing plaster cast Central venous access Age >= 75 History of VTE Family history of VTE Factor V Leiden Prothrombin [id number] Lupus anticoagulant Anticardiolipin antibodies Elevated serum homocysteine Heparin-induced thrombocytopenia Other congenital or acquired thrombophilia Stroke (< 1 month) Elective arthroplasty Hip, pelvis, or leg fracture Acute spinal cord injury (< 1 month) Prophylaxis Regimen: Total Risk Factor Score Risk Level Prophylaxis Regimen 0-1 Low Early ambulation 2 Moderate Order ONE of the following: *Sequential Compression Device (SCD) *Heparin 5000 units SQ BID 3-4 Higher Order ONE of the following medications: *Heparin 5000 units SQ TID *Enoxaparin/Lovenox 40 mg SQ daily (WT < 150 kg, CrCl > 30 mL/min) *Enoxaparin/Lovenox 30 mg SQ daily (WT < 150 kg, CrCl > 10-29 mL/min) *Enoxaparin/Lovenox 30 mg SQ BID (WT < 150 kg, CrCl > 30 mL/min) AND/OR *Sequential Compression Device (SCD) 5 or more Highest Order ONE of the following medications: *Heparin 5000 units SQ TID (Preferred with Epidurals) *Enoxaparin/Lovenox 40 mg SQ daily (WT < 150 kg, CrCl > 30 mL/min) *Enoxaparin/Lovenox 30 mg SQ daily (WT < 150 kg, CrCl > 10-29 mL/min) *Enoxaparin/Lovenox 30 mg SQ BID (WT < 150 kg, CrCl > 30 mL/min) AND *Sequential Compression Device (SCD) Assessment and Plan - Assessment (1) DKA (diabetic ketoacidoses) Code(s): E13.10 - Other specified diabetes mellitus with ketoacidosis without coma Status: Acute (2) Dehydration Code(s): E86.0 - Dehydration Status: Acute (3) Gastroenteritis Code(s): K52.9 - Noninfective gastroenteritis and colitis, unspecified Status : Acute - Plan This is a 57-year-old female patient with a known medical history of hypertension, insulin-dependent diabetes and hypothyroidism presented to the ED with complaints of nausea, vomiting, diarrhea and abdominal pain times 1 week. Acute diabetic ketoacidosis History of insulin-dependent diabetes -Patient complaints of recent sickness and inability to tolerate anything by mouth as well as not taking her insulin recently x 1 week. -Hemoconcentrated with hemoglobin 16.0/hematocrit 47.9. KUB G done showing pH of 7.32/PC02 25/P02 59/HCO3 13/Carboxyhemoglboin 5.2. Anion gap 23. -Patient was placed on insulin drip. Transitioned to long-acting Levemir 20 units at bedtime. Was given Levemir 10 units today. Continue to follow trends. -Accu-Chek before meals at bedtime, sliding scale, cover as needed. -Diabetic diet as tolerated. Tolerating well at this time. -Antiemetics as needed. -Continue to trend BMP. Continue close monitoring. Abdominal pain, nausea and vomiting. Improving. Electrolyte abnormality including severe hypokalemia and hyponatremia and hypophosphatemia suspect secondary to above Possibly secondary to DKA, rule out gastroenteritis -Abdominal/pelvis CT reviewed showing no acute findings. -Mild leukocytosis 13.5, likely secondary to above. Will repeat CBC and follow. -Na 129, K 3.1, magnesium 1.1 and phos 1.4 on presentation. Electrolyte replacement per protocol. -Zofran available as needed. Nausea has improved significantly. -Patient is tolerating p.o. intake. Ensure hydration continue IV fluids for now. -Continue to monitor and trend BMP. History of thyroid atrophy and subsequent hypothyroidism -Continue home levothyroxine when tolerated PO intake. History of anxiety and depression -Continue home Seroquel. Tobacco abuse: Encouraged cessation. Nicotine patch placed. DVT prophylaxis: SCDs, ambulation. (1) DKA (diabetic ketoacidoses) Qualifiers: Diabetes mellitus type: type 1 Diabetes mellitus complication detail: without coma Qualified Code(s): E10.10 - Type 1 diabetes mellitus with ketoacidosis without coma
[2018-03-09] MEDS ORDERED: Dextrose 50% in Water 50 ML Vial IV.PUSH PRN ×2 (10:46→17:32)
[2018-03-09] MEDS: Potassium Chlor 20 mEq Premix 20 MEQ/100 ML PIGGYBACK IV.SIG PRN ×3 (10:53→18:52)
[2018-03-09 11:06] LABS: Beta Hydroxybutyric Acid 3.46 mmol/L (0.00-0.39); Calcium 7.9 mg/dL (8.5-10.1); Carbon Dioxide 16.5 meq/L (21.0-32.0); Magnesium 1.7 mg/dL (1.5-2.5); Phosphorus 1.4 mg/dL (2.5-4.9); Potassium 3.1 meq/L (3.5-5.1)
[2018-03-09] MEDS: Insulin NovoLOG Aspart Correctional Sugar Inj SQ SCH ×3 (12:07→21:44)
[2018-03-09] MEDS: Insulin Detemir Inj 1,000 UNIT/10 ML Vial SQ SCH (12:07)
[2018-03-09 17:03] LABS: Baso % (Auto) 0.5 % (0.0-2.0); Eos # (Auto) 0.1 th/mm3 (0.0-0.4); Eos % (Auto) 0.8 % (0.0-4.0); Hematocrit 41.3 % (35.0-46.0); Lymph # (Auto) 2.8 th/mm3 (1.0-4.8); Lymph % (Auto) 31.5 % (9.0-44.0); Mean Corpuscular Hemoglobin 29.4 pg (27.0-34.0); Mean Corpuscular Volume 86.5 fL (80.0-100.0); Mean Platelet Volume 8.4 fL (7.0-11.0); Mono # (Auto) 0.6 th/mm3 (0.0-0.9); Mono % (Auto) 6.3 % (0.0-8.0); Neut # (Auto) 5.4 th/mm3 (1.8-7.7); Neut % (Auto) 60.9 % (16.0-70.0); Platelet Count 287 th/mm3 (150-450); Red Blood Count 4.77 mil/mm3 (4.00-5.30); Red Cell Distribution Width 14.7 % (11.6-17.2); White Blood Count 8.9 th/mm3 (4.0-11.0)
[2018-03-09 17:16] LABS: Calcium 7.9 mg/dL (8.5-10.1); Carbon Dioxide 19.2 meq/L (21.0-32.0); Magnesium 1.3 mg/dL (1.5-2.5); Phosphorus 0.7 mg/dL (2.5-4.9)
[2018-03-09 17:22] LABS: Potassium 2.8 meq/L (3.5-5.1)
[2018-03-09] MEDS ORDERED: Potassium Phosphate 500 MG Soluble Tablet PO ONE (18:00)
[2018-03-09] MEDS ORDERED: traZODone 50 MG Tablet PO SCH (21:00)
[2018-03-09] MEDS ORDERED: Insulin Detemir Inj 1,000 UNIT/10 ML Vial SQ SCH (21:00)
[2018-03-09 21:59] LABS: Potassium 3.2 meq/L (3.5-5.1)
[2018-03-09 22:02] LABS: Calcium 7.7 mg/dL (8.5-10.1)
[2018-03-09 22:10] LABS: Beta Hydroxybutyric Acid 1.24 mmol/L (0.00-0.39); Carbon Dioxide 17.8 meq/L (21.0-32.0)
--- NOTE | 2018-03-09 23:27 | ECG ---
Date Performed: 03/08/2018 Time Performed: 19:12:53 PTAGE: 57 years EKG: ECTOPIC ATRIAL RHYTHM ANTERIOR MYOCARDIAL INFARCTION INFERIOR MYOCARDIAL INFARCTION ABNORMA L ECG PREVIOUS TRACING : 07/20/2017 17.37 DOCTOR: Ade Celis Interpretating Date/Time 03/09/2018 23:25:39
[2018-03-09] MEDS ORDERED: Magnesium Oxide 400 MG Tablet PO ONE (23:41)
[2018-03-10] MEDS: Sod Chloride 0.9% Inj 1,000 ML IV.CONT SCH ×2 (00:16→06:10)
[2018-03-10] MEDS: Potassium Chlor 20 mEq Premix 20 MEQ/100 ML PIGGYBACK IV.SIG PRN ×2 (01:45→05:38)
[2018-03-10] MEDS: Chlorhexidine Gluconate 2% 1 Pack (2 Cloths) TOPICAL SCH (04:37)
[2018-03-10 04:51] LABS: Baso % (Auto) 0.5 % (0.0-2.0); Eos # (Auto) 0.1 th/mm3 (0.0-0.4); Eos % (Auto) 0.8 % (0.0-4.0); Hematocrit 39.9 % (35.0-46.0); Hemoglobin 13.4 gm/dL (11.6-15.3); Lymph % (Auto) 39.3 % (9.0-44.0); Mean Corpuscular HGB Conc 33.7 % (32.0-36.0); Mean Corpuscular Hemoglobin 29.5 pg (27.0-34.0); Mean Corpuscular Volume 87.5 fL (80.0-100.0); Mean Platelet Volume 8.3 fL (7.0-11.0); Mono # (Auto) 0.6 th/mm3 (0.0-0.9); Mono % (Auto) 7.5 % (0.0-8.0); Neut # (Auto) 3.8 th/mm3 (1.8-7.7); Neut % (Auto) 51.9 % (16.0-70.0); Platelet Count 239 th/mm3 (150-450); Red Blood Count 4.57 mil/mm3 (4.00-5.30); Red Cell Distribution Width 14.6 % (11.6-17.2); White Blood Count 7.5 th/mm3 (4.0-11.0)
[2018-03-10] MEDS ORDERED: Morphine Inj 4 MG/ML Vial IV.PUSH ONE (04:53)
[2018-03-10 04:57] LABS: Chloride 107 meq/L (98-107); Sodium 139 meq/L (136-145)
[2018-03-10 05:00] LABS: Anion Gap 10 meq/L (5-15); Blood Urea Nitrogen 3 mg/dL (7-18); Calcium 7.9 mg/dL (8.5-10.1); Carbon Dioxide 22.3 meq/L (21.0-32.0); Glucose,Random 153 mg/dL (74-106); Magnesium 1.1 mg/dL (1.5-2.5)
[2018-03-10 05:04] LABS: Glomerular Filtration Rate Greater Than 89 mL/min (>89)
[2018-03-10] MEDS: Insulin NovoLOG Aspart Correctional Sugar Inj SQ SCH ×2 (08:00→12:36)
--- NOTE | 2018-03-10 08:24 | P.PNIM ---
Subjective Interval history: 57-year-old female who is seen examined today for follow-up on diabetic ketoacidosis, nausea, vomiting. Patient is doing much better at this time. She is tolerating diet without any complications. Patient has not had any recurrent vomiting. Diabetes is under control at this time. Vital signs are stable. Patient remains afebrile. Patient's care was discussed with the patient extensively. Discussed with her about use her of her medications. She states that she discontinued her medications a couple days prior to coming the hospital because she had the nausea, vomiting, diarrhea. Patient openly admits that she does not check her blood glucose at home because she is tired of poking her fingers. I counseled patient extensively on the need to continue monitor her diabetes more efficiently. Physical Exam Vital signs: Vital Signs 03/09/18 09:00 03/09/18 09:11 03/09/18 09:16 Temperature Pulse Rate 74 74 76 Respiratory Rate 15 15 15 Blood Pressure 84/56 L 100/64 Pulse Oximetry 94 L 94 L 94 L 03/09/18 10:00 03/09/18 10:11 03/09/18 11:00 Temperature Pulse Rate 78 78 74 Respiratory Rate 12 15 15 Blood Pressure 98/65 L Pulse Oximetry 96 97 03/09/18 11:11 03/09/18 12:00 03/09/18 12:11 Temperature Pulse Rate 74 78 80 Respiratory Rate 15 14 22 Blood Pressure 91/50 L 95/68 L Pulse Oximetry 96 98 98 03/09/18 13:00 03/09/18 13:04 03/09/18 13:38 Temperature 98.0 F Pulse Rate 80 78 82 Respiratory Rate 16 18 24 Blood Pressure 95/68 L 100/68 Pulse Oximetry 96 96 03/09/18 14:00 03/09/18 15:00 03/09/18 15:11 Temperature Pulse Rate 80 76 74 Respiratory Rate 12 13 18 Blood Pressure 95/60 L Pulse Oximetry 98 97 96 03/09/18 16:00 03/09/18 16:11 03/09/18 17:00 Temperature 98.5 F Pulse Rate 78 76 80 Respiratory Rate 16 12 12 Blood Pressure 94/63 L 94/63 L Pulse Oximetry 99 98 99 03/09/18 17:11 03/09/18 18:00 03/09/18 18:11 Temperature Pulse Rate 74 78 76 Respiratory Rate 12 12 Blood Pressure 94/49 L 109/75 Pulse Oximetry 100 100 95 03/09/18 19:11 03/09/18 20:00 03/09/18 21:11 Temperature 98.3 F Pulse Rate 82 80 81 Respiratory Rate 12 24 21 Blood Pressure 101/59 L 106/68 100/66 Pulse Oximetry 98 97 97 03/09/18 22:00 03/09/18 23:00 03/10/18 00:00 Temperature Pulse Rate 86 72 74 Respiratory Rate 28 H 11 L Blood Pressure 98/62 L 87/57 L Pulse Oximetry 98 95 03/10/18 00:11 03/10/18 01:00 03/10/18 02:00 Temperature 98.8 F Pulse Rate 76 76 92 H Respiratory Rate 15 20 33 H Blood Pressure 87/63 L 86/61 L 90/60 L Pulse Oximetry 98 97 97 03/10/18 03:00 03/10/18 04:00 03/10/18 04:11 Temperature 99.2 F Pulse Rate 72 74 76 Respiratory Rate 16 16 Blood Pressure 93/64 L 89/53 L Pulse Oximetry 95 100 03/10/18 05:11 03/10/18 06:00 03/10/18 06:08 Temperature Pulse Rate 86 74 Respiratory Rate 24 14 14 Blood Pressure 91/64 L 104/66 Pulse Oximetry 96 96 Intake & Output 03/09/18 03/10/18 03/10/18 18:59 06:59 18:59 Intake Total 2655 / 2655 2200 / 2200 Output Total 1300 / 1300 1900 / 1900 Balance 1355 / 1355 300 / 300 Weight 73.2 kg Intake: IV 2175 / 2175 2200 / 2200 D5W/Normal Saline Inj 1,000 ML 800 / 800 @ 200 mls/hr IV.CONT .Q5H ROCKY Rx#:[id number] NovoLIN R (IV Infusion) 100 50 / 50 UNIT In NS Inj 99 ML @ 7 UNITS/ HR 7 mls/hr IV.CONT TITRATE PRN Rx#:[id number] NS Inj 1,000 ML @ 150 mls/hr IV 925 / 925 1999 / 1999 .CONT .Q6H40M ROCKY Rx#: [id number] Magnesium Sulfate 1 gm/D5W 100 100 / 100 ml Premix 100 ML @ 100 mls/hr IV.SIG ONCE ONE Rx#:[id number] KCl 20 mEq Premix Inj 20 meq In 300 / 300 200 / 200 100 ml @ 50 mls/hr IV.SIG Q2H PRN Rx#:[id number] Oral 480 / 480 Output: Urine 1300 / 1300 1900 / 1900 Other: Date of Last Bowel Movement 03/09/18 03/09/18 # Bowel Movements 2 Narrative: GENERAL: Well-developed, well-nourished, in no acute distress. alert and orientated HEENT: Head is normocephalic without any lesions or masses noted. Facial features are symmetric. Eyes: Extraocular muscles are intact. Conjunctivae were clear. Right eye tearing NECK: Supple without any masses. Trachea midline no deviation. No JVD, CARDIAC: Regular rhythm, regular rate. S1/S2 are heard. No murmurs gallops or rubs. LUNGS: Clear to auscultation bilaterally. No wheeze, rhonchi or rales. No use of accessory muscles on inspiration or expiration. ABDOMEN: Soft, nontender. Nondistended. Bowel sounds heard in all 4 quadrants. No organomegaly or masses. Negative rebound, negative guarding EXTREMITIES: No edema, pulses are equal bilaterally. No cyanosis or clubbing NEUROLOGY: Mood and affect appear appropriate. Cranial nerves II through XII grossly intact. Moving all extremities, speech is clear Results Labs CBC & Chem 7: 03/10/18 04:25 03/10/18 04:25 Assessment and Plan (1) DKA (diabetic ketoacidoses): Code(s): E13.10 - Other specified diabetes mellitus with ketoacidosis without coma Status: Acute (2) Dehydration: Code(s): E86.0 - Dehydration Status: Acute (3) Gastroenteritis: Code(s): K52.9 - Noninfective gastroenteritis and colitis, unspecified Status: Acute Plan Acute diabetic ketoacidosis, resolved History of insulin-dependent diabetes -Patient complaints of recent sickness and inability to tolerate anything by mouth as well as not taking her insulin recently x 1 week. -Patient was initially started on insulin IV, anion gap has closed -Levemir 20 units at bedtime. Was given Levemir 10 units today. Continue to follow trends. -Accu-Chek before meals at bedtime, sliding scale, cover as needed. Abdominal pain, nausea and vomiting. Resolved Electrolyte abnormality including severe hypokalemia and hyponatremia and hypophosphatemia suspect secondary to above Possibly secondary to DKA, rule out gastroenteritis -Abdominal/pelvis CT reviewed showing no acute findings. -Continue to monitor elect lites replete as needed -Patient tolerating diet at this time -C. difficile testing was negative -Imodium as needed -Zofran as needed History of thyroid atrophy and subsequent hypothyroidism -Continue home levothyroxine History of anxiety and depression -Continue home Seroquel. Tobacco abuse: -Encouraged cessation. -Nicotine patch placed. DVT prophylaxis: -Sequential compression devices -Early ambulation Discharge Planning: Discharge home in stable condition Activity: Ad vincent. Diet: Diabetic diet Medication per medication reconciliation Follow-up with primary medical doctor in 1 week Progress Note: Quality VTE Deep Vein Thrombosis/Pulmonary Embolism Present on Admission: No _ (1) DKA (diabetic ketoacidoses) Qualifiers: Diabetes mellitus complication detail: without coma Diabetes mellitus type: type 1 Qualified Code(s): E10.10 - Type 1 diabetes mellitus with ketoacidosis without coma
[2018-03-10] MEDS ORDERED: Loperamide 2 MG Capsule PO PRN (08:30)
[2018-03-10] MEDS: Senna/Docusate Sodium 8.6/50 MG Tablet PO SCH (09:04)
[2018-03-10] MEDS: Insulin Detemir Inj 1,000 UNIT/10 ML Vial SQ SCH (09:04)
--- NOTE | 2018-03-11 00:56 | ECG ---
Date Performed: 03/10/2018 Time Performed: 04:02:15 PTAGE: 57 years EKG: POSSIBLE ECTOPIC RHYTHM MARKED LEFT AXIS DEVIATION LOW QRS VOLTAGE IN PRECORDIAL LEADS POSS IBLE ANTERIOR MYOCARDIAL INFARCTION POSSIBLE INFERIOR MYOCARDIAL INFARCTION ABNORMAL ECG PREVIOUS TRACING : 03/08/2018 19.12 Since the previous tracing, no significant change noted DOCTOR: Arnold Brown Interpretating Date/Time 03/11/2018 00:54:57
== END 2018-03-10 12:15 | disposition home or self-care (01) | DRG 638 ==
LOC: PHED 18:36 → PHEDA 21:03 → PHICU 21:55 → PHEDA 22:02
PROVIDERS: ADMIT Hospitalist; ATTEND Hospitalist
DX: I10 Essential (primary) hypertension; Z79.82 Long term (current) use of aspirin; Z95.5 Presence of coronary angioplasty implant and graft; Z79.4 Long term (current) use of insulin; F32.9 Major depressive disorder, single episode, unspecified; F41.9 Anxiety disorder, unspecified; E87.6 Hypokalemia; K52.9 Noninfective gastroenteritis and colitis, unspecified; F17.210 Nicotine dependence, cigarettes, uncomplicated; E03.9 Hypothyroidism, unspecified; E10.10 Type 1 diabetes mellitus with ketoacidosis without coma; E83.39 Other disorders of phosphorus metabolism; E87.1 Hypo-osmolality and hyponatremia; E86.0 Dehydration
CPT/HCPCS: 74177; 80048; 80053; 81001; 82010; 82550; 82803; 82805; 82948; 82962; 83605; 83690; 83735; 84100; 84484; 85025; 87493; 87641; 90761; 90765; 90775; 93005; 96361; 96365; 96375; 99291; J1815; J1817; J2270; J2405; J3475; J3480; J7030; J7042; Q9967